=== PATIENT | male | born 1960 | race Caucasian/White ===

== ENCOUNTER → 2016-03-02 | Outpatient (CLI) | payer MEDICARE, OTHER ==
[~2016-03-02] MED LIST: ASPI1TAB PO; ATOR1TAB18 PO; COUM2TAB10 PO; ELIQ5TAB PO; GABA-283 PO; GLYB5TA PO; INSUDET SC; ISOS30TA4 PO; LASI40TA PO; LISI-538 PO; METF1000 PO; METF500T4 PO; METO5TAB2 PO; NITR4TASL SL; ONGL1TAB9 PO
--- NOTE | 2016-03-02 15:50 | REP ---
RENAL ULTRASOUND: Real-time sonographic evaluation of the kidneys performed and demonstrates both kidneys to be mildly prominent in size, right kidney measuring 13.8 x 5.5 x 5.9 cm and left kidney 14.3 x 5.6 x 6.5 cm. There is no hydronephrosis bilaterally. No renal mass or nephrolithiasis is seen. Urinary bladder is not distended and not evaluated. IMPRESSION: Mildly prominent size of the kidneys, but otherwise negative renal ultrasound. Signed by Edgar Yanes MD 03/03/2016 05:06 P
== END ==
LOC: M RAD 07:47
PROVIDERS: ATTEND Family Medicine
DX: E11.21 Type 2 diabetes mellitus with diabetic nephropathy (principal)

== ENCOUNTER → 2016-03-29 | Outpatient (CLI) | payer MEDICARE, OTHER ==
[~2016-03-29] MED LIST changes: +BREO1INH INH; +FURO1TAB15 PO; +GLIP5TAB8 PO; +INSULANT SC; +OXYC-517 PO; +PROA1AER INH; +SPIR25TA2 PO; +VITA100037 PO
== END ==
LOC: M CARPUL 08:28
PROVIDERS: ATTEND Family Medicine
DX: J44.1 Chronic obstructive pulmonary disease with (acute) exacerbation (principal)

== ENCOUNTER → 2016-03-31 | Outpatient (CLI) | payer OTHER, MEDICARE ==
[~2016-03-31] VITALS: Ht 175.3 cm; Wt 104.3 kg
[~2016-03-31] MED LIST changes: +LIDOCAINE 2% INJ 100 MG/5 ML SDV (FOR ANES.) As Ordered ONE; +NS 1,000 ML IV SCH; +PROPOFOL 200 MG/20 ML VIAL As Ordered ONE; +fentaNYL 100 MCG/2 ML INJECTION (J3010) As Ordered ONE
--- NOTE | 2016-03-31 07:51 | ROOR ---
Patient Name: Gonzalez Soliz Procedure Date: 03/31/2016 7:32 AM Date of : 1960 Age: 55 Room: [facility] Gender: Male Note Status: Finalized Procedure: Upper GI endoscopy + biopsies Indications: Heartburn, Exclusion of Vyas's esophagus Providers: Moe Starr MD Referring MD: Ansley SANDHU MD Requesting Provider: Medicines: Monitored Anesthesia Care Complications: No immediate complications. Procedure: Pre-Anesthesia Assessment: - The heart rate, respiratory rate, oxygen saturations, blood pressure, adequacy of pulmonary ventilation, and response to care were monitored throughout the procedure. The Endoscope was introduced through the mouth, and advanced to the second part of duodenum. The upper GI endoscopy was accomplished without difficulty. The patient tolerated the procedure well. Findings: The Z-line was irregular and was found 35 cm from the incisors. Multiple biopsies were obtained with cold forceps for evaluation to rule out Vyas's Esophagus randomly at the gastroesophageal junction. A medium-sized hiatal hernia was present. No other significant abnormalities were identified in a careful examination of the stomach. Localized mild inflammation characterized by congestion (edema) and erosions was found in the first portion of the duodenum. The exam was otherwise without abnormality. Impression: - Z-line irregular, 35 cm from the incisors. - Medium-sized hiatal hernia. - Chronic duodenitis. - The examination was otherwise normal. - Multiple biopsies were obtained at the gastroesophageal junction. - The examination was otherwise normal. Recommendation: - Patient has a contact number available for emergencies. The signs and symptoms of potential delayed complications were discussed with the patient. Return to normal activities tomorrow. Written discharge instructions were provided to the patient. - High fiber diet. - Discharge patient to home. - Continue present medications. - Await pathology results. - Telephone GI clinic for pathology results in 1 week. - Return to referring physician. - The findings and recommendations were discussed with the patient's family. Moe Starr MD Moe Starr MD 03/31/2016 7:51:01 AM This report has been signed electronically. Number of Addenda: 0 Note Initiated On: 03/31/2016 7:32 AM Estimated Blood Loss: Estimated blood loss: none.
--- NOTE | 2016-03-31 08:03 | ROOR ---
Patient Name: Gonzalez Soliz Procedure Date: 03/31/2016 7:33 AM Date of : 1960 Age: 55 Room: [facility] Gender: Male Note Status: Finalized Procedure: Colonoscopy to Cecum Indications: Screening for colorectal malignant neoplasm Providers: Moe Starr MD Referring MD: Ansley SANDHU MD Requesting Provider: Medicines: Monitored Anesthesia Care Complications: No immediate complications. Procedure: Pre-Anesthesia Assessment: - The heart rate, respiratory rate, oxygen saturations, blood pressure, adequacy of pulmonary ventilation, and response to care were monitored throughout the procedure. The Colonoscope was introduced through the anus and advanced to the cecum, identified by appendiceal orifice and ileocecal valve. The colonoscopy was performed without difficulty. The patient tolerated the procedure well. The quality of the bowel preparation was excellent. Findings: The perianal and digital rectal examinations were normal. Non-bleeding internal hemorrhoids were found during retroflexion. The hemorrhoids were small and Grade I (internal hemorrhoids that do not prolapse). No other significant abnormalities were identified in a careful examination of the remainder of the colon. The exam was otherwise without abnormality on direct and retroflexion views. Impression: - Non-bleeding internal hemorrhoids. - The examination was otherwise normal on direct and retroflexion views. - No specimens collected. - The exam was otherwise normal to the cecum. Recommendation: - Patient has a contact number available for emergencies. The signs and symptoms of potential delayed complications were discussed with the patient. Return to normal activities tomorrow. Written discharge instructions were provided to the patient. - High fiber diet. - Discharge patient to home. - Continue present medications. - Repeat colonoscopy in 10 years for screening purposes. - Return to referring physician. - The findings and recommendations were discussed with the patient's family. Moe Starr MD Moe Starr MD 03/31/2016 8:03:00 AM This report has been signed electronically. Number of Addenda: 0 Note Initiated On: 03/31/2016 7:33 AM Estimated Blood Loss: Estimated blood loss: none.
[2016-03-31 08:25] VITALS: BP 139/77
== END ==
LOC: M OPP 06:32
PROVIDERS: ATTEND Internal Medicine Gastroenterology
DX: Z12.11 Encounter for screening for malignant neoplasm of colon (principal); K64.0 First degree hemorrhoids; R12 Heartburn; K22.8 Other specified diseases of esophagus; K44.9 Diaphragmatic hernia without obstruction or gangrene; K29.80 Duodenitis without bleeding; I25.10 Atherosclerotic heart disease of native coronary artery without angina pectoris; I48.91 Unspecified atrial fibrillation; Z95.1 Presence of aortocoronary bypass graft; Z95.0 Presence of cardiac pacemaker; R19.4 Change in bowel habit; E78.00 Pure hypercholesterolemia, unspecified; E11.9 Type 2 diabetes mellitus without complications; Z87.891 Personal history of nicotine dependence
CPT/HCPCS: 43239; 88305; 99156; 99157; G0121; J3010

== ENCOUNTER → 2016-04-09 | Outpatient (REF) | payer MEDICARE ==
[~2016-04-09] MED LIST changes: -LIDOCAINE 2% INJ 100 MG/5 ML SDV (FOR ANES.) As Ordered ONE; -NS 1,000 ML IV SCH; -PROPOFOL 200 MG/20 ML VIAL As Ordered ONE; -fentaNYL 100 MCG/2 ML INJECTION (J3010) As Ordered ONE
[2016-04-09 16:33] LABS: INR 1.24
[2016-04-09 16:50] LABS: ALBUMIN 3.1 GM/DL (3.2-5.2); ALBUMIN/GLOBULIN RATIO 0.82 (1.00-1.93); BILIRUBIN,TOTAL 0.8 MG/DL (0.2-1.0); CREATININE FOR GFR 1.51 MG/DL (0.70-1.30); GLOMERULAR FILTRATION RATE 51.3 (>56); TOTAL PROTEIN 6.9 GM/DL (6.4-8.2)
== END ==
LOC: M SFHCLERA 12:09
PROVIDERS: ATTEND Family Medicine
DX: E11.21 Type 2 diabetes mellitus with diabetic nephropathy (principal)
CPT/HCPCS: 80053; 85610; 85730; G0463

== ENCOUNTER 2016-07-06 14:56 | Emergency (ER) | payer OTHER, MEDICARE ==
[~2016-07-06] VITALS: Ht 175.3 cm; Wt 108.9 kg
[2016-07-06 14:56] VITALS: BP 157/87
== END 2016-07-06 16:01 | disposition home or self-care (01) ==
LOC: M ED 15:56
DX: H53.8 Other visual disturbances (principal); I25.2 Old myocardial infarction; I11.0 Hypertensive heart disease with heart failure; I50.9 Heart failure, unspecified; E78.00 Pure hypercholesterolemia, unspecified; M54.9 Dorsalgia, unspecified; F41.9 Anxiety disorder, unspecified; Z87.891 Personal history of nicotine dependence; Z88.8 Allergy status to other drugs, medicaments and biological substances; Z79.899 Other long term (current) drug therapy; Z79.01 Long term (current) use of anticoagulants; Z79.891 Long term (current) use of opiate analgesic; Z79.51 Long term (current) use of inhaled steroids; Z79.4 Long term (current) use of insulin; Z95.5 Presence of coronary angioplasty implant and graft; Z95.1 Presence of aortocoronary bypass graft; Z86.73 Personal history of transient ischemic attack (TIA), and cerebral infarction without residual deficits

== ENCOUNTER 2016-09-28 14:20 | Emergency (ER) | payer MEDICARE, OTHER ==
[~2016-09-28] VITALS: Ht 175.3 cm; Wt 111.8 kg
[~2016-09-28 14:20] MED LIST changes: -ATOR1TAB18 PO; +ATOR80TA59 PO; -COUM2TAB10 PO; +COUM2TAB22 PO; -FURO1TAB15 PO; +FURO80TA2 PO; -METF1000 PO; +METF10004 PO; -PROA1AER INH; +PROAAER10 INH; -VITA100037 PO; +VITA100067 PO
[2016-09-28] MEDS ORDERED: INSULANT SC ×2 (14:37)
[2016-09-28] MEDS ORDERED: NS 1,000 ML IV SCH (14:46)
[2016-09-28] MEDS: NITROGLYCERIN 0.4 MG SUBL TABLET SL PRN ×2 (15:03→15:08)
[2016-09-28 15:08] VITALS: BP 115/60
[2016-09-28 15:23] LABS: INR 1.22
[2016-09-28 15:29] LABS: BASO % 0.4 % (0.0-1.0); EOS # 0.2 K/mm3 (0.0-0.50); EOS % 2.1 % (0.0-3.0); LARGE UNSTAINED CELL # 0.1 K/mm3 (0.0-0.4); LARGE UNSTAINED CELL % 0.9 % (0.0-4.0); LYMPH # 1.7 K/mm3 (1.5-4.5); LYMPH % 16.6 % (24.0-44.0); MEAN CORPUSCULAR HGB CONC 32.6 g/dl (32.0-36.5); MEAN CORPUSCULAR VOLUME 85.9 fl (80.0-96.0); MONO # 0.5 K/mm3 (0.0-0.8); MONO % 4.8 % (0.0-5.0); NEUTROPHILS # 7.2 K/mm3 (1.8-7.7); NEUTROPHILS % 75.1 % (36.0-66.0); PLATELET COUNT, AUTOMATED 173 k/mm3 (150-450); RED CELL DISTRIBUTION WIDTH 14.8 % (11.5-14.5); WHITE BLOOD COUNT 9.5 K/mm3 (4.0-10.0)
[2016-09-28] MEDS ORDERED: ACETAMINOPHEN 325 MG TAB PO ONE (15:30)
[2016-09-28 15:40] LABS: ALBUMIN 3.2 GM/DL (3.2-5.2); ALBUMIN/GLOBULIN RATIO 0.7 (1.00-1.93); BILIRUBIN,DIRECT 0.2 MG/DL (0.0-0.2); BILIRUBIN,TOTAL 0.8 MG/DL (0.2-1.0); CALCIUM LEVEL 8.9 MG/DL (8.5-10.1); CREATININE FOR GFR 1.85 MG/DL (0.70-1.30); GLOMERULAR FILTRATION RATE 40.6 (>56); TOTAL PROTEIN 7.8 GM/DL (6.4-8.2)
[2016-09-28 15:48] LABS: POTASSIUM SERUM 5.5 MEQ/L (3.5-5.1)
[2016-09-28] MEDS ORDERED: HEPARIN DRIP 25,000 UNITS in APPROPRIATE DILUENT 1 EA IV SCH (16:22)
--- NOTE | 2016-09-28 16:25 | REP ---
Chest one-view HISTORY: Chest pain Comparison 01/31/2016 The lungs are clear. The cardiac silhouette is enlarged. The pulmonary vasculature is normal in appearance. Impression: Cardiomegaly. Signed by Dave Shabazz MD 09/28/2016 04:16 P
[2016-09-28] MEDS ORDERED: HEPARIN SOD (PORCINE) 5000 UNITS/ML VIAL IV ONE ×2 (16:30)
[2016-09-28] MEDS ORDERED: CLOPIDOGREL 300 MG TAB (PLAVIX) PO ONE (16:30)
[2016-09-28 18:45] VITALS: BP 150/60
--- NOTE | 2016-09-29 13:59 | ECGEPIP ---
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
== END 2016-09-28 19:15 | disposition short-term general hospital (02) ==
LOC: M ED 14:20
DX: I21.4 Non-ST elevation (NSTEMI) myocardial infarction (principal); I20.0 Unstable angina; K85.90 Acute pancreatitis without necrosis or infection, unspecified; R06.02 Shortness of breath; E11.9 Type 2 diabetes mellitus without complications; I51.9 Heart disease, unspecified; Z86.73 Personal history of transient ischemic attack (TIA), and cerebral infarction without residual deficits; G89.29 Other chronic pain; Z95.5 Presence of coronary angioplasty implant and graft; Z95.1 Presence of aortocoronary bypass graft; Z87.891 Personal history of nicotine dependence; Z88.8 Allergy status to other drugs, medicaments and biological substances; Z79.899 Other long term (current) drug therapy; Z79.01 Long term (current) use of anticoagulants; Z79.891 Long term (current) use of opiate analgesic; Z79.4 Long term (current) use of insulin

== ENCOUNTER 2016-11-12 16:36 | Inpatient (IN) | payer MEDICARE ==
[~2016-11-12] VITALS: Ht 175.3 cm; Wt 107.3 kg
[2016-11-12] MEDS ORDERED: CLOP75TA2 PO (16:48)
--- NOTE | 2016-11-12 18:16 | REP ---
Clinical: Shortness of breath. Technique: PA and lateral. Comparison: 09/28/2016. Findings: Cardiomegaly remains stable. Increased bilateral lung markings and findings to suggest cephalization are most compatible with pulmonary vascular congestion and interstitial edema. Lateral view suggest small pleural effusion. Differential diagnosis would include bronchitis. No focal consolidation. No pneumothorax. Skeletal structures intact. Impression: Findings suggest pulmonary vascular congestion/interstitial edema versus bronchitis. Signed by Leobardo Cochran MD 11/12/2016 06:07 P
--- NOTE | 2016-11-12 18:16 | REP ---
Clinical: Pain and swelling . Technique: Yanes scale and color Doppler evaluation using linear high frequency transducer. Findings: Ultrasound examination of the right and left lower extremity deep venous structures from the common femoral vein to the popliteal vein demonstrates normal compressibility flow and wave patterns in response to respiration and augmentation. There is no evidence for deep venous thrombosis. Impression: No evidence for deep venous thrombosis bilaterally . Signed by Leobardo Cochran MD 11/12/2016 06:08 P
[2016-11-12 18:39] LABS: BASO % 0.2 % (0.0-1.0); EOS # 0.1 K/mm3 (0.0-0.50); EOS % 1.7 % (0.0-3.0); LARGE UNSTAINED CELL # 0.1 K/mm3 (0.0-0.4); LARGE UNSTAINED CELL % 1.4 % (0.0-4.0); LYMPH # 1.4 K/mm3 (1.5-4.5); LYMPH % 22.6 % (24.0-44.0); MEAN CORPUSCULAR HGB CONC 32.9 g/dl (32.0-36.5); MEAN CORPUSCULAR VOLUME 88.3 fl (80.0-96.0); MONO # 0.4 K/mm3 (0.0-0.8); MONO % 6.7 % (0.0-5.0); NEUTROPHILS # 4.2 K/mm3 (1.8-7.7); NEUTROPHILS % 67.4 % (36.0-66.0); PLATELET COUNT, AUTOMATED 217 k/mm3 (150-450); WHITE BLOOD COUNT 6.3 K/mm3 (4.0-10.0)
[2016-11-12] MEDS ORDERED: GABA800T PO (18:39)
[2016-11-12] MEDS ORDERED: ACET50TAOT PO (18:39)
[2016-11-12] MEDS ORDERED: METO5TAB2 PO (18:39)
[2016-11-12] MEDS ORDERED: ASPI1TAB PO (18:39)
[2016-11-12 18:46] LABS: INR 1.31
[2016-11-12 19:00] LABS: ALBUMIN 2.9 GM/DL (3.2-5.2); ALBUMIN/GLOBULIN RATIO 0.71 (1.00-1.93); BILIRUBIN,DIRECT 0.2 MG/DL (0.0-0.2); BILIRUBIN,TOTAL 0.9 MG/DL (0.2-1.0); CALCIUM LEVEL 8.6 MG/DL (8.5-10.1); CREATININE FOR GFR 1.59 MG/DL (0.70-1.30); FREE T4 1.29 NG/DL (0.76-1.46); GLOMERULAR FILTRATION RATE 48.4 (>56); POTASSIUM SERUM 3.8 MEQ/L (3.5-5.1)
[2016-11-12] MEDS ORDERED: FUROSEMIDE 40 MG/4 ML VIAL (J1940) IV ONE (20:00)
[2016-11-12] MEDS ORDERED: ACETAMINOPHEN TAB 650MG DOSE (2X325MG) PO PRN (20:45)
[2016-11-12] MEDS ORDERED: GLUCOSE 4 GM CHEW TABLET PO PRN (20:45)
[2016-11-12] MEDS ORDERED: DEXTROSE 50% 50 ML SYRINGE IV PRN (20:45)
[2016-11-12] MEDS ORDERED: GLUCAGON FOR INJ 1 MG VIAL (J1610) SC PRN (20:45)
[2016-11-12] MEDS: LEVEMIR (INSULIN DETEMIR) 1 UNITS/0.01ML SC SCH (21:00)
[2016-11-12] MEDS: HumaLOG INSULIN (NovoLOG) PER UNIT SC SCH (21:00)
--- NOTE | 2016-11-12 21:25 | HPE ---
DATE OF ADMISSION: 11/12/2016 PRIMARY CARE PROVIDER: [facility]. HISTORY OF PRESENT ILLNESS: This patient is a 55-year-old male with past medical history significant for multiple heart attacks, multiple strokes, congestive heart failure (CHF), diabetes, sick sinus syndrome with a pacemaker, who presented to [facility] on 11/12/2016 for increased shortness of breath. The patient stated that he has gained more than 9 pounds in the last few days. Also noted to have increased shortness of breath with dry cough. He cannot lie flat during sleep. Also noted to have significant lower extremity swelling. Denied any associated symptoms. The patient stated that he has been following fluid restriction and he has been compliant with Lasix 80 mg daily; however, the Lasix used to work for him before but he has noticed that he does not urinate as much as he used to with the same dose of Lasix. ALLERGIES: No known drug allergies. PAST MEDICAL HISTORY: 1. Strokes times two in October 2014 and December 2014. The patient had left sided weakness as a residual. 2. Myocardial infarction times four, status post coronary artery bypass graft (CABG) and stent placement. 3. Diabetes. 4. Sick sinus syndrome, status post pacemaker. PAST SURGICAL HISTORY: 1. Quadruple bypass in 2001. 2. Cardiac stent placement in September 2016. SOCIAL HISTORY: The patient used to smoke one pack daily for 20 years, quit 9 years ago. No alcohol use. No recreational drug use. HOME MEDICATIONS: - Tylenol 1000 mg by mouth as needed for pain - Lasix 80 mg by mouth daily - glipizide 2.5 mg by mouth twice a day - Lantus 36 units subcutaneously twice a day - Reglan 5 mg by mouth daily - nitroglycerine 0.4 mg sublingually as needed for chest pain - Eliquis 5 mg by mouth twice a day - aspirin 81 mg by mouth daily - atorvastatin 80 mg by mouth at night - Plavix 75 mg by mouth daily - gabapentin 800 mg by mouth three times a day - isosorbide mononitrate 30 mg by mouth daily - vitamin D 1000 units by mouth daily REVIEW OF SYSTEMS: GENERAL: No fever. No chills. The patient complains of a 9 pound weight gain in the last 2 days. HEENT: No vision change. No auditory changes. CARDIOVASCULAR: No chest pain. No palpitations. The patient does have significant heart history, including myocardial infarction times four, status post quadruple bypass and stent placement. The patient has sick sinus syndrome and is status post pacemaker. The patient also has a history of congestive heart failure (CHF). RESPIRATORY: Complains about increased shortness of breath with a dry cough in the last 2 days. GASTROINTESTINAL: No nausea. No vomiting. No abdominal pain. MUSCULOSKELETAL: Noticed increased swelling of bilateral lower extremities. NEUROLOGIC: The patient has a history of stroke times two, resulted in left sided numbness. OBJECTIVE: VITAL SIGNS: Temperature is 97.5, pulse is 60, respiration rate is 18, blood pressure is 166/92, pulse oximetry is 100% in room air. GENERAL: No sign of acute distress. Morbidly obese. Alert and oriented times three. HEENT: Normocephalic, atraumatic. Extraocular motors are grossly intact. Positive jugular venous distention (JVD). CARDIOVASCULAR: Positive S1, S2. Regular. Pacer on the monitor. RESPIRATORY: Fine crackles bilaterally but no wheezes. ABDOMEN: Distended. Soft, nontender. Bowel sounds present. EXTREMITIES: 3+ pitting edema bilaterally. Multiple small lesions from frequent falls, mainly on the anterior lower extremities. ASSESSMENT AND PLAN: 1. Congestive heart failure (CHF) exacerbation. The patient will be admitted to the progressive care unit (PCU) on inpatient status. Echocardiogram was performed in 2015 that showed preserved global resting systolic function. We will start the patient on Lasix diuresis with holding parameters. The patient is taking Lasix orally; however, the patient stated that the effectiveness of the 80 mg Lasix has not been as great as before. The patient may need adjusting the diuretic regimen during this hospitalization. The patient will be on fluid restriction. We will monitor input, output and daily weights. 2. Myocardial infarction times four. Status post quadruple coronary bypass in 2001 and cardiac stent placement in September 2016. The patient is on aspirin, statin, isosorbide mononitrate. 3. Stroke times two in October 2014 and December 2014 with left sided numbness as a residual. On aspirin and Plavix and Eliquis. 4. Sick sinus syndrome, status post pacer. 5. Diabetes. On Levemir sliding scale. Consistent carbohydrate diet. 6. Deep vein thrombosis (DVT) prophylaxis. On Eliquis.
[2016-11-12] MEDS: APIXABAN 5 MG TAB (ELIQUIS) PO SCH (21:31)
[2016-11-12] MEDS: ATORVASTATIN 20 MG TAB PO SCH (21:32)
[2016-11-12 22:03] VITALS: BP 120/75
[2016-11-12] MEDS: GABAPENTIN 400 MG CAP PO SCH (22:17)
[2016-11-13] VITALS (8 sets, daily range): BP systolic 106–159; BP diastolic 56–85
[2016-11-13] MEDS: FUROSEMIDE 100 MG/10 ML VIAL (J1940) IV SCH ×4 (00:15→17:50)
[2016-11-13 07:25] LABS: MEAN CORPUSCULAR HEMOGLOBIN 27.8 pg (27.0-33.0); MEAN CORPUSCULAR HGB CONC 31.4 g/dl (32.0-36.5); MEAN CORPUSCULAR VOLUME 88.5 fl (80.0-96.0); RED CELL DISTRIBUTION WIDTH 16.1 % (11.5-14.5); WHITE BLOOD COUNT 8.2 K/mm3 (4.0-10.0)
[2016-11-13 07:50] LABS: CALCIUM LEVEL 8.7 MG/DL (8.5-10.1); CREATININE FOR GFR 1.63 MG/DL (0.70-1.30); MAGNESIUM LEVEL 2.1 MG/DL (1.8-2.4); POTASSIUM SERUM 4.2 MEQ/L (3.5-5.1)
[2016-11-13] MEDS: LEVEMIR (INSULIN DETEMIR) 1 UNITS/0.01ML SC SCH ×2 (09:25→20:20)
[2016-11-13] MEDS: HumaLOG INSULIN (NovoLOG) PER UNIT SC SCH ×4 (09:25→20:21)
[2016-11-13] MEDS: VITAMIN D 1,000 INTERNATIONAL UNITS TABLET PO SCH (09:26)
[2016-11-13] MEDS: GABAPENTIN 400 MG CAP PO SCH ×3 (09:26→20:21)
[2016-11-13] MEDS: ASPIRIN 81 MG ENTERIC TAB PO SCH (09:26)
[2016-11-13] MEDS: APIXABAN 5 MG TAB (ELIQUIS) PO SCH ×2 (09:26→20:21)
[2016-11-13] MEDS: CLOPIDOGREL 75 MG TAB PO SCH (09:27)
[2016-11-13] MEDS: ISOSORBIDE MON. (IMDUR) 30 MG XR TAB PO SCH (09:28)
--- NOTE | 2016-11-13 11:23 | IPNPDOC ---
Subjective Date Seen The patient was seen on 11/13/16. Subjective Chief Complaint/HPI The patient is a 55-year-old male admitted with a reason for visit of Chf Exacerbation. Examined at beside. States he feels better from admission, not feeling as short of breath, and is able to finally lay flat. States he is urinating more since admission, and LE swelling is about the same for now. No acute complaints. Constitutional: Denies: Chills, Fever ENT: Denies: Dysphagia Pulmonary: Reports: Dyspnea (much improvement), Denies: Cough Cardiovascular: Reports: Orthopnea (resolving), Paroxysmal Noc. Dyspnea ( improving), Edema (improving), Denies: Chest Pain, Lt Headedness Gastrointestinal: Denies: Nausea, Vomiting, Abdominal Pain Objective Physical Examination General Exam: Positive: Alert, Cooperative, No Acute Distress Eye Exam: Positive: EOMI Neck Exam: Positive: Supple, Negative: JVD (difficult to assess due to body habitus) Chest Exam: Positive: Normal air movement, Rales (b/l lower bases) Heart Exam: Positive: Rate Normal, Regular Rhythm, Normal S1, Normal S2 Abdomen Exam: Positive: Normal bowel sounds, Soft, Negative: Tenderness Extremity Exam: Positive: Edema (2+ b/l LE), Negative: Cyanosis, Tenderness Neuro Exam: Positive: Normal Speech, Negative: Sensation Intact (loss of sensation on left side of body 2/2 previous strokes) Psych Exam: Positive: Mental status NL, Mood NL, Oriented x 3 Assessment /Plan Assessment CHF exacerbation -pt feeling better since admission after diuresing -Continue Lasix IV 80mg q6h, with holding parameters (SBP< 110, HR<60). Possibly switch his home Lasix (PO 80mg) to Torsemide as pt stated he felt it was ineffective -continue fluid restriction. Monitor I/O's, daily weights -PENDING: echo. Previous echo in 2016 showed preserved systolic function Hx of MIs x4 -s/p CABG in 2001, stent in 10/14. -ASA, Imdur, Atorvastatin Hx Stroke x2 -ASA, Plavix, Eliquis Hx of Sick Sinus Syndrome -pacemaker present Diabetes, uncontrolled -pt non-compliant with Insulin at home. A1C at 7.4 -ISS, consistent carb diet -Gabapentin DVT prophylaxis: Eliquis Plan/VTE VTE Prophylaxis Ordered?: Yes VS, I&O, 24H, Fishbone Vital Signs/I&O Vital Signs Date Time Temp Pulse Resp B/P (MAP) Pulse Ox O2 Delivery O2 Flow Rate FiO2 11/13/16 04:15 97.3 60 20 149/79 (102) 97 Room Air 11/12/16 18:34 96 I&O- Last 24 Hours up to 6 AM 11/13/16 05:59 Intake Total 190 ml Output Total 1900 ml Balance -1710 ml Laboratory Data 24H LABS Laboratory Tests 2 11/12/16 18:28: White Blood Count 6.3, Red Blood Count 3.78L, Hemoglobin 11.0L, Hematocrit 33.3L , Mean Corpuscular Volume 88.3, Mean Corpuscular Hemoglobin 29.0, Mean Corpuscular Hemoglobin Concent 32.9, Red Cell Distribution Width 16.0H, Platelet Count 217, Neutrophils (%) (Auto) 67.4H, Lymphocytes (%) (Auto) 22.6L, Monocytes (%) (Auto) 6.7H, Eosinophils (%) (Auto) 1.7, Basophils (%) (Auto) 0.2 , Neutrophils # (Auto) 4.2, Lymphocytes # (Auto) 1.4L, Monocytes # (Auto) 0.4, Eosinophils # (Auto) 0.1, Basophils # (Auto) 0.0, Large Unclassified Cells % 1.4 , Large Unclassified Cells # 0.1, Prothrombin Time 16.6H, Prothromb Time International Ratio 1.31, Activated Partial Thromboplast Time 35.1, Anion Gap 8 , Glomerular Filtration Rate 48.4L, Calcium Level 8.6, Aspartate Amino Transf ( AST/SGOT) 22, Alanine Aminotransferase (ALT/SGPT) 23, Alkaline Phosphatase 182H , Total Bilirubin 0.9, Direct Bilirubin 0.2, Total Creatine Kinase 320H, Creatine Kinase MB 4.9H, Creatine Kinase MB Relative Index 1.53, Troponin I 0.05 , B-Type Natriuretic Peptide 852H, Total Protein 7.0, Albumin 2.9L, Albumin/ Globulin Ratio 0.71L, Thyroid Stimulating Hormone (TSH) 1.140, Free Thyroxine 1.29 11/12/16 21:15: Bedside Glucose (Misc Panel) 77 11/13/16 07:03: Anion Gap 7L, Glomerular Filtration Rate 47.0L, Calcium Level 8.7, Thyroid Stimulating Hormone (TSH) 0.940, Estimated Mean Plasma Glucose 166H, Hemoglobin A1c 7.4H, Magnesium Level 2.1, Triglycerides Level 73, LDL Cholesterol 38.4, Total Cholesterol 88, Non-HDL Cholesterol (LDL + VLDL) 53, Total HDL Cholesterol 35L, Cholesterol/HDL Ratio 2.514 CBC/BMP Laboratory Tests 11/12/16 18:28 Red Blood Count 3.78 L, Mean Corpuscular Volume 88.3, Mean Corpuscular Hemoglobin 29.0, Mean Corpuscular Hemoglobin Concent 32.9, Red Cell Distribution Width 16.0 H, Neutrophils (%) (Auto) 67.4 H, Lymphocytes (%) (Auto ) 22.6 L, Monocytes (%) (Auto) 6.7 H, Eosinophils (%) (Auto) 1.7, Basophils (%) (Auto) 0.2, Neutrophils # (Auto) 4.2, Lymphocytes # (Auto) 1.4 L, Monocytes # ( Auto) 0.4, Eosinophils # (Auto) 0.1, Basophils # (Auto) 0.0 11/13/16 07:03 Red Blood Count 3.99 L, Mean Corpuscular Volume 88.5, Mean Corpuscular Hemoglobin 27.8, Mean Corpuscular Hemoglobin Concent 31.4 L, Red Cell Distribution Width 16.1 H GME ATTESTATION GME ATTESTATION My preceptor for this patient encounter was physically present in the building during the encounter and was fully available. As needed, all aspects of the patient interview, examination, medical decision making process, and medical care plan development were reviewed and approved by the preceptor. Preceptor is aware and concurs with the plan as stated in the body of this note and will attest to such by his/her cosignature. ATTENDING NOTE I, Jeremi Donnelly, have both independently examined this patient as well as reviewed the documentation. I have discussed in detail with the resident the findings and plan of treatment as documented in the residents documentation. I will continue to follow the patient and offer further guidance to the patients care as necessary during this hospital stay. MATTY MALDONADO DO Nov 13, 2016 09:09 JEREMI DONNELLY MD Dec 07, 2016 12:02
--- NOTE | 2016-11-13 12:55 | ECHO ---
DATE: 11/13/2016 INDICATION: Congestive heart failure. Study was performed in emergency department. Patient measures 175 cm and weighs 113 kg. DIMENSIONS: IVS 1.1 LV 5.6 LVPW 1.0 LA 5.3 Aorta 3.3 FINDINGS: The study is of rather difficult technical quality corresponding to patient's body habitus. Patient is in atrial fibrillation with intermittent ventricular pacing. Rate is controlled. FINDINGS: Left ventricle is in upper limits of normal size. There appears to be a septal wall motion abnormality principally localized to distal septum and apex. I suspect that least partly related due to underlying right ventricular pacing, but it appears that there is wall motion abnormality more significant than just to be explained by pacing itself. Overall, left ventricular systolic function though is preserved, I estimate left ventricular ejection fraction (LVEF) around 50-55% . Right ventricle appears mildly dilated but normally contractile. Both atria are enlarged. Left atrium volume index is 32 ml per meter square which would correspond to mild left atrial enlargement. Aortic valve is sclerotic but has preserved mobility. Mitral valve exhibits mild degenerative abnormalities, but mobility of leaflets is preserved. Tricuspid and pulmonic valves appear normal. No pericardial effusion is noted. Inferior vena cava is markedly dilated but has full collapse with respiration indicative of likely mildly elevated central venous pressure. Aortic root is normal. Aortic arch and abdominal aorta were not well seen. There is a pacemaker artifact apparently in right-sided heart chambers. Doppler interrogation reveals no significant aortic stenosis or insufficiency. There is mild mitral insufficiency and mild or possibly mild to moderate tricuspid insufficiency. Calculated pulmonary artery pressure is at least in high 50s or low 60s which would correspond to moderately severe pulmonary hypertension. Evaluation of diastolic function is inconclusive due to underlying atrial fibrillation, but tissue Doppler velocities of mitral annulus are very low (E prime septal 5.0, A prime lateral 4.5 cm/s). This reflects likely advanced diastolic dysfunction. CONCLUSIONS: 1. Study is of fair technical quality. 2. Left ventricle is on upper limits of normal size. There is overall preserved left ventricular (LV) systolic function, but there is septal and apical wall motion abnormality that appears more severe than just to be explained by right ventricular pacing. 3. Likely advanced diastolic dysfunction. 4. Mild mitral and probably mild to moderate tricuspid insufficiency. 5. Elevated central venous pressure. 6. At least moderately severe pulmonary hypertension. 7. Biatrial enlargement. COMMENT: Subacute bacterial endocarditis (SBE) prophylaxis is not recommended. The study is suggestive of both ischemic heart disease as well as pulmonary hypertension. MTDD
--- NOTE | 2016-11-13 17:24 | ECGEPIP ---
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
[2016-11-13] MEDS ORDERED: SLF 3 ML SYR IV PRN (20:00)
[2016-11-13] MEDS: SLF 3 ML SYR IV SCH (20:21)
[2016-11-13] MEDS: ATORVASTATIN 20 MG TAB PO SCH (20:21)
[2016-11-14] MEDS: FUROSEMIDE 100 MG/10 ML VIAL (J1940) IV SCH ×4 (00:46→17:33)
[2016-11-14 03:50] VITALS: BP 123/67
[2016-11-14] MEDS: SLF 3 ML SYR IV SCH ×3 (05:36→21:09)
[2016-11-14 06:17] LABS: MEAN CORPUSCULAR HEMOGLOBIN 28.4 pg (27.0-33.0); MEAN CORPUSCULAR HGB CONC 32.7 g/dl (32.0-36.5); RED CELL DISTRIBUTION WIDTH 15.8 % (11.5-14.5); WHITE BLOOD COUNT 6.7 K/mm3 (4.0-10.0)
[2016-11-14 06:22] LABS: CALCIUM LEVEL 8.8 MG/DL (8.5-10.1); CREATININE FOR GFR 1.53 MG/DL (0.70-1.30); GLOMERULAR FILTRATION RATE 50.6 (>56)
[2016-11-14 07:59] VITALS: BP 125/74
[2016-11-14] MEDS: GABAPENTIN 400 MG CAP PO SCH ×3 (08:52→20:25)
[2016-11-14] MEDS: ISOSORBIDE MON. (IMDUR) 30 MG XR TAB PO SCH (08:53)
[2016-11-14] MEDS: CLOPIDOGREL 75 MG TAB PO SCH (08:53)
[2016-11-14] MEDS: ASPIRIN 81 MG ENTERIC TAB PO SCH (08:53)
[2016-11-14] MEDS: VITAMIN D 1,000 INTERNATIONAL UNITS TABLET PO SCH (08:54)
[2016-11-14] MEDS: LEVEMIR (INSULIN DETEMIR) 1 UNITS/0.01ML SC SCH ×2 (08:54→20:42)
[2016-11-14] MEDS: APIXABAN 5 MG TAB (ELIQUIS) PO SCH ×2 (08:54→20:25)
[2016-11-14] MEDS: HumaLOG INSULIN (NovoLOG) PER UNIT SC SCH ×4 (08:55→20:42)
[2016-11-14 11:41] VITALS: BP 116/57
--- NOTE | 2016-11-14 12:10 | IPNPDOC ---
Text Note Date of Service The patient was seen on 11/14/16. NOTE Subjective: Patient is a 55 year old male with a PMHx of CVA (10/2014, 12/2014, L sided weakness), Diastolic CHF, [place] s/p CABG and stent (09/2016), HTN, DLP, IDDM2 , SSS s/p PM, Peripheral neuropathy and Vitamin D deficiency who presented to the ER with complaints of SOB, LE edema and weight gain of 9 lbs over the last few days. He notes that he is compliant with his medications, but still hasn't urinated as much as he used to. He did note a recent history of worsening renal function after his cardiac cath last month. Patient was admitted to PCU for CHF exacerbation. Patient was seen and examined at the bedside. Currently he notes that he has improvement in his breathing, no cough, LE edema has improved. Objective: Vitals (See below) General: Lying in bed, no acute distress, comfortable, AAOx3 HEENT: NC, AT CVS: RRR, +S1S2 Lungs: Fair air entry b/l, + crackles at b/l lung dillon Abdomen: Soft, ND, NT Extremities: 1+ pitting edema bilaterally, - Calf tenderness Assessment and plan: Dyspnea - likely 2/2 decompensated diastolic CHF - possibly 2/2 ineffective lasix dose given recent change in renal function - Presented with SOB, cough and LE edema - Physical shows improvement in his LE edema - BNP elevated at 852 - CXR 11/12: Pulmonary vascular congestion / interstitial edema / bronchitis - ECHO 11/13: Preserved EF, Advanced DD, Septal and Apical wall motion abnormalities - c/w strict ins/outs, daily weights, head of bed elevation - Negative fluid balance of 4000 cc currently - will c/w net negative protocol with Lasix 80 IV q6h CAD s/p CABG and Recent Stent placement - No chest pain currently - EKG reveals paced rhythm - Troponin x1 not elevated - Will request records from [facility] to determine where patient received stent - c/w ASA, Plavix, Atorvastatin, Isosorbide Mononitrate, Elevated Cr on CKD3 - possibly cardiorenal, possibly medication induced (Lasix) - Baseline Cr of 1.3-1.5 - Remains stable from admission at 1.59 - Will continue to follow Cr Hypernatremia - possibly 2/2 lasix - will continue to monitor Normocytic anemia - Hg baseline of 12-13 - Currently lower at 11 - will continue to monitor CVA (10/2014, 12/2014) - c/w ASA, Plavix and Atorvastatin SSS s/p PM IDDM2 - c/w ISS and Levemir Vitamin D deficiency - c/w Supplementation DVT prophylaxis - on full anticoagulation with Eliquis VS,Fishbone, I+O VS, Fishbone, I+O Laboratory Tests 11/14/16 05:33 Red Blood Count 3.80 L, Mean Corpuscular Volume 87.0, Mean Corpuscular Hemoglobin 28.4, Mean Corpuscular Hemoglobin Concent 32.7, Red Cell Distribution Width 15.8 H, Calcium Level 8.8 Vital Signs Date Time Temp Pulse Resp B/P (MAP) Pulse Ox O2 Delivery O2 Flow Rate FiO2 11/14/16 11:41 97.2 59 18 116/57 (76) 93 Room Air 11/12/16 18:34 96 I&O- Last 24 Hours up to 6 AM 11/14/16 06:00 Intake Total 1240 ml Output Total 2920 ml Balance -1680 ml JESUS DONNELLY MD Nov 14, 2016 12:10
[2016-11-14 15:57] VITALS: BP 128/67
[2016-11-14 19:59] VITALS: BP 143/69
[2016-11-14] MEDS: ATORVASTATIN 20 MG TAB PO SCH (20:25)
[2016-11-15] VITALS (8 sets, daily range): BP systolic 117–156; BP diastolic 70–86
[2016-11-15] MEDS: FUROSEMIDE 100 MG/10 ML VIAL (J1940) IV SCH ×3 (00:57→17:18)
[2016-11-15 05:22] LABS: MEAN CORPUSCULAR HEMOGLOBIN 27.7 pg (27.0-33.0); MEAN CORPUSCULAR HGB CONC 31.5 g/dl (32.0-36.5); RED CELL DISTRIBUTION WIDTH 15.8 % (11.5-14.5); WHITE BLOOD COUNT 7.5 K/mm3 (4.0-10.0)
[2016-11-15 05:43] LABS: CALCIUM LEVEL 9.3 MG/DL (8.5-10.1); CREATININE FOR GFR 1.66 MG/DL (0.70-1.30); MAGNESIUM LEVEL 2.1 MG/DL (1.8-2.4); POTASSIUM SERUM 3.5 MEQ/L (3.5-5.1)
[2016-11-15] MEDS: SLF 3 ML SYR IV SCH ×3 (06:06→20:06)
[2016-11-15] MEDS: LEVEMIR (INSULIN DETEMIR) 1 UNITS/0.01ML SC SCH ×2 (08:52→20:06)
[2016-11-15] MEDS: ISOSORBIDE MON. (IMDUR) 30 MG XR TAB PO SCH (08:53)
[2016-11-15] MEDS: ASPIRIN 81 MG ENTERIC TAB PO SCH (08:53)
[2016-11-15] MEDS: HumaLOG INSULIN (NovoLOG) PER UNIT SC SCH ×4 (08:53→20:06)
[2016-11-15] MEDS: VITAMIN D 1,000 INTERNATIONAL UNITS TABLET PO SCH (08:53)
[2016-11-15] MEDS: CLOPIDOGREL 75 MG TAB PO SCH (08:53)
[2016-11-15] MEDS: APIXABAN 5 MG TAB (ELIQUIS) PO SCH ×2 (08:53→20:05)
[2016-11-15] MEDS: GABAPENTIN 400 MG CAP PO SCH ×3 (09:36→20:05)
--- NOTE | 2016-11-15 11:40 | IPNPDOC ---
Text Note Date of Service The patient was seen on 11/15/16. NOTE Subjective: Patient is a 55 year old male with a PMHx of CVA (10/2014, 12/2014, L sided weakness), Diastolic CHF, [place] s/p CABG and stent (09/2016), HTN, DLP, IDDM2 , SSS s/p PM, Peripheral neuropathy and Vitamin D deficiency who presented to the ER with complaints of SOB, LE edema and weight gain of 9 lbs over the last few days. He notes that he is compliant with his medications, but still hasn't urinated as much as he used to. He did note a recent history of worsening renal function after his cardiac cath last month. Patient was admitted to PCU for CHF exacerbation. Patient was seen and examined at the bedside. He notes that his breathing is continues to do well, no cough, chest pain or palpitations. He notes that is LE edema has improved significantly. I asked him about his recent cardiac catheterization and which artery was stented, he was unsure. Noted that his girlfriend has his wallet with the card indicating what was done. Objective: Vitals (See below) General: Lying in bed, no acute distress, comfortable, AAOx3 HEENT: NC, AT CVS: RRR, +S1S2 Lungs: Fair air entry b/l, no appreciable crackles at b/l lung dillon Abdomen: Soft, ND, NT Extremities: 1+ pitting edema bilaterally, - Calf tenderness Assessment and plan: Dyspnea - likely 2/2 decompensated diastolic CHF - possibly 2/2 ineffective lasix dose given recent change in renal function - Presented with SOB, cough and LE edema - Physical shows resolution of lung crackles and significant improvement in his LE edema - BNP elevated at 852 on admission - CXR 11/12: Pulmonary vascular congestion / interstitial edema / bronchitis - ECHO 11/13: Preserved EF, Advanced DD, Septal and Apical wall motion abnormalities - c/w strict ins/outs, daily weights, head of bed elevation - Negative fluid balance of 4500 cc currently - Will reduce lasix to 80 IV q12h CAD s/p CABG and Recent Stent placement - No chest pain currently - EKG reveals paced rhythm - Troponin x1 not elevated - ECHO 11/13: Indicated Septal and Apical wall motion abnormalities - Awaiting records from [facility] to determine where patient received stent - c/w ASA, Plavix, Atorvastatin, Isosorbide Mononitrate, Elevated Cr on CKD3 - possibly medication induced (Lasix) - Baseline Cr of 1.3-1.5 - Recent history of acute renal failure last month (09/2016) that was contrast induced from cardiac catheterization - Mildly elevated Cr, currently at 1.66 - Will reduce dose of Lasix to 80 q12H s/p Hypernatremia Normocytic anemia - Hg baseline of 12-13 - Currently lower at 11 - Remains stable - will continue to monitor CVA (10/2014, 12/2014) - c/w ASA, Plavix and Atorvastatin SSS s/p PM IDDM2 - c/w ISS and Levemir Vitamin D deficiency - c/w Supplementation DVT prophylaxis - on full anticoagulation with Eliquis VS,Fishbone, I+O VS, Fishbone, I+O Laboratory Tests 11/15/16 04:56 Red Blood Count 4.07 L, Mean Corpuscular Volume 88.0, Mean Corpuscular Hemoglobin 27.7, Mean Corpuscular Hemoglobin Concent 31.5 L, Red Cell Distribution Width 15.8 H, Calcium Level 9.3 Vital Signs Date Time Temp Pulse Resp B/P (MAP) Pulse Ox O2 Delivery O2 Flow Rate FiO2 11/15/16 08:53 131/70 11/15/16 08:00 98.1 60 18 96 Room Air 11/12/16 18:34 96 I&O- Last 24 Hours up to 6 AM 11/15/16 06:00 Intake Total 1520 ml Output Total 2550 ml Balance -1030 ml JESUS DONNELLY MD Nov 15, 2016 11:40
[2016-11-15] MEDS: DOCUSATE SODIUM 100 MG CAP PO SCH (20:05)
[2016-11-15] MEDS: ATORVASTATIN 20 MG TAB PO SCH (20:05)
[2016-11-15] MEDS: SENNA 8.6 MG TAB (SENOKOT) PO SCH (20:06)
[2016-11-16 04:00] VITALS: BP 128/71
[2016-11-16 05:34] LABS: MEAN CORPUSCULAR HEMOGLOBIN 28.9 pg (27.0-33.0); MEAN CORPUSCULAR HGB CONC 33.1 g/dl (32.0-36.5); MEAN CORPUSCULAR VOLUME 87.2 fl (80.0-96.0); RED CELL DISTRIBUTION WIDTH 15.5 % (11.5-14.5); WHITE BLOOD COUNT 8.2 K/mm3 (4.0-10.0)
[2016-11-16] MEDS: SLF 3 ML SYR IV SCH (05:36)
[2016-11-16] MEDS: FUROSEMIDE 100 MG/10 ML VIAL (J1940) IV SCH (05:36)
[2016-11-16 05:47] LABS: CALCIUM LEVEL 9.4 MG/DL (8.5-10.1); CREATININE FOR GFR 1.61 MG/DL (0.70-1.30); GLOMERULAR FILTRATION RATE 47.7 (>56); MAGNESIUM LEVEL 2.2 MG/DL (1.8-2.4); POTASSIUM SERUM 4.1 MEQ/L (3.5-5.1)
[2016-11-16 08:00] VITALS: BP 146/68
[2016-11-16] MEDS: SENNA 8.6 MG TAB (SENOKOT) PO SCH (08:24)
[2016-11-16] MEDS: HumaLOG INSULIN (NovoLOG) PER UNIT SC SCH (08:24)
[2016-11-16] MEDS: DOCUSATE SODIUM 100 MG CAP PO SCH (08:24)
[2016-11-16] MEDS: APIXABAN 5 MG TAB (ELIQUIS) PO SCH (08:24)
[2016-11-16] MEDS: ASPIRIN 81 MG ENTERIC TAB PO SCH (08:24)
[2016-11-16 08:25] VITALS: BP 146/68
[2016-11-16] MEDS: ISOSORBIDE MON. (IMDUR) 30 MG XR TAB PO SCH (08:25)
[2016-11-16] MEDS: VITAMIN D 1,000 INTERNATIONAL UNITS TABLET PO SCH (08:25)
[2016-11-16] MEDS: CLOPIDOGREL 75 MG TAB PO SCH (08:25)
[2016-11-16] MEDS: GABAPENTIN 400 MG CAP PO SCH (08:25)
[2016-11-16] MEDS: LEVEMIR (INSULIN DETEMIR) 1 UNITS/0.01ML SC SCH (08:26)
[2016-11-16] MEDS ORDERED: LASI40TA PO (10:23)
[2016-11-16 12:00] VITALS: BP 121/65
--- NOTE | 2016-11-16 17:07 | DS.PDOC ---
Discharge Summary General Date of Admission Nov 12, 2016 at 20:37 Date of Discharge 11/16/16 Attending Physician: MANPREET GALICIA MD Discharge Summary PROCEDURES PERFORMED DURING STAY: None. ADMITTING/DISCHARGE DIAGNOSES: 1. Acute decompensated diastolic heart failure 2. History of CAD status post CABG and PCI 3. KAROLINA on CKD 4. Normocytic anemia 5. History of CVA 2 6. SSS status post PPM 7. Insulin-dependent diabetes mellitus 8. History of vitamin D deficiency 9. Hypernatremia, resolved COMPLICATIONS/CHIEF COMPLAINT: Shortness of breath HISTORY OF PRESENT ILLNESS/HOSPITAL COURSE: This is a 55-year-old male with past medical history of CAD status post CABG and PCI, CVA 2, diastolic heart failure who presents complaining of shortness of breath, orthopnea, and increased lower extremity edema. Patient states his swelling has been progressively getting worse since his recent admission last month at [facility]. The patient presents with acute decompensated diastolic heart failure and has been aggressively diuresed, and has tolerated diuresis very well. The patient's currently is able to lay flat in bed. He denies any dyspnea. His lower extremity edema is much improved. Patient will be discharged today as he is hemodynamically stable and his heart failure is compensated at this point. He states he has not changed his diet, and has not had increase in fluid and sodium intake. His Lasix will be increased to 60 mg twice a day, with a BMP prescription to be completed on with results to be sent to his primary care physician. Patient will also need to follow-up with his sr vice president in 1 week. Fluid restriction 800 mL per day. DISCHARGE MEDICATIONS: Please see below. ALLERGIES: Please see below. PHYSICAL EXAMINATION ON DISCHARGE: Vitals: (see below) General: No acute distress, laying comfortably in bed. HEENT: Moist mucous membranes. Neck: No JVD or lymphadenopathy Cardiac: RRR, No murmurs Pulm: Clear to auscultation b/l. No wheezing, rhonchi Abd: NT/ND + BS Ext: Trace edema bilateral lower extremities. No cyanosis. Distal pulses intact. Edema or cyanosi LABORATORY DATA: Please see below. IMAGING: PROGNOSIS: Fair ACTIVITY: As tolerated. DIET: Low-sodium diet, 1800 mL fluid retraction DISCHARGE PLAN/DISPOSITION: Discharged home DISCHARGE INSTRUCTIONS: Follow-up with PCP and cardiology in 1 week. DISCHARGE CONDITION: Stable. TIME SPENT ON DISCHARGE: Greater than 30 minutes. Vital Signs/I&Os Vital Signs Date Time Temp Pulse Resp B/P (MAP) Pulse Ox O2 Delivery O2 Flow Rate FiO2 11/16/16 12:00 98.0 61 18 121/65 (83) 93 Room Air 11/12/16 18:34 96 I&O- Last 24 Hours up to 6 AM 11/16/16 06:00 Intake Total 2040 ml Output Total 2625 ml Balance -585 ml Laboratory Data Labs 24H Laboratory Tests 2 11/15/16 20:03: Bedside Glucose (Misc Panel) 199H 11/16/16 05:14: Anion Gap 6L, Glomerular Filtration Rate 47.7L, Blood Urea Nitrogen 31H, Creatinine 1.61H, Sodium Level 144, Potassium Level 4.1, Chloride Level 104, Carbon Dioxide Level 34H, Calcium Level 9.4, Magnesium Level 2.2 CBC/BMP Laboratory Tests 11/16/16 05:14 Red Blood Count 4.22 L, Mean Corpuscular Volume 87.2, Mean Corpuscular Hemoglobin 28.9, Mean Corpuscular Hemoglobin Concent 33.1, Red Cell Distribution Width 15.5 H, Calcium Level 9.4 FSBS Laboratory Tests Test 11/15/16 20:03 Range/Units Bedside Glucose (Misc Panel) 199 70-105 MG/DL Discharge Medications Scheduled Apixaban Base (Eliquis) 5 Mg Tab, 5 MG PO BID, (Reported) Aspirin (Aspirin 81) 81 Mg Tab, 81 MG PO DAILY, (Reported) Atorvastatin Calcium (Atorvastatin Calcium) 80 Mg Tab, 80 MG PO QHS, (Reported) Clopidogrel Bisulfate (Clopidogrel) 75 Mg Tab, 1 TAB PO DAILY, (Reported) Furosemide (Lasix) 40 Mg Tab, 60 MG PO BID Gabapentin (Gabapentin) 800 Mg Tab, 800 MG PO TID, (Reported) Glipizide (Glipizide) 5 Mg Tab, 2.5 MG PO BID, (Reported) Insulin Glargine (Lantus) 1 Units/0.01 Ml Susp, 36 UNITS SC BID, (Reported) Isosorbide Mononitrate (Isosorbide Mononitrate ER) 30 Mg Tab, 30 MG PO DAILY, ( Reported) Metoclopramide HCl (Metoclopramide HCl) 5 Mg Tab, 5 MG PO BID, (Reported) Vitamin D (Vitamin D) 1,000 Unit Cap, 1,000 UNIT PO DAILY, (Reported) Scheduled PRN Nitroglycerin (Nitrostat) 0.4 Mg Subl, 0.4 MG SL PRN PRN for CHEST PAIN, ( Reported) for chest pain every 5 minutes as needed x3 doses, then notify prescriber Allergies Coded Allergies: Metformin (Unverified Allergy, Intermediate, diarrhea, 03/22/16) MANPREET GALICIA MD Nov 16, 2016 17:07
== END 2016-11-16 13:03 | disposition home health service (06) | DRG 291 ==
LOC: M ED 16:36 → M ED INP 20:37 → M PCU 11-13 18:17
PROVIDERS: ADMIT Internal Medicine; ATTEND Internal Medicine
DX: I13.0 Hypertensive heart and chronic kidney disease with heart failure and stage 1 through stage 4 chronic kidney disease, or unspecified chronic kidney disease (principal); I50.33 Acute on chronic diastolic (congestive) heart failure; I69.354 Hemiplegia and hemiparesis following cerebral infarction affecting left non-dominant side; E87.0 Hyperosmolality and hypernatremia; E66.01 Morbid (severe) obesity due to excess calories; I25.2 Old myocardial infarction; E11.65 Type 2 diabetes mellitus with hyperglycemia; E11.42 Type 2 diabetes mellitus with diabetic polyneuropathy; E55.9 Vitamin D deficiency, unspecified; N18.9 Chronic kidney disease, unspecified; Z87.891 Personal history of nicotine dependence; Z95.5 Presence of coronary angioplasty implant and graft; Z79.01 Long term (current) use of anticoagulants; Z79.82 Long term (current) use of aspirin; Z79.02 Long term (current) use of antithrombotics/antiplatelets; Z95.0 Presence of cardiac pacemaker; Z79.899 Other long term (current) drug therapy; Z91.14 Patient's other noncompliance with medication regimen; Z79.4 Long term (current) use of insulin

== ENCOUNTER 2016-11-22 18:53 | Emergency (ER) | payer MEDICARE ==
[~2016-11-22] VITALS: Ht 175.3 cm; Wt 110.9 kg
[~2016-11-22 18:53] MED LIST changes: +ACET50TAOT PO; +CLOP75TA2 PO; +GABA800T PO
[2016-11-22 21:25] LABS: BASO % 0.5 % (0.0-1.0); EOS # 0.2 10^3/uL (0.0-0.50); EOS % 2.3 % (0.0-3.0); IMMATURE GRANULOCYTE % 0.3 % (0-0); LYMPH # 1.9 10^3/uL (1.5-4.5); MEAN CORPUSCULAR HEMOGLOBIN 28.1 pg (27.0-33.0); MEAN CORPUSCULAR HGB CONC 31.9 g/dl (32.0-36.5); MEAN CORPUSCULAR VOLUME 87.9 fl (80.0-96.0); MONO # 0.8 10^3/uL (0.0-0.8); MONO % 9.5 % (0.0-5.0); NEUTROPHILS # 5.7 10^3/uL (1.8-7.7); NEUTROPHILS % 65.4 % (36.0-66.0); PLATELET COUNT, AUTOMATED 190 10^3/uL (150-450); RED CELL DISTRIBUTION WIDTH 15.4 % (11.5-14.5); WHITE BLOOD COUNT 8.8 10^3/uL (4.0-10.0)
[2016-11-22 23:12] LABS: CALCIUM LEVEL 8.3 MG/DL (8.5-10.1); CREATININE FOR GFR 1.6 MG/DL (0.70-1.30); POTASSIUM SERUM 3.7 MEQ/L (3.5-5.1)
[2016-11-23] MEDS ORDERED: FUROSEMIDE 100 MG/10 ML VIAL (J1940) IV ONE (00:15)
[2016-11-23] MEDS ORDERED: GABA800T PO (00:41)
[2016-11-23] MEDS ORDERED: INSULADS INJ (00:41)
[2016-11-23] MEDS ORDERED: PLAV1TAB2 PO (00:41)
[2016-11-23] MEDS ORDERED: ALBU17IN INH (00:41)
[2016-11-23] MEDS ORDERED: FURO40TA2 PO (00:41)
[2016-11-23] MEDS ORDERED: ASPI81TAEC PO (00:41)
[2016-11-23] MEDS ORDERED: GLIP5TAB8 PO (00:41)
[2016-11-23] MEDS ORDERED: metOLazone 5 MG TAB PO ONE (02:15)
[2016-11-23] MEDS ORDERED: METO5TA PO (02:29)
[2016-11-23] MEDS ORDERED: LASI80TA PO (02:29)
[2016-11-23 03:15] VITALS: BP 132/65
--- NOTE | 2016-11-23 08:12 | ECGEPIP ---
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
--- NOTE | 2016-11-23 09:23 | REP ---
TWO VIEW CHEST: Two views of the chest are performed and compared to multiple prior exams, most recent of which is 11/12/2016. There is again cardiomegaly with pulmonary venous hypertension. Mild chronic interstitial prominence is also stable. No new infiltrates are seen. Mediastinal silhouette is unchanged. There are multiple sternal wires and mediastinal clips present. There is a left dual lead pacemaker. There are mild degenerative changes of the spine. IMPRESSION: Stable cardiomegaly, pulmonary venous hypertension and mildly increased interstitial markings with no new infiltrates. Signed by Edgar Yanes MD 11/23/2016 05:20 P
== END 2016-11-23 03:37 | disposition home or self-care (01) ==
LOC: M ED 18:53
DX: I50.9 Heart failure, unspecified (principal); Z79.899 Other long term (current) drug therapy; Z79.82 Long term (current) use of aspirin; Z79.4 Long term (current) use of insulin; Z88.8 Allergy status to other drugs, medicaments and biological substances; Z87.891 Personal history of nicotine dependence
CPT/HCPCS: 71020; 80048; 82550; 82553; 83880; 84484; 85025; 93005; 93041; 94760; 96374; 99285; J1940

== ENCOUNTER 2017-01-28 13:59 | Emergency (ER) | payer OTHER, MEDICARE ==
[~2017-01-28] VITALS: Ht 175.3 cm; Wt 105.0 kg
[~2017-01-28 13:59] MED LIST changes: +ALBU17IN INH; +ASPI81TAEC PO; +FURO40TA2 PO; +INSULADS INJ; +LASI80TA PO; +METO5TA PO; +PLAV1TAB2 PO
[2017-01-28 15:43] LABS: MEAN CORPUSCULAR HEMOGLOBIN 26.8 pg (27.0-33.0); MEAN CORPUSCULAR HGB CONC 31.4 g/dl (32.0-36.5); MEAN CORPUSCULAR VOLUME 85.4 fl (80.0-96.0); PLATELET COUNT, AUTOMATED 228 10^3/uL (150-450); RED CELL DISTRIBUTION WIDTH 15.9 % (11.5-14.5); WHITE BLOOD COUNT 7.7 10^3/uL (4.0-10.0)
[2017-01-28 16:18] LABS: ALBUMIN 3.2 GM/DL (3.2-5.2); ALBUMIN/GLOBULIN RATIO 0.82 (1.00-1.93); ALKALINE PHOSPHATASE 206 U/L (45-117); ALT/SGPT 15 U/L (12-78); ANION GAP 8 MEQ/L (8-16); AST/SGOT 15 U/L (7-37); BILIRUBIN,DIRECT 0.2 MG/DL (0.0-0.2); BILIRUBIN,TOTAL 0.8 MG/DL (0.2-1.0); BLOOD UREA NITROGEN 26 MG/DL (7-18); CALCIUM LEVEL 8.8 MG/DL (8.5-10.1); CARBON DIOXIDE LEVEL 28 MEQ/L (21-32); CHLORIDE LEVEL 106 MEQ/L (98-107); CREATININE FOR GFR 1.55 MG/DL (0.70-1.30); GLOMERULAR FILTRATION RATE 49.6 (>56); GLUCOSE, FASTING 106 MG/DL (70-105); POTASSIUM SERUM 4.4 MEQ/L (3.5-5.1); SODIUM LEVEL 142 MEQ/L (136-145); TOTAL PROTEIN 7.1 GM/DL (6.4-8.2)
[2017-01-28 16:36] LABS: METHADONE URINE NEGATIVE (NEGATIVE)
[2017-01-28] MEDS ORDERED: LEVEMIR (INSULIN DETEMIR) 1 UNITS/0.01ML SC ONE (18:45)
[2017-01-28] MEDS ORDERED: ATORVASTATIN 20 MG TAB PO ONE (18:45)
[2017-01-28] MEDS ORDERED: GABAPENTIN 400 MG CAP PO ONE (18:45)
[2017-01-28] MEDS ORDERED: APIXABAN 5 MG TAB (ELIQUIS) PO ONE (18:45)
[2017-01-28] MEDS ORDERED: FURO80TA2 PO (21:56)
[2017-01-29 06:58] VITALS: BP 109/62
--- NOTE | 2017-01-29 10:50 | ECGEPIP ---
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
== END 2017-01-29 07:00 | disposition short-term general hospital (02) ==
LOC: M ED 13:59
DX: R45.851 Suicidal ideations (principal); I25.10 Atherosclerotic heart disease of native coronary artery without angina pectoris; I50.9 Heart failure, unspecified; E11.9 Type 2 diabetes mellitus without complications; I13.0 Hypertensive heart and chronic kidney disease with heart failure and stage 1 through stage 4 chronic kidney disease, or unspecified chronic kidney disease; E78.70 Disorder of bile acid and cholesterol metabolism, unspecified; N18.9 Chronic kidney disease, unspecified; I69.398 Other sequelae of cerebral infarction; Z79.4 Long term (current) use of insulin; Z79.01 Long term (current) use of anticoagulants; Z79.899 Other long term (current) drug therapy; Z79.82 Long term (current) use of aspirin; Z88.8 Allergy status to other drugs, medicaments and biological substances; I25.2 Old myocardial infarction; Z95.5 Presence of coronary angioplasty implant and graft; Z98.890 Other specified postprocedural states; Z87.891 Personal history of nicotine dependence
CPT/HCPCS: 36415; 80048; 80076; 80307; 84443; 85027; 93005; 99285; G0480

== ENCOUNTER 2017-04-07 12:50 | Emergency (ER) | payer OTHER, MEDICARE ==
[2017-04-07 14:20] LABS: BASO % 0.2 % (0.0-1.0); EOS # 0.1 10^3/uL (0.0-0.50); EOS % 2.8 % (0.0-3.0); HEMOGLOBIN 11.6 g/dl (14.0-18.0); IMMATURE GRANULOCYTE % 0.2 % (0-3.0); LYMPH % 22.2 % (24.0-44.0); MEAN CORPUSCULAR HEMOGLOBIN 25.8 pg (27.0-33.0); MEAN CORPUSCULAR HGB CONC 31.4 g/dl (32.0-36.5); MEAN CORPUSCULAR VOLUME 82.4 fl (80.0-96.0); MONO # 0.4 10^3/uL (0.0-0.8); MONO % 8.7 % (0.0-5.0); NEUTROPHILS # 2.9 10^3/uL (1.8-7.7); NEUTROPHILS % 65.9 % (36.0-66.0); PLATELET COUNT, AUTOMATED 186 10^3/uL (150-450); RED BLOOD COUNT 4.49 10^6/uL (4.30-6.10); WHITE BLOOD COUNT 4.4 10^3/uL (4.0-10.0)
[2017-04-07 14:35] LABS: INR 1.55
[2017-04-07 14:36] LABS: PARTIAL THROMBOPLASTIN TIME 41.3 SECONDS (26.8-37.9)
[2017-04-07 14:45] LABS: NT-PRO BNP 10733 PG/ML (<125)
[2017-04-07 14:46] LABS: ALBUMIN 2.9 GM/DL (3.2-5.2); ALBUMIN/GLOBULIN RATIO 0.64 (1.00-1.93); ALKALINE PHOSPHATASE 312 U/L (45-117); ALT/SGPT 18 U/L (12-78); ANION GAP 7 MEQ/L (8-16); AST/SGOT 31 U/L (7-37); BILIRUBIN,DIRECT 0.4 MG/DL (0.0-0.2); BLOOD UREA NITROGEN 34 MG/DL (7-18); CALCIUM LEVEL 8.6 MG/DL (8.5-10.1); CARBON DIOXIDE LEVEL 29 MEQ/L (21-32); CHLORIDE LEVEL 104 MEQ/L (98-107); CPK CREATINE PHOSPHOKINASE 148 U/L (39-308); CREATININE FOR GFR 1.56 MG/DL (0.70-1.30); GLOMERULAR FILTRATION RATE 49.3 (>56); GLUCOSE, FASTING 101 MG/DL (70-100); LIPASE 196 U/L (73-393); POTASSIUM SERUM 4.3 MEQ/L (3.5-5.1); SODIUM LEVEL 140 MEQ/L (136-145); TOTAL PROTEIN 7.4 GM/DL (6.4-8.2); TROPONIN I 0.03 NG/ML (< 0.10)
[2017-04-07 14:47] LABS: CK-MB VALUE MASS 5.3 NG/ML (0.0-3.6); MB/CK RELATIVE INDEX 3.58 (< OR =4)
== END 2017-04-07 17:21 | disposition home or self-care (01) ==
LOC: M ED 12:50
DX: R14.0 Abdominal distension (gaseous) (principal); I50.9 Heart failure, unspecified; I48.91 Unspecified atrial fibrillation; N18.3 Chronic kidney disease, stage 3 (moderate); E11.9 Type 2 diabetes mellitus without complications; Z79.01 Long term (current) use of anticoagulants; Z79.4 Long term (current) use of insulin; Z79.899 Other long term (current) drug therapy; Z88.8 Allergy status to other drugs, medicaments and biological substances; Z87.19 Personal history of other diseases of the digestive system; Z95.0 Presence of cardiac pacemaker; Z95.5 Presence of coronary angioplasty implant and graft; Z87.891 Personal history of nicotine dependence; Z86.73 Personal history of transient ischemic attack (TIA), and cerebral infarction without residual deficits
CPT/HCPCS: 71045

== ENCOUNTER 2017-06-25 13:25 | Inpatient (IN) | payer OTHER, MEDICARE ==
[2017-06-25 14:14] LABS: BASO % 0.5 % (0.0-1.0); EOS # 0.2 10^3/uL (0.0-0.50); EOS % 2.4 % (0.0-3.0); HEMATOCRIT 41.2 % (42.0-52.0); HEMOGLOBIN 12.8 g/dl (13.5-17.5); IMMATURE GRANULOCYTE % 0.3 % (0-3.0); LYMPH # 1.5 10^3/uL (1.5-4.5); MEAN CORPUSCULAR HEMOGLOBIN 24.8 pg (27.0-33.0); MEAN CORPUSCULAR HGB CONC 31.1 g/dl (32.0-36.5); MEAN CORPUSCULAR VOLUME 79.8 fl (80.0-96.0); MONO # 0.6 10^3/uL (0.0-0.8); MONO % 7.6 % (0.0-5.0); NEUTROPHILS # 5.2 10^3/uL (1.8-7.7); NEUTROPHILS % 69.2 % (36.0-66.0); PLATELET COUNT, AUTOMATED 207 10^3/uL (150-450); RED BLOOD COUNT 5.16 10^6/uL (4.30-6.10); RED CELL DISTRIBUTION WIDTH 19.6 % (11.5-14.5); WHITE BLOOD COUNT 7.5 10^3/uL (4.0-10.0)
[2017-06-25] MEDS: FUROSEMIDE 40 MG/4 ML VIAL (J1940) IV (14:16)
[2017-06-25 14:39] LABS: ANION GAP 7 MEQ/L (8-16); BLOOD UREA NITROGEN 32 MG/DL (7-18); CALCIUM LEVEL 8.2 MG/DL (8.5-10.1); CARBON DIOXIDE LEVEL 28 MEQ/L (21-32); CHLORIDE LEVEL 106 MEQ/L (98-107); CK-MB VALUE MASS 5.5 NG/ML (<3.6); CPK CREATINE PHOSPHOKINASE 142 U/L (39-308); CREATININE FOR GFR 1.33 MG/DL (0.70-1.30); GLOMERULAR FILTRATION RATE 59.2 (>56); GLUCOSE, FASTING 164 MG/DL (70-100); MB/CK RELATIVE INDEX 3.87 (< OR =4); NT-PRO BNP 8226 PG/ML (<125); POTASSIUM SERUM 4.2 MEQ/L (3.5-5.1); SODIUM LEVEL 141 MEQ/L (136-145); TROPONIN I 0.03 NG/ML (< 0.10)
[2017-06-25] MEDS ORDERED: DEXTROSE 50% 50 ML SYRINGE IV (17:45)
[2017-06-25] MEDS ORDERED: DOCUSATE SODIUM 100 MG CAP PO (17:45)
[2017-06-25] MEDS ORDERED: GLUCAGON FOR INJ 1 MG VIAL (J1610) SC (17:45)
[2017-06-25] MEDS ORDERED: ALBUTEROL SULFATE 2.5 MG/0.5 ML INH NEB SOLN INH (17:45)
[2017-06-25] MEDS ORDERED: GLUCOSE 4 GM CHEW TABLET PO (17:45)
[2017-06-25] MEDS ORDERED: ONDANSETRON 4MG/2ML VIAL (J2405) IV (17:45)
[2017-06-25] MEDS: FUROSEMIDE injection 250 MG in D5W 225 ML IV (18:38)
[2017-06-25 18:55] LABS: FREE THYROXINE INDEX 4.4 % (1.4-3.8); T UPTAKE 37 % (33-40); THYROID STIMULATING HORMONE 0.281 uIU/ML (0.358-3.740)
[2017-06-25 20:37] LABS: CK-MB VALUE MASS 5.2 NG/ML (<3.6); CPK CREATINE PHOSPHOKINASE 119 U/L (39-308); MB/CK RELATIVE INDEX 4.36 (< OR =4); TROPONIN I 0.03 NG/ML (< 0.10)
[2017-06-25] MEDS: HumaLOG INSULIN (NovoLOG) PER UNIT SC (21:00)
[2017-06-25] MEDS: ATORVASTATIN 20 MG TAB PO (21:32)
[2017-06-25] MEDS: GABAPENTIN 400 MG CAP PO (21:32)
[2017-06-25] MEDS: METOCLOPRAMIDE 5 MG TAB PO (21:32)
[2017-06-25] MEDS: SENOKOT S TAB PO (21:32)
[2017-06-25] MEDS: APIXABAN 5 MG TAB (ELIQUIS) PO (21:32)
[2017-06-25] MEDS: LEVEMIR (INSULIN DETEMIR) 1 UNITS/0.01ML SC (21:33)
[2017-06-25] MEDS: CARVedilol 6.25 MG TAB PO (21:34)
[2017-06-26 02:14] LABS: CPK CREATINE PHOSPHOKINASE 97 U/L (39-308); TROPONIN I 0.03 NG/ML (< 0.10)
[2017-06-26 02:15] LABS: CK-MB VALUE MASS 4.3 NG/ML (<3.6); MB/CK RELATIVE INDEX 4.43 (< OR =4)
[2017-06-26 05:12] LABS: HEMATOCRIT 38.1 % (42.0-52.0); HEMOGLOBIN 12.2 g/dl (13.5-17.5); MEAN CORPUSCULAR HEMOGLOBIN 25.2 pg (27.0-33.0); MEAN CORPUSCULAR VOLUME 78.7 fl (80.0-96.0); PLATELET COUNT, AUTOMATED 209 10^3/uL (150-450); RED BLOOD COUNT 4.84 10^6/uL (4.30-6.10); RED CELL DISTRIBUTION WIDTH 19.4 % (11.5-14.5); WHITE BLOOD COUNT 6.9 10^3/uL (4.0-10.0)
[2017-06-26 05:30] LABS: ANION GAP 6 MEQ/L (8-16); BLOOD UREA NITROGEN 30 MG/DL (7-18); CALCIUM LEVEL 8.4 MG/DL (8.5-10.1); CARBON DIOXIDE LEVEL 29 MEQ/L (21-32); CHLORIDE LEVEL 107 MEQ/L (98-107); GLOMERULAR FILTRATION RATE > 60.0 (>56); GLUCOSE, FASTING 105 MG/DL (70-100); POTASSIUM SERUM 3.7 MEQ/L (3.5-5.1); SODIUM LEVEL 142 MEQ/L (136-145)
[2017-06-26] MEDS: HumaLOG INSULIN (NovoLOG) PER UNIT SC ×4 (08:27→20:10)
[2017-06-26] MEDS: CYANOCOBALAMIN 500 MCG TAB PO (09:20)
[2017-06-26] MEDS: CLOPIDOGREL 75 MG TAB PO (09:20)
[2017-06-26] MEDS: VITAMIN D 1,000 INTERNATIONAL UNITS TABLET PO (09:21)
[2017-06-26] MEDS: GABAPENTIN 400 MG CAP PO ×2 (09:21→20:59)
[2017-06-26] MEDS: DULoxetine 30 MG CAP (CYMBALTA) PO (09:21)
[2017-06-26] MEDS: SENOKOT S TAB PO ×3 (09:22→20:10)
[2017-06-26] MEDS: ISOSORBIDE MON. (IMDUR) 30 MG XR TAB PO (09:23)
[2017-06-26] MEDS: APIXABAN 5 MG TAB (ELIQUIS) PO ×2 (09:23→20:59)
[2017-06-26] MEDS: CARVedilol 6.25 MG TAB PO ×2 (09:23→20:59)
[2017-06-26 11:41] LABS: BEDSIDE GLUCOSE 134 MG/DL (70-105)
[2017-06-26] MEDS: METOCLOPRAMIDE 5 MG TAB PO ×2 (11:49→20:59)
[2017-06-26] MEDS ORDERED: FUROSEMIDE injection 250 MG in D5W 225 ML IV (14:11)
[2017-06-26 17:22] LABS: BEDSIDE GLUCOSE 153 MG/DL (70-105)
[2017-06-26 17:34] LABS: BEDSIDE GLUCOSE 194 MG/DL (70-105)
[2017-06-26] MEDS: FUROSEMIDE injection 250 MG in D5W 225 ML IV (18:00)
[2017-06-26 20:07] LABS: BEDSIDE GLUCOSE 183 MG/DL (70-105)
[2017-06-26] MEDS: LEVEMIR (INSULIN DETEMIR) 1 UNITS/0.01ML SC (20:58)
[2017-06-26] MEDS: ATORVASTATIN 20 MG TAB PO (20:59)
[2017-06-27 05:49] LABS: HEMATOCRIT 39.6 % (42.0-52.0); HEMOGLOBIN 12.8 g/dl (13.5-17.5); MEAN CORPUSCULAR HEMOGLOBIN 25.2 pg (27.0-33.0); MEAN CORPUSCULAR HGB CONC 32.3 g/dl (32.0-36.5); MEAN CORPUSCULAR VOLUME 78.1 fl (80.0-96.0); PLATELET COUNT, AUTOMATED 192 10^3/uL (150-450); RED BLOOD COUNT 5.07 10^6/uL (4.30-6.10); RED CELL DISTRIBUTION WIDTH 19.1 % (11.5-14.5); WHITE BLOOD COUNT 7.1 10^3/uL (4.0-10.0)
[2017-06-27 06:17] LABS: ANION GAP 9 MEQ/L (8-16); BLOOD UREA NITROGEN 31 MG/DL (7-18); CALCIUM LEVEL 8.6 MG/DL (8.5-10.1); CARBON DIOXIDE LEVEL 29 MEQ/L (21-32); CHLORIDE LEVEL 104 MEQ/L (98-107); GLOMERULAR FILTRATION RATE 55.8 (>56); GLUCOSE, FASTING 88 MG/DL (70-100); POTASSIUM SERUM 3.4 MEQ/L (3.5-5.1); SODIUM LEVEL 142 MEQ/L (136-145)
[2017-06-27] MEDS: HumaLOG INSULIN (NovoLOG) PER UNIT SC (07:30)
[2017-06-27] MEDS: METOCLOPRAMIDE 5 MG TAB PO (09:00)
[2017-06-27] MEDS: SENOKOT S TAB PO (09:03)
[2017-06-27] MEDS: VITAMIN D 1,000 INTERNATIONAL UNITS TABLET PO (09:03)
[2017-06-27] MEDS: CYANOCOBALAMIN 500 MCG TAB PO (09:03)
[2017-06-27] MEDS: GABAPENTIN 400 MG CAP PO (09:03)
[2017-06-27] MEDS: DULoxetine 30 MG CAP (CYMBALTA) PO (09:03)
[2017-06-27] MEDS: CLOPIDOGREL 75 MG TAB PO (09:04)
[2017-06-27] MEDS: POTASSIUM CHLORIDE 10 MEQ SR TABLET PO (09:04)
[2017-06-27] MEDS: ISOSORBIDE MON. (IMDUR) 30 MG XR TAB PO (09:04)
[2017-06-27] MEDS: APIXABAN 5 MG TAB (ELIQUIS) PO (09:04)
[2017-06-27] MEDS: CARVedilol 6.25 MG TAB PO (09:05)
== END 2017-06-27 10:27 | disposition home or self-care (01) | DRG 292 ==
LOC: M ED 13:25 → M ED INP 17:36 → M PCU 20:03
DX: I50.23 Acute on chronic systolic (congestive) heart failure (principal); I69.354 Hemiplegia and hemiparesis following cerebral infarction affecting left non-dominant side; I25.10 Atherosclerotic heart disease of native coronary artery without angina pectoris; E11.9 Type 2 diabetes mellitus without complications; I49.5 Sick sinus syndrome; Z95.0 Presence of cardiac pacemaker; Z88.8 Allergy status to other drugs, medicaments and biological substances; Z87.891 Personal history of nicotine dependence; I25.2 Old myocardial infarction; Z95.1 Presence of aortocoronary bypass graft; Z79.01 Long term (current) use of anticoagulants; Z79.02 Long term (current) use of antithrombotics/antiplatelets; Z79.4 Long term (current) use of insulin; Z79.899 Other long term (current) drug therapy

== ENCOUNTER 2017-08-14 16:50 | Emergency (ER) | payer MEDICARE, OTHER ==
[2017-08-14 17:51] LABS: BASO % 0.4 % (0.0-1.0); EOS # 0.1 10^3/uL (0.0-0.50); EOS % 1.9 % (0.0-3.0); HEMATOCRIT 37.2 % (42.0-52.0); HEMOGLOBIN 11.8 g/dl (13.5-17.5); IMMATURE GRANULOCYTE % 0.1 % (0-3.0); LYMPH # 1.3 10^3/uL (1.5-4.5); LYMPH % 18.6 % (24.0-44.0); MEAN CORPUSCULAR HEMOGLOBIN 25.3 pg (27.0-33.0); MEAN CORPUSCULAR HGB CONC 31.7 g/dl (32.0-36.5); MEAN CORPUSCULAR VOLUME 79.7 fl (80.0-96.0); MONO # 0.6 10^3/uL (0.0-0.8); MONO % 8.6 % (0.0-5.0); NEUTROPHILS # 5.1 10^3/uL (1.8-7.7); NEUTROPHILS % 70.4 % (36.0-66.0); PLATELET COUNT, AUTOMATED 192 10^3/uL (150-450); RED BLOOD COUNT 4.67 10^6/uL (4.30-6.10); RED CELL DISTRIBUTION WIDTH 19.4 % (11.5-14.5); WHITE BLOOD COUNT 7.2 10^3/uL (4.0-10.0)
[2017-08-14 18:02] LABS: INR 1.69; PROTHROMBIN TIME 20.4 SECONDS (12.4-14.5)
[2017-08-14 18:03] LABS: PARTIAL THROMBOPLASTIN TIME 40.5 SECONDS (26.8-37.9)
[2017-08-14 18:34] LABS: ALBUMIN 2.9 GM/DL (3.2-5.2); ALT/SGPT 18 U/L (12-78); ANION GAP 10 MEQ/L (8-16); BLOOD UREA NITROGEN 51 MG/DL (7-18); CALCIUM LEVEL 8.6 MG/DL (8.5-10.1); CARBON DIOXIDE LEVEL 28 MEQ/L (21-32); CHLORIDE LEVEL 101 MEQ/L (98-107); GLUCOSE, FASTING 223 MG/DL (70-100); LIPASE 146 U/L (73-393); POTASSIUM SERUM 3.7 MEQ/L (3.5-5.1); SODIUM LEVEL 139 MEQ/L (136-145); TROPONIN I 0.06 NG/ML (< 0.10)
[2017-08-14 18:39] LABS: ALBUMIN/GLOBULIN RATIO 0.69 (1.00-1.93); ALKALINE PHOSPHATASE 473 U/L (45-117); AST/SGOT 19 U/L (7-37); BILIRUBIN,DIRECT 0.9 MG/DL (0.0-0.2); BILIRUBIN,TOTAL 1.6 MG/DL (0.2-1.0); C REACTIVE PROTEIN QUANTITATIV 2.86 MG/DL (0.00-0.30); CK-MB VALUE MASS 2.9 NG/ML (<3.6); CPK CREATINE PHOSPHOKINASE 135 U/L (39-308); CREATININE FOR GFR 1.92 MG/DL (0.70-1.30); FREE T4 1.68 NG/DL (0.76-1.46); GLOMERULAR FILTRATION RATE 38.8 (>56); MB/CK RELATIVE INDEX 2.14 (< OR =4); NT-PRO BNP 7839 PG/ML (<125); THYROID STIMULATING HORMONE 0.098 uIU/ML (0.358-3.740); TOTAL PROTEIN 7.1 GM/DL (6.4-8.2)
[2017-08-14] MEDS: NITROGLYCERIN 0.4 MG SUBL TABLET SL (18:48)
[2017-08-14 20:38] LABS: CPK CREATINE PHOSPHOKINASE 129 U/L (39-308); TROPONIN I 0.06 NG/ML (< 0.10)
[2017-08-14 20:39] LABS: CK-MB VALUE MASS 2.7 NG/ML (<3.6); MB/CK RELATIVE INDEX 2.09 (< OR =4)
== END 2017-08-14 21:10 | disposition home or self-care (01) ==
LOC: M ED 16:50
DX: I25.118 Atherosclerotic heart disease of native coronary artery with other forms of angina pectoris (principal); I50.9 Heart failure, unspecified; I49.5 Sick sinus syndrome; N18.9 Chronic kidney disease, unspecified; Z86.73 Personal history of transient ischemic attack (TIA), and cerebral infarction without residual deficits; Z95.5 Presence of coronary angioplasty implant and graft; Z87.891 Personal history of nicotine dependence; Z79.899 Other long term (current) drug therapy; Z79.82 Long term (current) use of aspirin; Z79.01 Long term (current) use of anticoagulants; Z79.4 Long term (current) use of insulin; Z88.8 Allergy status to other drugs, medicaments and biological substances
CPT/HCPCS: 71045

== ENCOUNTER 2018-01-25 12:06 | Emergency (ER) | payer OTHER, MEDICARE ==
[2018-01-25 12:27] LABS: BEDSIDE GLUCOSE 462 MG/DL (70-105)
[2018-01-25 12:58] LABS: VENOUS BASE EXCESS 0.5 (-2.0-2.0); VENOUS HCO3 27.4 MEQ/L (23.0-27.0); VENOUS O2 SATURATION 69.8 % (60.0-80.0); VENOUS PARTIAL PRESSURE CO2 53.4 mmHg (38.0-50.0); VENOUS PH 7.328 UNITS (7.330-7.430); VENOUS STANDARD HCO3 24.2 MEQ/L
[2018-01-25 13:42] LABS: ANION GAP 10 MEQ/L (8-16); BLOOD UREA NITROGEN 37 MG/DL (7-18); CARBON DIOXIDE LEVEL 28 MEQ/L (21-32); CHLORIDE LEVEL 96 MEQ/L (98-107); GLOMERULAR FILTRATION RATE 41.6 (>56); GLUCOSE, FASTING 449 MG/DL (70-100); POTASSIUM SERUM 4.4 MEQ/L (3.5-5.1); SODIUM LEVEL 134 MEQ/L (136-145)
[2018-01-25] MEDS: NS 1,000 ML IV (13:45)
[2018-01-25] MEDS: HumuLIN R (REGULAR) INSULIN (NovoLIN R) **100U/ML** PER UNIT IV (13:45)
[2018-01-25 14:04] LABS: ESTIMATED AVERAGE GLUCOSE 237 MG/DL (60-110); HEMOGLOBIN A1c 9.9 %
[2018-01-25 14:58] LABS: BEDSIDE GLUCOSE 249 MG/DL (70-105)
== END 2018-01-25 15:19 | disposition home or self-care (01) ==
LOC: M ED 12:06
DX: E11.65 Type 2 diabetes mellitus with hyperglycemia (principal); J44.9 Chronic obstructive pulmonary disease, unspecified; K21.9 Gastro-esophageal reflux disease without esophagitis; N28.9 Disorder of kidney and ureter, unspecified; M54.9 Dorsalgia, unspecified; Z98.84 Bariatric surgery status; Z95.0 Presence of cardiac pacemaker; Z87.891 Personal history of nicotine dependence; Z95.1 Presence of aortocoronary bypass graft; Z88.8 Allergy status to other drugs, medicaments and biological substances; Z79.899 Other long term (current) drug therapy; Z79.4 Long term (current) use of insulin; Z79.01 Long term (current) use of anticoagulants
CPT/HCPCS: 82803

== ENCOUNTER 2018-02-01 17:42 | Emergency (ER) | payer OTHER, MEDICARE ==
[2018-02-01 18:53] LABS: HEMATOCRIT 37.4 % (42.0-52.0); HEMOGLOBIN 12.4 g/dl (13.5-17.5); MEAN CORPUSCULAR HEMOGLOBIN 28.5 pg (27.0-33.0); MEAN CORPUSCULAR HGB CONC 33.2 g/dl (32.0-36.5); PLATELET COUNT, AUTOMATED 169 10^3/uL (150-450); RED BLOOD COUNT 4.35 10^6/uL (4.30-6.10); RED CELL DISTRIBUTION WIDTH 14.7 % (11.5-14.5); WHITE BLOOD COUNT 8.1 10^3/uL (4.0-10.0)
[2018-02-01 19:16] LABS: AMPHETAMINES LEVEL URINE NEGATIVE (NEGATIVE); BARBITURATES URINE NEGATIVE (NEGATIVE); BENZODIAZEPINES URINE NEGATIVE (NEGATIVE); CANNABINOIDS URINE NEGATIVE (NEGATIVE); COCAINE METABOLITE URINE NEGATIVE (NEGATIVE); METHADONE URINE NEGATIVE (NEGATIVE); OPIATES URINE NEGATIVE (NEGATIVE); PHENCYCLIDINE URINE NEGATIVE (NEGATIVE)
[2018-02-01 19:24] LABS: ALBUMIN 3.1 GM/DL (3.2-5.2); ALBUMIN/GLOBULIN RATIO 0.79 (1.00-1.93); ALKALINE PHOSPHATASE 294 U/L (45-117); ALT/SGPT 18 U/L (12-78); ANION GAP 9 MEQ/L (8-16); AST/SGOT 17 U/L (7-37); BILIRUBIN,DIRECT 0.3 MG/DL (0.0-0.2); BILIRUBIN,TOTAL 0.9 MG/DL (0.2-1.0); BLOOD UREA NITROGEN 47 MG/DL (7-18); CALCIUM LEVEL 8.6 MG/DL (8.5-10.1); CARBON DIOXIDE LEVEL 27 MEQ/L (21-32); CHLORIDE LEVEL 101 MEQ/L (98-107); CREATININE FOR GFR 2.11 MG/DL (0.70-1.30); ETHYL ALCOHOL (ETHANOL) < 0.003 % (0.000-0.010); GLOMERULAR FILTRATION RATE 34.6 (>56); GLUCOSE, FASTING 415 MG/DL (70-100); POTASSIUM SERUM 4.5 MEQ/L (3.5-5.1); SALICYLATE LEVEL < 1.7 MG/DL (5.0-30.0); SODIUM LEVEL 137 MEQ/L (136-145); THYROID STIMULATING HORMONE 0.892 uIU/ML (0.358-3.740)
[2018-02-01 19:27] LABS: ACETAMINOPHEN LEVEL < 2.0 UG/ML (10.0-30.0)
[2018-02-01] MEDS: MORPHINE 4 MG/ML 1ML VIAL/SYRINGE (J2270) IV (19:52)
[2018-02-01] MEDS: NS 500 ML IV (20:04)
[2018-02-01] MEDS: HumuLIN R (REGULAR) INSULIN (NovoLIN R) **100U/ML** PER UNIT IV (20:04)
[2018-02-01 20:32] LABS: BEDSIDE GLUCOSE 339 MG/DL (70-105)
[2018-02-01] MEDS: BUPIVACAINE HCL 0.5% 30 ML VIAL SC (21:50)
== END 2018-02-01 22:01 | disposition home or self-care (01) ==
LOC: M ED 17:42
DX: M25.512 Pain in left shoulder (principal); G89.29 Other chronic pain; E11.65 Type 2 diabetes mellitus with hyperglycemia; M19.012 Primary osteoarthritis, left shoulder; I25.10 Atherosclerotic heart disease of native coronary artery without angina pectoris; I49.5 Sick sinus syndrome; Z95.0 Presence of cardiac pacemaker; N28.9 Disorder of kidney and ureter, unspecified; Z86.73 Personal history of transient ischemic attack (TIA), and cerebral infarction without residual deficits; Z95.5 Presence of coronary angioplasty implant and graft; Z95.1 Presence of aortocoronary bypass graft; Z87.891 Personal history of nicotine dependence; Z88.8 Allergy status to other drugs, medicaments and biological substances; Z79.899 Other long term (current) drug therapy; Z79.01 Long term (current) use of anticoagulants; Z79.4 Long term (current) use of insulin
CPT/HCPCS: J2270

== ENCOUNTER 2018-10-05 11:40 | Emergency (ER) | payer MEDICARE, OTHER ==
[~2018-10-05] VITALS: Ht 175.3 cm; Wt 94.5 kg
[~2018-10-05 11:40] MED LIST changes: +ACET500T15 PO; -ACET50TAOT PO; +ALB2.5NEB INH; -ASPI1TAB PO; +ASPI81TA26 PO; +CARV3.12 PO; +CARV6.25 PO; +COLA100C5 PO; +DICL1GEL3 TOP; +DULO1CAP6 PO; -GABA-283 PO; +GABA-845 PO; -GABA800T PO; +GABA800T4 PO; +GLYB-147 PO; -GLYB5TA PO; +ISOS60TA2 PO; +K-TA10TA2 PO; -LASI40TA PO; +LASI40TA9 PO; -LASI80TA PO; +LASI80TA3 PO; +LIDO5DIS41 TOP; +SPIR-10 PO; -SPIR25TA2 PO; +TORS20TA2 PO; +VITA100018 PO; +VITA50005 PO
[2018-10-05 12:22] LABS: BASO % 0.4 % (0.0-1.0); EOS # 0.2 10^3/uL (0.0-0.50); HEMATOCRIT 43.6 % (42.0-52.0); HEMOGLOBIN 13.7 g/dl (13.5-17.5); LYMPH # 0.9 10^3/uL (1.5-4.5); LYMPH % 12.3 % (24.0-44.0); MEAN CORPUSCULAR HEMOGLOBIN 28.5 pg (27.0-33.0); MEAN CORPUSCULAR HGB CONC 31.4 g/dl (32.0-36.5); MEAN CORPUSCULAR VOLUME 90.6 fl (80.0-96.0); MONO # 0.4 10^3/uL (0.0-0.8); MONO % 5.8 % (0.0-5.0); NEUTROPHILS # 5.8 10^3/uL (1.8-7.7); NEUTROPHILS % 78.1 % (36.0-66.0); PLATELET COUNT, AUTOMATED 218 10^3/uL (150-450); RED BLOOD COUNT 4.81 10^6/uL (4.30-6.10); WHITE BLOOD COUNT 7.4 10^3/uL (4.0-10.0)
[2018-10-05] MEDS ORDERED: IPRATROPIUM 0.5MG/ALBUTEROL 2.5MG INH SOL UD 3ML (DUONEB)(J7620) NEB ONE (12:45)
[2018-10-05 12:54] LABS: CALCIUM LEVEL 8.7 MG/DL (8.5-10.1); CREATININE FOR GFR 1.89 MG/DL (0.70-1.30); GLOMERULAR FILTRATION RATE 39.3 (>56); MB/CK RELATIVE INDEX 4.27 (< OR =4); POTASSIUM SERUM 4.4 MEQ/L (3.5-5.1); TROPONIN I 0.03 NG/ML (< 0.10)
[2018-10-05] MEDS ORDERED: TORS20TA2 PO (14:10)
--- NOTE | 2018-10-05 14:11 | REP ---
REASON FOR EXAM: Dyspnea. COMPARISON: Multiple, the latest 08/14/2017, also portable. The technique utilized in obtaining the radiograph has magnified the cardiac silhouette and accentuated the interstitial markings. There is global cardiomegaly accentuated by technique status quo. Note is again made of previous median sternotomy. There is a dual-chamber bipolar pacemaker device in place. It has been revised since the last exam. The leads appear appropriate and contiguous. The lung dillon appear stable. There is no evidence of a patchy parenchymal opacity or pleural effusion. The right CP angle was not included on this single portable exam. IMPRESSION: 1. Global cardiomegaly. 2. Other findings as described above. 3. Unable to assess the right CP angle due to technique as described above. Electronically Signed by aDvid Posey DO 10/05/2018 05:00 P
[2018-10-05] MEDS ORDERED: FUROSEMIDE 40 MG/4 ML VIAL (J1940) IV ONE (14:15)
[2018-10-05 14:20] VITALS: BP 127/69
--- NOTE | 2018-10-07 07:42 | ECGEPIP ---
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
== END 2018-10-05 14:25 | disposition home or self-care (01) ==
LOC: M ED 11:40
DX: I50.9 Heart failure, unspecified (principal); I11.0 Hypertensive heart disease with heart failure; J98.4 Other disorders of lung; E11.9 Type 2 diabetes mellitus without complications; Z95.5 Presence of coronary angioplasty implant and graft; Z95.0 Presence of cardiac pacemaker; Z95.1 Presence of aortocoronary bypass graft; Z87.891 Personal history of nicotine dependence; Z88.8 Allergy status to other drugs, medicaments and biological substances; Z79.899 Other long term (current) drug therapy; Z79.01 Long term (current) use of anticoagulants; Z79.4 Long term (current) use of insulin
CPT/HCPCS: 71045; 80048; 82550; 82553; 83880; 84484; 85025; 87040; 93005; 93041; 94640; 94760; 96374; 99285; J1940

== ENCOUNTER 2018-12-06 18:17 | Inpatient (IN) | payer OTHER, MEDICARE ==
[~2018-12-06] VITALS: Ht 177.8 cm; Wt 94.5 kg
[~2018-12-06 18:17] MED LIST changes: -INSULADS INJ; +INSULADS SC; +METF-791 PO; -METF500T4 PO
[2018-12-06] MEDS ORDERED: BUME2TAB3 PO (18:35)
[2018-12-06 18:59] LABS: BASO % 0.4 % (0.0-1.0); EOS # 0.2 10^3/uL (0.0-0.5); HEMATOCRIT 44.2 % (42.0-52.0); HEMOGLOBIN 13.9 g/dl (13.5-17.5); LYMPH % 12.8 % (24.0-44.0); MEAN CORPUSCULAR HEMOGLOBIN 27.6 pg (27.0-33.0); MEAN CORPUSCULAR HGB CONC 31.4 g/dl (32.0-36.5); MEAN CORPUSCULAR VOLUME 87.9 fl (80.0-96.0); MONO # 0.6 10^3/uL (0.0-0.8); MONO % 7.2 % (0.0-5.0); NEUTROPHILS # 5.9 10^3/uL (1.5-8.5); NEUTROPHILS % 76.3 % (36.0-66.0); PLATELET COUNT, AUTOMATED 197 10^3/uL (150-450); RED BLOOD COUNT 5.03 10^6/uL (4.30-6.10); WHITE BLOOD COUNT 7.7 10^3/uL (4.0-10.0)
--- NOTE | 2018-12-06 19:19 | REP ---
CHEST, PORTABLE: AP portable view of the chest is performed. COMPARISON: 10/05/2018 as well as other prior exams. There is cardiomegaly. There is chronic vascular congestion again noted. New infiltrate is seen in the right base with a small right pleural effusion. There are multiple sternal wires. Left pacemaker is again noted. Mediastinal silhouette is unchanged. IMPRESSION: Cardiomegaly and chronic vascular congestion again noted. New right base infiltrate and small right effusion. Electronically Signed by Edgar Yanes MD 12/08/2018 09:08 A
[2018-12-06 19:30] LABS: CALCIUM LEVEL 8.1 MG/DL (8.5-10.1); CK-MB VALUE MASS 5.6 NG/ML (<3.6); CREATININE FOR GFR 1.94 MG/DL (0.70-1.30); GLOMERULAR FILTRATION RATE 38.2 (>56); MB/CK RELATIVE INDEX 3.78 (< OR =4); POTASSIUM SERUM 4.2 MEQ/L (3.5-5.1); TROPONIN I 0.13 NG/ML (< 0.10)
[2018-12-06] MEDS ORDERED: FUROSEMIDE 100 MG/10 ML VIAL (J1940) IV ONE (19:45)
[2018-12-06 19:53] LABS: INR 1.68; PROTHROMBIN TIME 19.6 SECONDS (11.8-14.0)
[2018-12-06 20:58] LABS: CK-MB VALUE MASS 4.8 NG/ML (<3.6); MB/CK RELATIVE INDEX 4.03 (< OR =4); TROPONIN I 0.14 NG/ML (< 0.10)
[2018-12-06] MEDS: HumaLOG INSULIN (NovoLOG) PER UNIT SC SCH (21:00)
[2018-12-06] MEDS: DOCUSATE SODIUM 100 MG CAP PO SCH (21:00)
[2018-12-06] MEDS ORDERED: glipiZIDE (GLUCOTROL) 5 MG TAB PO SCH (21:00)
[2018-12-06] MEDS ORDERED: TRAM50TA2 PO (22:04)
[2018-12-06] MEDS ORDERED: ASPI81TA85 PO (22:04)
[2018-12-06] MEDS ORDERED: GLIP5TAB8 PO (22:04)
[2018-12-06] MEDS ORDERED: LORA0.5T11 PO (22:04)
[2018-12-06] MEDS ORDERED: POTA10LI10 PO (22:04)
[2018-12-06] MEDS ORDERED: VENTAER INH (22:04)
[2018-12-06] MEDS ORDERED: VITA50005 PO (22:04)
[2018-12-06] MEDS ORDERED: MAALOX 30 ML SUSP *UDC PO PRN (22:30)
[2018-12-06] MEDS ORDERED: ACETAMINOPHEN TAB 650MG DOSE (2X325MG) PO PRN (22:30)
[2018-12-06] MEDS ORDERED: LORazepam 0.5 MG TAB PO PRN (22:30)
[2018-12-06] MEDS ORDERED: NITROGLYCERIN 0.4 MG SUBL TABLET SL PRN (22:30)
[2018-12-06] MEDS ORDERED: HEPARIN SOD (PORCINE) 5000 UNITS/ML VIAL SC SCH (22:30)
[2018-12-06] MEDS ORDERED: MOM 30ML SUSPENSION UDC PO PRN (22:30)
--- NOTE | 2018-12-06 22:32 | HPEPDOC ---
General Date of Admission Dec 06, 2018 at 22:19 Date of Service: Dec 06, 2018 Primary Care Physician: A Chief Complaint The patient is a 57-year-old male admitted with a reason for visit of Chf, Ckd, Overdose. Source: Patient Exam Limitations: No limitations Timing/Duration: Unsure Severity: Mild Associated Symptoms: Shortness of breath (palpitations), Other History of Present Illness This is 57 years old white male with past medical history of coronary artery di sease with multiple myocardial infarction, had cardiac stents placed in at [facility] CABG, congestive heart failure, diabetes mellitus, insulin-dependent diabetes mellitus. 6 sinus with pacemaker has been complaining of worsening lower extremity edema and weight gain. He was started on increasing his increased dose of diuretics, but without any success and he decided come to ER for IV diuresed since. Patient also complains of shortness of breath, palpitations since last few days, but he denies chest pain, nausea, vomiting, dizziness Home Medications Scheduled Apixaban (Eliquis) 5 Mg Tab, 5 MG PO BID, (Reported) Aspirin (Aspir 81) 81 Mg Tablet.dr, 81 MG PO DAILY, (Reported) Atorvastatin Calcium (Atorvastatin Calcium) 80 Mg Tab, 80 MG PO QHS, (Reported) Bumetanide (Bumetanide) 2 Mg Tablet, 2 MG PO BID, (Reported) Carvedilol (Carvedilol) 6.25 Mg Tab, 3.125 MG PO BID, (Reported) Duloxetine Hcl (Duloxetine HCl) 60 Mg Cap, 60 MG PO DAILY, (Reported) Ergocalciferol (Vitamin D2) (Vitamin D2) 50,000 Unit Capsule, 50,000 UNIT PO 1XWK, (Reported) TUESDAY Gabapentin (Gabapentin) 400 Mg Cap, 800 MG PO BID, (Reported) Glipizide (Glipizide) 5 Mg Tablet, 5 MG PO BID, (Reported) Insulin Glargine (Lantus) 100 Unit/Ml Inj, 14 UNIT SC DAILY, (Reported) Potassium Chloride (Potassium Chloride) 40 Meq/15 Ml Liquid, 15 ML PO DAILY, (Reported) Scheduled PRN Albuterol Sulfate (Ventolin Hfa) 18 Gm Hfa.aer.ad, 2 PUFF INH Q4H PRN for wheezing, (Reported) Diclofenac Sodium (Diclofenac Sodium) 1 % Gel, 2 GRAMS TOP QID PRN for PAIN, (Reported) APPLY TO SHOULDERS Lorazepam (Lorazepam) 0.5 Mg Tablet, 0.5 MG PO BID PRN for ANXIETY/AGITATION, (Reported) Nitroglycerin (Nitrostat) 0.4 Mg Subl, 0.4 MG SL NITRO PRN for CHEST PAIN, (Reported) Tramadol HCl (Tramadol HCl) 50 Mg Tablet, 50 MG PO BID PRN for PAIN, (Reported) Allergies Coded Allergies: metformin (Verified Allergy, Intermediate, diarrhea, 10/05/18) fenofibrate (Verified Allergy, Unknown, 10/05/18) gemfibrozil (Verified Allergy, Unknown, 10/05/18) Past Medical History Medical History CVA in 2014, coronary artery disease with CA. 4 times with CABG in the past in 1999. His stents placed in 2 years ago to [facility]. Diabetes mellitus type 2. Sick sinus syndrome with pacemaker, history of congestive heart failure Surgical History CABG in 2001 and stent in 2016 Social History * Smoker: former Smoker Alcohol: Denies Drugs: denies A-FIB/CHADSVASC A-FIB History Current/History of A-Fib/PAF?: No Current PO Anticoag Therapy: Yes Review of Systems Constitutional: Denies: Chills, Fever, Malaise, Night Sweats, Weakness, Fatigue, Weight Loss, Lethargy, Other Eyes: Denies: Pain, Vision change, Conjunctivae inflammation, Eyelid inflammation, Redness, Other ENT: Denies: Head Aches, Ear Pain, Dysphagia, Sinus Congestion, Post Nasal Drip, Sore Throat, Epistaxis, Other Symptoms Skin: Denies: Rash, Lesions, Jaundice, Bruising, Itching, Dry, Breakdown, Nail Changes, Other Pulmonary: Reports: Dyspnea Cardiovascular: Reports: Palpitations Gastrointestinal: Denies: Nausea, Vomiting, Abdominal Pain, Diarrhea, Constipation, Melena, Hematochezia, Other Symptoms Genitourinary: Denies: Dysuria, Frequency, Incontinence, Hematuria, Retention, Other Symptoms Hematologic: Denies: Bruising, Bleeding Excessively, Petecchia, Purpura, Enlarged Lymph Nodes, Other Hematologic Endocrine: Denies: Polydipsia, Polyphagia, Polyuria, Heat Intolerance, Cold Intolerance, Other Endocrine Sx Musculoskeletal: Denies: Neck Pain, Back Pain, Shoulder Pain, Arm Pain, Hand Pain, Leg Pain, Foot Pain, Joint Pain, Muscle Pain, Spasms, Other Symptoms Neurological: Denies: Weakness, Numbness, Incoordination, Change in speech, Confusion, Seizures, Other Symptoms Physical Examination General Exam: Positive: Alert, Cooperative Eye Exam: Positive: PERRLA, Conjunctiva & lids normal ENT Exam: Positive: Atraumatic, Mucous membr. moist/pink Neck Exam: Positive: Supple, JVD Chest Exam: Positive: Rales Heart Exam: Positive: Rate Normal, Normal S1 Abdomen Exam: Positive: Normal bowel sounds, Soft, Tenderness Extremity Exam: Positive: Swelling Skin Exam: Positive: Nl turgor and temperature Neuro Exam: Positive: Strength at 5/5 X4 ext, Sensation Intact Psych Exam: Positive: Mental status NL, Mood NL Vital Signs Vital Signs Date Time Temp Pulse Resp B/P (MAP) Pulse Ox O2 Delivery O2 Flow Rate FiO2 12/06/18 20:45 60 125/67 (86) 97 Room Air 12/06/18 20:30 17 12/06/18 18:18 97.3 Laboratory Data Labs 24H Laboratory Tests 2 12/06/18 18:38: Immature Granulocyte % (Auto) 0.3, White Blood Count 7.7, Red Blood Count 5.03, Hemoglobin 13.9, Hematocrit 44.2, Mean Corpuscular Volume 87.9, Mean Corpuscular Hemoglobin 27.6, Mean Corpuscular Hemoglobin Concent 31.4L, Red Cell Distribution Width 17.6H, Platelet Count 197, Neutrophils (%) (Auto) 76.3H, Lymphocytes (%) (Auto) 12.8L, Monocytes (%) (Auto) 7.2H, Eosinophils (%) (Auto) 3.0, Basophils (%) (Auto) 0.4, Neutrophils # (Auto) 5.9, Lymphocytes # (Auto) 1.0L, Monocytes # (Auto) 0.6, Eosinophils # (Auto) 0.2, Basophils # (Auto) 0.0, Nucleated Red Blood Cells % (auto) 0.0, Anion Gap 8, Glomerular Filtration Rate 38.2L, Blood Urea Nitrogen 40H, Creatinine 1.94H, Sodium Level 139, Potassium Level 4.2, Chloride Level 102, Carbon Dioxide Level 29, Calcium Level 8.1L, Total Creatine Kinase 148, Creatine Kinase MB 5.6H, Creatine Kinase MB Relative Index 3.78, Troponin I 0.13H, JT-Spl-G-Type Natriuretic Peptide 9114H 12/06/18 19:27: Prothrombin Time 19.6H, Prothromb Time International Ratio 1.68 12/06/18 20:22: Total Creatine Kinase 119, Creatine Kinase MB 4.8H, Creatine Kinase MB Relative Index 4.03H, Troponin I 0.14H CBC/BMP Laboratory Tests 12/06/18 18:38 Red Blood Count 5.03, Mean Corpuscular Volume 87.9, Mean Corpuscular Hemoglobin 27.6, Mean Corpuscular Hemoglobin Concent 31.4 L, Red Cell Distribution Width 17.6 H, Neutrophils (%) (Auto) 76.3 H, Lymphocytes (%) (Auto) 12.8 L, Monocytes (%) (Auto) 7.2 H, Eosinophils (%) (Auto) 3.0, Basophils (%) (Auto) 0.4, Neutrophils # (Auto) 5.9, Lymphocytes # (Auto) 1.0 L, Monocytes # (Auto) 0.6, Eosinophils # (Auto) 0.2, Basophils # (Auto) 0.0, Calcium Level 8.1 L, Total Creatine Kinase 148 Microbiology Microbiology 12/06/18 Blood Culture, Received Pending Problems (1) CHF exacerbation Status: Acute Problem Text: 57 years old white male with past medical history of CAD status post CA, CABG, CHF stents, diabetes mellitus, sick sinus syndrome with pacemaker and defibrillator presented with chief complaint increased swelling of bilateral lower extremity. Dyspnea and increasing weight, not improvement with increased dose of by mouth diuretics by his PCP. 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 DVT prophylaxis, patienton apaxiban Activity as tolerated 2 g sodium (2) CKD (chronic kidney disease), stage III Status: Acute Problem Text: History of C KD stage III Monitor BUN/creatinine with IV diuresis Continue home meds (3) Diabetes Status: Chronic Problem Text: Fingerstick blood sugar every before meals and at bedtime Continue long-acting insulin such as Levemir Will hold by mouth oral glycemic agents in the meantime, while he is inpatient Hemoglobin A1c ordered (4) Elevated troponin Status: Acute Problem Text: Most likely secondary to demand ischemia/type II, myocardial infarction Treat hypertension and congestive heart failure Follow repeat troponins in a.m. Plan / VTE VTE Prophylaxis Ordered?: Yes BRISA HESTER MD Dec 06, 2018 22:32
[2018-12-06] MEDS ORDERED: DEXTROSE 50% 50 ML SYRINGE IV PRN (22:45)
[2018-12-06] MEDS ORDERED: GLUCOSE 4 GM CHEW TABLET PO PRN (22:45)
[2018-12-06] MEDS ORDERED: GLUCAGON FOR INJ 1 MG VIAL (J1610) SC PRN (22:45)
[2018-12-06] MEDS: GABAPENTIN 400 MG CAP PO SCH (23:07)
[2018-12-06] MEDS: ATORVASTATIN 20 MG TAB PO SCH (23:07)
[2018-12-06] MEDS: APIXABAN 5 MG TAB (ELIQUIS) PO SCH (23:07)
[2018-12-06] MEDS: CARVedilol 3.125 MG TAB PO SCH (23:08)
[2018-12-07] VITALS (7 sets, daily range): BP systolic 98–129; BP diastolic 55–81
[2018-12-07 05:29] LABS: HEMATOCRIT 37.9 % (42.0-52.0); MEAN CORPUSCULAR HEMOGLOBIN 27.3 pg (27.0-33.0); MEAN CORPUSCULAR HGB CONC 31.7 g/dl (32.0-36.5); MEAN CORPUSCULAR VOLUME 86.1 fl (80.0-96.0); PLATELET COUNT, AUTOMATED 157 10^3/uL (150-450); WHITE BLOOD COUNT 5.4 10^3/uL (4.0-10.0)
[2018-12-07 05:44] LABS: HEMOGLOBIN A1c 7.3 %
[2018-12-07 05:53] LABS: ALBUMIN 2.3 GM/DL (3.2-5.2); BILIRUBIN,TOTAL 0.9 MG/DL (0.2-1.0); CALCIUM LEVEL 7.9 MG/DL (8.5-10.1); CREATININE FOR GFR 1.81 MG/DL (0.70-1.30); GLOMERULAR FILTRATION RATE 41.3 (>56); POTASSIUM SERUM 3.7 MEQ/L (3.5-5.1); TOTAL PROTEIN 6.8 GM/DL (6.4-8.2)
[2018-12-07 05:56] LABS: TROPONIN I 0.11 NG/ML (< 0.10)
[2018-12-07] MEDS: HumaLOG INSULIN (NovoLOG) PER UNIT SC SCH ×4 (07:30→21:00)
[2018-12-07] MEDS ORDERED: FLUBLOK(EGG FREE)(QUAD)INFLUENZA VACC 0.5ML SYRINGE (90682)18YRS&OLDER IM ONE (09:00)
[2018-12-07] MEDS: DOCUSATE SODIUM 100 MG CAP PO SCH ×2 (09:03→21:31)
[2018-12-07] MEDS: ASPIRIN 81 MG ENTERIC TAB PO SCH (09:03)
[2018-12-07] MEDS: DULoxetine 30 MG CAP (CYMBALTA) PO SCH (09:03)
[2018-12-07] MEDS: FUROSEMIDE 40 MG/4 ML VIAL (J1940) IV SCH ×2 (09:04→16:08)
[2018-12-07] MEDS: GABAPENTIN 400 MG CAP PO SCH ×2 (09:04→21:33)
[2018-12-07] MEDS: APIXABAN 5 MG TAB (ELIQUIS) PO SCH ×2 (09:04→21:33)
[2018-12-07] MEDS: CARVedilol 3.125 MG TAB PO SCH ×2 (09:04→21:33)
[2018-12-07] MEDS: LEVEMIR (INSULIN DETEMIR) 1 UNITS/0.01ML SC SCH (09:05)
--- NOTE | 2018-12-07 10:53 | ECGEPIP ---
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
--- NOTE | 2018-12-07 17:25 | IPNPDOC ---
Text Note Date of Service The patient was seen on 12/07/18. NOTE SUBJECTIVE: Mr. Soliz has a history of chronic systolic congestive heart failure with last known ejection fraction of 35%. He also has some pulmonary hypertension. Patient was admitted with worsening lower extremity edema. He also reports weight gain of 14 pounds over the course of a week. OBJECTIVE: Please see vital signs below: Physical exam: HENT: Neck is supple with no adenopathy or thyromegaly, he has moderately poor dentition. Cardiovascular exam: Regular rate and rhythm, no appreciable murmur Respiratory: Patient has bilateral crackles to mid lung dillon, no active cough or wheezing Abdomen: The patient has moderate central obesity, otherwise soft and nontender. Extremities: Patient has at least 2+ pitting edema to his feet and legs. They are mildly tender to palpation. Neuro: Patient has no focal neuromotor or sensory deficit. Psych: Cognition, judgment and insight appear to be fairly intact for his age. Skin: Patient does not have any acute lesions but does have tattoos ASSESSMENT/PLAN: 1. Acute on chronic systolic congestive heart failure. Patient continues with his current regimen inclusive of increased diuretic and fluid restriction. He is on beta eliseo in the form of Coreg and antilipid agent in the form of Lipitor. Renal function will not allow addition of an ACEI/ARB at this time. Patient states he has an exacerbation yearly; he is ot herwise fairly well controlled. Patient already has an AICD. 2. Jit-ljyiirg-cxebxrlih diabetes mellitus Patient continues with current management regimen with sliding scale insulin available for additional control. Glycated hemoglobin is 7.3. VS,Chengbone, I+O VS, Fishbone, I+O Laboratory Tests 12/06/18 18:38 Red Blood Count 5.03, Mean Corpuscular Volume 87.9, Mean Corpuscular Hemoglobin 27.6, Mean Corpuscular Hemoglobin Concent 31.4 L, Red Cell Distribution Width 17.6 H, Neutrophils (%) (Auto) 76.3 H, Lymphocytes (%) (Auto) 12.8 L, Monocytes (%) (Auto) 7.2 H, Eosinophils (%) (Auto) 3.0, Basophils (%) (Auto) 0.4, Neutrophils # (Auto) 5.9, Lymphocytes # (Auto) 1.0 L, Monocytes # (Auto) 0.6, Eosinophils # (Auto) 0.2, Basophils # (Auto) 0.0, Calcium Level 8.1 L, Total Creatine Kinase 148 12/07/18 05:15 Red Blood Count 4.40, Mean Corpuscular Volume 86.1, Mean Corpuscular Hemoglobin 27.3, Mean Corpuscular Hemoglobin Concent 31.7 L, Red Cell Distribution Width 17.1 H, Calcium Level 7.9 L, Aspartate Amino Transf (AST/SGOT) 22, Alanine Aminotransferase (ALT/SGPT) 17, Alkaline Phosphatase 308 H, Total Bilirubin 0.9, Total Protein 6.8, Albumin 2.3 L Vital Signs Date Time Temp Pulse Resp B/P (MAP) Pulse Ox O2 Delivery O2 Flow Rate FiO2 12/07/18 15:19 97.7 64 18 106/61 (76) 98 12/06/18 23:30 Room Air I&O- Last 24 Hours up to 6 AM 12/07/18 06:00 Output Total 500 ml Balance -500 ml RAQUEL BLAS MD Dec 07, 2018 17:25
[2018-12-07] MEDS: ATORVASTATIN 20 MG TAB PO SCH (21:33)
[2018-12-08] MEDS: FUROSEMIDE 40 MG/4 ML VIAL (J1940) IV SCH ×4 (00:19→23:56)
[2018-12-08 04:00] VITALS: BP 119/76
[2018-12-08 06:10] LABS: CALCIUM LEVEL 8.2 MG/DL (8.5-10.1); CREATININE FOR GFR 1.63 MG/DL (0.70-1.30); GLOMERULAR FILTRATION RATE 46.7 (>56); TROPONIN I 0.08 NG/ML (< 0.10)
--- NOTE | 2018-12-08 06:28 | ECHO ---
DATE OF STUDY: 12/07/2018 REFERRING PHYSICIAN: Dr. Reynaga INDICATION: Congestive heart failure. HEIGHT: 178 cm. WEIGHT: 99 kg. DIMENSIONS: IVS: 0.9 LV: 5.3 LVPW: 0.8 LA: 4.7 Aorta: 3.3 IVC: 2.5 Left atrium volume index: 39 mL per meter square Mitral E wave velocity: 47 E prime septal: 4.5 E prime lateral: 4.9 FINDINGS: Study is of good technical quality. The patient is I suspect in atrial fibrillation with ventricularly paced rhythm. Left ventricle is of normal size. There is severe global hypokinesis and the apex appears virtually akinetic. I estimate overall ejection fraction (EF) around 25-30%. Right ventricle appears mildly dilated and probably at least mildly hypokinetic. There is biatrial enlargement. Aortic valve is mildly sclerotic, but has normal mobility. Mitral, tricuspid and pulmonic valves appear grossly normal. No pericardial effusion is noted. There is an echo artifact in right-sided heart chambers corresponding to either pacemaker or ICD lead. Inferior vena cava is markedly dilated and has no appreciable collapse with respiration indicative of very high central venous pressure. Aortic root is normal. Aortic arch and abdominal aorta were not seen. Doppler interrogation reveals no significant aortic valvular disease. There is mild mitral and mild tricuspid insufficiency. Calculated pulmonary artery pressure is minimum around 60 mmHg and possibly higher corresponding to moderately severe hypertension. Evaluation of diastolic function is inconclusive. There is only a single wave on mitral inflow which I believe most likely indicates underlying atrial fibrillation. CONCLUSIONS: 1. Study is of good technical quality. 2. Normal LV size with severe global hypokinesis, apical akinesis and overall EF estimated around 25-30%. 3. Advanced diastolic dysfunction. 4. Biatrial enlargement. 6. No hemodynamically significant valvular disease. 7. Very high central venous pressure and at least moderately severe pulmonary hypertension. COMMENT: Subacute bacterial endocarditis (SBE) prophylaxis is not recommended. MTDD
[2018-12-08] MEDS: HumaLOG INSULIN (NovoLOG) PER UNIT SC SCH ×4 (07:22→20:24)
[2018-12-08 07:40] VITALS: BP 123/84
[2018-12-08] MEDS: LEVEMIR (INSULIN DETEMIR) 1 UNITS/0.01ML SC SCH (07:58)
[2018-12-08] MEDS: GABAPENTIN 400 MG CAP PO SCH ×2 (07:59→20:22)
[2018-12-08] MEDS: APIXABAN 5 MG TAB (ELIQUIS) PO SCH ×2 (07:59→20:22)
[2018-12-08] MEDS: ASPIRIN 81 MG ENTERIC TAB PO SCH (07:59)
[2018-12-08] MEDS: DULoxetine 30 MG CAP (CYMBALTA) PO SCH (07:59)
[2018-12-08] MEDS: DOCUSATE SODIUM 100 MG CAP PO SCH ×2 (07:59→20:20)
[2018-12-08] MEDS: CARVedilol 3.125 MG TAB PO SCH ×2 (08:00→20:24)
[2018-12-08 11:36] VITALS: BP 131/78
[2018-12-08] MEDS: traMADol 50 MG TAB PO PRN ×2 (11:36→20:23)
[2018-12-08 16:00] VITALS: BP 137/71
--- NOTE | 2018-12-08 17:02 | IPNPDOC ---
Text Note Date of Service The patient was seen on 12/08/18. NOTE SUBJECTIVE: Mr. Soliz seems more fatigued today. He is admitted with acute on chronic systolic congestive heart failure with fluid overload. He is undergoing aggressive diuresis. OBJECTIVE: Physical exam: HENT: Neck is supple with no adenopathy or thyromegaly, he has moderately poor dentition. Cardiovascular exam: Regular rate and rhythm, no appreciable murmur Respiratory: Patient has bilateral crackles to mid lung dillon, greater on the right than on the left Abdomen: The patient has moderate central obesity, otherwise soft and nontender. Extremities: Patient has at 1-2+ pitting edema to his feet and legs. They are mildly tender to palpation. Neuro: Patient has no focal neuromotor or sensory deficit. Psych: Cognition, judgment and insight appear to be fairly intact for his age. Skin: Patient does not have any acute lesions but does have tattoos ASSESSMENT/PLAN: 1. Acute on chronic systolic congestive heart failure. Patient continues with his current regimen inclusive of increased diuretic and fluid restriction. He is on beta eliseo in the form of Coreg and antilipid agent in the form of Lipitor. Renal function will not allow addition of an ACEI/ARB at this time. Patient states he has an exacerbation yearly; he is otherwise fairly well controlled. Patient already has an AICD. Patient had repeat echocardiogram; Ejection fraction is 25-30% with diastolic dysfunction and pulmonary arterial pressure of 60 mmHg. Ejection fraction was previously 35%. 2. Oat-vcjcenb-cpnclmuha diabetes mellitus Patient continues with current management regimen with sliding scale insulin available for additional control. Glycated hemoglobin is 7.3. VS,Fishbone, I+O VS, Fishbone, I+O Laboratory Tests 12/08/18 05:22 Calcium Level 8.2 L Vital Signs Date Time Temp Pulse Resp B/P (MAP) Pulse Ox O2 Delivery O2 Flow Rate FiO2 12/08/18 12:06 18 12/08/18 11:36 97.3 64 131/78 (95) 98 12/06/18 23:30 Room Air I&O- Last 24 Hours up to 6 AM 12/08/18 06:00 Intake Total 1340 ml Output Total 1110 ml Balance 230 ml RAQUEL BLAS MD Dec 08, 2018 17:02
[2018-12-08 20:00] VITALS: BP 131/74
[2018-12-08] MEDS: ATORVASTATIN 20 MG TAB PO SCH (20:20)
[2018-12-09] VITALS: BP 117/67
[2018-12-09 04:00] VITALS: BP 124/80
[2018-12-09 07:40] VITALS: BP 140/85
[2018-12-09] MEDS: ASPIRIN 81 MG ENTERIC TAB PO SCH (08:15)
[2018-12-09] MEDS: GABAPENTIN 400 MG CAP PO SCH ×2 (08:15→20:54)
[2018-12-09] MEDS: DULoxetine 30 MG CAP (CYMBALTA) PO SCH (08:15)
[2018-12-09] MEDS: FUROSEMIDE 40 MG/4 ML VIAL (J1940) IV SCH ×2 (08:15→16:52)
[2018-12-09] MEDS: CARVedilol 3.125 MG TAB PO SCH ×2 (08:16→20:55)
[2018-12-09] MEDS: DOCUSATE SODIUM 100 MG CAP PO SCH ×2 (08:16→20:54)
[2018-12-09] MEDS: APIXABAN 5 MG TAB (ELIQUIS) PO SCH ×2 (08:16→20:54)
[2018-12-09] MEDS: HumaLOG INSULIN (NovoLOG) PER UNIT SC SCH ×4 (08:17→21:00)
[2018-12-09] MEDS: LEVEMIR (INSULIN DETEMIR) 1 UNITS/0.01ML SC SCH (08:17)
[2018-12-09] MEDS: traMADol 50 MG TAB PO PRN ×3 (08:25→20:57)
[2018-12-09 11:51] VITALS: BP 134/78
[2018-12-09 15:26] VITALS: BP 134/85
[2018-12-09] MEDS ORDERED: DICLOFENAC EPOLAMINE 1.3 % PATCH TOP ONE (16:00)
--- NOTE | 2018-12-09 17:41 | IPNPDOC ---
Text Note Date of Service The patient was seen on 12/09/18. NOTE SUBJECTIVE: The patient appears to have a bit more energy today. He is admitted with acute on chronic systolic congestive heart failure exacerbation. He is undergoing aggressive diuresis. OBJECTIVE: Please see vital signs below Physical exam: HENT: Neck is supple with no adenopathy or thyromegaly, he has moderately poor dentition. Cardiovascular exam: Regular rate and rhythm, no appreciable murmur Respiratory: Patient has reduced bilateral crackles to mid lung dillon, greater on the right than on the left Abdomen: The patient has moderate central obesity, otherwise soft and nontender, no abdominal wall anasarca Extremities: Patient has 1-2+ pitting edema to his feet and legs. They are mildly tender to palpation. Neuro: Patient has no focal neuromotor or sensory deficit. Psych: Cognition, judgment and insight appear to be fairly intact for his age. Skin: Patient does not have any acute lesions but does have tattoos ASSESSMENT/PLAN: 1. Acute on chronic systolic congestive heart failure. Patient continues with his current regimen inclusive of increased diuretic and fluid restriction. He is on beta eliseo in the form of Coreg and antilipid agent in the form of Lipitor. Renal function may allow addition of an ACEI/ARB at this time. Patient states he has an exacerbation yearly; he is otherwise fairly well controlled. Patient already has an AICD. Patient had repeat echocardiogram; Ejection fraction is 25-30% with diastolic dysfunction and pulmonary arterial pressure of 60 mmHg. Ejection fraction was previously 35%. Co uld also add nitrates as tolerated. 2. Ajg-qutmzia-oyrpdknqr diabetes mellitus Patient continues with current management regimen with sliding scale insulin available for additional control. Glycated hemoglobin is 7.3. VS,Fishbone, I+O VS, Fishbone, I+O Vital Signs Date Time Temp Pulse Resp B/P (MAP) Pulse Ox O2 Delivery O2 Flow Rate FiO2 12/09/18 15:34 18 12/09/18 15:26 97.0 60 134/85 (101) 98 12/06/18 23:30 Room Air I&O- Last 24 Hours up to 6 AM 12/09/18 06:00 Intake Total 1550 ml Output Total 1570 ml Balance -20 ml RAQUEL BLAS MD Dec 09, 2018 17:41
[2018-12-09] MEDS: LISINOPRIL *2.5 MG* TAB PO SCH (17:58)
[2018-12-09 20:00] VITALS: BP 129/76
[2018-12-09] MEDS: ATORVASTATIN 20 MG TAB PO SCH (20:54)
[2018-12-10] VITALS (8 sets, daily range): BP systolic 91–168; BP diastolic 53–87
[2018-12-10] MEDS: FUROSEMIDE 40 MG/4 ML VIAL (J1940) IV SCH ×3 (00:12→16:00)
[2018-12-10 05:56] LABS: CALCIUM LEVEL 8.4 MG/DL (8.5-10.1); CREATININE FOR GFR 1.81 MG/DL (0.70-1.30); GLOMERULAR FILTRATION RATE 41.2 (>56); POTASSIUM SERUM 4.4 MEQ/L (3.5-5.1)
[2018-12-10] MEDS: DICLOFENAC EPOLAMINE 1.3 % PATCH TOP SCH ×2 (06:45→17:19)
[2018-12-10] MEDS: HumaLOG INSULIN (NovoLOG) PER UNIT SC SCH ×4 (07:13→21:00)
[2018-12-10] MEDS: APIXABAN 5 MG TAB (ELIQUIS) PO SCH ×2 (08:15→20:53)
[2018-12-10] MEDS: DOCUSATE SODIUM 100 MG CAP PO SCH ×2 (08:15→20:47)
[2018-12-10] MEDS: DULoxetine 30 MG CAP (CYMBALTA) PO SCH (08:15)
[2018-12-10] MEDS: traMADol 50 MG TAB PO PRN ×2 (08:15→20:48)
[2018-12-10] MEDS: GABAPENTIN 400 MG CAP PO SCH ×2 (08:15→20:48)
[2018-12-10] MEDS: ASPIRIN 81 MG ENTERIC TAB PO SCH (08:15)
[2018-12-10] MEDS: LEVEMIR (INSULIN DETEMIR) 1 UNITS/0.01ML SC SCH (08:16)
[2018-12-10] MEDS: LISINOPRIL *2.5 MG* TAB PO SCH (08:16)
[2018-12-10] MEDS: CARVedilol 3.125 MG TAB PO SCH ×2 (08:16→20:52)
--- NOTE | 2018-12-10 17:07 | IPNPDOC ---
Text Note Date of Service The patient was seen on 12/10/18. NOTE SUBJECTIVE: Mr. Soliz is doing quite well. He is tolerant of activity and does not have any shortness of breath. He does not have an oxygen requirement. Patient was admitted with acute exacerbation of his chronic systolic congestive heart failure. OBJECTIVE: Please see vital signs below Physical exam: HENT: Neck is supple with no adenopathy or thyromegaly, he has moderately poor dentition. Cardiovascular exam: Regular rate and rhythm, no appreciable murmur Respiratory: Patient has rare bilateral crackles deep inspiration, otherwise good air movement with no wheezes Abdomen: The patient has moderate central obesity, otherwise soft and nontender, no abdominal wall anasarca Extremities: Patient has trace pitting edema to his feet and legs, pedal pulses are readily palpable Neuro: Patient has no focal neuromotor or sensory deficit. Psych: Cognition, judgment and insight appear to be fairly intact for his age. Skin: Patient does not have any acute lesions but does have tattoos ASSESSMENT/PLAN: 1. Acute on chronic systolic congestive heart failure. Patient continues with his current regimen inclusive of increased diuretic and fluid restriction. He is on beta eliseo in the form of Coreg and antilipid agent in the form of Lipitor. He is tolerating the addition of TED inhibitor in the form of low-dose lisinopril. Patient already has an AICD. Patient had repeat echocardiogram; Ejection fraction is 25-30% with diastolic dysfunction and pulmonary arterial pressure of 60 mmHg. Ejection fraction was previously 35%. We'll also add Imdur. Anticipate discharge to home tomorrow; transitioning patient to oral Lasix. 2. Esv-jitkwfk-ymiligfya diabetes mellitus Patient continues with current management regimen with sliding scale insulin available for additional control. Glycated hemoglobin is 7.3. VS,Fishbone, I+O VS, Fishbone, I+O Laboratory Tests 12/10/18 05:23 Calcium Level 8.4 L Vital Signs Date Time Temp Pulse Resp B/P (MAP) Pulse Ox O2 Delivery O2 Flow Rate FiO2 12/10/18 15:59 97.7 99 18 124/65 (84) 95 12/06/18 23:30 Room Air I&O- Last 24 Hours up to 6 AM 12/10/18 06:00 Intake Total 880 ml Output Total 2180 ml Balance -1300 ml RAQUEL BLAS MD Dec 10, 2018 17:07
[2018-12-10] MEDS: FUROSEMIDE 40 MG TAB PO SCH ×2 (17:50→20:47)
[2018-12-10] MEDS: ISOSORBIDE MON. (IMDUR) 30 MG XR TAB PO SCH (17:50)
[2018-12-10] MEDS: ATORVASTATIN 20 MG TAB PO SCH (20:47)
[2018-12-11 04:00] VITALS: BP 119/73
[2018-12-11 06:22] LABS: CALCIUM LEVEL 8.6 MG/DL (8.5-10.1); CREATININE FOR GFR 1.8 MG/DL (0.70-1.30); GLOMERULAR FILTRATION RATE 41.5 (>56); POTASSIUM SERUM 4.1 MEQ/L (3.5-5.1)
[2018-12-11] MEDS: DICLOFENAC EPOLAMINE 1.3 % PATCH TOP SCH (06:53)
[2018-12-11] MEDS: HumaLOG INSULIN (NovoLOG) PER UNIT SC SCH (07:28)
[2018-12-11 08:00] VITALS: BP 136/85
[2018-12-11] MEDS: APIXABAN 5 MG TAB (ELIQUIS) PO SCH (08:49)
[2018-12-11 08:50] VITALS: BP 136/85
[2018-12-11] MEDS: ISOSORBIDE MON. (IMDUR) 30 MG XR TAB PO SCH (08:50)
[2018-12-11] MEDS: FUROSEMIDE 40 MG TAB PO SCH (08:50)
[2018-12-11] MEDS: ASPIRIN 81 MG ENTERIC TAB PO SCH (08:50)
[2018-12-11] MEDS: GABAPENTIN 400 MG CAP PO SCH (08:51)
[2018-12-11] MEDS: DULoxetine 30 MG CAP (CYMBALTA) PO SCH (08:51)
[2018-12-11] MEDS: DOCUSATE SODIUM 100 MG CAP PO SCH (08:51)
[2018-12-11] MEDS: LISINOPRIL *2.5 MG* TAB PO SCH (08:51)
[2018-12-11] MEDS: LEVEMIR (INSULIN DETEMIR) 1 UNITS/0.01ML SC SCH (08:53)
[2018-12-11] MEDS: CARVedilol 3.125 MG TAB PO SCH (08:53)
[2018-12-11] MEDS ORDERED: FURO40TA2 PO (10:07)
[2018-12-11] MEDS ORDERED: ISOS30TA4 PO (10:07)
[2018-12-11] MEDS ORDERED: LISI-1046 PO (10:07)
--- NOTE | 2018-12-11 10:10 | DS.PDOC ---
Discharge Summary General Date of Admission Dec 06, 2018 at 22:19 Date of Discharge December 11, 2018 Discharge Summary PROCEDURES PERFORMED DURING STAY: [None]. ADMITTING DIAGNOSES: 1. . DISCHARGE DIAGNOSES: 1. . COMPLICATIONS/CHIEF COMPLAINT: Chf, Ckd, Overdose. HISTORY OF PRESENT ILLNESS: . HOSPITAL COURSE: . DISCHARGE MEDICATIONS: Please see below. ALLERGIES: Please see below. PHYSICAL EXAMINATION ON DISCHARGE: VITAL SIGNS: Please see below. GENERAL: HEENT: NECK: CARDIOVASCULAR EXAMINATION: RESPIRATORY EXAMINATION: ABDOMINAL EXAMINATION: EXTREMITIES: SKIN: NEUROLOGICAL EXAMINATION: PSYCHIATRIC EXAMINATION: LABORATORY DATA: Please see below. IMAGING: PROGNOSIS: ACTIVITY: [As tolerated]. DIET: DISCHARGE PLAN: DISPOSITION: . DISCHARGE INSTRUCTIONS: 1. . ITEMS TO FOLLOWUP ON ON OUTPATIENT: 1. . DISCHARGE CONDITION: [Stable]. TIME SPENT ON DISCHARGE: Greater than minutes. Vital Signs/I&Os Vital Signs Date Time Temp Pulse Resp B/P (MAP) Pulse Ox O2 Delivery O2 Flow Rate FiO2 12/11/18 08:50 136/85 12/11/18 08:00 97.5 56 18 96 12/06/18 23:30 Room Air I&O- Last 24 Hours up to 6 AM 12/11/18 06:00 Intake Total 1310 ml Output Total 1775 ml Balance -465 ml Laboratory Data Labs 24H Laboratory Tests 2 12/10/18 17:17: Bedside Glucose (Misc Panel) 87 12/11/18 05:23: Anion Gap 4L, Glomerular Filtration Rate 41.5L, Blood Urea Nitrogen 43H, Creatinine 1.80H, Sodium Level 142, Potassium Level 4.1, Chloride Level 106, Carbon Dioxide Level 32, Calcium Level 8.6 CBC/BMP Laboratory Tests 12/11/18 05:23 Calcium Level 8.6 FSBS Laboratory Tests Test 12/10/18 17:17 Range/Units Bedside Glucose (Misc Panel) 87 70-105 MG/DL Microbiology Microbiology 12/07/18 Blood Culture - Preliminary, Resulted No Growth after 72 hours. All specime... 12/06/18 Blood Culture - Preliminary, Resulted No Growth after 72 hours. All specime... Discharge Medications Scheduled Apixaban (Eliquis) 5 Mg Tab, 5 MG PO BID, (Reported) Aspirin (Aspir 81) 81 Mg Tablet.dr, 81 MG PO DAILY, (Reported) Atorvastatin Calcium (Atorvastatin Calcium) 80 Mg Tab, 80 MG PO QHS, (Reported) Bumetanide (Bumetanide) 2 Mg Tablet, 2 MG PO BID, (Reported) Carvedilol (Carvedilol) 6.25 Mg Tab, 3.125 MG PO BID, (Reported) Duloxetine Hcl (Duloxetine HCl) 60 Mg Cap, 60 MG PO DAILY, (Reported) Ergocalciferol (Vitamin D2) (Vitamin D2) 50,000 Unit Capsule, 50,000 UNIT PO 1XWK, (Reported) TUESDAY Furosemide (Furosemide) 40 Mg Tablet, 40 MG PO TID Gabapentin (Gabapentin) 400 Mg Cap, 800 MG PO BID, (Reported) Glipizide (Glipizide) 5 Mg Tablet, 5 MG PO BID, (Reported) Insulin Glargine (Lantus) 100 Unit/Ml Inj, 14 UNIT SC DAILY, (Reported) Isosorbide Mononitrate (Isosorbide Mononitrate ER) 30 Mg Tab.er.24h, 30 MG PO DAILY Lisinopril (Lisinopril) 2.5 Mg Tablet, 2.5 MG PO DAILY Potassium Chloride (Potassium Chloride) 40 Meq/15 Ml Liquid, 15 ML PO DAILY, (Reported) Scheduled PRN Albuterol Sulfate (Ventolin Hfa) 18 Gm Hfa.aer.ad, 2 PUFF INH Q4H PRN for wheezing, (Reported) Diclofenac Sodium (Diclofenac Sodium) 1 % Gel, 2 GRAMS TOP QID PRN for PAIN, (Reported) APPLY TO SHOULDERS Lorazepam (Lorazepam) 0.5 Mg Tablet, 0.5 MG PO BID PRN for ANXIETY/AGITATION, (Reported) Nitroglycerin (Nitrostat) 0.4 Mg Subl, 0.4 MG SL NITRO PRN for CHEST PAIN, (Reported) Tramadol HCl (Tramadol HCl) 50 Mg Tablet, 50 MG PO BID PRN for PAIN, (Reported) Allergies Coded Allergies: metformin (Verified Allergy, Intermediate, diarrhea, 10/05/18) fenofibrate (Verified Allergy, Unknown, 10/05/18) gemfibrozil (Verified Allergy, Unknown, 10/05/18) RAQUEL BLAS MD Dec 11, 2018 10:10
--- NOTE | 2018-12-20 23:21 | DS.PDOC ---
Discharge Summary General Date of Admission Dec 06, 2018 at 22:19 Date of Discharge December 12, 2018 Discharge Summary PROCEDURES PERFORMED DURING STAY: [Echocardiogram]. ADMITTING DIAGNOSES: 1. [Acute systolic and diastolic CHF]. DISCHARGE DIAGNOSES: 1. [Chronic systolic and diastolic CHF, pulmonary hypertension, CAD, NIDDM, dyslipidemia, hx of sick sinus syndrome with pacemaker placement]. COMPLICATIONS/CHIEF COMPLAINT: Chf, Ckd, Overdose. HISTORY OF PRESENT ILLNESS/HOSPITAL COURSE: [58 year old male with known CAD with stent placement developed shortness of breath and lower extremity edema. He did not improve with increasing his diuretic. He was admitted for management of acute CHF. Patient was placed on IV Lasix. Echocardiogram showed ejection fraction of 25 - 30% and pulmonary hypertension with diastolic dysfunction. Patient improved and he was transitioned back to his oral medication regimen which includes ACEI, beta eliseo and diuretic.]. DISCHARGE MEDICATIONS: Please see below. ALLERGIES: Please see below. PHYSICAL EXAMINATION ON DISCHARGE: HENT: Neck is supple with no adenopathy or thyromegaly, he has moderately poor dentition. Cardiovascular exam: Regular rate and rhythm, no appreciable murmur Respiratory: Patient has rare bilateral crackles deep inspiration, otherwise good air movement with no wheezes Abdomen: The patient has moderate central obesity, otherwise soft and nontender, no abdominal wall anasarca Extremities: Patient has trace pitting edema to his feet and legs, pedal pulses are readily palpable Neuro: Patient has no focal neuromotor or sensory deficit. Psych: Cognition, judgment and insight appear to be fairly intact for his age. Skin: Patient does not have any acute lesions but does have tattoos LABORATORY DATA: Please see below. IMAGING: PROGNOSIS: ACTIVITY: [As tolerated]. DIET: [Consistent carbohydrate] DISCHARGE PLAN: [Patient was stable for discharge to home with referral for home health services. 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 DISCHARGE INSTRUCTIONS: 1. . ITEMS TO FOLLOWUP ON ON OUTPATIENT: 1. . DISCHARGE CONDITION: [Stable]. TIME SPENT ON DISCHARGE: Greater than [40] minutes. Discharge Medications Scheduled Apixaban (Eliquis) 5 Mg Tab, 5 MG PO BID, (Reported) Aspirin (Aspir 81) 81 Mg Tablet.dr, 81 MG PO DAILY, (Reported) Atorvastatin Calcium (Atorvastatin Calcium) 80 Mg Tab, 80 MG PO QHS, (Reported) Bumetanide (Bumetanide) 2 Mg Tablet, 2 MG PO BID, (Reported) Carvedilol (Carvedilol) 6.25 Mg Tab, 3.125 MG PO BID, (Reported) Duloxetine Hcl (Duloxetine HCl) 60 Mg Cap, 60 MG PO DAILY, (Reported) Ergocalciferol (Vitamin D2) (Vitamin D2) 50,000 Unit Capsule, 50,000 UNIT PO 1XWK, (Reported) TUESDAY Furosemide (Furosemide) 40 Mg Tablet, 40 MG PO TID Gabapentin (Gabapentin) 400 Mg Cap, 800 MG PO BID, (Reported) Glipizide (Glipizide) 5 Mg Tablet, 5 MG PO BID, (Reported) Insulin Glargine (Lantus) 100 Unit/Ml Inj, 14 UNIT SC DAILY, (Reported) Isosorbide Mononitrate (Isosorbide Mononitrate ER) 30 Mg Tab.er.24h, 30 MG PO DAILY Lisinopril (Lisinopril) 2.5 Mg Tablet, 2.5 MG PO DAILY Potassium Chloride (Potassium Chloride) 40 Meq/15 Ml Liquid, 15 ML PO DAILY, (Reported) Scheduled PRN Albuterol Sulfate (Ventolin Hfa) 18 Gm Hfa.aer.ad, 2 PUFF INH Q4H PRN for wheezing, (Reported) Diclofenac Sodium (Diclofenac Sodium) 1 % Gel, 2 GRAMS TOP QID PRN for PAIN, (Reported) APPLY TO SHOULDERS Lorazepam (Lorazepam) 0.5 Mg Tablet, 0.5 MG PO BID PRN for ANXIETY/AGITATION, (Reported) Nitroglycerin (Nitrostat) 0.4 Mg Subl, 0.4 MG SL NITRO PRN for CHEST PAIN, (Reported) Tramadol HCl (Tramadol HCl) 50 Mg Tablet, 50 MG PO BID PRN for PAIN, (Reported) Allergies Coded Allergies: metformin (Verified Allergy, Intermediate, diarrhea, 10/05/18) fenofibrate (Verified Allergy, Unknown, 10/05/18) gemfibrozil (Verified Allergy, Unknown, 10/05/18) RAQUEL BLAS MD Dec 20, 2018 23:21
== END 2018-12-11 11:44 | disposition home or self-care (01) | DRG 291 ==
LOC: M ED 18:17 → M ED INP 22:19 → M PCU 23:45
PROVIDERS: ADMIT Internal Medicine; ATTEND Internal Medicine
DX: I13.0 Hypertensive heart and chronic kidney disease with heart failure and stage 1 through stage 4 chronic kidney disease, or unspecified chronic kidney disease (principal); I50.43 Acute on chronic combined systolic (congestive) and diastolic (congestive) heart failure; N18.3 Chronic kidney disease, stage 3 (moderate); E11.65 Type 2 diabetes mellitus with hyperglycemia; I27.20 Pulmonary hypertension, unspecified; I25.10 Atherosclerotic heart disease of native coronary artery without angina pectoris; R79.89 Other specified abnormal findings of blood chemistry; Z86.79 Personal history of other diseases of the circulatory system; Z79.4 Long term (current) use of insulin; Z95.0 Presence of cardiac pacemaker; Z79.82 Long term (current) use of aspirin; Z79.899 Other long term (current) drug therapy; Z88.8 Allergy status to other drugs, medicaments and biological substances; E11.22 Type 2 diabetes mellitus with diabetic chronic kidney disease; Z95.5 Presence of coronary angioplasty implant and graft; Z79.01 Long term (current) use of anticoagulants; I25.2 Old myocardial infarction; Z87.891 Personal history of nicotine dependence; Z86.69 Personal history of other diseases of the nervous system and sense organs; E78.5 Hyperlipidemia, unspecified

== ENCOUNTER 2019-02-05 08:00 | Emergency (ER) | payer OTHER, MEDICARE ==
[~2019-02-05] VITALS: Ht 175.3 cm; Wt 81.8 kg
[~2019-02-05 08:00] MED LIST changes: +ASPI81TA85 PO; +BUME2TAB3 PO; +LISI-1046 PO; +LORA0.5T11 PO; +POTA10LI10 PO; +TRAM50TA2 PO; +VENTAER INH
[2019-02-05] MEDS ORDERED: CEFU1TAB22 PO (08:26)
[2019-02-05] MEDS ORDERED: ADACEL/BOOSTRIX VACCINE (DIPHTH/PERTUSS/ACELL/TETANUS)0.5ML SYR (90715) IM ONE (08:45)
--- NOTE | 2019-02-05 09:05 | REP ---
CT brain: 02/05/2019. Indication: Head trauma. Comparison: 09/29/2015. Technique: Unenhanced axial CT images of the brain were obtained from skull base to vertex. Findings: There is no acute intracranial hemorrhage, acute cortical infarction, mass effect, hydrocephalus or acute calvarial fracture. Diffuse volume loss is present. Intracranial atherosclerotic disease is noted. Impression: No acute intracranial process. Electronically Signed by Lopez Mcgee DO 02/05/2019 08:57 A
--- NOTE | 2019-02-05 09:14 | REP ---
CT cervical spine: 02/05/2019. Indication: Cervical spine trauma. Comparison: 01/15/2015. Technique: Unenhanced axial CT images of the cervical spine were obtained with coronal and sagittal reconstructions provided. Findings: There is no acute fracture, subluxation or dislocation. Vertebral body alignment is anatomic. There is no evidence of hemorrhage or additional acute post traumatic sequelae within the spinal canal. Bilateral carotid atherosclerotic disease is present. Impression: No acute osseous injury of the cervical spine. Electronically Signed by Lopez Mcgee DO 02/05/2019 09:06 A
[2019-02-05] MEDS ORDERED: LIDOCAINE W/EPINEPHRINE 1% 20ML VIAL SC ONE (10:00)
[2019-02-05 11:30] VITALS: BP 123/76
== END 2019-02-05 11:36 | disposition home or self-care (01) ==
LOC: M ED 08:00
DX: S09.90XA Unspecified injury of head, initial encounter (principal); S01.311A Laceration without foreign body of right ear, initial encounter; W08.XXXA Fall from other furniture, initial encounter; Y92.098 Other place in other non-institutional residence as the place of occurrence of the external cause; I11.0 Hypertensive heart disease with heart failure; I50.9 Heart failure, unspecified; I48.91 Unspecified atrial fibrillation; I25.2 Old myocardial infarction; E11.9 Type 2 diabetes mellitus without complications; Z95.5 Presence of coronary angioplasty implant and graft; Z95.1 Presence of aortocoronary bypass graft; Z95.0 Presence of cardiac pacemaker; Z88.8 Allergy status to other drugs, medicaments and biological substances; Z79.899 Other long term (current) drug therapy; Z79.01 Long term (current) use of anticoagulants; Z79.2 Long term (current) use of antibiotics; Z23 Encounter for immunization

== ENCOUNTER 2019-02-12 11:04 | Emergency (ER) | payer OTHER, MEDICARE ==
[~2019-02-12] VITALS: Ht 175.3 cm; Wt 80.9 kg
[2019-02-12 11:04] VITALS: BP 128/82
[~2019-02-12 11:04] MED LIST changes: +CEFU1TAB22 PO
== END 2019-02-12 12:08 | disposition home or self-care (01) ==
LOC: M ED 11:04
DX: Z48.02 Encounter for removal of sutures (principal)

== ENCOUNTER → 2019-03-01 | Outpatient (CLI) | payer MEDICARE ==
[~2019-03-01] MED LIST changes: -LORA0.5T11 PO; +LORA0.5T5 PO
--- NOTE | 2019-03-20 03:50 | ECWPNPC ---
PATIENT NAME: RY WILLIAM : 1960 GENDER: MALE VISIT DATE: 03/01/2019 DISCHARGE DATE: 03/01/19 1234 VISIT LOCKED DATE TIME: PHYSICIAN: TODD BARAJAS RESOURCE: TODD BARAJAS REASON FOR APPOINTMENT 1. MO-CHRONIC BACK PAIN HISTORY OF PRESENT ILLNESS PAIN SCREENIN-YEAR-OLD MALE REFERRED BY [facility] FOR PERSISTENT LEFT SIDED PAIN. PAIN BEGAN AFTER HIS STROKE IN 2014. WORST AREA OF PAIN IS LEFT SHOULDER. DESCRIBES PAIN IS CONTINUOUS. REPORTS NIGHTTIME AWAKENINGS DUE TO PAIN. HISTORY OF CHRONIC KIDNEY DISEASE AND TRIPLE BYPASS CARDIAC SURGERY IN 2000. HAS TRIALED ACUPUNCTURE, MASSAGE, AND INSERTING MACHINE OPERATOR WITHOUT IMPROVEMENT. HAS TRIALED MULTIPLE MEDICATIONS FOR HER CHRONIC PAIN WITHOUT IMPROVEMENT. CURRENTLY TAKING APPROXIMATELY 3000 MG OF TYLENOL DAILY FOR PAIN WITHOUT IMPROVEMENT. RATING PAIN LEVEL AN 8/10 VAS. PATIENT HAS A COMPLAINT OF ACUTE OR CHRONIC PAIN :YES FALL RISK SCREENING: SCREENING :NO FALLS REPORTED IN THE LAST YEAR CURRENT MEDICATIONS TAKING PROAIR RESPICLICK 108 (90 BASE) MCG/ACT AEROSOL POWDER BREATH ACTIVATED 1 PUFF NEEDED INHALATION EVERY 4 HRS NEEDED TAKING APIXABAN 5 MG TABLET 1 TAB ORALLY BID TAKING ACCU-CHEK ANA PLUS - STRIP DIRECTED IN VITRO BID TAKING TRAMADOL HCL 50 MG TABLET 1 TABLET NEEDED ORALLY THREE TIMES DAILY NEEDED TAKING GABAPENTIN 400 MG CAPSULE 2 CAPSULE ORALLY BID TAKING LORAZEPAM 0.5 MG TABLET 1 TABLET NEEDED ORALLY BID TAKING ACETAMINOPHEN EXTRA STRENGTH 500 MG TABLET 1 TABLET NEEDED ORALLY EVERY 6 HRS TAKING DICLOFENAC SODIUM 1 % GEL DIRECTED TRANSDERMAL TAKING DULOXETINE HCL 30 MG CAPSULE DELAYED RELEASE PARTICLES TWO CAPSULES EVERY MORNING AND ONE CAPUSULE AT SUPPER ORALLY TAKING BUMETANIDE 2 MG TABLET DIRECTED ORALLY BID TAKING CARVEDILOL 3.125 MG TABLET 1 TABLET ORALLY TWICE A DAY TAKING ERGOCALCIFEROL 04448 IU TABLET DIRECTED ORALLY WEEKLY TAKING FERROUS GLUCONATE 325 MG CAPSULE DIRECTED ORALLY DAILY TAKING ROSUVASTATIN CALCIUM 40 MG TABLET 1/2 TAB ORALLY BEFORE BEDTIME NOT-TAKING CYANOCOBALAMIN 1000 MCG TABLET 1 TABLET ORALLY ONCE A DAY NOT-TAKING DRISDOL 81766 UNIT CAPSULE 1 CAPSULE ORALLY WEEKLY NOT-TAKING BUDESONIDE-FORMOTEROL FUMARATE 80-4.5 MCG/ACT AEROSOL 2 PUFFS INHALATION ONCE A DAY NOT-TAKING METOLAZONE 2.5 MG TABLET 1 TABLET ORALLY ONCE A DAY NOT-TAKING NYSTATIN 014973 UNIT/ML SUSPENSION 4 ML MOUTH/THROAT FOUR TIMES A DAY NOT-TAKING LIPITOR 80 MG TABLET 1 TABLET ORALLY ONCE A DAY NOT-TAKING FUROSEMIDE 80 MG TABLET 1 TABLET ORALLY ONCE A DAY NOT-TAKING LANTUS SOLOSTAR 100 UNIT/ML SOLUTION 40 UNITS SUBCUTANEOUS TWICE DAILY NOT-TAKING SPIRONOLACTONE 25 MG TABLET 1/2 TABLET ORALLY DAILY NOT-TAKING POCKET SPACER - DEVICE DIRECTED _ FOUR TIMES DAILY NOT-TAKING GLIPIZIDE 5 MG TABLET 1/2 TAB BID ONCE A DAY NOT-TAKING ISOSORBIDE MONONITRATE ER 30 MG TABLET EXTENDED RELEASE 24 HOUR 1 TABLET ORALLY ONCE A DAY NOT-TAKING BREO ELLIPTA 100-25 MCG/INH AEROSOL POWDER BREATH ACTIVATED 1 PUFF INHALATION ONCE A DAY NOT-TAKING OXYCODONE HCL 5 MG TABLET 1 TABLET ORALLY EVERY 6 HRS NEEDED (MDD:2) MEDICATION LIST REVIEWED AND RECONCILED WITH THE PATIENT PAST MEDICAL HISTORY DIABETES (11/13 9.5) HYPERTENSION CAD S/P CABG CVA 2 (2014) WITH LEFT EFT-SIDED NUMBNESS. CONGESTIVE HEART FAILURE WITH VENTRICULAR PACING (EF 10/13 45% ATRIAL FIBRILLATION CHRONIC KIDNEY DISEASE 12/13 CR. 1.46 DEGENERATIVE DISC DISEASE SCIATICA ANXIETY GERD PROTEINURIA LOW BACK PAIN MAJOR DEPRESSIVE DISORDER ALLERGIES METFORMIN HCL: DIARRHEA BACLOFEN GEMFIBROZIL LISINOPRIL TRICOR SURGICAL HISTORY QUADRUPLE BYPASS 2000 PACEMAKER/DEFIBRILLATOR COLONOSCOPY 03/2016 FAMILY HISTORY FATHER: , DIAGNOSED WITH UNSPECIFIED HEART DISEASE MOTHER: , UNSPECIFIED HEART DISEASE PATERNAL GRAND FATHER: PATERNAL GRAND MOTHER: MATERNAL GRAND FATHER: MATERNAL GRAND MOTHER: 3 SISTER(S) . 1 SON(S) , 1 DAUGHTER(S) - HEALTHY. MOTHER: CADFATHER: CADSISTERS: DIABETES, HEART ISSUES. SOCIAL HISTORY GENERAL: TOBACCO USE ARE YOU A:FORMER SMOKER HOW LONG HAS IT BEEN SINCE YOU LAST SMOKED?> 10 YEARS OTHERS AT HOME: NONE. 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 DIET: LOW SODIUM. LANGUAGE GRENADIAN. DOMESTIC VIOLENCE DO YOU FEEL SAFE IN YOUR ENVIRONMENT?YES BMI CARE GOAL FOLLOW-UP ABOVE NORMAL BMI FOLLOW-UPDIETARY MANAGEMENT EDUCATION, GUIDANCE, AND COUNSELING RECREATIONAL DRUG USE DRUG USE?NO EXERCISE: NO REGULAR EXERCISE. 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 ANALYST NEEDED?NO LUNG CANCER SCREENING SMOKING STATUS:FORMER SMOKER 20PK/YEAR PAIN CLINIC PFS, CLERGY, PUBLIC HEALTH REFERRALS HAS THE PATIENT BEEN EDUCATED REGARDING HIS/HER PLAN OF CARE?YES HAS THE PATIENT BEEN EDUCATED REGARDING PAIN, THE RISK FOR PAIN, THE IMPORTANCE OF EFFECTIVE PAIN MANAGEMENT, AND THE PAIN ASSESSMENT PROCESS?YES LATEX QUESTIONNAIRE LATEX ALLERGY : HAVE YOU EVER DEVELOPED ANY TYPE OF REACTION AFTER HANDLING LATEX PRODUCTS SUCH RUBBER GLOVES, CONDOMS, DIAPHRAGMS, BALLOONS, SOCKS, OR UNDERWEAR?NO LATEX ALLERGY : HAVE YOU EVER DEVELOPED ANY TYPE OF REACTION DURING OR AFTER DENTAL APPOINTMENT, VAGINAL/RECTAL EXAMINATION, SURGICAL PROCEDURE, OR ANY OTHER EXPOSURE?NO LATEX RISK : HAVE YOU EVER HAD ANY DIFFICULTY BREATHING OR HIVES AFTER EATING OR HANDLING ANY FRUITS, OR VEGETABLES; SUCH KIWI, BANANAS, STONE FRUITS, OR CHESTNUTSNO LATEX RISK : DO YOU HAVE A PREVIOUS PERSONAL HISTORY OF MORE THAN NINE SURGERIES, SPINA BIFIDA, OR REPEATED CATHERIZATIONS? NO LATEX RISK : ARE YOU FREQUENTLY EXPOSED TO LATEX PRODUCTS IN YOUR OCCUPATION?NO DATE ASKED : 02/22/2019 CAFFEINE CAFFEINE USE?NO ADVANCE DIRECTIVE ADVANCE DIRECTIVE DISCUSSED WITH PATIENT:YES HEALTH CARE PROXY IS SON VINCENZO, WILL BRING IN NIMBER CATHOLIC NO SHINTO BELIEFS THAT WOULD IMPACT HEALTH CARE. MARITAL STATUS: SINGLE. ALCOHOL SCREENING DID YOU HAVE A DRINK CONTAINING ALCOHOL IN THE PAST YEAR?NO POINTS0 INTERPRETATIONNEGATIVE NEW PATIENT CONSULT INFORMATION REVIEWED 02/22/19 LASREVIEWED WITH PATIENT 03/01/19 1101 NLJ. HOSPITALIZATION/MAJOR DIAGNOSTIC PROCEDURE CONGESTIVE HEART FAILURE- BEEN IN TWICE STROKE- BEEN IN TWICE SURGERIES REVIEW OF SYSTEMS REVIEWED BY: PROVIDER: TODD MIXON . CONSTITUTIONAL: ANY CHANGE IN YOUR MEDICAL CONDITION? NO . CHILLS NO . FEVER NO . INFECTION: DO YOU HAVE NEW INFECTIONS? NO . DO YOU HAVE HISTORY OF MRSA? NO . MUSCULOSKELETAL: ANY NEW PATTERNS OF PAIN OR NUMBNESS? YES- PAIN AND NUMBNESSNIN LOWER BACK AND DOWN LEFT SIDE, STATES THAT HE HAS HAD THE PAIN SINCE 2 STROKES IN 2015 . SYTEMIC LUPUS NO . GASTROENTEROLOGY: ANY NEW CHANGE IN BOWEL CONTROL? NO . BARRETTS ESOPHAGUS NO . CIRRHOSIS NO . HEPATITIS NO . LIVER FAILURE NO . ACID REFLUX NO . UNEXPLAINED WEIGHT LOSS NO . GENITOURINARY: ANY NEW CHANGE IN BLADDER CONTROL? NO . IS THERE A CHANCE YOU COULD BE ? NO . HEMATOLOGY/LYMPH: DO YOU TAKE ANY BLOOD THINNERS? (FOR EXAMPLE- COUMADIN, PLAVIX, AGGRENOX, PLATEL, PRADAXA, OR XARELTO) YES- APIXABAN 5 MG . WHEN WAS YOUR LAST DOSE? DATE:03/01/19 TIME: AM . LOW PLATELET COUNT NO . SICKLE CELL DISEASE NO . VON WILLIEBRANDS NO . FACTOR V LEIDEN NO . THALLASEMIA NO . ANEMIA YES- TAKES FERROUS GLUCONATE . EASY BRUISING NO . NEUROLOGY: HAVE YOU FALLEN IN THE PAST 12 MONTHS? YES-FELL 2 WEEKS AGO WHILE GETTING DRESSED AND CUT RIGHT EAR AND HAD 5 STITCHES . ANY NEW EXTREMITY NUMBNESS OR WEAKNESS? YES- NOT NEW TO PATIENT, BUT HE HAS LEFT SIDED NUMBNESS AND WEAKNESS . HEAD INJURY NO . DEMENTIA NO . CEREBRAL PALSY NO . MULTIPLE SCLEROSIS NO . DIZZINESS NO . HEADACHE NO . STROKES YES- 2014 1ST STOKE CAUSED RIGHT SIDED BRAIN DAMAGE AND SHORT TERM MEMORY LOSS AND LEFT SIDED WEAKNESS, STATES HIS COMPREHENSION IS ALSO OFF SINCE STROKE . VERTIGO NO . CARDIOLOGY: DO YOU HAVE A PACEMAKER OR DEFIBRILLATOR? YES- PACER WITH DEFRIBRILLATOR . ANGINA NO . HEART ATTACK YES-2000 QUADRUPILE BYPASS 2000 ALSO HAS 3CARDIAC STENTS . HEART SURGERY BYPASS GRAFTS, STENTS PLACED . CONGESTIVE HEART FAILURE/FLUID OVERLOAD YES- IN THE PAST . CHEST PAIN NO . HIGH BLOOD PRESSURE NO . IRREGULAR HEART BEAT NO . RESPIRATORY: HAVE YOU BEEN SICK IN THE PAST WEEK? YES- STATES HE HAS HAD A COUGH . FEVER NO . FLU LIKE SYMPTOMS? NO . CPAP NO . BYPAP NO . ASTHMA NO . EMPHYSEMA NO . CHRONIC LUNG DISEASES YES- HISTORY OF COPD . SHORTNESS OF BREATH ON EXERTION YES- . COUGH NO . SNORING NO . INTEGUMENTARY: DO YOU HAVE ANY RASHES OR OPEN SORES? NO . ALLERGIC/IMMUNO: ARE YOU ALLERGIC TO IV DYE? NO . ANY NEW ALLERGIES? NO . PSYCHIATRIC: DO YOU HAVE THOUGHTS OF HURTING YOURSELF OR SOMEONE ELSE? NO . ARE YOU ABUSED, NEGLECTED, OR IN AN UNSAFE ENVIRONMENT? NO . ENDOCRINOLOGY: ARE YOU DIABETIC? YES- NO MEDICATIONS CURRENTLY, CONTROLLED BY DIET . THYROID DISORDER NO . OTHER: DO YOU NEED ANY PRESCRIPTIONS? YES . IF YES, PLEASE LIST: ____ . ANY NEW PROBLEMS WITH YOUR MEDICATIONS? NO . WHEN DID YOU LAST EAT? ____ . WHEN DID YOU LAST DRINK? ____ . WHAT DID YOU LAST DRINK? ____ . NAME OF PERSON DRIVING YOU HOME? ____ . DO YOU HAVE ANY OTHER QUESTIONS OR CONCERNS YES- STATES HE WOULD JUST LIKE SOME PAIN CONTROL TO HELP WITH QUALITY OF LIFE . VITAL SIGNS WT 196.6 LBS, HT 70 IN, BMI 28.21 INDEX, BP 110/67 MM HG, HR 87 /MIN, RR 18 /MIN, TEMP 96.1 F, OXYGEN SAT % 98%, SAFE IN ENV? (Y/N) YES, NA INITIALS AW 1100, REVIEWED BY: JEZ. EXAMINATION GENERAL EXAMINATION: GENERAL AWAKE,ALERT ,PLEAASANT . PSYCH AFFECT NORMAL . NECK: TRACHEA MIDLINE. NO CERVICAL OR SUPRACLAVICULAR LYMPHADENOPATHY NOTED. LUNGS: LUNG VIVAS ARE CLEAR TO AUSCULTATION BILATERALLY. GOOD MOVEMENT OF AIR . HEART: S1, S2 IN A REGULAR RATE AND RHYTHM. NO SIGNIFICANT MURMURS, RUBS OR GALLOPS NOTED . ABDOMEN: SOFT/NONTENDER. MUSCULOSKELETAL: MUSCLE STRENGTH TESTING: WEAKNESS NOTED OVER LEFT ARM./LOWER EXTREMITIES 5/5. FOR BILAT. SIJ PALPATION: NEGATIVE FOR PAIN OVER L/S SPINE. NEGATIVE FOR PAIN OVER L/S PARASPINALS. , TRIGGER POINTS:. CERVICAL NEGATIVE FOR PAIN WITH PALPATION OF CERVICAL SPINE. NEGATIVE FOR PAIN WITH PALPATION OF CERVICAL PARASPINALS. NEGATIVE FOR PAIN WITH PALPATION OF TRAPEZIUS BILAT. SKIN: NO RASH OR SKIN LESIONS. NEUROLOGIC EXAM: CN'S NORMAL TESTED , DTRS 1-2+ IN ALL 4 EXTREMITIES. DIAGNOSTIC TESTS REVIEWED. CT OF THE CERVICAL SPINE 10/13/2018RELATIVELY MILD DEGENERATIVE DISC DISEASE WITHOUT SPINAL STENOSIS.. ASSESSMENTS NEUROPATHY - G62.9 (PRIMARY) CENTRAL PAIN SYNDROME - G89.0 TREATMENT NEUROPATHY START OXYCODONE HCL TABLET, 5 MG, 1 TABLET NEEDED, ORALLY, EVERY 6 HRS PRN MDD4, 30 DAYS, 75, REFILLS 0 NOTES: [facility] NARCOTIC AGREEMENT WAS REVIEWED AND SIGNED TODAY BY THE PATIENT. SEE ATTACHED DOCUMENT FOR FULL DETAILS; SPECIFIC ISSUES WERE REVIEWED: 1) KEEP PAIN MEDS IN THEIR ORIGINAL BOTTLES AND ANY WEEKLY PLANNERS ARE TO BE BROUGHT TO THE PAIN CENTER AT EVERY VISIT. 2) THE PATIENT IS NOT TO INCREASE DOSING OR TIMING OF THEIR PAIN MEDICATION WITHOUT SPECIFIC DIRECTION OF THEIR PAIN CENTERPROVIDER (NOT ER OR OTHER PROVIDERS). 3) ALL PAIN MEDS ARE TO BE KEPT SECURED, IN A LOCKED BOX. 4) NO PAIN MEDS ARE TO BE SHARED WITH ANY OTHER PERSON FOR ANY REASON. 5) NO PAIN MEDS MAY BE TAKEN FROM ANY FRIENDS OR RELATIVES FOR ANY REASON 6) NO MEDS OR SUBSTANCES WHICH ARE NOT LEGAL ARE TO BE USED- NO MARIJUANA, NO COCAINE, AMPHETAMINES, HEROIN, OR OTHERS ARE EVER TO BE USED. 7)URINE TESTING IS DONE TO ACCOUNT FOR MEDS AND SUBSTANCES BEING TAKEN AND WILL BE DONE RANDOMLY., RISKS OF NARCOTIC/OPIOD MEDICATIONS INCLUDES BUT IS NOT LIMITED TO RISK OF DEPENDANCE/DEVELOPMENT OF ADDICTION, MOOD DISTURBANCE AND DEPRESSION, OSTEOPOROSIS, HORMONAL AND LABIDAL CHANGES, RESPIRATORY DEPRESSION AND . PATIENT IS ADVISED NOT TO DRIVE OR DRINK ALCOHOL WHILE ON THESE MEDICATIONS, ISTOP REGISTRY REVIEWED AND DEMONSTRATES COMPLLIANCE. OTHERS NOTES: OXYCODONE MATERIAL WAS PRINTED. PROCEDURE CODES FA211 ESTABILISHED [facility]IENT [facility] CHARGE DISPOSITION & COMMUNICATION FOLLOW UP 6 WEEKS (REASON: MED MGMNT) ELECTRONICALLY SIGNED BY ORAL BLAIR ON 03/19/2019 AT 09:04 AM EST DISCLAIMER : THIS IS A VISIT SUMMARY EXTRACTED FROM THE [employer] CHART. IT IS NOT A COPY OF THE The [employer] PROGRESS NOTE. KEIRA
== END ==
LOC: M PAIN 11:00
PROVIDERS: ATTEND Nurse Practitioner Family
DX: G62.9 Polyneuropathy, unspecified (principal); G89.0 Central pain syndrome

== ENCOUNTER → 2019-04-12 | Outpatient (CLI) | payer OTHER ==
--- NOTE | 2019-05-01 06:57 | ECWPNPC ---
PATIENT NAME: RY WILLIAM : 1960 GENDER: MALE VISIT DATE: 04/12/2019 DISCHARGE DATE: 04/12/19 1133 VISIT LOCKED DATE TIME: PHYSICIAN: TODD BARAJAS RESOURCE: TODD BARAJAS REASON FOR APPOINTMENT 1. VA- LEFT SIDE/MED MGMNT HISTORY OF PRESENT ILLNESS HISTORY OF PRESENT ILLNESS: HERE FOR FOLLOW-UP AFTER INITIAL EVALUATION OF CHRONIC LEFT-SIDED BODY PAIN, STATUS POST STROKE IN 2014. HE WAS STARTED ON OXYCODONE 5 MG WITH INSTRUCTIONS TO TAKE ONE TABLET NEEDED FOR SEVERE PAIN EPISODES #75 TABLETS FOR 30 DAY SUPPLY. STATES HE IS DOING BETTER WITH ABILITY TO TOLERATE ACTIVITIES WITH BETTER PAIN CONTROL WITH USE OF OXYCODONE SPARINGLY FOR SEVERE PAIN EPISODES. CONTINUES ON TRAMADOL 50 MG MORNING AND NIGHT. PAIN THE PATIENT DESCRIBES THE PAIN... FALL RISK SCREENING: SCREENING :NO FALLS REPORTED IN THE LAST YEAR COPD [facility]: RATING PAIN LEVEL A 6/10. CURRENT MEDICATIONS TAKING PROAIR RESPICLICK 108 (90 BASE) MCG/ACT AEROSOL POWDER BREATH ACTIVATED 1 PUFF NEEDED INHALATION EVERY 4 HRS NEEDED TAKING APIXABAN 5 MG TABLET 1 TAB ORALLY BID TAKING ACCU-CHEK ANA PLUS - STRIP DIRECTED IN VITRO BID TAKING TRAMADOL HCL 50 MG TABLET 1 TABLET NEEDED ORALLY THREE TIMES DAILY NEEDED TAKING GABAPENTIN 400 MG CAPSULE 2 CAPSULE ORALLY BID TAKING LORAZEPAM 0.5 MG TABLET 1 TABLET NEEDED ORALLY BID TAKING ACETAMINOPHEN EXTRA STRENGTH 500 MG TABLET 1 TABLET NEEDED ORALLY EVERY 6 HRS TAKING DICLOFENAC SODIUM 1 % GEL DIRECTED TRANSDERMAL TAKING DULOXETINE HCL 30 MG CAPSULE DELAYED RELEASE PARTICLES TWO CAPSULES EVERY MORNING AND ONE CAPUSULE AT SUPPER ORALLY TAKING BUMETANIDE 2 MG TABLET DIRECTED ORALLY BID TAKING CARVEDILOL 3.125 MG TABLET 1 TABLET ORALLY TWICE A DAY TAKING ERGOCALCIFEROL 30891 IU TABLET DIRECTED ORALLY WEEKLY TAKING FERROUS GLUCONATE 325 MG CAPSULE DIRECTED ORALLY DAILY TAKING ROSUVASTATIN CALCIUM 40 MG TABLET 1/2 TAB ORALLY BEFORE BEDTIME TAKING OXYCODONE HCL 5 MG TABLET 1 TABLET NEEDED ORALLY EVERY 6 HRS PRN MDD4 NOT-TAKING CYANOCOBALAMIN 1000 MCG TABLET 1 TABLET ORALLY ONCE A DAY NOT-TAKING DRISDOL 58887 UNIT CAPSULE 1 CAPSULE ORALLY WEEKLY NOT-TAKING BUDESONIDE-FORMOTEROL FUMARATE 80-4.5 MCG/ACT AEROSOL 2 PUFFS INHALATION ONCE A DAY NOT-TAKING METOLAZONE 2.5 MG TABLET 1 TABLET ORALLY ONCE A DAY NOT-TAKING NYSTATIN 646844 UNIT/ML SUSPENSION 4 ML MOUTH/THROAT FOUR TIMES A DAY NOT-TAKING LIPITOR 80 MG TABLET 1 TABLET ORALLY ONCE A DAY NOT-TAKING FUROSEMIDE 80 MG TABLET 1 TABLET ORALLY ONCE A DAY NOT-TAKING LANTUS SOLOSTAR 100 UNIT/ML SOLUTION 40 UNITS SUBCUTANEOUS TWICE DAILY NOT-TAKING SPIRONOLACTONE 25 MG TABLET 1/2 TABLET ORALLY DAILY NOT-TAKING POCKET SPACER - DEVICE DIRECTED _ FOUR TIMES DAILY NOT-TAKING GLIPIZIDE 5 MG TABLET 1/2 TAB BID ONCE A DAY NOT-TAKING ISOSORBIDE MONONITRATE ER 30 MG TABLET EXTENDED RELEASE 24 HOUR 1 TABLET ORALLY ONCE A DAY NOT-TAKING BREO ELLIPTA 100-25 MCG/INH AEROSOL POWDER BREATH ACTIVATED 1 PUFF INHALATION ONCE A DAY NOT-TAKING OXYCODONE HCL 5 MG TABLET 1 TABLET ORALLY EVERY 6 HRS NEEDED (MDD:2) MEDICATION LIST REVIEWED AND RECONCILED WITH THE PATIENT PAST MEDICAL HISTORY DIABETES (11/13 9.5) HYPERTENSION CAD S/P CABG CVA 2 (2014) WITH LEFT EFT-SIDED NUMBNESS. CONGESTIVE HEART FAILURE WITH VENTRICULAR PACING (EF 10/13 45% ATRIAL FIBRILLATION CHRONIC KIDNEY DISEASE 12/13 CR. 1.46 DEGENERATIVE DISC DISEASE SCIATICA ANXIETY GERD PROTEINURIA LOW BACK PAIN MAJOR DEPRESSIVE DISORDER ALLERGIES METFORMIN HCL: DIARRHEA BACLOFEN GEMFIBROZIL LISINOPRIL TRICOR SURGICAL HISTORY QUADRUPLE BYPASS 2000 PACEMAKER/DEFIBRILLATOR COLONOSCOPY 03/2016 FAMILY HISTORY FATHER: , DIAGNOSED WITH UNSPECIFIED HEART DISEASE MOTHER: , UNSPECIFIED HEART DISEASE PATERNAL GRAND FATHER: PATERNAL GRAND MOTHER: MATERNAL GRAND FATHER: MATERNAL GRAND MOTHER: 3 SISTER(S) . 1 SON(S) , 1 DAUGHTER(S) - HEALTHY. MOTHER: CADFATHER: CADSISTERS: DIABETES, HEART ISSUES. SOCIAL HISTORY GENERAL: TOBACCO USE ARE YOU A:FORMER SMOKER CHEWS TOBACCO CURRENTLY HOW LONG HAS IT BEEN SINCE YOU LAST SMOKED?> 10 YEARS OTHERS AT HOME: NONE. 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 DIET: LOW SODIUM. LANGUAGE SAMMARINESE. DOMESTIC VIOLENCE DO YOU FEEL SAFE IN YOUR ENVIRONMENT?YES BMI CARE GOAL FOLLOW-UP ABOVE NORMAL BMI FOLLOW-UPDIETARY MANAGEMENT EDUCATION, GUIDANCE, AND COUNSELING RECREATIONAL DRUG USE DRUG USE?NO EXERCISE: NO REGULAR EXERCISE. LEARNING BARRIERS / SPECIAL NEEDS CHANGE FROM LAST VISIT?NO BARRIERS TO LEARNING?NO HEARING IMPAIRED?NO VISION IMPAIRED?YES WEARS GLASSES COGNITIVELY IMPAIRED?NO READINESS TO LEARN?YES LEARNING PREFERENCES?YES :DEMONSTRATION/VERBAL INSTRUCTION PATIENT REPORTS HE HAS TROUBLE WITH READING COMPREHENSION AND WOULD PREFER THAT INFORMATION BE REVIEWED ORALLY WITH HIM LEARNING CAPABILITIES PRESENT?YES EMOTIONAL BARRIERS?NO SPECIAL DEVICES?NO REGISTERED DIETICIAN NEEDED?NO LUNG CANCER SCREENING SMOKING STATUS:FORMER SMOKER 20PK/YEAR PAIN CLINIC PFS, CLERGY, PUBLIC HEALTH REFERRALS HAS THE PATIENT BEEN EDUCATED REGARDING HIS/HER PLAN OF CARE?YES HAS THE PATIENT BEEN EDUCATED REGARDING PAIN, THE RISK FOR PAIN, THE IMPORTANCE OF EFFECTIVE PAIN MANAGEMENT, AND THE PAIN ASSESSMENT PROCESS?YES LATEX QUESTIONNAIRE LATEX ALLERGY : HAVE YOU EVER DEVELOPED ANY TYPE OF REACTION AFTER HANDLING LATEX PRODUCTS SUCH RUBBER GLOVES, CONDOMS, DIAPHRAGMS, BALLOONS, SOCKS, OR UNDERWEAR?NO LATEX ALLERGY : HAVE YOU EVER DEVELOPED ANY TYPE OF REACTION DURING OR AFTER DENTAL APPOINTMENT, VAGINAL/RECTAL EXAMINATION, SURGICAL PROCEDURE, OR ANY OTHER EXPOSURE?NO LATEX RISK : HAVE YOU EVER HAD ANY DIFFICULTY BREATHING OR HIVES AFTER EATING OR HANDLING ANY FRUITS, OR VEGETABLES; SUCH KIWI, BANANAS, STONE FRUITS, OR CHESTNUTSNO LATEX RISK : DO YOU HAVE A PREVIOUS PERSONAL HISTORY OF MORE THAN NINE SURGERIES, SPINA BIFIDA, OR REPEATED CATHERIZATIONS? NO LATEX RISK : ARE YOU FREQUENTLY EXPOSED TO LATEX PRODUCTS IN YOUR OCCUPATION?NO DATE ASKED : 02/22/2019 CAFFEINE CAFFEINE USE?NO ADVANCE DIRECTIVE ADVANCE DIRECTIVE DISCUSSED WITH PATIENT:YES HEALTH CARE PROXY IS [facility]A LO[facility], WILL BRING IN NIMBER CATHOLIC NO CHRISTIAN BELIEFS THAT WOULD IMPACT HEALTH CARE. MARITAL STATUS: SINGLE. ALCOHOL SCREENING DID YOU HAVE A DRINK CONTAINING ALCOHOL IN THE PAST YEAR?NO POINTS0 INTERPRETATIONNEGATIVE NEW PATIENT CONSULT INFORMATION REVIEWED 02/22/19 LASREVIEWED WITH PATIENT 03/01/19 1101 NLJREVIEWED WITH PATIENT 04/12/2019 1101 JS. HOSPITALIZATION/MAJOR DIAGNOSTIC PROCEDURE CONGESTIVE HEART FAILURE- BEEN IN TWICE STROKE- BEEN IN TWICE SURGERIES REVIEW OF SYSTEMS REVIEWED BY: PROVIDER: TODD MIXON . CONSTITUTIONAL: ANY CHANGE IN YOUR MEDICAL CONDITION? NO . CHILLS NO . FEVER NO . INFECTION: DO YOU HAVE NEW INFECTIONS? NO . DO YOU HAVE HISTORY OF MRSA? NO . MUSCULOSKELETAL: ANY NEW PATTERNS OF PAIN OR NUMBNESS? YES, STATES PAIN HAS DECREASED SOME SINCE STARTING OXYCODONE . GASTROENTEROLOGY: ANY NEW CHANGE IN BOWEL CONTROL? NO - MARKED INCORRECTLY ON SHEET . GENITOURINARY: ANY NEW CHANGE IN BLADDER CONTROL? NO - MARKED INCORRECTLY ON SHEET . IS THERE A CHANCE YOU COULD BE ? NO . HEMATOLOGY/LYMPH: DO YOU TAKE ANY BLOOD THINNERS? (FOR EXAMPLE- COUMADIN, PLAVIX, AGGRENOX, PLATEL, PRADAXA, OR XARELTO) YES, ELIQUIS . WHEN WAS YOUR LAST DOSE? DATE: 04/12/2019TIME: 0800 . NEUROLOGY: HAVE YOU FALLEN IN THE PAST 12 MONTHS? YES, STATES FALL FROM HIS LEGS GIVING OUT ON HIM AND NOT HAVING HIS CANE. STATES NO INJURIES, NO ED VISIT . ANY NEW EXTREMITY NUMBNESS OR WEAKNESS? NO . CARDIOLOGY: DO YOU HAVE A PACEMAKER OR DEFIBRILLATOR? YES, PACER/DEFIBRILLATOR . RESPIRATORY: HAVE YOU BEEN SICK IN THE PAST WEEK? NO . FEVER NO . FLU LIKE SYMPTOMS? NO . COUGH YES, PRODUCTIVE - WENT TO DOCTOR'S OFFICE YESTERDAY, THINK IT MAY JUST BE FROM ALLERGIES . INTEGUMENTARY: DO YOU HAVE ANY RASHES OR OPEN SORES? NO . ALLERGIC/IMMUNO: ARE YOU ALLERGIC TO IV DYE? NO . ANY NEW ALLERGIES? NO . PSYCHIATRIC: DO YOU HAVE THOUGHTS OF HURTING YOURSELF OR SOMEONE ELSE? NO . ARE YOU ABUSED, NEGLECTED, OR IN AN UNSAFE ENVIRONMENT? NO . ENDOCRINOLOGY: ARE YOU DIABETIC? YES . OTHER: DO YOU NEED ANY PRESCRIPTIONS? YES . IF YES, PLEASE LIST: ____OXYCODONE . ANY NEW PROBLEMS WITH YOUR MEDICATIONS? NO - MARKED INCORRECTLY ON SHEET . WHEN DID YOU LAST EAT? ____ . WHEN DID YOU LAST DRINK? ____ . WHAT DID YOU LAST DRINK? ____ . NAME OF PERSON DRIVING YOU HOME? ____ . DO YOU HAVE ANY OTHER QUESTIONS OR CONCERNS NO . VITAL SIGNS WT 190.2 LBS, HT 70 IN, BMI 27.29 INDEX, BP 95/54 MM HG, HR 85 /MIN, RR 18 /MIN, TEMP 96.0 F, OXYGEN SAT % 100%, SAFE IN ENV? (Y/N) YES, NA INITIALS AW 1055, REVIEWED BY: JS. EXAMINATION GENERAL EXAMINATION: GENERALAWAKE,ALERT ,PLEASANT . PSYCHAFFECT NORMAL . LUNGS:LUNG VIVAS ARE CLEAR TO AUSCULTATION BILATERALLY. GOOD MOVEMENT OF AIR . HEART:S1, S2 IN A REGULAR RATE AND RHYTHM. NO SIGNIFICANT MURMURS, RUBS OR GALLOPS NOTED . ASSESSMENTS NEUROPATHY - G62.9 (PRIMARY) TREATMENT NEUROPATHY CONTINUE OXYCODONE HCL TABLET, 5 MG, 1 TABLET NEEDED, ORALLY, EVERY 6 HRS PRN MDD4 NOTES: ISTOP REGISTRY REVIEWED AND DEMONSTRATES COMPLLIANCE. BRINGS IN MEDICATIONS WHICH IS APPROPRIATE FOR WHAT WAS DISPENSED. URINE TOX NEXT VISIT, RISKS OF NARCOTIC/OPIOD MEDICATIONS INCLUDES BUT IS NOT LIMITED TO RISK OF DEPENDANCE/DEVELOPMENT OF ADDICTION, MOOD DISTURBANCE AND DEPRESSION, OSTEOPOROSIS, HORMONAL AND LABIDAL CHANGES, RESPIRATORY DEPRESSION AND . PATIENT IS ADVISED NOT TO DRIVE OR DRINK ALCOHOL WHILE ON THESE MEDICATIONS. PROCEDURE CODES FA211 ESTABILISHED PATIENT [facility] CHARGE DISPOSITION & COMMUNICATION FOLLOW UP 2 MONTHS (REASON: MED MGMNT) ELECTRONICALLY SIGNED BY ORAL BLAIR ON 04/30/2019 AT 03:35 PM EST DISCLAIMER : THIS IS A VISIT SUMMARY EXTRACTED FROM THE [employer] CHART. IT IS NOT A COPY OF THE [employer] PROGRESS NOTE. KEIRA
== END ==
LOC: M PAIN 10:30
PROVIDERS: ATTEND Nurse Practitioner Family
DX: G62.9 Polyneuropathy, unspecified (principal)

== ENCOUNTER 2019-05-28 13:20 | Inpatient (IN) | payer OTHER ==
[~2019-05-28] VITALS: Ht 175.3 cm; Wt 79.0 kg
[2019-05-28] MEDS ORDERED: methylPREDNISolone INJ 125 MG/2 ML VIAL (J2930) IV ONE (13:45)
[2019-05-28] MEDS: ALBUTEROL 90 MCG/ACT 8GM HFA INHALER INH SCH ×3 (13:45→15:03)
[2019-05-28] MEDS ORDERED: OXYC-517 PO (14:13)
[2019-05-28 14:20] LABS: BASO % 0.3 % (0.0-1.0); EOS # 0.2 10^3/uL (0.0-0.5); EOS % 3.5 % (0.0-3.0); HEMATOCRIT 34.7 % (42.0-52.0); HEMOGLOBIN 10.7 g/dl (13.5-17.5); LYMPH # 0.9 10^3/uL (1.5-5.0); LYMPH % 13.2 % (24.0-44.0); MEAN CORPUSCULAR HEMOGLOBIN 27.3 pg (27.0-33.0); MEAN CORPUSCULAR HGB CONC 30.8 g/dl (32.0-36.5); MEAN CORPUSCULAR VOLUME 88.5 fl (80.0-96.0); MONO # 0.5 10^3/uL (0.0-0.8); MONO % 7.4 % (0.0-5.0); NEUTROPHILS # 5.2 10^3/uL (1.5-8.5); NEUTROPHILS % 75.5 % (36.0-66.0); PLATELET COUNT, AUTOMATED 198 10^3/uL (150-450); RED BLOOD COUNT 3.92 10^6/uL (4.30-6.10); WHITE BLOOD COUNT 6.9 10^3/uL (4.0-10.0)
[2019-05-28 14:31] LABS: INR 1.86; PROTHROMBIN TIME 21.2 SECONDS (11.8-14.0)
[2019-05-28 14:32] LABS: PARTIAL THROMBOPLASTIN TIME 43.4 SECONDS (25.0-38.4)
[2019-05-28 14:55] LABS: ALBUMIN 2.4 GM/DL (3.2-5.2); BILIRUBIN,DIRECT 0.6 MG/DL (0.0-0.2); BILIRUBIN,TOTAL 0.8 MG/DL (0.2-1.0); CK-MB VALUE MASS 3.6 NG/ML (<3.6); MB/CK RELATIVE INDEX 5.9 (< OR =4); THYROID STIMULATING HORMONE 3.34 uIU/ML (0.358-3.740); THYROXINE (T4) 10.8 UG/DL (4.5-12.0); TOTAL PROTEIN 7.8 GM/DL (6.4-8.2); TROPONIN I 0.04 NG/ML (< 0.10)
--- NOTE | 2019-05-28 15:24 | REP ---
PORTABLE CHEST X-RAY: SINGLE VIEW. HISTORY: Dyspnea and cough. COMPARISON CHEST X-RAY: December 06, 2018. FINDINGS: Monitoring electrodes are seen. A multi lead pacemaker is seen in the right heart via the left side. Heart is enlarged. There is plate-like atelectasis in the right base. The pleural angles are sharp. Pulmonary vasculature is somewhat cephalized. No infiltrate is seen. There is no evidence of pleural effusion or pulmonary edema. IMPRESSION: Cardiomegaly with multi lead pacemaker. Linear plate-like atelectasis right base. Pulmonary vascular cephalization. Electronically Signed by William Gallardo MD 05/28/2019 05:00 P
[2019-05-28] MEDS ORDERED: FUROSEMIDE 100 MG/10 ML VIAL (J1940) IV ONE (15:30)
[2019-05-28] MEDS ORDERED: ROXI1TAB2 PO (15:47)
[2019-05-28] MEDS ORDERED: VITA50005 PO (15:47)
[2019-05-28] MEDS ORDERED: LISI-1046 PO (15:47)
[2019-05-28] MEDS ORDERED: POLYOPD OU (15:48)
[2019-05-28] MEDS ORDERED: GLUCAGON FOR INJ 1 MG VIAL (J1610) SC PRN (16:15)
[2019-05-28] MEDS ORDERED: ACETAMINOPHEN TAB 650MG DOSE (2X325MG) PO PRN (16:15)
[2019-05-28] MEDS ORDERED: GLUCOSE 4 GM CHEW TABLET PO PRN (16:15)
[2019-05-28] MEDS ORDERED: DEXTROSE 50% 50 ML SYRINGE IV PRN (16:15)
[2019-05-28] MEDS ORDERED: ALBUTEROL 90 MCG/ACT 8GM HFA INHALER INH PRN (16:45)
--- NOTE | 2019-05-28 16:45 | ECGEPIP ---
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
--- NOTE | 2019-05-28 16:51 | REP ---
CT chest without contrast: History: Shortness of breath. Increasing abdominal girth. Dyspnea. Comparison CT study is from April 02, 2012. CT findings: Preliminary digital riding teacher radiograph demonstrates a multi lead pacemaker. Cardiac enlargement is observed. There are scattered mediastinal lymph nodes. No definite adenopathy. There is a small right pleural effusion and upper abdominal ascites is visible. No left effusion is seen. No pericardial effusion is noted. There is discoid atelectasis in the right middle lobe and minimal linear fibrosis is seen in the left lower lobe. No definite infiltrate. Impression: No focal infiltrate. Cardiomegaly with small right pleural effusion. Pacemaker. Plate-like atelectasis right middle lobe. Electronically Signed by William Gallardo MD 05/28/2019 05:00 P
--- NOTE | 2019-05-28 16:51 | HPEPDOC ---
General Date of Admission May 28, 2019 at 16:07 Date of Service: May 28, 2019 Chief Complaint The patient is a 58-year-old male who presented to the ER with complaints of abdominal distention for 2 weeks with progressive shortness of breath over the last 3-4 days. History of Present Illness Patient is a 58-year-old male with a PMHx CVA (2014), CAD s/p CABG (1999) and Stent (Hx of SC, most recent stent ~ 5 years ago), Chronic Systolic CHF (EF: 25-30%), s/p AICD, SSS s/p PM, A. fib (on Eliquis), DM2 (diet controlled), CKD3, DLP, Neuropathy, Depression, Vitamin D deficiency, COPD, who presented to the hospital with complaints of worsening abdominal distention for the last 2 weeks. Patient reports that over the course of 2 weeks. His abdomen is getting larger and more distended. He notes that the last 3 days hes been having worsening shortness of breath with difficulty on deep inspiration. He denies any palpitations but does report a productive cough with clear to brown sputum. Patient reports bilateral chest pain reported as a 6/10, sharp in intensity, aggravated with movement and alleviated by rest. Patient denies any nausea, vomiting, constipation, diarrhea or any fevers or chills. Patient does report burning with urination. Reports his appetite is normal, but has noted a 10 pound weight gain over the last 3 weeks. Home Medications Scheduled Apixaban (Eliquis) 5 Mg Tab, 5 MG PO BID, (Reported) Atorvastatin Calcium (Atorvastatin Calcium) 80 Mg Tab, 80 MG PO QHS, (Reported) Bumetanide (Bumetanide) 2 Mg Tablet, 2 MG PO BID, (Reported) Carvedilol (Carvedilol) 6.25 Mg Tab, 3.125 MG PO BID, (Reported) Duloxetine Hcl (Duloxetine HCl) 60 Mg Cap, 60 MG PO DAILY, (Reported) Ergocalciferol (Vitamin D2) (Vitamin D2) 50,000 Units Cap, 50,000 UNITS PO 1XWK, (Reported) Gabapentin (Gabapentin) 400 Mg Cap, 800 MG PO BID, (Reported) Oxycodone HCl (Roxicodone) 5 Mg Tablet, 2.5 MG PO DAILY, (Reported) AROUND LUNCH TIME Scheduled PRN Albuterol Sulfate (Ventolin Hfa) 18 Gm Hfa.aer.ad, 2 PUFF INH Q4H PRN for wheezing, (Reported) Diclofenac Sodium (Diclofenac Sodium) 1 % Gel, 2 GRAMS TOP QID PRN for PAIN, (Reported) APPLY TO SHOULDERS Nitroglycerin (Nitrostat) 0.4 Mg Subl, 0.4 MG SL NITRO PRN for CHEST PAIN, (Reported) Oxycodone HCl (Oxycodone HCl) 5 Mg Tablet, 5 MG PO BID PRN for PAIN, (Reported) Polyvinyl Alcohol (Artificial Tears) 15 Ml Drops, 1 DROP OU QID PRN for DRY EYES, (Reported) Tramadol HCl (Tramadol HCl) 50 Mg Tablet, 50 MG PO BID PRN for PAIN, (Reported) Allergies Coded Allergies: fenofibrate (Verified Allergy, Unknown, 02/05/19) gemfibrozil (Verified Allergy, Unknown, 02/05/19) baclofen (Verified Adverse Reaction, Severe, blacks out, 02/05/19) metformin (Verified Adverse Reaction, Intermediate, diarrhea, 02/05/19) Past Medical History Medical History CVA (2014), CAD s/p CABG (1999) and Stent (Hx of SC, most recent stent ~ 5 years ago), Chronic Systolic CHF (EF: 25-30%), s/p AICD, SSS s/p PM, A. fib (on Eliquis), DM2 (diet controlled), CKD3, DLP, Neuropathy, Depression, Vitamin D deficiency, COPD Surgical History CABG (1999) Stent (201&) R wrist fracture s/p ORIF L tib / fib fracture s/o ORIF Family History - Mother with history of lung cancer Social History - Patient reports that he quit smoking 11 years ago but was a smoker of 20 years at 1 PPD; patient quit drinking alcohol greater than 20 years ago; patient does attest to using drugs, ost recent of which was marijuana, but in the past used cocaine and acid - Denies recent travel or sick contacts Review of Systems Other systems 10 point review of systems complete, all negative otherwise stated in HPI Vital Signs - Vitals: BP 115/69, HR 78, RR 18, Sat 97%RA, Temp 97%RA - General: Lying in bed, No acute distress, Speaking in full sentences, AAOx3 - HEENT: NC, AT, PERRLA, EOMI - CVS: +S1S2 - Lungs: Fair air entry bilaterally, No appreciable wheezing / rhonchi, mild crackles at bases noted - Abdomen: Tense, non-tender, distended, tympanic - Extremities: 2+ pitting edema bilaterally, No calf tenderness - Neuro: No focal motor or sensory deficit - Skin: No visible rashes Laboratory Data Labs 24H Laboratory Tests 2 05/28/19 14:00: Immature Granulocyte % (Auto) 0.1, Neutrophils (%) (Auto) 75.5H, Lymphocytes (%) (Auto) 13.2L, Monocytes (%) (Auto) 7.4H, Eosinophils (%) (Auto) 3.5H, Basophils (%) (Auto) 0.3, Neutrophils # (Auto) 5.2, Lymphocytes # (Auto) 0.9L, Monocytes # (Auto) 0.5, Eosinophils # (Auto) 0.2, Basophils # (Auto) 0.0, Nucleated Red Blood Cells % (auto) 0.0, Total Bilirubin 0.8, Direct Bilirubin 0.6H, Aspartate Amino Transf (AST/SGOT) 16, Alanine Aminotransferase (ALT/SGPT) 10L, Alkaline Phosphatase 254H, Lactate Dehydrogenase 173, Total Creatine Kinase 61, Creatine Kinase MB 3.6, Creatine Kinase MB Relative Index 5.90H, Troponin I 0.04, RZ-Hju-V-Type Natriuretic Peptide 18513D, Total Protein 7.8, Albumin 2.4L, Albumin/Globulin Ratio 0.44L, Lipase 174, Thyroid Stimulating Hormone (TSH) 3.340, Thyroxine (T4) 10.8 05/28/19 14:01: Prothrombin Time 21.2H, Prothromb Time International Ratio 1.86, Activated Partial Thromboplast Time 43.4H 05/28/19 14:10: POC Glucose (Misc Panel) 149H, POC Sodium (Misc Panel) 139, POC Potassium (Misc Panel) 3.4L, POC Chloride (Misc Panel) 94L, POC Total CO2 (Misc Panel) 32.0H, POC Blood Urea Nitrogen (Misc Panel 64H, POC Ionized Calcium (Misc Panel) 4.5, POC Creatinine (Misc Panel) 2.1H, POC Hematocrit (Misc Panel) 34.0L 05/28/19 14:17: POC Lactate (Misc Panel) 2.04*H CBC/BMP Laboratory Tests 05/28/19 14:00 Microbiology Microbiology 05/28/19 Blood Culture, Received Pending 05/28/19 Coronavirus COVID-19 PCR (PROSPER), Received Pending 05/28/19 Respiratory Panel (PCR) - Final, Complete 05/28/19 Blood Culture, Received Pending Plan / VTE VTE Prophylaxis Ordered?: Yes Plan Plan Abdominal distention - likely 2/2 ascites - possibly 2/2 decompensated acute on chronic CHF, possibly 2/2 cirrhosis - Presented to the hospital with worsening abdominal distention associated with lower extremity swelling and shortness of breath - Physical with evidence of fluid overload - Significantly elevated BNP - Blood cultures pending - CXR 05/27: Cardiomegaly with multi lead pacemaker. Linear plate-like atelectasis right base. Pulmonary vascular cephalization. - CT Chest 05/27: No focal infiltrate. Cardiomegaly with small right pleural effusion. Pacemaker. Plate-like atelectasis right middle lobe. - CT abdomen / pelvis 05/27: Moderate to large amount of diffuse ascites. Small right pleural effusion. A micronodular liver contour question cirrhosis. Mild splenomegaly. - Strict ins/outs, Daily weights / Fluid restriction 1500 cc - Will check US abdomen / Doppler studies - Will send for likely paracentesis (will hold Eliquis) and send fluid for analysis - Will start diuretics with Furosemide / Spironolactone COVID testing - It appears to be unlikely that this is a COVID infection - Patient has not experienced fevers, nor are there any documented fevers - However a respiratory panel was taken and negative - Imaging negative for findings consistent with COVID infection - Current COVID testing performed in the ER is pending - Will continue with precautions as per hospital policy until results arrive CVA (2014) - c/w Atorvastatin CAD s/p CABG (1999) / Stent (Hx of SC, most recent stent ~ 5 years ago) - Patient currently described atypical chest pain - likely 2/2 fluid overload / distention, unlikely cardiac etiology - EKG reviewed - Troponin first set negative; will trend - c/w Atorvastatin, Carvedilol - Eliquis on hold (re: possible paracentesis) Acute on Chronic Decompensated Systolic CHF (EF: 25-30%) - s/p AICD - See above SSS - s/p PM A. fib - c/w rate control with carvedilol - Patient has been on Eliquis as an outpatient; will hold at this time (re: possible paracentesis) - Discussed risks / benefits; patient has verbalized understanding DM2 - Patient reports this is diet controlled - Has been on long acting insulin in the past - Will c/w ISS while inpatient CKD3 - Cr baseline of 1.8 - Currently Cr at 2.1 - Will check UA / US abdomen / urine electrolytes - Will c/w diuresis (re: possible cardiorenal / hepatorenal syndrome) DLP - c/w Atorvastatin Neuropathy - c/w Gabapentin Depression - c/w Duloxetine Vitamin D deficiency - Will resume supplementation as an outpatient COPD - No evidence of exacerbation at this time - c/w inhaled therapy as ordered Gastrointestinal prophylaxis - Will start [] DVT prophylaxis - Will start Heparin - Eliquis on Hold (re: possible paracentesis) JESUS DONNELLY MD May 28, 2019 16:51
--- NOTE | 2019-05-28 16:59 | REP ---
CT abdomen and pelvis without IV or oral contrast: History: Increasing abdominal girth. Comparison CT study is from April 07, 2017. CT findings: Preliminary digital chicken fancier radiograph shows a hazy ground-glass opacity throughout the abdomen consistent with ascites. Bowel gas pattern is otherwise unremarkable. Axial CT images confirm the presence of a moderate to large amount of diffuse abdominal ascites. There is a micronodular contour pattern in the liver suggesting the possibility of cirrhosis. No focal liver mass lesion is observed. Mild splenomegaly is observed with the spleen measuring 15.9 cm in greatest diameter. No focal splenic lesion is seen. There are some small collateral vessels visible in the upper abdomen. The portal vein does not appear dilated. No pancreatic abnormality is seen. No definite abnormality is noted in the gallbladder. A normal appendix is seen in the right lower quadrant. Extensive vascular calcification is observed. There is no evidence of hydronephrosis or intrarenal calculus on either side. Urinary bladder is unremarkable. There are dystrophic calcifications in the prostate. No abdominal wall defect is seen. Impression: Moderate to large amount of diffuse ascites. Small right pleural effusion. Micronodular liver contour, question cirrhosis. Mild splenomegaly. Electronically Signed by William Gallardo MD 05/28/2019 05:54 P
[2019-05-28] MEDS ORDERED: NITROGLYCERIN 0.4 MG SUBL TABLET SL PRN (17:00)
[2019-05-28] MEDS: SPIRONOLACTONE 25 MG TAB PO SCH (17:00)
[2019-05-28] MEDS ORDERED: POLYVINYL ALCOHOL OPHTH SOLN 15 ML(LIQUITEARS) OU PRN (17:00)
[2019-05-28 18:00] VITALS: BP 108/66
--- NOTE | 2019-05-28 18:03 | REPVR ---
PROCEDURE INFORMATION: Exam: US Abdomen Complete Exam date and time: 05/28/2019 5:48 PM Age: 58 years old Clinical indication: Abnormal findings; Abnormal radiologic finding of the abdomen; Radiologic exam and body structure: CT abd pelvis; Additional info: Ascites TECHNIQUE: Imaging protocol: Real-time ultrasound of the abdomen with image documentation. COMPARISON: LIVER US 04/07/2017 3:[address] ABD PELVIS W/O CONTRAST 05/28/2019 2:32:10 PM FINDINGS: Liver: Cirrhotic. Gallbladder: No gallstones. No gallbladder wall thickening or pericholecystic fluid. Negative sonographic Peña's sign, as per the yard labor supervisor. Common bile duct: No stones. No ductal dilatation. Pancreas: Unremarkable as visualized. Right kidney: No mass. No definite stones. No hydronephrosis. Left kidney: No mass. No definite stones. No hydronephrosis. Spleen: Mildly enlarged. Aorta: Unremarkable as visualized. No aneurysm. Inferior vena cava: Unremarkable as visualized. Intraperitoneal space: Large ascites. IMPRESSION: Cirrhosis, splenomegaly and large ascites. Electronically signed by: Solo Nettles On 05/28/2019 18:02:49 PM
[2019-05-28] MEDS: HEPARIN SOD (PORCINE) 5000 UNITS/ML VIAL (J1644 PER 1000UNITS) SC SCH (18:11)
[2019-05-28] MEDS: HumaLOG INSULIN (NovoLOG) PER UNIT SC SCH ×2 (18:12→21:00)
[2019-05-28 20:45] LABS: CK-MB VALUE MASS 2.9 NG/ML (<3.6); CPK CREATINE PHOSPHOKINASE 51 U/L (39-308); MB/CK RELATIVE INDEX 5.69 (< OR =4); OSMOLALITY SERUM 314 MOSM/KG (275-295); TROPONIN I 0.03 NG/ML (< 0.10)
[2019-05-28] MEDS: CARVedilol 6.25 MG TAB PO SCH (21:00)
[2019-05-28 21:19] VITALS: BP 102/70
[2019-05-28] MEDS: GABAPENTIN 400 MG CAP PO SCH (21:25)
[2019-05-28] MEDS: ATORVASTATIN 20 MG TAB PO SCH (21:25)
[2019-05-28] MEDS: traMADol 50 MG TAB PO PRN (21:27)
[2019-05-28 22:39] LABS: CREATININE,RANDOM URINE 38.1 MG/DL
[2019-05-29] VITALS: BP 106/68
[2019-05-29] MEDS: HEPARIN SOD (PORCINE) 5000 UNITS/ML VIAL (J1644 PER 1000UNITS) SC SCH ×2 (00:25→08:21)
[2019-05-29 04:00] VITALS: BP 112/70
[2019-05-29 04:14] LABS: CK-MB VALUE MASS 2.1 NG/ML (<3.6); MB/CK RELATIVE INDEX 5.25 (< OR =4); TROPONIN I 0.02 NG/ML (< 0.10)
[2019-05-29 05:18] LABS: HEMOGLOBIN 9.8 g/dl (13.5-17.5); LYMPH # 0.6 10^3/uL (1.5-5.0); LYMPH % 13.7 % (24.0-44.0); MEAN CORPUSCULAR HEMOGLOBIN 27.5 pg (27.0-33.0); MEAN CORPUSCULAR HGB CONC 31.6 g/dl (32.0-36.5); MEAN CORPUSCULAR VOLUME 86.8 fl (80.0-96.0); NEUTROPHILS # 3.5 10^3/uL (1.5-8.5); NEUTROPHILS % 84.6 % (36.0-66.0); PLATELET COUNT, AUTOMATED 174 10^3/uL (150-450); RED BLOOD COUNT 3.57 10^6/uL (4.30-6.10); WHITE BLOOD COUNT 4.2 10^3/uL (4.0-10.0)
[2019-05-29 05:48] LABS: CALCIUM LEVEL 8.7 MG/DL (8.5-10.1); CREATININE FOR GFR 2.22 MG/DL (0.70-1.30); GLOMERULAR FILTRATION RATE 32.5 (>56); MAGNESIUM LEVEL 2.2 MG/DL (1.8-2.4); POTASSIUM SERUM 3.7 MEQ/L (3.5-5.1)
[2019-05-29] MEDS: FUROSEMIDE 100 MG/10 ML VIAL (J1940) IV SCH ×2 (08:00)
[2019-05-29 08:03] VITALS: BP 104/64
[2019-05-29] MEDS: SPIRONOLACTONE 25 MG TAB PO SCH ×3 (08:21→17:23)
[2019-05-29] MEDS: CARVedilol 6.25 MG TAB PO SCH ×2 (08:21→19:52)
[2019-05-29] MEDS: HumaLOG INSULIN (NovoLOG) PER UNIT SC SCH ×4 (08:21→19:53)
[2019-05-29] MEDS: GABAPENTIN 400 MG CAP PO SCH ×2 (08:21→20:00)
[2019-05-29] MEDS: DULoxetine 30 MG CAP (CYMBALTA) PO SCH (08:22)
[2019-05-29] MEDS: oxyCODONE 5MG TAB PO PRN ×2 (08:24→20:01)
[2019-05-29] MEDS ORDERED: BUMETANIDE 1 MG/4 ML INJ (S0171) IV SCH ×2 (10:00→12:00)
[2019-05-29 11:54] LABS: APPEARANCE, BODY FLUID CLEAR (CLEAR); ASCITES FL COLOR YELLOW (COLORLESS); SOURCE, BODY FLUID ASCITES; SPEC. GRAVITY BODY FLUIDS 1.028 (NOT ESTABLISHED)
[2019-05-29] MEDS ORDERED: BUMETANIDE 1 MG TAB PO SCH (12:00)
[2019-05-29 12:06] LABS: SOURCE, BODY FLUID ALBUMIN ASCITES; SOURCE, BODY FLUID GLUCOSE ASCITES; SOURCE, BODY FLUID TOT PROTEIN ASCITES; TOTAL PROTEIN, BODY FLUID 4.5 G/DL (NOT ESTABLISHED)
[2019-05-29 12:15] VITALS: BP 118/68
[2019-05-29] MEDS: BUMETANIDE 1 MG/4 ML INJ (S0171) IV SCH (12:32)
[2019-05-29] MEDS: oxyCODONE 5MG TAB PO SCH (12:33)
--- NOTE | 2019-05-29 12:45 | REP ---
Ultrasound-guided paracentesis The procedure was performed by LEONID Javed, under the direct supervision of Dr. Yanes. The risks and benefits of the procedure were explained to the patient and informed consent was obtained both verbally and written. Directly prior to the start of the procedure, a formal timeout was completed in the procedure room. Under ultrasound guidance, the largest pocket of fluid in the right flank was localized and skin was marked. The skin was then prepped and draped in a sterile fashion. 9 ml of 1% lidocaine 10 mg/ml was used as a local anesthetic. Using ultrasound guidance, an 8-Ukrainian multi side-hole catheter was inserted using trocar technique. 9,300 mL of dark yellow colored fluid was withdrawn, 200 ml were sent to the lab for further analysis, and was discarded. The patient tolerated the procedure well and there were no immediate complications. After the appropriate monitored convalescence the patient was discharged from the department. Reviewed by LEONID Guevara 05/29/2019 12:33 P Electronically Signed by Edgar Yanes MD 05/29/2019 12:37 P
--- NOTE | 2019-05-29 14:53 | IPNPDOC ---
Date Seen The patient was seen on 05/29/19. Progress Note SUBJECTIVE: Denies sob, chest pain, pressure, tightness. c/o abd fullness, abd distention, LE edema. no n/v/abd pain/fever or chills. OBJECTIVE: PHYSICAL EXAMINATION VITALS: General: AAOx3, anicteric, no jaundice. HEENT: NC, AT, no cervical LAD or thyromegaly, moist mucus membranes. PERRLA, EOMI CVS: +S1S2 RRR AICD anterior chest . Lungs: bibasilar crackles Abdomen: soft distended,(+) fluid wave. no HSM Extremities: 2+ pitting edema bilaterally LABORATORY DATA, IMAGING STUDIES, MICROBIOLOGY: PLS SEE BELOW ASSESSMENT AND PLAN: 58-year-old male with a PMHx CVA (2014), CAD s/p CABG (1999) and Stent (Hx of [place], most recent stent ~ 5 years ago), Chronic Systolic CHF (EF: 25-30%), s/p AICD, SSS s/p PM, A. fib (on Eliquis), DM2 (diet controlled), CKD3, DLP, Neuropathy, Depression, Vitamin D deficiency, COPD, liver cirrhosis admitted for decompensated liver failure with ascites requiring paracentesis. Acute decompensated cardiac cirrhosis with ascites requiring 05/29/19 paracentesis by radiology with 9,300 mL ascited fluid removed. on bumex and albumin transfusion diuresis, managed by nephrology Acute on Chronic Decompensated Systolic CHF (EF: 25-30%) s/p AICD CXR: Right pleural effusion. Pacemaker. on bumex q12hrs, fluid restriction, daily weights until pt is euvolemic. if hypotensive episodes should occur, albumin transfusion to allow for enough systolic pressure to diurese and to avoid vasopressors. SSS s/p PM A. fib carvedilol and eliquis DM2 ISS while inpatient CKD3 diuresis managed by nephrology CVA (2014) Atorvastatin Neuropathy Gabapentin CAD s/p CABG (1999) / Stent (Hx of NM, most recent stent ~ 5 years ago) Atorvastatin, Carvedilol DLP Atorvastatin Vitamin D deficiency outpatient vit D supplement COPD inhaled therapy as ordered Depression Duloxetine VS, I&O, 24H, Fishbone Vital Signs/I&O Vital Signs Date Time Temp Pulse Resp B/P (MAP) Pulse Ox O2 Delivery O2 Flow Rate FiO2 05/29/19 12:33 16 05/29/19 12:15 96.3 61 118/68 (85) 97 Room Air I&O- Last 24 Hours up to 6 AM 05/29/19 06:00 Intake Total 240 ml Output Total 625 ml Balance -385 ml Laboratory Data 24H LABS Laboratory Tests 2 05/28/19 18:05: Bedside Glucose (Misc Panel) 163H 05/28/19 19:58: Osmolality 314H, Total Creatine Kinase 51, Creatine Kinase MB 2.9, Creatine Kinase MB Relative Index 5.69H, Troponin I 0.03# 05/28/19 21:00: Urine Color YELLOW, Urine Appearance CLEAR, Urine pH 5.0, Urine Specific [place] 1.009, Urine Protein NEGATIVE, Urine Glucose (UA) NEGATIVE, Urine Ketones NEGATIVE, Urine Blood NEGATIVE, Urine Nitrite NEGATIVE, Urine Bilirubin NEGATIVE, Urine Urobilinogen 0.2, Urine Leukocyte Esterase NEGATIVE, Urine WBC (Auto) 0, Urine RBC (Auto) 4H, Urine Hyaline Casts (Auto) 5, Urine Bacteria (Auto) NEGATIVE, Urine Squamous Epithelial Cells 0, Urine Mucus (Auto) SMALL, Urine Sperm (Auto) , Urine Random Osmolality 347L, Urine Random Creatinine 38.1, Urine Random Sodium 54, Urine Random Urea Nitrogen 351 05/28/19 21:23: Bedside Glucose (Misc Panel) 245H 05/29/19 01:59: Total Creatine Kinase 40, Creatine Kinase MB 2.1, Creatine Kinase MB Relative Index 5.25H, Troponin I 0.02# 05/29/19 05:07: Immature Granulocyte % (Auto) 0.7, Neutrophils (%) (Auto) 84.6H, Lymphocytes (%) (Auto) 13.7L, Monocytes (%) (Auto) 1.0, Eosinophils (%) (Auto) 0.0, Basophils (%) (Auto) 0.0, Neutrophils # (Auto) 3.5, Lymphocytes # (Auto) 0.6L, Monocytes # (Auto) 0.0, Eosinophils # (Auto) 0.0, Basophils # (Auto) 0.0, Nucleated Red Blood Cells % (auto) 0.0, Anion Gap 7L, Glomerular Filtration Rate 32.5L, Calcium Level 8.7, Magnesium Level 2.2 05/29/19 11:15: Body Fluid Source ASCITES, Body Fluid Color YELLOW, Body Fluid Appearance CLEAR, Body Fluid Specific [place] 1.028, Body Fluid WBC (Auto) 263H, Body Fluid RBC (Auto) < 2, Body Fluid Mononuclear Cells % Auto 87.9H, Fluid Polymorphonuclear Cell % Auto 12.1H, Body Fluid Glucose Source ASCITES, Body Fluid Glucose 205, Body Fluid Protein Source ASCITES, Body Fluid Total Protein 4.5, Body Fluid Albumin Source ASCITES, Body Fluid Albumin 1.6 05/29/19 12:27: Bedside Glucose (Misc Panel) 220H CBC/BMP Laboratory Tests 05/29/19 05:07 Microbiology Microbiology 05/29/19 Acid Fast Stain, Received Pending 05/29/19 Mycobacterial Culture, Received Pending 05/29/19 Fungal Smear, Received Pending 05/29/19 Fungal Culture, Received Pending 05/29/19 Gram Stain - Final, Resulted 05/29/19 Body Fluid Culture, Resulted Pending 05/28/19 Blood Culture - Preliminary, Resulted No growth after 24 hours . All specim... 05/28/19 Coronavirus COVID-19 PCR (PROSPER), Received Pending 05/28/19 Respiratory Panel (PCR) - Final, Complete 05/28/19 Blood Culture - Preliminary, Resulted No growth after 24 hours . All specim... DANIEL SANTIAGO MD May 29, 2019 14:40
[2019-05-29] MEDS ORDERED: APIXABAN 5 MG TAB (ELIQUIS) PO ONE ×2 (15:00→23:00)
--- NOTE | 2019-05-29 17:56 | CR ---
DATE OF CONSULTATION: 05/29/2019 REQUESTING PHYSICIAN: Dr. Delmy Mcgowan CONSULTING PHYSICIAN: Dr. Navarro REASON FOR CONSULTATION: Management of volume status in this patient with chronic kidney disease, cirrhosis, and congestive heart failure. CHIEF COMPLAINT: The patient presented to the hospital yesterday for progressive shortness of breath and abdominal distension. HISTORY OF PRESENT ILLNESS: Mr. Gonzalez Soliz is a 58-year-old male with past medical history of chronic kidney disease stage III, baseline creatinine of 128, as per previous labs, history of congestive heart failure with low ejection fraction, ejection fraction (EF) of around the 25%, history of liver cirrhosis, and history of heavy alcohol drinking in the past. He presented to the hospital for progressive shortness of breath for the last to 3-4 days along with worsening abdominal distension. The patient denies any history of ascitic tap being done in the past. For congestive heart failure he takes Bumex as outpatient, but it was not helping with his symptoms. The patient was admitted under the hospitalist service with cirrhosis along with decompensated ascites and decompensated systolic congestive heart failure. He was started on intravenous (IV) diuretics. His creatinine on admission was 3.2, which is slightly worse than his baseline. Nephrology service was called for further help in the management of this patient. I saw and evaluated the patient today morning at the bedside. He reported that his shortness of breath was slightly better today as compared with yesterday after starting the diuretics. PAST MEDICAL HISTORY: 1. Chronic kidney disease, stage III. Baseline creatinine of 1.8. 2. History of coronary artery disease status post coronary artery bypass graft (CABG). 3. Chronic systolic congestive heart failure with left ventricular (LV) ejection fraction around 25-30%. 4. History of sick sinus syndrome. 5. Atrial fibrillation, anticoagulated with Eliquis. 6. Diabetes mellitus, type 2. 7. Peripheral neuropathy. 8. Depression. 9. Chronic obstructive pulmonary disease (COPD). 10. History of liver cirrhosis. PAST SURGICAL HISTORY: 1. Status post coronary artery bypass grafting in 1999. 2. Status post stenting of the coronary arteries about 5 years ago. 3. Status post automatic implantable cardioverter-defibrillator (AICD)/pacemaker. 4. History of right wrist fracture surgery. 5. Left tibia-fibula fracture surgery. ALLERGIES: The patient is allergic to BACLOFEN, FENOFIBRATE, GEMFIBROZIL, and METFORMIN. FAMILY HISTORY: No significant family history of end-stage renal disease requiring hemodialysis. SOCIAL HISTORY: The patient is an ex-smoker. He used to be a heavy alcohol drinker, but he reports he quit drinking about 20 years ago. He used to abuse cocaine in the past as well. He admits to using marijuana regularly. REVIEW OF SYSTEMS: CONSTITUTIONAL: He denies any fevers and chills. He does report weakness. EYES: She denies any blurry vision or double vision. ENT: Denies any dysphagia or odynophagia. CARDIOVASCULAR: He reports progressive shortness of breath. RESPIRATORY: He denies any cough, but he reports shortness of breath. GASTROINTESTINAL: He reports abdominal distension and history of cirrhosis. GENITOURINARY: He denies any dysuria or hematuria. MUSCULOSKELETAL: He denies any muscle aches and pains. SKIN: He denies any rashes or ulcers. PSYCHIATRIC: He denies any depression or anxiety. HEMATOLOGY/ONCOLOGY: He denies any easy bleeding or bruising. CENTRAL NERVOUS SYSTEM: He denies any strokes or seizure. All other review of systems is negative. PHYSICAL EXAMINATION GENERAL: The patient is awake, alert, oriented times three, lying in bed in mild respiratory distress. VITAL SIGNS: Temperature 96.3 degrees Fahrenheit, blood pressure 118/68, pulse is 60, respiratory rate of 70, saturating 97% on room air. Intake and output: Urine output recorded is 300 mL yesterday. HEAD AND NECK: Extraocular muscles intact. Pupils equally round and reactive to light. Mucous membranes are moist. Neck is supple. There is mildly elevated jugular venous distention (JVD). CARDIOVASCULAR: S1, S2, regular rate. Edema 2+ of the bilateral lower extremities. RESPIRATORY: Decreased breath sounds at the bases with mild inspiratory crackles bilaterally at the bases. ABDOMEN: Distended, otherwise is nontender. I could not appreciate any organomegaly because of tense ascites. GENITOURINARY: Bladder is not palpable. MUSCULOSKELETAL: No clubbing or cyanosis. Edema 2+ of the bilateral lower extremities. PSYCHIATRIC: Normal mood and affect. CENTRAL NERVOUS SYSTEM: The patient does have a mild asterixis; otherwise power is 5/5 in all extremities. LABORATORY REVIEW: CBC showed WBC of 4.2, hemoglobin is 9.8, platelets 174. INR is 1.86. Urinalysis showed no proteinuria or hematuria. Urine random osmolality is 347. Random sodium is 54, and BUN is 351. I see that his peritoneal fluid cell count is back. WBC is 263. Polymorphonuclears are only 12%. BMP today morning showed sodium 138, potassium 3.7, chloride 98, bicarbonate 33, BUN 75, creatinine 2.2, glucose 231. Hepatitis serology is pending. Microbiology: COVID-19 PCR is pending. Respiratory viral panel is negative. IMAGING: An abdominal ultrasound was done today, which showed cirrhosis, splenomegaly, and tense ascites. CT chest was done, which showed no focal infiltrate. Cardiomegaly with small right pleural effusion. Plate-like atelectasis in the right middle lobe. HOME MEDICATIONS. The patient's home medications include: - albuterol as needed - Eliquis 5 mg by mouth twice a day - Lipitor 80 mg at bedtime - Bumex 2 mg by mouth twice a day - Coreg 3.125 mg by mouth twice a day - duloxetine 60 mg at bedtime - vitamin D 50,000 units once a week - gabapentin 800 mg by mouth twice a day - nitroglycerin sublingual - oxycodone 5 mg by mouth twice a day as needed for pain - tramadol 50 mg by mouth twice a day as needed for pain ASSESSMENT: A 58-year-old male with history of systolic congestive heart failure, chronic kidney disease, stage III, cirrhosis, admitted at this time with tense ascites and worsening shortness of breath. PLAN: 1. Acute kidney injury superimposed on chronic kidney disease, stage III. The patient's creatinine is slightly higher than the baseline; however, he is volume overloaded, and he has tense ascites. He does need the ascitic tap to be done. He is being given Bumex at this time. Since he is going to have the tap done, I am going to decrease the Bumex dose to 2 mg intravenous (IV) every 12 hours. Further adjustment of the diuretic will be done tomorrow. Electrolytes are within the acceptable range. 2. Anemia and chronic kidney disease. Hemoglobin level is 9.8. I am going to check the iron levels. No need of Aranesp administration at this time. 3. Cirrhosis with tense ascites. The patient is going to have the ascitic tap done today. I have ordered albumin 25 grams IV to be given with the paracentesis. Okay to continue the Bumex at this time and continue the spironolactone 25 mg by mouth twice a day, which was started today morning. 4. Acute decompensated systolic congestive heart failure. Patient is already being diuresed with IV Bumex and has been started on oral spironolactone. He will get ascitic tap done today, which would also help improve his respiratory status. Further adjustment of diuretic will be done tomorrow. Continue current dose of Coreg 3.125 mg by mouth twice a day. He is not a candidate for use of angiotensin-converting enzyme (TED) or angiotensin receptor eliseo (ARB) at this time. 5. Peripheral neuropathy. The patient has asterixis on physical exam, and he has cirrhosis. He is on high-dose opioids and gabapentin. I have decreased the gabapentin dose to 400 mg by mouth twice a day. 6. Atrial fibrillation. Heart rate is controlled. Continue Coreg. Eliquis is on hold for the procedure. It can be restarted tomorrow morning. Thank you for involving me in the care of this patient. I shall be happy to follow the patient along with you tomorrow morning.
[2019-05-29 19:44] VITALS: BP 102/60
[2019-05-29] MEDS: ATORVASTATIN 20 MG TAB PO SCH (20:00)
--- NOTE | 2019-05-29 22:25 | ECHO ---
DATE OF PROCEDURE: 05/29/2019 REFERRING PHYSICIAN: Dr. Jeremi Saba INDICATION: Localized edema. HEIGHT: 175 cm WEIGHT: 92 kg 2D MEASUREMENTS: Left atrium: 4.3 cm Aortic root: 3.4 cm Ventricular septum: 1.12 cm Posterior wall: 1.15 cm Left ventricle diastole: 5.4 cm Aortic annulus: 2.2 cm Inferior vena cava: 2.8 cm DOPPLER MEASUREMENTS: Trace aortic regurgitation. No aortic stenosis. Aortic valve velocity: 96.1 cm/s LVOT velocity: 63.9 cm/s LVOT VTI: 13.3 cm Mild mitral regurgitation. Mitral E velocity: 94.3 cm/s Mild tricuspid regurgitation. Estimated right ventricle systolic pressure: 56 mmHg assuming a pressure of 10 mmHg. Mild pulmonic regurgitation. MITRAL ANNULAR TISSUE DOPPLER: E prime septal: 3.6 cm/s E prime lateral: 5.1 cm/s DESCRIPTION: Rhythm appeared to be sinus. Infrequent premature ventricular contractions (PVCs). Image quality was fair. No pericardial effusion. CONCLUSIONS: 1. Normal left ventricle size at end-diastole and normal left ventricular (LV) wall thickness. Extensive and multiple regional wall motion abnormalities with severe reduction in overall LV systolic function. Left ventricular ejection fraction (LVEF) 20% by visual estimate. The apical segments appeared akinetic. Superimposed paradoxical septal motion involving the distal portion of the left ventricle. Akinesis of the basal and mid anteroseptal segments. Akinesis of the basal anterior segment and normal kinesis of mid anterior segment. Hypokinesis of the basal and mid anterolateral segments. Akinesis of the basal and mid inferolateral segments. Akinesis of the basal inferior segment and severe hypokinesis of the mid inferior segment. Severe hypokinesis of the basal and mid inferoseptal segments. No LV apical thrombus. Restrictive LV diastolic filling pattern. 2. Mild left atrial dilatation. 3. Normal right ventricle size and systolic function. 4. Suggestive of moderate elevation of estimated right ventricle systolic pressure (56 mmHg). Mild tricuspid regurgitation. 5. Mild aortic valve sclerosis of a 3-cusp aortic valve. Trace aortic regurgitation. Broken lacunae (Lambl's excrescence). Trace aortic regurgitation. Differential diagnosis would include vegetations on the aortic valve, but I think this is much less likely (clinical correlation advised). No aortic stenosis. 6. Mild mitral annular calcification. Mild mitral regurgitation. 7. Cardiac rhythm records management manager consistent with an implantable cardioverter defibrillator (ICD) lead seen in the right ventricle coursing towards the right ventricle apex.
[2019-05-30] VITALS: BP 106/70
[2019-05-30] MEDS: BUMETANIDE 1 MG/4 ML INJ (S0171) IV SCH ×2 (00:02→12:19)
[2019-05-30 04:00] VITALS: BP 102/64
[2019-05-30 06:16] LABS: BASO % 0.1 % (0.0-1.0); EOS % 0.2 % (0.0-3.0); HEMATOCRIT 33.5 % (42.0-52.0); HEMOGLOBIN 10.6 g/dl (13.5-17.5); LYMPH % 9.8 % (24.0-44.0); MEAN CORPUSCULAR HEMOGLOBIN 27.5 pg (27.0-33.0); MEAN CORPUSCULAR HGB CONC 31.6 g/dl (32.0-36.5); MONO # 0.6 10^3/uL (0.0-0.8); MONO % 5.8 % (0.0-5.0); NEUTROPHILS # 8.8 10^3/uL (1.5-8.5); NEUTROPHILS % 83.6 % (36.0-66.0); PLATELET COUNT, AUTOMATED 168 10^3/uL (150-450); RED BLOOD COUNT 3.85 10^6/uL (4.30-6.10); WHITE BLOOD COUNT 10.5 10^3/uL (4.0-10.0)
[2019-05-30 06:35] LABS: CALCIUM LEVEL 8.9 MG/DL (8.5-10.1); CREATININE FOR GFR 1.97 MG/DL (0.70-1.30); GLOMERULAR FILTRATION RATE 37.4 (>56); MAGNESIUM LEVEL 2.2 MG/DL (1.8-2.4); POTASSIUM SERUM 3.4 MEQ/L (3.5-5.1)
[2019-05-30] MEDS ORDERED: POTASSIUM CHLORIDE 10 MEQ SR TABLET PO ONE (08:00)
[2019-05-30 08:16] VITALS: BP 112/80
[2019-05-30] MEDS: DULoxetine 30 MG CAP (CYMBALTA) PO SCH (08:20)
[2019-05-30] MEDS: SPIRONOLACTONE 25 MG TAB PO SCH (08:20)
[2019-05-30] MEDS: GABAPENTIN 400 MG CAP PO SCH (08:20)
[2019-05-30] MEDS: HumaLOG INSULIN (NovoLOG) PER UNIT SC SCH ×2 (08:21→12:21)
[2019-05-30 09:00] VITALS: BP 104/60
[2019-05-30] MEDS ORDERED: FERROUS GLUCONATE 324 MG TAB PO SCH (09:00)
[2019-05-30] MEDS ORDERED: APIXABAN 5 MG TAB (ELIQUIS) PO SCH (09:00)
[2019-05-30] MEDS: CARVedilol 6.25 MG TAB PO SCH (09:00)
[2019-05-30] MEDS ORDERED: ALDA25TA2 PO (09:14)
[2019-05-30] MEDS: traMADol 50 MG TAB PO PRN (09:26)
[2019-05-30 09:34] VITALS: BP 104/60
[2019-05-30] MEDS ORDERED: XIFA200T2 PO (09:34)
--- NOTE | 2019-05-30 09:37 | REP ---
Portable chest x-ray: Single view. History: Shortness of breath. Check resolution of right-sided effusion. Comparison radiographs are from May 28, 2019. Comparison chest CT study May 28, 2019. Findings: There is mild plate-like atelectasis in the right base again noted. The pleural angles remain sharp on sitting portable chest x-ray. The right pleural effusion was only visible on chest CT. There is no evidence to suggest increased effusion. Cardiomegaly with pacemaker and prior sternotomy wires are again seen. Pulmonary vasculature is cephalized as before. No new infiltrate is seen. No definite pulmonary edema. Impression: Plate-like atelectasis right base. No pleural effusion visible on portable chest x-ray. Electronically Signed by William Gallardo MD 05/30/2019 09:28 A
--- NOTE | 2019-05-30 09:56 | DSES ---
DATE OF ADMISSION: 05/28/2019 DATE OF DISCHARGE: PRIMARY DISCHARGE DIAGNOSES: 1. Acute on chronic systolic and diastolic congestive heart failure exacerbation, ejection fraction of 20-25%, with automatic implantable cardioverter defibrillator (AICD). 2. Cardiac cirrhosis with acute decompensated liver cirrhosis with ascites status post paracentesis with 9.3 liters removed. 3. Acute on chronic kidney disease Stage 3. 4. Anemia of chronic disease. 5. Peripheral neuropathy. 6. Chronic atrial fibrillation on eliquis. DISCHARGE MEDICATIONS: - Bumex 2 mg twice a day - Spironolactone 25 mg twice a day - albuterol 2 puffs every 4 hours as needed - Eliquis 5 twice a day - atorvastatin 80 at bedtime - Coreg 3.125 twice a day - Diclofenac 2 grams topically four times a day as needed - duloxetine 60 daily - vitamin D 50,000 units weekly - gabapentin 800 twice a day - nitroglycerin as needed - oxycodone 5 twice a day, - artificial drops one drop both eyes four times a day - tramadol 50 mg twice a day as needed for pain DISCHARGE INSTRUCTIONS: One and a half liter of fluid restriction. Renal diet, 2 gram sodium. Call professor of forest planning or manometer technician if more than 2 pound weight gain. Health department to call the patient regarding COVID-19 testing. PROCEDURES DURING THIS ADMISSION: Paracentesis 05/29/2019, 9.3 liters removed. CONSULTANTS: Dr. Navarro. HOSPITAL COURSE: This is a 58-year-old male admitted due to worsening abdominal distention and shortness of breath over the past four days and found to have severe ascites on ultrasound. He complained also of bilateral chest pain aggravated with movement and better with rest. He has had no fever or chills. COVID-19 was checked, results of which is pending. The patient's blood cultures were no growth. Respiratory panel was negative. Ascitic fluid was pending. The patient was afebrile with no white count and was treated with Bumex every 12 hours with output of 9 liters after paracentesis of 9.3 liters out. The patient had symptomatic improvement with decrease in weight from 89.5 kg to discharge weight of [address] Navarro, the patient may be discharged home with Bumex home dose and Spironolactone. PHYSICAL EXAMINATION ON DISCHARGE: Temperature 96.2, pulse 62, respiratory rate 16, blood pressure 112/80, 96% on room air Generally, no jugular venous distention (JVD) or thyromegaly. Lungs are clear to auscultation. No wheezing or rales. Heart: S1, S2. Sinus rhythm. AICD anterior chest. Abdomen: Soft. Nontender. Nondistended. Positive bowel sounds times four quadrants. Extremities: Trace pitting edema. Bilateral tattoos noted on the skin upper and lower extremities. LABORATORY DATA: White count 10.5, hemoglobin 10.6, hematocrit 33.5, platelet count 168. Sodium 137, potassium 3.4, chloride 99, bicarbonate 33, BUN 74, creatinine 1.97, glucose 127. Troponin 0.02. Microbiology: Ascitic fluid pending. Body fluid gram stain no cells, no organisms seen. Blood culture no growth after 24 hours. COVID-19 is pending. Respiratory panel is negative. IMAGING STUDIES: CT of abdomen and pelvis with moderate to large amount diffuse ascites, small right pleural effusion, nodule of liver, question cirrhosis, mild splenomegaly. Ultrasound of liver with cirrhotic liver, splenomegaly and large ascites. CT of chest with no focal infiltrate, cardiomegaly, with small right pleural effusion, pacer, and plate-like atelectasis in the right middle lobe. TIME SPENT ON DISCHARGE: 30 minutes. MTDD
[2019-05-30 12:14] LABS: HEPATITIS B SURFACE ANTIGEN NEGATIVE (NEGATIVE)
--- NOTE | 2019-05-30 12:15 | IPN ---
DATE OF SERVICE: 05/30/2019 SUBJECTIVE: The patient was seen and examined at the bedside today morning. He was sitting up in the bed. He feels much better today. His shortness of breath is getting better. He got the ascites tap done yesterday and 9.3 liters of fluid was removed. He continues to be on intravenous (IV) diuretics. He is otherwise afebrile, hemodynamically stable. OBJECTIVE: VITAL SIGNS: Temperature is 96.2 degrees Fahrenheit, blood pressure 104/60, pulse is 63, respiratory rate of 16, saturating 96% on room air. INTAKE AND OUTPUT: Urine output recorded is 700 mL since overnight. Ascitic tap was 9300 mL. Weight in the bed scale is 79 kg, which is 10 kg below his admission weight. PHYSICAL EXAMINATION: GENERAL: The patient is awake, alert, oriented times three, sitting up in the bed, in no apparent distress. HEAD AND NECK EXAM: Extraocular muscles intact. Pupils equally round and reactive to light. Mucous membranes are moist. Neck is supple. CARDIOVASCULAR: S1, 2 regular rate. 2+ edema of the bilateral lower extremities. RESPIRATORY: Chest is clear to auscultation bilaterally. Mild crepitations on the right base on deep inspiration. ABDOMEN: Soft. Still has moderate amount of ascites. No significant tenderness. No organomegaly was noted. MUSCULOSKELETAL: No clubbing or cyanosis. Pulses are 2+. CENTRAL NERVOUS SYSTEM (PEDIATRIC NEPHROLOGIST): No focal deficit. Asterixis is slightly better today as compared with yesterday. LAB REVIEW: Complete blood count (CBC) showed WBC 10.5, hemoglobin 10.6, and platelets of 168. Basic metabolic panel (BMP) showed sodium 137, potassium 3.4, chloride 99, bicarbonate 33, BUN 74, creatinine is 1.9, calcium 8.9, magnesium is 2.2, iron level is 44, TIBC 315, transferrin saturation is 14, ferritin is 391. IMAGING: Chest x-ray was done, which showed platelike atelectasis in the right base. No pleural effusion was visible. CURRENT INPATIENT MEDICATIONS: The patient's medications were all reviewed by myself. He continues to be on Bumex 2 mg IV every 12 hours. I gave him a dose of potassium chloride 40 mEq times one dose. I have also started him on ferrous gluconate. ASSESSMENT AND PLAN: 1. Acute kidney injury superimposed on chronic kidney disease, stage III. Patient's renal function is improving. Creatinine today is 1.9, which is close to his baseline. Okay to continue the diuretics at this time. 2. Hypokalemia. Patient is already on spironolactone 25 mg by mouth twice a day. I have given him a dose of potassium chloride 40 mEq by mouth times one dose. 3. Iron-deficiency anemia. I have started the patient on ferrous gluconate 1 tablet by mouth daily. 4. Acute decompensated systolic congestive heart failure. The patient is currently on IV Bumex. Continue the Bumex until he gets discharged. When he is discharged he can be switched back to Bumex 2 mg by mouth twice a day with spironolactone per primary 25 mg by mouth twice a day. Continue Coreg 3.125 mg by mouth twice a day. 5. Cirrhosis with ascites. Patient is status post ascitic tap, 9.3 liters of fluid was removed. Diuretic regimen is the same as mentioned above. 6. Atrial fibrillation. Heart rate is controlled with Coreg. Okay to continue Eliquis. DISPOSITION: The patient is optimized from nephrology standpoint to be discharged on oral diuretics. He needs to followup with nephrology service within 2 weeks after discharge from the hospital. KEIRA
[2019-05-30] MEDS: oxyCODONE 5MG TAB PO SCH (12:20)
[2019-05-30 12:43] VITALS: BP 106/68
[2019-05-30 13:40] LABS: HEPATITIS A ANTIBODY IGM NEGATIVE (NEGATIVE); HEPATITIS B CORE ANTIBODY IGM NEGATIVE (NEGATIVE)
== END 2019-05-30 14:50 | disposition home or self-care (01) | DRG 432 ==
LOC: M ED 13:20 → M ED INP 16:07 → ENRESERVTM 16:37 → ENRESERVDT 16:37 → M PCU 17:51
PROVIDERS: ADMIT Internal Medicine; ATTEND General Practice
PROC: 0W9G3ZX Drainage of Peritoneal Cavity, Percutaneous Approach, Diagnostic (ICD-10-PCS; principal; 2019-05-29 11:00)
DX: K74.60 Unspecified cirrhosis of liver (principal); I50.23 Acute on chronic systolic (congestive) heart failure; R18.8 Other ascites; I48.20 Chronic atrial fibrillation, unspecified; N17.9 Acute kidney failure, unspecified; I25.10 Atherosclerotic heart disease of native coronary artery without angina pectoris; I25.2 Old myocardial infarction; I49.5 Sick sinus syndrome; E11.22 Type 2 diabetes mellitus with diabetic chronic kidney disease; N18.3 Chronic kidney disease, stage 3 (moderate); E78.5 Hyperlipidemia, unspecified; E11.42 Type 2 diabetes mellitus with diabetic polyneuropathy; D50.9 Iron deficiency anemia, unspecified; F32.9 Major depressive disorder, single episode, unspecified; E55.9 Vitamin D deficiency, unspecified; J44.9 Chronic obstructive pulmonary disease, unspecified; Z86.73 Personal history of transient ischemic attack (TIA), and cerebral infarction without residual deficits; Z95.5 Presence of coronary angioplasty implant and graft; Z95.0 Presence of cardiac pacemaker; Z79.01 Long term (current) use of anticoagulants; Z79.891 Long term (current) use of opiate analgesic; Z79.899 Other long term (current) drug therapy; Z88.8 Allergy status to other drugs, medicaments and biological substances; Z87.81 Personal history of (healed) traumatic fracture; Z87.891 Personal history of nicotine dependence

== ENCOUNTER → 2019-06-11 | Outpatient (CLI) | payer OTHER ==
[~2019-06-11] MED LIST changes: +ALDA25TA2 PO; +POLYOPD OU; +ROXI1TAB2 PO; +XIFA200T2 PO
--- NOTE | 2019-06-12 04:03 | ECWPNPC ---
PATIENT NAME: RY WILLIAM : 1960 GENDER: MALE VISIT DATE: 06/11/2019 DISCHARGE DATE: 06/11/19 1604 VISIT LOCKED DATE TIME: PHYSICIAN: TODD BARAJAS RESOURCE: TODD BARAJAS REASON FOR APPOINTMENT 1. 2 MONTH FOLLOW UP HISTORY OF PRESENT ILLNESS HISTORY OF PRESENT ILLNESS: HERE FOR FOLLOW-UP OF CHRONIC LEFT-SIDED BODY PAIN, STATUS POST STROKE IN 2014.CURRENTLY TAKING OXYCODONE 5 MG WITH INSTRUCTIONS TO TAKE ONE TABLET NEEDED FOR SEVERE PAIN EPISODES #75 TABLETS FOR 30 DAY SUPPLY. PAIN MEDICATION DOES NOT SEEM TO BE EFFECTIVE AND HE WAS WONDERING ABOUT LONG-ACTING MEDICATION. RECENT HOSPITALIZATION FOR CONGESTIVE HEART FAILURE. I DID INFORM HIM TODAY THAT NARCOTIC PAIN MEDICATION CAN INTERFERE WITH HIS BREATHING IMPLEMENT INCREASE RISK FOR RESPIRATORY SUPPRESSION. DISCUSSED MEDICATION OPTIONS. CONTINUES ON TRAMADOL 50 MG MORNING AND NIGHT. PAIN THE PATIENT DESCRIBES THE PAIN... FALL RISK SCREENING: SCREENING :NO FALLS REPORTED IN THE LAST YEAR CURRENT MEDICATIONS TAKING PROAIR RESPICLICK 108 (90 BASE) MCG/ACT AEROSOL POWDER BREATH ACTIVATED 1 PUFF NEEDED INHALATION EVERY 4 HRS NEEDED TAKING APIXABAN 5 MG TABLET 1 TAB ORALLY BID TAKING ACCU-CHEK ANA PLUS - STRIP DIRECTED IN VITRO BID TAKING TRAMADOL HCL 50 MG TABLET 1 TABLET NEEDED ORALLY THREE TIMES DAILY NEEDED TAKING GABAPENTIN 400 MG CAPSULE 2 CAPSULE ORALLY BID TAKING LORAZEPAM 0.5 MG TABLET 1 TABLET NEEDED ORALLY BID TAKING ACETAMINOPHEN EXTRA STRENGTH 500 MG TABLET 1 TABLET NEEDED ORALLY EVERY 6 HRS TAKING DICLOFENAC SODIUM 1 % GEL DIRECTED TRANSDERMAL TAKING DULOXETINE HCL 30 MG CAPSULE DELAYED RELEASE PARTICLES TWO CAPSULES EVERY MORNING AND ONE CAPUSULE AT SUPPER ORALLY TAKING BUMETANIDE 2 MG TABLET DIRECTED ORALLY BID TAKING CARVEDILOL 3.125 MG TABLET 1 TABLET ORALLY TWICE A DAY TAKING ERGOCALCIFEROL 49014 IU TABLET DIRECTED ORALLY WEEKLY TAKING FERROUS GLUCONATE 325 MG CAPSULE DIRECTED ORALLY DAILY TAKING ROSUVASTATIN CALCIUM 40 MG TABLET 1/2 TAB ORALLY BEFORE BEDTIME TAKING OXYCODONE HCL 5 MG TABLET 1 TABLET NEEDED ORALLY EVERY 6 HRS PRN MDD4 NOT-TAKING CYANOCOBALAMIN 1000 MCG TABLET 1 TABLET ORALLY ONCE A DAY NOT-TAKING DRISDOL 42525 UNIT CAPSULE 1 CAPSULE ORALLY WEEKLY NOT-TAKING BUDESONIDE-FORMOTEROL FUMARATE 80-4.5 MCG/ACT AEROSOL 2 PUFFS INHALATION ONCE A DAY NOT-TAKING METOLAZONE 2.5 MG TABLET 1 TABLET ORALLY ONCE A DAY NOT-TAKING NYSTATIN 158728 UNIT/ML SUSPENSION 4 ML MOUTH/THROAT FOUR TIMES A DAY NOT-TAKING LIPITOR 80 MG TABLET 1 TABLET ORALLY ONCE A DAY NOT-TAKING FUROSEMIDE 80 MG TABLET 1 TABLET ORALLY ONCE A DAY NOT-TAKING LANTUS SOLOSTAR 100 UNIT/ML SOLUTION 40 UNITS SUBCUTANEOUS TWICE DAILY NOT-TAKING SPIRONOLACTONE 25 MG TABLET 1/2 TABLET ORALLY DAILY NOT-TAKING POCKET SPACER - DEVICE DIRECTED _ FOUR TIMES DAILY NOT-TAKING GLIPIZIDE 5 MG TABLET 1/2 TAB BID ONCE A DAY NOT-TAKING ISOSORBIDE MONONITRATE ER 30 MG TABLET EXTENDED RELEASE 24 HOUR 1 TABLET ORALLY ONCE A DAY NOT-TAKING BREO ELLIPTA 100-25 MCG/INH AEROSOL POWDER BREATH ACTIVATED 1 PUFF INHALATION ONCE A DAY NOT-TAKING OXYCODONE HCL 5 MG TABLET 1 TABLET ORALLY EVERY 6 HRS NEEDED (MDD:2) MEDICATION LIST REVIEWED AND RECONCILED WITH THE PATIENT PAST MEDICAL HISTORY DIABETES (11/13 9.5) HYPERTENSION CAD S/P CABG CVA 2 (2014) WITH LEFT EFT-SIDED NUMBNESS. CONGESTIVE HEART FAILURE WITH VENTRICULAR PACING (EF 10/13 45% ATRIAL FIBRILLATION CHRONIC KIDNEY DISEASE 12/13 CR. 1.46 DEGENERATIVE DISC DISEASE SCIATICA ANXIETY GERD PROTEINURIA LOW BACK PAIN MAJOR DEPRESSIVE DISORDER ALLERGIES METFORMIN HCL: DIARRHEA BACLOFEN GEMFIBROZIL LISINOPRIL TRICOR SURGICAL HISTORY QUADRUPLE BYPASS 2000 PACEMAKER/DEFIBRILLATOR COLONOSCOPY 03/2016 FAMILY HISTORY FATHER: , DIAGNOSED WITH UNSPECIFIED HEART DISEASE MOTHER: , UNSPECIFIED HEART DISEASE PATERNAL GRAND FATHER: PATERNAL GRAND MOTHER: MATERNAL GRAND FATHER: MATERNAL GRAND MOTHER: 3 SISTER(S) . 1 SON(S) , 1 DAUGHTER(S) - HEALTHY. MOTHER: CADFATHER: CADSISTERS: DIABETES, HEART ISSUES. SOCIAL HISTORY GENERAL: TOBACCO USE ARE YOU A:FORMER SMOKER CHEWS TOBACCO CURRENTLY HOW LONG HAS IT BEEN SINCE YOU LAST SMOKED?> 10 YEARS OTHERS AT HOME: NONE. 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 DIET: LOW SODIUM. LANGUAGE MALAWIAN. DOMESTIC VIOLENCE DO YOU FEEL SAFE IN YOUR ENVIRONMENT?YES BMI CARE GOAL FOLLOW-UP ABOVE NORMAL BMI FOLLOW-UPDIETARY MANAGEMENT EDUCATION, GUIDANCE, AND COUNSELING RECREATIONAL DRUG USE DRUG USE?NO EXERCISE: NO REGULAR EXERCISE. LEARNING BARRIERS / SPECIAL NEEDS CHANGE FROM LAST VISIT?NO BARRIERS TO LEARNING?NO HEARING IMPAIRED?NO VISION IMPAIRED?YES WEARS GLASSES COGNITIVELY IMPAIRED?NO READINESS TO LEARN?YES LEARNING PREFERENCES?YES :DEMONSTRATION/VERBAL INSTRUCTION PATIENT REPORTS HE HAS TROUBLE WITH READING COMPREHENSION AND WOULD PREFER THAT INFORMATION BE REVIEWED ORALLY WITH HIM LEARNING CAPABILITIES PRESENT?YES EMOTIONAL BARRIERS?NO SPECIAL DEVICES?NO KAI WHAKARURUHAU NEEDED?NO LUNG CANCER SCREENING SMOKING STATUS:FORMER SMOKER 20PK/YEAR PAIN CLINIC PFS, CLERGY, PUBLIC HEALTH REFERRALS HAS THE PATIENT BEEN EDUCATED REGARDING HIS/HER PLAN OF CARE?YES HAS THE PATIENT BEEN EDUCATED REGARDING PAIN, THE RISK FOR PAIN, THE IMPORTANCE OF EFFECTIVE PAIN MANAGEMENT, AND THE PAIN ASSESSMENT PROCESS?YES LATEX QUESTIONNAIRE LATEX ALLERGY : HAVE YOU EVER DEVELOPED ANY TYPE OF REACTION AFTER HANDLING LATEX PRODUCTS SUCH RUBBER GLOVES, CONDOMS, DIAPHRAGMS, BALLOONS, SOCKS, OR UNDERWEAR?NO LATEX ALLERGY : HAVE YOU EVER DEVELOPED ANY TYPE OF REACTION DURING OR AFTER DENTAL APPOINTMENT, VAGINAL/RECTAL EXAMINATION, SURGICAL PROCEDURE, OR ANY OTHER EXPOSURE?NO DATE ASKED : 02/22/2019 LATEX RISK : HAVE YOU EVER HAD ANY DIFFICULTY BREATHING OR HIVES AFTER EATING OR HANDLING ANY FRUITS, OR VEGETABLES; SUCH KIWI, BANANAS, STONE FRUITS, OR CHESTNUTSNO LATEX RISK : DO YOU HAVE A PREVIOUS PERSONAL HISTORY OF MORE THAN NINE SURGERIES, SPINA BIFIDA, OR REPEATED CATHERIZATIONS? NO LATEX RISK : ARE YOU FREQUENTLY EXPOSED TO LATEX PRODUCTS IN YOUR OCCUPATION?NO CAFFEINE CAFFEINE USE?NO ADVANCE DIRECTIVE ADVANCE DIRECTIVE DISCUSSED WITH PATIENT:YES HEALTH CARE PROXY IS IZABELLA LOYA, WILL BRING IN NIMBER ORTHODOX NO SIKHISM BELIEFS THAT WOULD IMPACT HEALTH CARE. MARITAL STATUS: SINGLE. ALCOHOL SCREENING DID YOU HAVE A DRINK CONTAINING ALCOHOL IN THE PAST YEAR?NO POINTS0 INTERPRETATIONNEGATIVE NEW PATIENT CONSULT INFORMATION REVIEWED 02/22/19 LASREVIEWED WITH PATIENT 03/01/19 1101 NLJREVIEWED WITH PATIENT 04/12/2019 1101 JS. HOSPITALIZATION/MAJOR DIAGNOSTIC PROCEDURE CONGESTIVE HEART FAILURE- BEEN IN TWICE STROKE- BEEN IN TWICE SURGERIES CONGESTIVE HEART FAILURE 04/2019 CONGESTIVE HEART FAILURE 04/2019 REVIEW OF SYSTEMS REVIEWED BY: PROVIDER: TODD MIXON . CONSTITUTIONAL: ANY CHANGE IN YOUR MEDICAL CONDITION? NO . CHILLS NO . FEVER NO . INFECTION: DO YOU HAVE NEW INFECTIONS? NO . DO YOU HAVE HISTORY OF MRSA? NO . MUSCULOSKELETAL: ANY NEW PATTERNS OF PAIN OR NUMBNESS? NO . GASTROENTEROLOGY: ANY NEW CHANGE IN BOWEL CONTROL? NO . GENITOURINARY: ANY NEW CHANGE IN BLADDER CONTROL? NO . IS THERE A CHANCE YOU COULD BE ? NO . HEMATOLOGY/LYMPH: DO YOU TAKE ANY BLOOD THINNERS? (FOR EXAMPLE- COUMADIN, PLAVIX, AGGRENOX, PLATEL, PRADAXA, OR XARELTO) YES . WHEN WAS YOUR LAST DOSE? DATE: TIME: . NEUROLOGY: HAVE YOU FALLEN IN THE PAST 12 MONTHS? YES . ANY NEW EXTREMITY NUMBNESS OR WEAKNESS? NO . CARDIOLOGY: DO YOU HAVE A PACEMAKER OR DEFIBRILLATOR? YES . RESPIRATORY: HAVE YOU BEEN SICK IN THE PAST WEEK? NO . FEVER NO . FLU LIKE SYMPTOMS? NO . COUGH NO . INTEGUMENTARY: DO YOU HAVE ANY RASHES OR OPEN SORES? NO . ALLERGIC/IMMUNO: ARE YOU ALLERGIC TO IV DYE? NO . ANY NEW ALLERGIES? NO . PSYCHIATRIC: DO YOU HAVE THOUGHTS OF HURTING YOURSELF OR SOMEONE ELSE? NO . ARE YOU ABUSED, NEGLECTED, OR IN AN UNSAFE ENVIRONMENT? NO . ENDOCRINOLOGY: ARE YOU DIABETIC? NO . OTHER: DO YOU NEED ANY PRESCRIPTIONS? NO . IF YES, PLEASE LIST: ____ . ANY NEW PROBLEMS WITH YOUR MEDICATIONS? YES - NOT STRONG ENOUGH . WHEN DID YOU LAST EAT? ____ . WHEN DID YOU LAST DRINK? ____ . WHAT DID YOU LAST DRINK? ____ . NAME OF PERSON DRIVING YOU HOME? ____ . DO YOU HAVE ANY OTHER QUESTIONS OR CONCERNS YES - WANTS TO KNOW IF COULD HAVE TIME-RELEASE MEDICATION . VITAL SIGNS WT 177.2 LBS, HT 70 IN, BMI 25.42 INDEX, BP 101/61 MM HG, HR 86 /MIN, RR 18 /MIN, TEMP 96.5 F, OXYGEN SAT % 93%, NA INITIALS AW 0926, REVIEWED BY: LS06/11/19 1020 PULSE OX RECHECK 98%. Sean FUNK RN. EXAMINATION GENERAL EXAMINATION: GENERALAWAKE,ALERT ,PLEASANT . PSYCHAFFECT NORMAL . LUNGS:LUNG VIVAS ARE CLEAR TO AUSCULTATION BILATERALLY. GOOD MOVEMENT OF AIR . HEART:S1, S2 IN A REGULAR RATE AND RHYTHM. NO SIGNIFICANT MURMURS, RUBS OR GALLOPS NOTED . ASSESSMENTS NEUROPATHY - G62.9 (PRIMARY) TREATMENT NEUROPATHY CONTINUE OXYCODONE HCL TABLET, 5 MG, 1 TABLET NEEDED, ORALLY, EVERY 6 HRS PRN MDD4 START BUTRANS PATCH WEEKLY, 10 MCG/HR, 1 PATCH TO SKIN, TRANSDERMAL, [id number], 30 DAYS, 4, REFILLS 2 NOTES: ISTOP REGISTRY REVIEWED AND DEMONSTRATES COMPLLIANCE. BRINGS IN MEDICATIONS WHICH IS APPROPRIATE FOR WHAT WAS DISPENSED. URINE TOX TODAY, RISKS OF NARCOTIC/OPIOD MEDICATIONS INCLUDES BUT IS NOT LIMITED TO RISK OF DEPENDANCE/DEVELOPMENT OF ADDICTION, MOOD DISTURBANCE AND DEPRESSION, OSTEOPOROSIS, HORMONAL AND LABIDAL CHANGES, RESPIRATORY DEPRESSION AND . PATIENT IS ADVISED NOT TO DRIVE OR DRINK ALCOHOL WHILE ON THESE MEDICATIONS. PREVENTIVE MEDICINE PAIN CLINIC TEACHING: MEDICATIONS PRINTED AND REVIEWED INFORMATION ON NEW MEDICATION, BUTRANS PATCH, WITH PATIENT. PATIENT VERBALIZED AN UNDERSTANDING. KARTHIK CALHOUN 06/11/2019 11:04:07 AM > . PROCEDURE CODES FA211 ESTABILISHED PATIENT [facility] CHARGE DISPOSITION & COMMUNICATION FOLLOW UP 6 WEEKS (REASON: MED MGMNT) ELECTRONICALLY SIGNED BY ORAL BLAIR ON 06/11/2019 AT 02:05 PM EDT DISCLAIMER : THIS IS A VISIT SUMMARY EXTRACTED FROM THE [employer]CLINICAL[employer] CHART. IT IS NOT A COPY OF THE ECLINICAL[employer]KS PROGRESS NOTE. MTDD
== END ==
LOC: M PAIN 10:45
PROVIDERS: ATTEND Nurse Practitioner Family
DX: G62.9 Polyneuropathy, unspecified (principal)

== ENCOUNTER 2019-07-19 18:12 | Emergency (ER) | payer OTHER, MEDICARE ==
[~2019-07-19] VITALS: Ht 175.3 cm; Wt 74.2 kg
[~2019-07-19 18:12] MED LIST changes: -LISI-1046 PO; +LISI2.5T2 PO; -METF-791 PO; +METF-838 PO
[2019-07-19] MEDS ORDERED: XIFA200T2 (18:19)
[2019-07-19] MEDS ORDERED: BUSP10TA (18:19)
[2019-07-19] MEDS ORDERED: OXYC10TA3 PO (19:23)
[2019-07-19 19:30] VITALS: BP 104/59
--- NOTE | 2019-07-19 23:04 | REP ---
Four views were obtained. A sunrise view could not be obtained as per note placed in the [employer] Jacket by the technologist who performed the exam. The patient's garment is lifted above the knee joint. This can simulate an effusion if tight. Four limited views show suprapatellar swelling, likely accentuated by aforementioned technique. A suprapatellar effusion cannot be ruled out and should be correlated clinically and, if necessary, obtain an ultrasound. There is no acute fracture. IMPRESSION: Findings and technical limitations as described above. Electronically Signed by David oPsey DO 07/20/2019 08:27 A
== END 2019-07-19 19:34 | disposition home or self-care (01) ==
LOC: M ED 18:12
DX: M25.462 Effusion, left knee (principal); I25.10 Atherosclerotic heart disease of native coronary artery without angina pectoris; J44.9 Chronic obstructive pulmonary disease, unspecified; N18.3 Chronic kidney disease, stage 3 (moderate); I25.2 Old myocardial infarction; K21.9 Gastro-esophageal reflux disease without esophagitis; E11.9 Type 2 diabetes mellitus without complications; F41.9 Anxiety disorder, unspecified; F32.9 Major depressive disorder, single episode, unspecified; Z79.01 Long term (current) use of anticoagulants; Z88.8 Allergy status to other drugs, medicaments and biological substances; Z87.891 Personal history of nicotine dependence; Z95.0 Presence of cardiac pacemaker

== ENCOUNTER → 2019-07-20 | Outpatient (REF) | payer OTHER, MEDICARE ==
[~2019-07-20] MED LIST changes: +BUSP10TA; +OXYC10TA3 PO; +XIFA200T2
[2019-07-20 14:56] LABS: SOURCE, BODY FLUID RT KNEE
[2019-07-20 14:58] LABS: CRYSTALS, BODY FLUID URIC ACID (NONE SEEN); SOURCE, BODY FLUID CRYSTALS RT KNEE
[2019-07-20 15:27] LABS: SOURCE, BODY FLUID GLUCOSE RT KNEE; SOURCE, BODY FLUID URIC ACID RT KNEE; URIC ACID, BODY FLUID 15.4 MG/DL (NOT ESTABLISHED)
[2019-07-20 15:28] LABS: SYNOVIAL FLUID COLOR YELLOW (YELLOW)
[2019-07-21 08:32] LABS: BODY FLUID RHEUMATOID SCREEN NEGATIVE (NEGATIVE); MUCIN CLOT TEST 4+ (4+)
== END ==
LOC: M LAB REF 14:28
PROVIDERS: ATTEND Orthopaedic Surgery
DX: M25.461 Effusion, right knee (principal)

== ENCOUNTER → 2019-07-30 | Outpatient (CLI) | payer OTHER ==
--- NOTE | 2019-08-01 02:59 | ECWPNPC ---
PATIENT NAME: RY WILLIAM : 1960 GENDER: MALE VISIT DATE: 07/30/2019 DISCHARGE DATE: 07/30/19 1134 VISIT LOCKED DATE TIME: PHYSICIAN: TODD BARAJAS RESOURCE: TODD BARAJAS REASON FOR APPOINTMENT 1. MED MGMNT HISTORY OF PRESENT ILLNESS GENERAL: HERE FOR FOLLOW-UP AND MEDICINE MANAGEMENT OF CHRONIC LEFT-SIDED PAIN. WAS HOSPITALIZED FOR A WEEK OVER THE PAST MONTH AND HAD FLUID DRAINED FROM HIS STOMACH. ALSO IS HAVING SEVERE LEFT KNEE PAIN AND FLUID WAS ASPIRATED FROM HIS LEFT KNEE. WILL BE FOLLOWING WITH NEW PRIMARY CARE IN THE NEXT FEW DAYS. HAS NOT BEEN ABLE TO START BUTRANS PATCH-DUE TO COST. HE IS ACCOMPANIED IN EXAM ROOM WITH HIS [id number], WHO WOULD LIKE TO SEE IF SHE CAN HELP HIM GET THAT MEDICATION THROUGH A PRESCRIPTION CARD THAT SHE JUST OBTAINED. STATING PAIN IS OUT OF CONTROL. RATING PAIN LEVEL AN 8/10 VAS. DISCUSSED MEDICATION PLAN. DISCUSSED POTENTIAL RISKS ASSOCIATED WITH INCREASING OPIOID DOSAGE. THEY ARE AWARE THAT THE LEFT KNEE WOULD HAVE TO BE LOOKED AT FOR STRUCTURAL PROBLEMS AND REFERRALS BASED ON THAT PER PRIMARY CARE. -. FALL RISK SCREENING: SCREENING :ONE FALL WITHOUT INJURY IN THE PAST YEAR PAIN SCREENING: PATIENT HAS A COMPLAINT OF ACUTE OR CHRONIC PAIN :YES 07/27/19 INTENSITY OF PAIN (SCALE OF 1 TO 10):8 WHAT DOES YOUR PAIN FEEL LIKE:SHARP, THROBBING PAIN IS INCREASED BY: ACTIVITY PAIN IS DECREASED BY: REST NURSING NOTE: -. PAIN CENTER INTAKE QUESTIONS: DO YOU HAVE A HISTORY OF MRSA? :NO DO YOU TAKE A BLOOD THINNERS? :YES ELIQUIS DO YOU HAVE ANY BLEEDING DISORDERS? :NO ANY NEW NUMBNESS OR WEAKNESS IN YOUR LEGS OR ARMS? :NO ANY PACEMAKER,DEFIBRILLATOR, OR DORSAL COLUMN STIMULATOR? :YES PACEMAKER/DEFIB DO YOU HAVE ANY RASHES OR OPEN SORES? :NO ARE YOU ALLERGIC TO IV DYE? :NO ARE YOU DIABETIC? :YES ANY NEW PROBLEMS WITH YOUR MEDICATIONS? :NO HAVE YOU RECEIVED A VACCINE IN THE PAST 30 DAYS? :NO DO YOU PLAN TO RECEIVE A VACCINE IN THE NEXT 21 DAYS? :NO DO YOU NEED ANY PRESCRIPTION? :YES OXYCODNE, [id number] WOULD LIKE TO DISCUSS A PATCH DO YOU TAKE ANY IMMUNOSUPPRESSIVE MEDICATIONS? :NO CURRENT MEDICATIONS TAKING PROAIR RESPICLICK 108 (90 BASE) MCG/ACT AEROSOL POWDER BREATH ACTIVATED 1 PUFF NEEDED INHALATION EVERY 4 HRS NEEDED TAKING APIXABAN 5 MG TABLET 1 TAB ORALLY BID TAKING ACCU-CHEK ANA PLUS - STRIP DIRECTED IN VITRO BID TAKING GABAPENTIN 400 MG CAPSULE 2 CAPSULE ORALLY BID TAKING ACETAMINOPHEN EXTRA STRENGTH 500 MG TABLET 1 TABLET NEEDED ORALLY EVERY 6 HRS TAKING DICLOFENAC SODIUM 1 % GEL DIRECTED TRANSDERMAL TAKING DULOXETINE HCL 30 MG CAPSULE DELAYED RELEASE PARTICLES TWO CAPSULES EVERY MORNING AND ONE CAPUSULE AT SUPPER ORALLY TAKING BUMETANIDE 2 MG TABLET DIRECTED ORALLY BID TAKING CARVEDILOL 3.125 MG TABLET 1 TABLET ORALLY TWICE A DAY TAKING ERGOCALCIFEROL 19607 IU TABLET DIRECTED ORALLY WEEKLY TAKING FERROUS GLUCONATE 325 MG CAPSULE DIRECTED ORALLY DAILY TAKING ROSUVASTATIN CALCIUM 40 MG TABLET 1/2 TAB ORALLY BEFORE BEDTIME TAKING OXYCODONE HCL 5 MG TABLET 1 TABLET NEEDED ORALLY Q6H PRN MDD4 #75 TAB SHOULD LAST 30 DAYS NOT-TAKING TRAMADOL HCL 50 MG TABLET 1 TABLET NEEDED ORALLY THREE TIMES DAILY NEEDED NOT-TAKING LORAZEPAM 0.5 MG TABLET 1 TABLET NEEDED ORALLY BID NOT-TAKING BUTRANS 10 MCG/HR PATCH WEEKLY 1 PATCH TO SKIN TRANSDERMAL [id number] NOT-TAKING CYANOCOBALAMIN 1000 MCG TABLET 1 TABLET ORALLY ONCE A DAY NOT-TAKING DRISDOL 07135 UNIT CAPSULE 1 CAPSULE ORALLY WEEKLY NOT-TAKING BUDESONIDE-FORMOTEROL FUMARATE 80-4.5 MCG/ACT AEROSOL 2 PUFFS INHALATION ONCE A DAY NOT-TAKING METOLAZONE 2.5 MG TABLET 1 TABLET ORALLY ONCE A DAY NOT-TAKING NYSTATIN 012264 UNIT/ML SUSPENSION 4 ML MOUTH/THROAT FOUR TIMES A DAY NOT-TAKING LIPITOR 80 MG TABLET 1 TABLET ORALLY ONCE A DAY NOT-TAKING FUROSEMIDE 80 MG TABLET 1 TABLET ORALLY ONCE A DAY NOT-TAKING LANTUS SOLOSTAR 100 UNIT/ML SOLUTION 40 UNITS SUBCUTANEOUS TWICE DAILY NOT-TAKING SPIRONOLACTONE 25 MG TABLET 1/2 TABLET ORALLY DAILY NOT-TAKING POCKET SPACER - DEVICE DIRECTED _ FOUR TIMES DAILY NOT-TAKING GLIPIZIDE 5 MG TABLET 1/2 TAB BID ONCE A DAY NOT-TAKING ISOSORBIDE MONONITRATE ER 30 MG TABLET EXTENDED RELEASE 24 HOUR 1 TABLET ORALLY ONCE A DAY NOT-TAKING BREO ELLIPTA 100-25 MCG/INH AEROSOL POWDER BREATH ACTIVATED 1 PUFF INHALATION ONCE A DAY NOT-TAKING OXYCODONE HCL 5 MG TABLET 1 TABLET ORALLY EVERY 6 HRS NEEDED (MDD:2) MEDICATION LIST REVIEWED AND RECONCILED WITH THE PATIENT PAST MEDICAL HISTORY DIABETES (11/13 9.5) HYPERTENSION CAD S/P CABG CVA 2 (2014) WITH LEFT EFT-SIDED NUMBNESS. CONGESTIVE HEART FAILURE WITH VENTRICULAR PACING (EF 10/13 45% ATRIAL FIBRILLATION CHRONIC KIDNEY DISEASE 12/13 CR. 1.46 DEGENERATIVE DISC DISEASE SCIATICA ANXIETY GERD PROTEINURIA LOW BACK PAIN MAJOR DEPRESSIVE DISORDER ALLERGIES METFORMIN HCL: DIARRHEA BACLOFEN GEMFIBROZIL LISINOPRIL TRICOR SURGICAL HISTORY QUADRUPLE BYPASS 2000 PACEMAKER/DEFIBRILLATOR COLONOSCOPY 03/2016 FAMILY HISTORY FATHER: , DIAGNOSED WITH UNSPECIFIED HEART DISEASE MOTHER: , UNSPECIFIED HEART DISEASE PATERNAL GRAND FATHER: PATERNAL GRAND MOTHER: MATERNAL GRAND FATHER: MATERNAL GRAND MOTHER: 3 SISTER(S) . 1 SON(S) , 1 DAUGHTER(S) - HEALTHY. MOTHER: CADFATHER: CADSISTERS: DIABETES, HEART ISSUES. SOCIAL HISTORY GENERAL: TOBACCO USE ARE YOU A:FORMER SMOKER CHEWS TOBACCO CURRENTLY HOW LONG HAS IT BEEN SINCE YOU LAST SMOKED?> 10 YEARS LATEX QUESTIONNAIRE LATEX ALLERGY : HAVE YOU EVER DEVELOPED ANY TYPE OF REACTION AFTER HANDLING LATEX PRODUCTS SUCH RUBBER GLOVES, CONDOMS, DIAPHRAGMS, BALLOONS, SOCKS, OR UNDERWEAR?NO LATEX ALLERGY : HAVE YOU EVER DEVELOPED ANY TYPE OF REACTION DURING OR AFTER DENTAL APPOINTMENT, VAGINAL/RECTAL EXAMINATION, SURGICAL PROCEDURE, OR ANY OTHER EXPOSURE?NO DATE ASKED : 02/22/2019 LATEX RISK : HAVE YOU EVER HAD ANY DIFFICULTY BREATHING OR HIVES AFTER EATING OR HANDLING ANY FRUITS, OR VEGETABLES; SUCH KIWI, BANANAS, STONE FRUITS, OR CHESTNUTSNO LATEX RISK : DO YOU HAVE A PREVIOUS PERSONAL HISTORY OF MORE THAN NINE SURGERIES, SPINA BIFIDA, OR REPEATED CATHERIZATIONS? NO LATEX RISK : ARE YOU FREQUENTLY EXPOSED TO LATEX PRODUCTS IN YOUR OCCUPATION?NO LUNG CANCER SCREENING SMOKING STATUS:FORMER SMOKER 20PK/YEAR BMI CARE GOAL FOLLOW-UP ABOVE NORMAL BMI FOLLOW-UPDIETARY MANAGEMENT EDUCATION, GUIDANCE, AND COUNSELING ALCOHOL SCREENING DID YOU HAVE A DRINK CONTAINING ALCOHOL IN THE PAST YEAR?NO POINTS0 INTERPRETATIONNEGATIVE RECREATIONAL DRUG USE DRUG USE?NO CAFFEINE CAFFEINE USE?NO MANDAEN NO HINDU BELIEFS THAT WOULD IMPACT HEALTH CARE. LANGUAGE DIVEHI. 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 LEARNING BARRIERS / SPECIAL NEEDS CHANGE FROM LAST VISIT?NO BARRIERS TO LEARNING?NO HEARING IMPAIRED?NO VISION IMPAIRED?YES WEARS GLASSES COGNITIVELY IMPAIRED?NO READINESS TO LEARN?YES LEARNING PREFERENCES?YES :DEMONSTRATION/VERBAL INSTRUCTION PATIENT REPORTS HE HAS TROUBLE WITH READING COMPREHENSION AND WOULD PREFER THAT INFORMATION BE REVIEWED ORALLY WITH HIM LEARNING CAPABILITIES PRESENT?YES EMOTIONAL BARRIERS?NO SPECIAL DEVICES?NO MILITARY PROFESSIONAL NEEDED?NO DOMESTIC VIOLENCE DO YOU FEEL SAFE IN YOUR ENVIRONMENT?YES DIET: LOW SODIUM. EXERCISE: NO REGULAR EXERCISE. MARITAL STATUS: SINGLE. OTHERS AT HOME: NONE. PAIN CLINIC PFS, CLERGY, PUBLIC HEALTH REFERRALS HAS THE PATIENT BEEN EDUCATED REGARDING HIS/HER PLAN OF CARE?YES HAS THE PATIENT BEEN EDUCATED REGARDING PAIN, THE RISK FOR PAIN, THE IMPORTANCE OF EFFECTIVE PAIN MANAGEMENT, AND THE PAIN ASSESSMENT PROCESS?YES ADVANCE DIRECTIVE ADVANCE DIRECTIVE DISCUSSED WITH PATIENT:YES HEALTH CARE PROXY IS IZABELLA LOYA, WILL BRING IN [facility] NEW PATIENT CONSULT INFORMATION REVIEWED 02/22/19 LASREVIEWED WITH PATIENT 03/01/19 1101 NLJREVIEWED WITH PATIENT 04/12/2019 1101 JS. HOSPITALIZATION/MAJOR DIAGNOSTIC PROCEDURE CONGESTIVE HEART FAILURE- BEEN IN TWICE STROKE- BEEN IN TWICE SURGERIES CONGESTIVE HEART FAILURE 04/2019 CONGESTIVE HEART FAILURE 04/2019 REVIEW OF SYSTEMS CONSTITUTIONAL: ANY RECENT FEVER OR ILLNESS NO . CHILLS NO . GASTROENTEROLOGY: BOWEL INCONTINENCE NO . ANY NEW CHANGE IN BOWEL CONTROL? NO . ABDOMINAL PAIN NO . CONSTIPATION NO . GENITOURINARY: ANY NEW CHANGE IN BLADDER CONTROL? NO . IS THERE A CHANCE YOU COULD BE ? NO . URINARY INCONTINENCE NO . CARDIOLOGY: CHEST PRESSURE NO . CHEST PAIN NO . RESPIRATORY: COUGH NO . SHORTNESS OF BREATH NO . VITAL SIGNS WT 154 LBS, HT 70 IN, BMI 22.09 INDEX, BP 119/64 MM HG, HR 60 /MIN, RR 16 /MIN, TEMP 96.8 F, OXYGEN SAT % 98, SAFE IN ENV? (Y/N) Y, REVIEWED BY: [id number]. EXAMINATION GENERAL EXAMINATION: GENERALAWAKE,ALERT ,PLEASANT . PSYCHAFFECT NORMAL . LUNGS:LUNG VIVAS ARE CLEAR TO AUSCULTATION BILATERALLY. GOOD MOVEMENT OF AIR . HEART:S1, S2 IN A REGULAR RATE AND RHYTHM. NO SIGNIFICANT MURMURS, RUBS OR GALLOPS NOTED . ASSESSMENTS NEUROPATHY - G62.9 (PRIMARY) CHRONIC PRESCRIPTION OPIATE USE - Z79.891 TREATMENT NEUROPATHY REFILL OXYCODONE HCL TABLET, 5 MG, 1 TABLET NEEDED, ORALLY, Q6H PRN MDD4, 30 DAYS, 120, REFILLS 0 REFILL BUTRANS PATCH WEEKLY, 10 MCG/HR, 1 PATCH TO SKIN, TRANSDERMAL, [id number], 30 DAYS, 4, REFILLS 2 NOTES: TODAY WE WILL INCREASE DOSE OF OXYCODONE 5/325-TO EVERY 6 HOURS WITH MAXIMUM DAILY DOSE OF 4 DISPENSED 120. THEY WILL TRY TO GET BUTRANS PATCH. FOLLOW UP IN 2 MONTHS TO DISCUSS MEDICATIONS. ENCOURAGED TO CALL IF THEY HAVE ANY TROUBLE WITH MEDICATION PLAN. , ISTOP REGISTRY REVIEWED AND DEMONSTRATES COMPLLIANCE. (REF # ) BRINGS IN MEDICATIONS WHICH IS APPROPRIATE FOR WHAT WAS DISPENSED. RECENT URINE TOXICOLOGY REVIEWED. NO UNAUTHORIZED MEDICATIONS. NO ILLICIT SUBSTANCES AND PRESCRIBED MEDICATIONS WERE PRESENT. PROCEDURE CODES FA211 ESTABILISHED PATIENT [facility] CHARGE DISPOSITION & COMMUNICATION FOLLOW UP 2 MONTHS (REASON: MED MGMNT) ELECTRONICALLY SIGNED BY ORAL BLAIR ON 07/31/2019 AT 03:31 PM EDT DISCLAIMER : THIS IS A VISIT SUMMARY [facility]ED FROM [facility]. IT IS NOT A COPY OF THE ECLINICALWORKS PROGRESS NOTE. DEVANGD
== END ==
LOC: M PAIN 10:45
PROVIDERS: ATTEND Nurse Practitioner Family
DX: G62.9 Polyneuropathy, unspecified (principal); G89.29 Other chronic pain; E11.9 Type 2 diabetes mellitus without complications; I10 Essential (primary) hypertension; Z86.59 Personal history of other mental and behavioral disorders; Z95.0 Presence of cardiac pacemaker; F17.220 Nicotine dependence, chewing tobacco, uncomplicated; Z88.8 Allergy status to other drugs, medicaments and biological substances; Z79.899 Other long term (current) drug therapy

== ENCOUNTER → 2019-08-08 | Outpatient (REF) | payer OTHER ==
[~2019-08-08] MED LIST changes: +ACET-683 PO; -BUSP10TA; +BUSP10TA PO; +BUTR10DI TOP; +CETI10CH PO; +CRES20TA2 PO; +FEBU40TA4 PO; +FERR32TA PO; +MIRA3350 PO; +PRED20TA PO; +SYMB80INH INH; -XIFA200T2
[2019-08-08 15:16] LABS: CRYSTALS, BODY FLUID NONE SEEN (NONE SEEN); SOURCE, BODY FLUID LFT KNEE; SOURCE, BODY FLUID CRYSTALS LFT KNEE; SYNOVIAL FLUID COLOR YELLOW (YELLOW)
[2019-08-08 15:37] LABS: SOURCE, BODY FLUID GLUCOSE LFT KNEE; SOURCE, BODY FLUID URIC ACID LFT KNEE; URIC ACID, BODY FLUID 9.3 MG/DL (NOT ESTABLISHED)
[2019-08-09 09:19] LABS: BODY FLUID RHEUMATOID SCREEN NEGATIVE (NEGATIVE)
[2019-08-09 09:21] LABS: MUCIN CLOT TEST 4+ (4+)
== END ==
LOC: M LAB REF 14:37
PROVIDERS: ATTEND Physical Medicine & Rehabilitation
DX: M25.569 Pain in unspecified knee (principal)

== ENCOUNTER 2019-08-12 15:11 | Inpatient (IN) | payer MEDICARE, OTHER ==
[~2019-08-12] VITALS: Ht 177.8 cm; Wt 78.0 kg
[~2019-08-12 15:11] MED LIST changes: -ACET-683 PO; -BUTR10DI TOP; -CETI10CH PO; -CRES20TA2 PO; -FEBU40TA4 PO; -FERR32TA PO; -MIRA3350 PO; -PRED20TA PO; -SYMB80INH INH
[2019-08-12 16:40] LABS: BASO % 0.2 % (0.0-1.0); EOS # 0.2 10^3/uL (0.0-0.5); EOS % 1.7 % (0.0-3.0); HEMATOCRIT 30.2 % (42.0-52.0); HEMOGLOBIN 9.9 g/dl (13.5-17.5); LYMPH % 11.3 % (24.0-44.0); MEAN CORPUSCULAR HEMOGLOBIN 27.3 pg (27.0-33.0); MEAN CORPUSCULAR HGB CONC 32.8 g/dl (32.0-36.5); MEAN CORPUSCULAR VOLUME 83.4 fl (80.0-96.0); MONO % 10.8 % (0.0-5.0); NEUTROPHILS % 75.6 % (36.0-66.0); PLATELET COUNT, AUTOMATED 230 10^3/uL (150-450); RED BLOOD COUNT 3.62 10^6/uL (4.30-6.10); WHITE BLOOD COUNT 9.2 10^3/uL (4.0-10.0)
--- NOTE | 2019-08-12 17:07 | REP ---
Four views left knee: 08/12/2019. Indication: Left knee pain. Comparison: None. Findings: There is no acute fracture, subluxation or dislocation. Suprapatellar effusion is noted which appears proteinaceous. No lytic or blastic lesions are present. Multiple surgical clips are present. Impression: No acute fracture. Suprapatellar effusion. Electronically Signed by Lopez Mcgee DO 08/12/2019 04:59 P
[2019-08-12 17:18] LABS: ALBUMIN 2.1 GM/DL (3.2-5.2); BILIRUBIN,TOTAL 0.7 MG/DL (0.2-1.0); CALCIUM LEVEL 8.4 MG/DL (8.5-10.1); CREATININE FOR GFR 3.09 MG/DL (0.70-1.30); GLOMERULAR FILTRATION RATE 22.2 (>56); POTASSIUM SERUM 5.4 MEQ/L (3.5-5.1); TOTAL PROTEIN 8.2 GM/DL (6.4-8.2); URIC ACID 8.5 MG/DL (3.5-7.2)
[2019-08-12] MEDS ORDERED: oxyCODONE 5MG TAB PO ONE (17:30)
[2019-08-12] MEDS ORDERED: NS 500 ML IV ONE (17:30)
[2019-08-12] MEDS: NS 1,000 ML IV SCH ×2 (17:49→23:50)
[2019-08-12 18:02] LABS: C REACTIVE PROTEIN QUANTITATIV 10.2 MG/DL (0.00-0.30)
[2019-08-12 18:07] LABS: ERYTHROCYTE SEDIMENTATION RATE 120 mm/hr (0-20)
[2019-08-12 19:02] LABS: CRYSTALS, BODY FLUID NONE SEEN (NONE SEEN); SOURCE, BODY FLUID CRYSTALS LFT KNEE
[2019-08-12 19:19] LABS: SOURCE, BODY FLUID LFT KNEE; SYNOVIAL FLUID COLOR ORANGE (YELLOW)
[2019-08-12] MEDS ORDERED: MORPHINE 4 MG/ML 1ML VIAL/SYRINGE (J2270) IV ONE (19:30)
[2019-08-12 19:39] LABS: SOURCE, BODY FLUID URIC ACID LFT KNEE; URIC ACID, BODY FLUID 8.7 MG/DL (NOT ESTABLISHED)
[2019-08-12 19:52] LABS: SOURCE, BODY FLUID GLUCOSE LFT KNEE
[2019-08-12] MEDS ORDERED: ACET-683 PO (22:03)
[2019-08-12] MEDS ORDERED: BUTR10DI TOP (22:03)
[2019-08-12] MEDS ORDERED: SYMB80INH INH (22:04)
[2019-08-12] MEDS ORDERED: CRES20TA2 PO (22:06)
[2019-08-12] MEDS ORDERED: FERR32TA PO (22:06)
[2019-08-12] MEDS ORDERED: MIRA3350 PO (22:06)
[2019-08-12] MEDS ORDERED: TRAM50TA2 PO (22:06)
[2019-08-12] MEDS ORDERED: SPIR-10 PO (22:06)
[2019-08-12 22:48] LABS: CALCIUM LEVEL 8.5 MG/DL (8.5-10.1); CREATININE FOR GFR 3.06 MG/DL (0.70-1.30); GLOMERULAR FILTRATION RATE 22.5 (>56); POTASSIUM SERUM 5.5 MEQ/L (3.5-5.1)
[2019-08-12] MEDS ORDERED: CETI10CH PO (22:52)
[2019-08-12 23:00] VITALS: BP 102/69
[2019-08-12] MEDS ORDERED: VANCOMYCIN HCL 1,000 MG, VIAL MATE ADAPTER 1 EACH in D5W 250 ML IV ONE (23:00)
[2019-08-12] MEDS ORDERED: ACETAMINOPHEN 500 MG TAB PO PRN (23:00)
[2019-08-12] MEDS ORDERED: ALBUTEROL 90 MCG/ACT 8GM HFA INHALER INH PRN (23:00)
--- NOTE | 2019-08-12 23:06 | HPEPDOC ---
[facility] Medical History & Physical Date of Admission Aug 12, 2019 Date of Service: Aug 12, 2019 Attending Physician: JACQUES TELLEZ MD History and Physical CHIEF COMPLAINT: Left knee pain and swelling HISTORY OF PRESENT ILLNESS: 58-year-old male with past medical history of coronary artery disease status post CABG, congestive heart failure, atrial fibrillation on Eliquis, COPD and possible cirrhosis presents with left knee pain and swelling. Patient has been having pain and swelling in his knee for about a month, following with orthopedic surgery, has had the knee drained twice in the outpatient setting. Patient has had the knee drained for the third time in the ER today, no other complaints. He denies any fever, nausea, vomiting, chest pain, diarrhea or constipation. Orthopedic surgery was consulted by [facility] and patient is scheduled for a washout tomorrow morning. He does have an extensive medical history which makes him a moderate/high risk for any procedure. Patient understands the risks and benefits of the procedure and he is willing to undergo the procedure. 10 point review of system is negative except for above PAST MEDICAL HISTORY: 1. Coronary artery disease. 2. Congestive heart failure. 3. Atrial fibrillation. 4. COPD 5. Chronic kidney disease. 6. Undiagnosed liver cirrhosis PAST SURGICAL HISTORY: 1. CABG. SOCIAL HISTORY: Previous smoker. Previous alcoholic. Denies drug use FAMILY HISTORY: Positive for heart disease ALLERGIES: Please see below. HOME MEDICATIONS: Please see below. PHYSICAL EXAMINATION: VITAL SIGNS: Please see below. GENERAL: No distress HEENT: Normocephalic, atraumatic, moist mucous membranes NECK: Supple CARDIOVASCULAR EXAMINATION: S1, S2, irregular RESPIRATORY EXAMINATION: Diminished, poor air movement, no wheezing ABDOMINAL EXAMINATION: Soft, nontender, nondistended, positive bowel sounds EXTREMITIES: Left knee with effusion, warm to touch with tenderness to palpation SKIN: No rash NEUROLOGICAL EXAMINATION: Alert and oriented 3, no focal deficits PSYCHIATRIC EXAMINATION: Calm and cooperative LABORATORY DATA: See below. IMAGING: Chest x-ray without acute pathology MICROBIOLOGY: Please see below. ASSESSMENT: 58-year-old male with past medical history of coronary artery disease, congestive heart failure, atrial fibrillation, COPD and undiagnosed liver cirrhosis is being admitted for possible septic arthritis. PLAN: 1. Left knee pain/swelling. Status post arthrocentesis in the ER, possible septic arthritis, empiric antibiotics, orthopedic surgery consulted, plan for surgery in the morning. Patient is moderate/high risk for this procedure, risks and benefits explained to the patient, patient understands the risks and is willing to undergo the procedure. Nothing by mouth, gentle IV hydration. 2 . Acute on chronic kidney disease. Hold diuretics, gentle IV hydration, less likely cardiorenal at this time, hyperkalemic, ordered Patiromer. 3. Coronary artery disease/congestive heart failure. EF of 20%, status post CABG, continue optimal medical management with aspirin, statin, beta eliseo. We'll hold diuretics for now. 4. Atrial fibrillation. Hold Eliquis procedure, continue Cardura for rate control. 5. History of alcohol abuse Reports that he was told he has cirrhosis one week ago, liver biopsy scheduled in the near future. 6. COPD Stable, continue home regimen. DVT prophylaxis: SCDs GI prophylaxis: Not needed Vital Signs Vital Signs Date Time Temp Pulse Resp B/P (MAP) Pulse Ox O2 Delivery O2 Flow Rate FiO2 08/12/19 21:36 106/64 (78) 08/12/19 21:11 119 16 88 08/12/19 17:50 Room Air 08/12/19 15:24 97.3 Laboratory Data Labs 24H Laboratory Tests 2 08/12/19 16:29: Immature Granulocyte % (Auto) 0.4, Neutrophils (%) (Auto) 75.6H, Lymphocytes (%) (Auto) 11.3L, Monocytes (%) (Auto) 10.8H, Eosinophils (%) (Auto) 1.7, Basophils (%) (Auto) 0.2, Neutrophils # (Auto) 7.0, Lymphocytes # (Auto) 1.0L, Monocytes # (Auto) 1.0H, Eosinophils # (Auto) 0.2, Basophils # (Auto) 0.0, Nucleated Red Blood Cells % (auto) 0.0, Erythrocyte Sedimentation Rate 120H, Anion Gap 7L, Glomerular Filtration Rate 22.2L, Uric Acid 8.5H, Calcium Level 8.4L, Total Bilirubin 0.7, Aspartate Amino Transf (AST/SGOT) 18, Alanine Aminotransferase (ALT/SGPT) 13, Alkaline Phosphatase 472H, C-Reactive Protein, Quantitative 10.20H, Total Protein 8.2, Albumin 2.1L, Albumin/Globulin Ratio 0.3 08/12/19 18:48: Body Fluid WBC (Auto) 98077R, Body Fluid RBC (Auto) 50, Body Fluid Mononuclear Cells % Auto 5.5H, Fluid Polymorphonuclear Cell % Auto 94.5H, Body Fluid Crystals NONE SEEN, Body Fluid Crystal Source LFT KNEE, Body Fluid Glucose Source LFT KNEE, Body Fluid Glucose 94, Body Fluid Uric Acid 8.7, Body Fluid Uric Acid Source LFT KNEE, Synovial Fluid Source LFT KNEE, Synovial Fluid Color ORANGE, Synovial Fluid Appearance TURBID CBC/BMP Laboratory Tests 08/12/19 16:29 Microbiology Microbiology 08/12/19 Gram Stain - Preliminary, Resulted 08/12/19 Body Fluid Culture, Resulted Pending Home Medications Scheduled Apixaban (Eliquis) 5 Mg Tab, 2.5 MG PO BID Budesonide/Formoterol (Symbicort 80-4.5 Mcg Inhaler) 6.9 Gm Hfa.aer.ad, 2 PUFF INH BID Bumetanide (Bumetanide) 2 Mg Tablet, 2 MG PO BID Buprenorphine (Butrans) 10 Mcg/Hr Patch.tdwk, 10 MCG TOP Q7D Buspirone HCl (Buspirone HCl) 10 Mg Tablet, 10 MG PO BID Duloxetine Hcl (Duloxetine HCl) 60 Mg Cap, 60 MG PO DAILY Ergocalciferol (Vitamin D2) (Vitamin D2) 50,000 Units Cap, 50,000 UNITS PO 1XWK Ferrous Gluconate (Ferrous Gluconate) 324 Mg Tablet, 324 MG PO DAILY Gabapentin (Gabapentin) 400 Mg Cap, 400 MG PO QID Oxycodone HCl (Roxicodone) 5 Mg Tablet, 2.5 MG PO DAILY AROUND LUNCH TIME Polyvinyl Alcohol (Artificial Tears) 15 Ml Drops, 1 DROP OU QID Rifaximin (Xifaxan) 200 Mg Tablet, 400 MG PO TID Rosuvastatin Calcium (Crestor) 20 Mg Tablet, 20 MG PO QHS Spironolactone (Spironolactone) 25 Mg Tablet, 25 MG PO BID Scheduled PRN Acetaminophen (Acetaminophen) 500 Mg Tablet, 500 MG PO Q4HP PRN for PAIN Albuterol Sulfate (Ventolin Hfa) 18 Gm Hfa.aer.ad, 1 PUFF INH PRN PRN for wheezing Diclofenac Sodium (Diclofenac Sodium) 1 % Gel, 2 GRAMS TOP QID PRN for PAIN APPLY TO SHOULDERS Nitroglycerin (Nitrostat) 0.4 Mg Subl, 0.4 MG SL NITRO PRN for CHEST PAIN Oxycodone HCl (Oxycodone HCl) 5 Mg Tablet, 5 MG PO BID PRN for PAIN Polyethylene Glycol 3350 (Miralax) 119 Gm Powder, 17 GM PO BID PRN for CONSTIPATION dilute in 8 ounces of water or juice Tramadol HCl (Tramadol HCl) 50 Mg Tablet, 50 MG PO Q4HP PRN for PAIN Allergies Coded Allergies: fenofibrate (Verified Allergy, Unknown, 02/05/19) gemfibrozil (Verified Allergy, Unknown, 02/05/19) baclofen (Verified Adverse Reaction, Severe, blacks out, 02/05/19) metformin (Verified Adverse Reaction, Intermediate, diarrhea, 02/05/19) A-FIB/CHADSVASC A-FIB History Current/History of A-Fib/PAF?: Yes Current PO Anticoag Therapy: Yes JACQUES TELLEZ MD Aug 12, 2019 21:55
[2019-08-12] MEDS: PATIROMER SORBITEX CALCIUM 8.4 GM POWDER PACKET (VELTASSA) PO ONE ×2 (23:50→23:52)
[2019-08-13] VITALS (8 sets, daily range): BP systolic 99–124; BP diastolic 60–74
--- NOTE | 2019-08-13 00:31 | PHACANCOPD ---
PHARMACY VANCOMYCIN DOSING Pt Demographics Demographics Patient Age:58 , Weight:78.000 , Gender: male Adjusted Body Weight Events Past 24 Hours Events Past 24 Hours: NO: Dialysis, Diuretic Therapy, Change in CrCl, Fever, Elevation in WBC, Pending Diagnostics, Pending Procedures, Other Vancomycin Vancomycin indication: septic arthritis Vancomycin Target Ranges: 15-20 mcg/ml Vancomycin Load Y/N: Yes Load Dose Date Time Vancomycin Load Dose: 1500mg Date: 08/12/19 Time: 2328 Vancomycin Dose Date: 08/13/19. Current Vancomycin Dose: 1g q24h Intermittent Dosing?: No Labs Labs Laboratory Tests 08/12/19 16:29 08/12/19 22:13 Micro Microbiology 08/12/19 Respiratory Virus Panel (PCR) (PROSPER) - Final, Complete 08/12/19 Gram Stain - Preliminary, Resulted 08/12/19 Body Fluid Culture, Resulted Pending Creatinine Clearance Date:08/13/19. Creatinine Clearance: calculated to be 26 Assessment and Plan Maintaining Current Dose?: Yes Reason for dose change: No Dose Change Pharmacist Note Pharmacist Note Date: 08/13/19. Pharmacist note: Vancomycin consult placed for patient that presented to ED with left knee pain and swelling. Status post arthrocentesis in the ER, possible septic arthritis, orthopedic surgery consulted, plan for surgery in the morning. No history of vancomycin usage here at [facility]. CrCl calculated to be 26 with a SCr of 3.09. I scheduled a vancomycin loading dose of 1500mg which was started at 2328 to be followed by a maintenance dose of 1G q24h starting at 1200. Trough scheduled before the third dose due to poor renal function. I will continue to follow this patient and adjust dose as needed. YOSELIN HENAO [facility]ARM[facility] Aug 13, 2019 00:31
[2019-08-13] MEDS ORDERED: VANCOMYCIN HCL 500 MG in D5W MINI-BAG PLUS 100 ML IV ONE (01:00)
[2019-08-13] MEDS: CEFEPIME HCL 1 GM in D5W MINI-BAG PLUS 50 ML IV SCH (02:06)
[2019-08-13] MEDS ORDERED: MIDAZOLAM INJ 2MG/2ML VIAL (J2250 PER 1MG) As Ordered ONE (05:31)
[2019-08-13] MEDS ORDERED: propofoL 200 MG/20 ML VIAL As Ordered ONE (05:31)
[2019-08-13] MEDS ORDERED: fentaNYL 100 MCG/2 ML INJECTION (J3010) As Ordered ONE (05:31)
[2019-08-13] MEDS ORDERED: ceFAZolin 2 GM/D5W 50 ML IV BAG (J0690 PER 500MG) As Ordered ONE (05:59)
[2019-08-13] MEDS ORDERED: BUPIVACAINE HCL 0.5% 30 ML VIAL As Ordered ONE (06:20)
[2019-08-13] MEDS ORDERED: NS 1,000 ML IV SCH (07:30)
[2019-08-13] MEDS ORDERED: oxyCODONE 5MG TAB PO PRN (07:30)
[2019-08-13] MEDS ORDERED: fentaNYL 100 MCG/2 ML INJECTION (J3010) IV PRN (07:30)
[2019-08-13 07:51] LABS: HEMATOCRIT 29.6 % (42.0-52.0); HEMOGLOBIN 9.4 g/dl (13.5-17.5); MEAN CORPUSCULAR HEMOGLOBIN 27.1 pg (27.0-33.0); MEAN CORPUSCULAR HGB CONC 31.8 g/dl (32.0-36.5); MEAN CORPUSCULAR VOLUME 85.3 fl (80.0-96.0); PLATELET COUNT, AUTOMATED 237 10^3/uL (150-450); RED BLOOD COUNT 3.47 10^6/uL (4.30-6.10); WHITE BLOOD COUNT 9.3 10^3/uL (4.0-10.0)
[2019-08-13] MEDS: SYMBICORT 80/4.5MCG INHALER 6GM INH SCH ×2 (07:58→20:04)
[2019-08-13 08:17] LABS: ALBUMIN 1.9 GM/DL (3.2-5.2); BILIRUBIN,TOTAL 0.7 MG/DL (0.2-1.0); CALCIUM LEVEL 8.1 MG/DL (8.5-10.1); CREATININE FOR GFR 3.07 MG/DL (0.70-1.30); GLOMERULAR FILTRATION RATE 22.4 (>56); MAGNESIUM LEVEL 2.3 MG/DL (1.8-2.4); POTASSIUM SERUM 5.5 MEQ/L (3.5-5.1); TOTAL PROTEIN 7.5 GM/DL (6.4-8.2)
[2019-08-13 08:47] LABS: BODY FLUID RHEUMATOID SCREEN NEGATIVE (NEGATIVE)
[2019-08-13 08:50] LABS: MUCIN CLOT TEST 4+ (4+)
[2019-08-13] MEDS ORDERED: BUMETANIDE 1 MG TAB PO SCH (09:00)
[2019-08-13] MEDS ORDERED: MIRALAX *UNIT DOSE* 17GM PACKET PO PRN (09:00)
[2019-08-13] MEDS ORDERED: NITROGLYCERIN 0.4 MG SUBL TABLET SL PRN (09:00)
[2019-08-13] MEDS ORDERED: SPIRONOLACTONE 25 MG TAB PO SCH (09:00)
[2019-08-13] MEDS: POLYVINYL ALCOHOL OPHTH SOLN 15 ML(LIQUITEARS) OU SCH ×2 (09:00→13:00)
--- NOTE | 2019-08-13 09:01 | CR ---
DATE OF CONSULTATION: 08/13/2019 INDICATION: Left knee infection. HISTORY OF PRESENT ILLNESS: Gonzalez Soliz is a 58-year-old gentleman with multiple medical problems who has been having about a month of left knee pain. He came into the office and saw one of the other providers this past Tuesday. A left knee aspiration was performed and it had a cell count of 38,000. He had recurrence of the effusion and worsening pain so he came into the emergency room (ER) late afternoon on 08/12/2019. He had worsening pain and recurrence of effusion. He had elevated inflammatory markers. The physician operator/assistant foreman aspirated the knee and this revealed a cell count of over 60,000 with greater than 94% neutrophils. On speaking to the patient this morning, he is having severe pain in the left knee with any range of motion. He has moderate pain at rest. The pain is 8/10 on the pain scale and described as sharp and throbbing. It is improved with rest, worse with movement. For the patient's full past medical history, past surgical history, medications, allergies, social history and review of systems, please see the admitting history and physical, which I reviewed. Highlights include congestive heart failure with ejection fraction of 20%, acute on chronic renal failure not on dialysis, coronary artery disease status post coronary artery bypass graft (CABG) and he is on Eliquis. PHYSICAL EXAMINATION: Reveals a gentleman alert and his stated age. He is alert and oriented x3. He answers questions appropriately. Cardiovascular: 1+ posterior tibial (PT) pulse: Pulmonary: Nonlabored breathing. Abdomen is nondistended. Musculoskeletal: Left knee has a moderate effusion. Any flexion greater than 60 degrees causes severe pain. X-rays of the left knee from the ER were available for my review and they show a large joint effusion with mild arthritic changes. Cell count as above. ASSESSMENT AND PLAN: Gonzalez has left knee septic arthritis. I explained him most likely what happened is when he was aspirated earlier this last week he must of been in the early stages of developing an infection and that to have a cell count of 38,000 is not indicated for surgery, even in someone that is young and healthy. Certainly, he has advanced medical problems, so we are only recommending surgery because his current aspiration is highly concerning for infection. The risks and benefits of a left knee arthroscopic irrigation and debridement were discussed and written informed consent was obtained. Due to his multiple medical problems, we are going to try and do this with sedation and nerve block. Please see separate note for operative report.
--- NOTE | 2019-08-13 09:22 | REP ---
PORTABLE CHEST X-RAY: Single view. HISTORY: Acute renal insufficiency. COMPARISON STUDY: May 30, 2019. FINDINGS: There is a coarse pattern of linear plate-like atelectasis with air bronchograms in the right base. This is more pronounced than on the May 30, 2019 study radiographically. The pleural angles are sharp. No new pulmonary parenchymal opacity is seen. The heart is enlarged with multi-lead pacemaker again noted in place. Prior median sternotomy. Heart size is unchanged. Pulmonary vasculature is not increased. IMPRESSION: Coarse area of plate-like atelectasis with air bronchograms in the right base, more prominent than on the prior study. Prior sternotomy with pacemaker. Cardiomegaly. Electronically Signed by William Gallardo MD 08/13/2019 02:51 P
[2019-08-13] MEDS: CETIRIZINE (ZyrTEC) 5 MG/5 ML UDC DYE FREE PO SCH (09:50)
[2019-08-13] MEDS: GABAPENTIN 400 MG CAP PO SCH ×2 (09:50→20:42)
[2019-08-13] MEDS: oxyCODONE 5MG TAB PO PRN (09:51)
[2019-08-13] MEDS: busPIRone 10 MG TAB PO SCH ×2 (09:51→20:42)
[2019-08-13] MEDS ORDERED: dexameTHASONE 10MG/1ML VIAL PRES.FREE (J1100 PER 1MG) ONE ×2 (10:28→15:25)
[2019-08-13] MEDS ORDERED: ROPIvacaine 0.5% 30ML INJECTION (J2795 PER 1MG) ONE ×2 (10:28→15:25)
[2019-08-13] MEDS ORDERED: EPINEPHrine INJ 1 MG/ML 1ML AMP ONE ×2 (10:28→15:25)
[2019-08-13] MEDS ORDERED: VANCOMYCIN HCL 1,000 MG, VIAL MATE ADAPTER 1 EACH in D5W 250 ML IV SCH (12:00)
--- NOTE | 2019-08-13 14:04 | IPNPDOC ---
Subjective Date Seen The patient was seen on 08/13/19. Subjective Chief Complaint/HPI Patient complaining of some pain at the surgical site, otherwise no other complaints General: Denies: ROS Unobtainable, Chills, Night Sweats, Fatigue, Malaise, Normal Appetite, Other Symptoms Constitutional: Denies: Chills, Fever, Malaise, Night Sweats, Weakness, Fatigue, Weight Loss, Lethargy, Other Eyes: Denies: Pain, Vision change, Conjunctivae inflammation, Eyelid inflamma tion, Redness, Other ENT: Denies: Head Aches, Ear Pain, Dysphagia, Sinus Congestion, Post Nasal Drip, Sore Throat, Epistaxis, Other Symptoms Skin: Denies: Rash, Lesions, Jaundice, Bruising, Itching, Dry, Breakdown, Nail Changes, Other Pulmonary: Denies: Dyspnea, Cough, Pleuritic Chest Pain, Other Symptoms Cardiovascular: Denies: Chest Pain, Palpitations, Orthopnea, Paroxysmal Noc. Dyspnea, Edema, Lt Headedness, Other Symptoms Gastrointestinal: Denies: Nausea, Vomiting, Abdominal Pain, Diarrhea, Constipation, Melena, Hematochezia, Other Symptoms Genitourinary: Denies: Dysuria, Frequency, Incontinence, Hematuria, Retention, Other Symptoms Hematologic: Denies: Bruising, Bleeding Excessively, Petecchia, Purpura, Enlarged Lymph Nodes, Other Hematologic Endocrine: Denies: Polydipsia, Polyphagia, Polyuria, Heat Intolerance, Cold Intolerance, Other Endocrine Sx Musculoskeletal: Reports: Other Symptoms Neurological: Denies: Weakness, Numbness, Incoordination, Change in speech, Confusion, Seizures, Other Symptoms Psych: Denies: Mood Normal, Anxiety, Depression, Memory Issues, Thoughts of Self Harm, Anger, Thoughts of Harming Other, Other Psych Objective Physical Examination General Exam: Positive: Alert, Cooperative Eye Exam: Positive: PERRLA, Conjunctiva & lids normal ENT Exam: Positive: Atraumatic Neck Exam: Positive: Supple Chest Exam: Positive: Clear to auscultation, Normal air movement Heart Exam: Positive: Rate Normal, Normal S1, Normal S2 Abdomen Exam: Positive: Normal bowel sounds, Soft Extremity Exam: Positive: Normal pulses Skin Exam: Positive: Nl turgor and temperature Neuro Exam: Positive: Strength at 5/5 X4 ext, Sensation Intact, Cranial Nerves 3-12 NL Psych Exam: Positive: Mood NL, Oriented x 3 Assessment /Plan Problems (1) Septic arthritis of knee, left Status: Acute Problem Text: Patient was admitted with the left knee septic arthritis He had a surgical intervention by orthopedics with the left knee arthroscopic irrigation and debridement was done And the drain is also in place at the surgical site Continue cefepime and vancomycin Wound culture is pending Pain management as per orders Further, as per orthopedics recommendations (2) COPD (chronic obstructive pulmonary disease) Status: Chronic Problem Text: Under well control. Continue home meds (3) Afib Status: Chronic Problem Text: Eliquis has been restarted after surgery Continue Cardura for rate control (4) CKD (chronic kidney disease) Status: Chronic Problem Text: Stable continue home meds (5) CAD (coronary artery disease) Status: Chronic Problem Text: Stable continue home meds Plan/VTE VTE Prophylaxis Ordered?: Yes VS, I&O, 24H, Fishbone Vital Signs/I&O Vital Signs Date Time Temp Pulse Resp B/P (MAP) Pulse Ox O2 Delivery O2 Flow Rate FiO2 08/13/19 12:00 97.1 60 16 114/67 (83) 100 Room Air 08/13/19 08:00 2.0 I&O- Last 24 Hours up to 6 AM 08/13/19 06:00 Intake Total 2055 ml Output Total 950 ml Balance 1105 ml Laboratory Data 24H LABS Laboratory Tests 2 08/12/19 16:29: Immature Granulocyte % (Auto) 0.4, Neutrophils (%) (Auto) 75.6H, Lymphocytes (%) (Auto) 11.3L, Monocytes (%) (Auto) 10.8H, Eosinophils (%) (Auto) 1.7, Basophils (%) (Auto) 0.2, Neutrophils # (Auto) 7.0, Lymphocytes # (Auto) 1.0L, Monocytes # (Auto) 1.0H, Eosinophils # (Auto) 0.2, Basophils # (Auto) 0.0, Nucleated Red Blood Cells % (auto) 0.0, Erythrocyte Sedimentation Rate 120H, Anion Gap 7L, Glomerular Filtration Rate 22.2L, Uric Acid 8.5H, Calcium Level 8.4L, Total Bilirubin 0.7, Aspartate Amino Transf (AST/SGOT) 18, Alanine Aminotransferase (ALT/SGPT) 13, Alkaline Phosphatase 472H, C-Reactive Protein, Quantitative 10.20H, Total Protein 8.2, Albumin 2.1L, Albumin/Globulin Ratio 0.3 08/12/19 18:48: Body Fluid Source LFT KNEE, Body Fluid WBC (Auto) 83842B, Body Fluid RBC (Auto) 50, Body Fluid Mononuclear Cells % Auto 5.5H, Fluid Polymorphonuclear Cell % Auto 94.5H, Body Fluid Crystals NONE SEEN, Body Fluid Crystal Source LFT KNEE, Body Fluid Glucose Source LFT KNEE, Body Fluid Glucose 94, Body Fluid Uric Acid 8.7, Body Fluid Uric Acid Source LFT KNEE, Body Fluid Rheumatoid Factor Screen NEGATIVE, Body Fluid Rheumatoid Factor Source LFT KNEE, Synovial Fluid Source LFT KNEE, Synovial Fluid Color ORANGE, Synovial Fluid Appearance TURBID, Synovial Fluid Mucin Clot 4+ 08/12/19 22:13: Anion Gap 7L, Glomerular Filtration Rate 22.5L, Calcium Level 8.5 08/13/19 07:32: Nucleated Red Blood Cells % (auto) 0.0, Anion Gap 8, Glomerular Filtration Rate 22.4L, Calcium Level 8.1L, Total Bilirubin 0.7, Aspartate Amino Transf (AST/SGOT) 13, Alanine Aminotransferase (ALT/SGPT) 12, Alkaline Phosphatase 403H, Total Protein 7.5, Albumin 1.9L, Albumin/Globulin Ratio 0.3, Magnesium Level 2.3 08/13/19 12:01: Random Vancomycin Level 16.7 CBC/BMP Laboratory Tests 08/12/19 16:29 08/12/19 22:13 08/13/19 07:32 Microbiology Microbiology 08/12/19 Respiratory Virus Panel (PCR) (PROSPER) - Final, Complete 08/12/19 Gram Stain - Final, Resulted 08/12/19 Body Fluid Culture, Resulted Pending BRISA HESTER MD Aug 13, 2019 14:04
[2019-08-13] MEDS ORDERED: POLYVINYL ALCOHOL OPHTH SOLN 15 ML(LIQUITEARS) OU PRN (15:30)
[2019-08-13] MEDS: VANCOMYCIN HCL 750 MG, VIAL MATE ADAPTER 1 EACH in D5W 250 ML IV SCH (16:08)
[2019-08-13] MEDS: SPIRONOLACTONE 25 MG TAB PO SCH (16:09)
[2019-08-13] MEDS: BUMETANIDE 1 MG TAB PO SCH (16:10)
--- NOTE | 2019-08-13 19:05 | REP ---
Left knee series: Two views. History: Injury in a fall. Findings: Portable cross-table lateral views of the left knee are compared with the study from August 12, 2019. There is a suprapatellar surgical drain noted in place. The large left joint effusion is resolved radiographically. There are clips in the distal thigh and proximal calf. There is no evidence of fracture or subluxation. Electronically Signed by William Gallardo MD 08/13/2019 06:56 P
[2019-08-13] MEDS: APIXABAN 2.5 MG TAB (ELIQUIS) PO SCH (20:42)
[2019-08-13] MEDS: ROSUVASTATIN 10 MG TAB (CRESTOR) PO SCH (20:42)
[2019-08-14] MEDS ORDERED: ONDANSETRON 4MG/2ML VIAL IV PRN (00:15)
[2019-08-14] MEDS: CEFEPIME HCL 1 GM in D5W MINI-BAG PLUS 50 ML IV SCH (01:08)
[2019-08-14 02:00] VITALS: BP 121/74
[2019-08-14 06:00] VITALS: BP 121/73
[2019-08-14 06:29] LABS: HEMATOCRIT 30.6 % (42.0-52.0); HEMOGLOBIN 9.7 g/dl (13.5-17.5); MEAN CORPUSCULAR HGB CONC 31.7 g/dl (32.0-36.5); MEAN CORPUSCULAR VOLUME 85.2 fl (80.0-96.0); PLATELET COUNT, AUTOMATED 259 10^3/uL (150-450); RED BLOOD COUNT 3.59 10^6/uL (4.30-6.10); WHITE BLOOD COUNT 12.3 10^3/uL (4.0-10.0)
[2019-08-14 06:55] LABS: CALCIUM LEVEL 9.4 MG/DL (8.5-10.1); CREATININE FOR GFR 2.93 MG/DL (0.70-1.30); GLOMERULAR FILTRATION RATE 23.6 (>56); POTASSIUM SERUM 5.4 MEQ/L (3.5-5.1)
[2019-08-14] MEDS: SYMBICORT 80/4.5MCG INHALER 6GM INH SCH ×3 (07:19→20:00)
[2019-08-14] MEDS: GABAPENTIN 400 MG CAP PO SCH ×2 (09:41→20:52)
[2019-08-14] MEDS: CETIRIZINE (ZyrTEC) 5 MG/5 ML UDC DYE FREE PO SCH (09:41)
[2019-08-14] MEDS: busPIRone 10 MG TAB PO SCH ×2 (09:41→20:52)
[2019-08-14] MEDS: APIXABAN 2.5 MG TAB (ELIQUIS) PO SCH ×2 (09:41→20:52)
[2019-08-14] MEDS: BUMETANIDE 1 MG TAB PO SCH (09:41)
[2019-08-14] MEDS: SPIRONOLACTONE 25 MG TAB PO SCH (09:41)
[2019-08-14] MEDS: oxyCODONE 5MG TAB PO PRN (11:26)
[2019-08-14 14:00] VITALS: BP 137/77
[2019-08-14] MEDS: VANCOMYCIN HCL 750 MG, VIAL MATE ADAPTER 1 EACH in D5W 250 ML IV SCH (15:10)
--- NOTE | 2019-08-14 17:06 | IPNPDOC ---
Text Note Date of Service The patient was seen on 08/14/19. NOTE Subjective: Continues to have pain in the left knee joint with wrath . Had drain removed this am. No fever or chills. This am lost his balance while walking back from bathroom as his left knee gave out and was lowed to the ground by staff assisting him with ambulation. No injury sustained. Physical Exam: Vitals: As below General Exam: Positive: Alert, Cooperative Eye Exam: Positive: PERRLA, Conjunctiva & lids normal ENT Exam: Positive: Atraumatic Neck Exam: Positive: Supple, No JVD. Chest Exam: Positive: Clear to auscultation, Normal air movement Heart Exam: Positive: Rate Normal, Normal S1, Normal S2, Irregular, no rub murmur or gallop Abdomen Exam: Positive: Normal bowel sounds, Soft, nontender Extremity Exam: Positive: Normal pulses, No edema. Left knee in surgical dressing. Skin Exam: Positive: Nl turgor and temperature Neuro Exam: Positive: Strength at 5/5 X4 ext, Sensation Intact, Cranial Nerves 3-12 NL Psych Exam: Positive: Mood NL, Oriented x 3 Labs and Radiology: reviewed. Assessment and Plan: 58-year-old male with past medical history of coronary artery disease status post CABG, Systolic congestive heart failure, atrial fibrillation on Eliquis, COPD, cirrhosis, H/o CVA with left sided numbness and pain, anxiety, diabetes, hypertension, hyperlipidemia presented with left knee pain and swelling. Patient has been having pain and swelling in his knee for about a month, following with orthopedic surgery, has had the knee drained twice in the outpatient setting. Patient has had the knee drained for the third time in the ER on admission. Orthopedic surgery was consulted and he went for a knee irrigation and washout on 08/13/19. He was admitted for Septic arthritis. Septic Arthritis of Left Knee and Gouty arthritis. ongoing issue since 07/19 being followed by Ortho as outpatient then admitted for joint washout. s/p multiple taps and most recently had irrigation and washout in OR on 08/13/19 All cultures are negative. Uric acid Crystals seen in fluid on 07/20/19 No blood cultures were sent. will consult ID. Antibiotics as per ID. will start on prednisone Gout in left knee also uric acid crystals were positive on 07/19 in the joint fluid. will start on prednisone. KAROLINA on CKD Baseline creatinine around 1.8 to 2.0 now creatinine at 3.0 clinically appears dry to euvolemic will hold bumetanide and spironolactone for 2 days. Coronary artery disease/CABG/ hyperlipidemia statin, eliquis. Chronic Systolic and diastolic Congestive heart failure/ AICD in place with moderate pulmonary hypertension EF of 20% to 25%. no signs of fluid overload at present may be a little dry. will hold diuretics for 2 days due to KAROLINA. Cirrhosis of Liver S/P large volume paracentesis in april 2019 Cardiac cirrhosis Vs alcoholic cirrhosis. Has past h/o alcohol abuse. will hold diuretics Atrial fibrillation. rate controlled. on eliquis. COPD/ Moderate pulmonary hypertension symbicort Chronic Pain from CVA in 2014 with residual Chronic Left sided pain / paraesthesia and numbness. and DDD and sciatica follows with pain management on narcotics as outpatient. tylenol, oxycodone, gabapentin. On Buprenorphine patch as outpatient. DIABETES / peripheral neuropathy lispro AC and HS. gabapentin HYPERTENSION Bp well controlled only on diuretics. ANXIETY buspar Anemia of chronic disease stable. VS,Fishbone, I+O VS, Fishbone, I+O Laboratory Tests 08/14/19 06:06 Vital Signs Date Time Temp Pulse Resp B/P (MAP) Pulse Ox O2 Delivery O2 Flow Rate FiO2 08/14/19 11:56 18 08/14/19 06:00 97.5 61 121/73 (89) 98 Room Air 08/13/19 08:00 2.0 I&O- Last 24 Hours up to 6 AM 08/14/19 06:00 Intake Total 1140 ml Output Total 2305 ml Balance -1165 ml JAUN NATHAN MD Aug 14, 2019 17:06
[2019-08-14] MEDS: cefTRIAXone SOD 2 GM in D5W MINI-BAG PLUS 50 ML IV SCH (17:12)
[2019-08-14] MEDS ORDERED: predniSONE 20 MG TAB PO ONE (17:30)
--- NOTE | 2019-08-14 19:02 | CR ---
DATE OF CONSULTATION: 08/14/2019 Asked to consult by Dr. Kemp for evaluation of left knee septic arthritis. HISTORY OF PRESENT ILLNESS: Mr. Soliz is a 58-year-old gentleman with significant past medical history, including coronary artery disease and congestive heart failure, chronic obstructive pulmonary disease (COPD), and liver cirrhosis. He noticed that he had left knee swelling for about a month prior to admission. He denied having any trauma. He had been followed up by orthopedic surgery and had an aspiration done on 07/20/2019, and it had 49,840 white cells, 94% polymorphonuclear leukocytes (PMN) with a uric acid crystals. Repeat aspiration was done on August 07. The white count increased to 38,390, again with predominant neutrophils, and intraoperatively yesterday he had 65,510 cells. Cultures on July 19 were no growth and on August 07, but they were not sent for anaerobes or fungal, and August 11 just aerobic cultures were sent. The patient denies having any fever or chills. No nausea, vomiting, or diarrhea. No abdominal pain. He has chronic shortness of breath because of COPD and congestive heart failure. He only complained of pain and swelling of the knee. The patient denies any tick bites. No bull's eye. No rash. He has not been outdoor gardening and has not been in any thorns or bushes. No trauma to the knee. PAST MEDICAL HISTORY: significant for: 1. Coronary artery disease with echo done on 05/29/2019 showing an ejection fraction of 20% with apical inferior and anteroseptal akinesis. He has a defibrillator. 2. Liver cirrhosis, probably from alcohol abuse. 3. Splenomegaly with a ascites, status post aspiration in April 2019. 4. Paracentesis. 5. History of hiatus hernia and duodenitis, diagnosed by endoscopy done by Dr. Starr in 2017. Colonoscopy was benign. 6. Atrial fibrillation. 7. COPD. 8. Chronic kidney disease with increased creatinine. PAST SURGICAL HISTORY: 1. Coronary artery bypass graft (CABG) and defibrillator placement. 2. Colonoscopy and endoscopy in 2017. 3. Vascular reconstruction of the left leg. 4. Some bypass procedure. SOCIAL HISTORY: He quit smoking about 11 years ago when his daughter told him he could not see the grandchild. History of alcoholism. Denies drug use. He lives with his son and [id number]. FAMILY HISTORY: Positive for coronary artery disease. ALLERGIES: BACLOFEN FENOFIBRATE, GEMFIBROZIL, and METFORMIN. MEDICATIONS: - vancomycin 750 mg intravenous (IV) every 24 hours - cefepime 1 gram IV every 24 hours - Zofran 4 mg IV every 8 as needed - Crestor 20 mg by mouth at bedtime - Eliquis 2.5 mg by mouth twice a day - artificial tears as needed - BuSpar 10 mg by mouth twice a day - cetirizine 10 mg by mouth daily - gabapentin 800 mg by mouth twice a day - Nitrostat as needed for chest pain - oxycodone 5 mg by mouth four times a day as needed - MiraLax as needed for constipation LABORATORY DATA: White count was 9.2 on admission, today was 12.3, hemoglobin 9.7, hematocrit 30.6, platelets 259. ESR 120. Sodium 131, potassium 5.5, chloride 100, bicarbonate 21, BUN 90, creatinine 2.93, glucose 399, calcium 9.4. Creatinine has increased from 1.97 in May. Vancomycin trough is 16.7, random level. Hepatitis A, B, and C in April was negative. Blood cultures were not obtained this admission. They were done on May 27, and they were negative. Joint fluid was done on July 19, August 07, and August 11. All cultures have been negative. Many white cells were seen. No fungal or acid-fast bacillus (AFB) were sent. PHYSICAL EXAMINATION: He is a sick-looking gentleman in no acute distress. Looks older than stated age. HEART: Normal S1, S2, distant. No murmurs. Left upper chest automatic implantable cardioverter-defibrillator (AICD). LUNGS: Diffuse expiratory wheezes bilaterally with crackles at the bases. ABDOMEN: Soft, nontender. No hepatosplenomegaly. EXTREMITIES: Diminished pulses bilaterally. Left leg with incision from bypass surgery. Left knee status post incision and drainage (I and D). The patient has an Kwadwo wrap on it and a bulky dressing that was not examined. Right knee: Normal range of motion. No swelling. SKIN: No rashes, but the patient is covered with tattoos from arms and legs bilaterally. BACK: No costovertebral angle (CVA) or lumbosacral tenderness. IMPRESSION: This is a 58-year-old gentleman who is admitted with a presumptive left knee septic arthritis with worsening white cell count from 49,000 to 65,000 in the past 3 weeks. The initial cultures have been all negative, but no anaerobic or fungal cultures were sent. The first aspiration had uric acid crystals. I am not sure if that was treated. Uric acid level on August 11 is 8.5. PLAN: Continue with IV vancomycin at current dose of 750 mg every 24 hours. Discontinue IV cefepime. There is no need for pseudomonas coverage. Switch to Rocephin 2 grams IV every 24 hours. Lyme serology was added to Lyme arthritis. Patient with hyperuricemia and may need to also treat his elevated uric acid to decrease the risk of gouty exacerbation. I am not fully convinced that this is a septic joint. It could have been also gouty arthritis without elevated white count. No fungal, AFB, or anaerobic cultures were sent either to rule out other possible infectious etiologies. Will discuss the case with Dr. Johnson, who had done the procedure on August 12.
[2019-08-14] MEDS: ROSUVASTATIN 10 MG TAB (CRESTOR) PO SCH (20:52)
[2019-08-14 22:00] VITALS: BP 128/78
--- NOTE | 2019-08-15 05:30 | RO ---
DATE OF PROCEDURE: 08/13/2019 PREOPERATIVE DIAGNOSIS: Left septic knee arthritis. POSTOPERATIVE DIAGNOSIS: Left septic knee arthritis. PROCEDURE: Left knee arthroscopic irrigation and debridement. SURGEON: Dr. Krishna Johnson DIALS SUPERVISOR: ANESTHESIA: Local monitored anesthesia care (MAC) with preoperative nerve block. INTRAVENOUS (IV) FLUIDS: Lactated Ringer's. ESTIMATED BLOOD LOSS: 25 mL. IMPLANTS: None. DRAIN: Christiano-Gay (MOIZ) times one. SPECIMEN: None. DESCRIPTION OF PROCEDURE: Patient was identified in the preoperative holding area, and the left leg was marked. He was deemed medically optimized by the hospitalist, although the patient did refuse medication to help lower his potassium. He was very high risk for surgery. Patient understood the importance of moving forward with surgery for this septic knee, that it is not elective surgery. He was brought to the operating room, placed supine on a well-padded operating room (OR) table. A femoral nerve block was then performed by anesthesia. A well-padded tourniquet applied the left thigh. Sedation was initiated. The left leg was prepped and draped in normal sterile fashion with Chloraprep. Prior to incision, time-out was performed per hospital protocol. He received 2 grams IV cefazolin for antibiotic prophylaxis. He already had an aspiration of the knee prior to antibiotic therapy initiation. The left leg was exsanguinated via gravity and then the tourniquet inflated to 250 mmHg. Anterolateral portal made with #11 blade. 30-degree arthroscope introduced into the joint. Diagnostic arthroscopy was carried out, revealing a large cloudy effusion. Extensive degenerative changes and crystal deposits either from prior cortisone shots were possible gout versus pseudogout. There was extensive synovitis. Minimal joint debris. An anteromedial portal was created under direct visualization, and then the shaver was introduced through the medial portal and then I proceeded to perform a thorough irrigation. Any joint debris or loose synovium that did not appear vascular was debrided with the shaver. Due to the patient be on Eliquis I did not perform an aggressive synovectomy. There were various strands of mucinous tissue, and those were debrided with the shaver. I ran a total of 9 liters through the joint, including the suprapatellar pouch, medial and lateral gutters, medial and lateral joint space, posterior to the cruciate ligaments, and then shaver was introduced down towards the popliteal hiatus. The lidar technician gently flexed and extended the knee and applied repeat palpation to the popliteal fossa to decompress any fluid in case there was a Nation cyst. Once a total of 9 liters were run through the joint, I then placed a drain via the medial portal, exiting superolateral. Drain was attached to bulb suction. Portals were closed with nylon suture. I then injected a total of 30 mL of 0.5% Marcaine without epinephrine, 10 at each portal and 10 into the joint. Drapes were taken down. All counts correct times two. Complications none. He was transferred to the postanesthesia care unit (PACU) in stable condition. Plan is to keep the MOIZ for 24 hours due to him being on Eliquis. He already has extensive clots in the drain. The bulb has already been switched out. Unfortunately, this will probably clot off but the nurses can strip the drain every 2 hours as needed. He will be on antibiotics per the hospitalist.
[2019-08-15 06:00] VITALS: BP 124/76
[2019-08-15 06:30] LABS: HEMATOCRIT 30.9 % (42.0-52.0); HEMOGLOBIN 9.9 g/dl (13.5-17.5); MEAN CORPUSCULAR HEMOGLOBIN 27.3 pg (27.0-33.0); MEAN CORPUSCULAR VOLUME 85.1 fl (80.0-96.0); PLATELET COUNT, AUTOMATED 263 10^3/uL (150-450); RED BLOOD COUNT 3.63 10^6/uL (4.30-6.10)
[2019-08-15 06:54] LABS: CALCIUM LEVEL 8.8 MG/DL (8.5-10.1); CREATININE FOR GFR 2.82 MG/DL (0.70-1.30); GLOMERULAR FILTRATION RATE 24.7 (>56); POTASSIUM SERUM 6.1 MEQ/L (3.5-5.1)
[2019-08-15] MEDS: PATIROMER SORBITEX CALCIUM 8.4 GM POWDER PACKET (VELTASSA) PO ONE ×2 (07:00→08:27)
[2019-08-15] MEDS ORDERED: HumuLIN R (REGULAR) INSULIN (NovoLIN R) **100U/ML** PER UNIT IV STA ×2 (07:21→12:08)
[2019-08-15] MEDS: HumaLOG INSULIN (NovoLOG) PER UNIT SC SCH ×4 (07:30→21:06)
[2019-08-15] MEDS ORDERED: SODIUM CHLORIDE 0.9% 500 ML IV ONE (07:30)
[2019-08-15] MEDS ORDERED: CALCIUM GLUCONATE 1,000 MG in D5W MINI-BAG PLUS 100 ML IV ONE (07:30)
[2019-08-15] MEDS ORDERED: GLUCOSE 4GM CHEW TABLET PO PRN (07:30)
[2019-08-15] MEDS ORDERED: GLUCAGON INJ 1MG VIAL SC PRN (07:30)
[2019-08-15] MEDS ORDERED: DEXTROSE 50% 50 ML SYRINGE IV PRN (07:30)
[2019-08-15] MEDS: SYMBICORT 80/4.5MCG INHALER 6GM INH SCH ×2 (08:08→20:00)
[2019-08-15] MEDS: predniSONE 20 MG TAB PO SCH (08:29)
[2019-08-15] MEDS: busPIRone 10 MG TAB PO SCH ×2 (08:29→21:06)
[2019-08-15] MEDS: APIXABAN 2.5 MG TAB (ELIQUIS) PO SCH ×2 (08:29→21:06)
[2019-08-15] MEDS: CETIRIZINE (ZyrTEC) 5 MG/5 ML UDC DYE FREE PO SCH (08:30)
[2019-08-15] MEDS: GABAPENTIN 400 MG CAP PO SCH ×2 (08:30→21:05)
--- NOTE | 2019-08-15 12:04 | IPNPDOC ---
Text Note Date of Service The patient was seen on 08/15/19. NOTE Subjective: Continues to have pain in the left knee joint. No fever or chills. His sugars have been uncontrolled, His K was high this am. Physical Exam: Vitals: As below General Exam: Positive: Alert, Cooperative Eye Exam: Positive: PERRLA, Conjunctiva & lids normal ENT Exam: Positive: Atraumatic Neck Exam: Positive: Supple, No JVD. Chest Exam: Positive: Clear to auscultation, Normal air movement Heart Exam: Positive: Rate Normal, Normal S1, Normal S2, Irregular, no rub murmur or gallop Abdomen Exam: Positive: Normal bowel sounds, Soft, nontender Extremity Exam: Positive: Normal pulses, No edema. Left knee in surgical dressing. Skin Exam: Positive: Nl turgor and temperature Neuro Exam: Positive: Strength at 5/5 X4 ext, Sensation Intact, Cranial Nerves 3-12 NL Psych Exam: Positive: Mood NL, Oriented x 3 Labs and Radiology: reviewed. Assessment and Plan: 58-year-old male with past medical history of coronary artery disease status post CABG, Systolic congestive heart failure, atrial fibrillation on Eliquis, COPD, cirrhosis, H/o CVA with left sided numbness and pain, anxiety, diabetes, hypertension, hyperlipidemia presented with left knee pain and swelling. Patient has been having pain and swelling in his knee for about a month, following with orthopedic surgery, has had the knee drained twice in the outpatient setting. Patient has had the knee drained for the third time in the ER on admission. Orthopedic surgery was consulted and he went for a knee irrigation and washout on 08/13/19. He was admitted for Septic arthritis. Septic Arthritis of Left Knee and Gouty arthritis. ongoing issue since 07/19 being followed by Ortho as outpatient then admitted for joint washout. s/p multiple taps and most recently had irrigation and washout in OR on 08/13/19 All cultures are negative. Uric acid Crystals seen in fluid on 07/20/19 No blood cultures were sent. will consult ID. Antibiotics as per ID. will start on prednisone Gout in left knee also uric acid crystals were positive on 07/19 in the joint fluid. will start on prednisone. RUPESH on CKD Baseline creatinine around 1.8 to 2.0 now creatinine at 3.0 clinically appears dry to euvolemic will hold bumetanide and spironolactone for 2 days. will give NS bolus. Hyperkalemia K 6.1 due to Rupesh on CKD, spironolactone and high sugars. given Regular Insulin 5 units IV calcium gluconate, NS bolus 500 cc patorimir will recheck in pm telemetry no changes. Coronary artery disease/CABG/ hyperlipidemia statin, eliquis. Chronic Systolic and diastolic Congestive heart failure/ AICD in place with moderate pulmonary hypertension EF of 20% to 25%. no signs of fluid overload at present may be a little dry. will hold diuretics for 2 days due to RUPESH. Cirrhosis of Liver S/P large volume paracentesis in april 2019 Cardiac cirrhosis Vs alcoholic cirrhosis. Has past h/o alcohol abuse. will hold diuretics Atrial fibrillation. rate controlled. on eliquis. COPD/ Moderate pulmonary hypertension symbicort Chronic Pain from CVA in 2014 with residual Chronic Left sided pain / paraesthesia and numbness. and DDD and sciatica follows with pain management on narcotics as outpatient. tylenol, oxycodone, gabapentin. On Buprenorphine patch as outpatient. DIABETES / peripheral neuropathy sugars uncontrolled. Now worse probably due to being on steroids. lispro AC and HS. gabapentin HYPERTENSION Bp well controlled only on diuretics. ANXIETY buspar Anemia of chronic disease stable. VS,Fishbone, I+O VS, Fishbone, I+O Laboratory Tests 08/15/19 06:10 Vital Signs Date Time Temp Pulse Resp B/P (MAP) Pulse Ox O2 Delivery O2 Flow Rate FiO2 08/15/19 06:00 97.9 61 16 124/76 (92) 96 Room Air 08/13/19 08:00 2.0 I&O- Last 24 Hours up to 6 AM 08/15/19 06:00 Intake Total 865 ml Output Total 2565 ml Balance -1700 ml JAUN NATHAN MD Aug 15, 2019 12:04
[2019-08-15 12:06] LABS: CALCIUM LEVEL 8.5 MG/DL (8.5-10.1); CREATININE FOR GFR 2.75 MG/DL (0.70-1.30); GLOMERULAR FILTRATION RATE 25.4 (>56); POTASSIUM SERUM 5.6 MEQ/L (3.5-5.1)
[2019-08-15] MEDS: NS 1,000 ML IV SCH (12:30)
[2019-08-15 14:00] VITALS: BP 124/60
[2019-08-15 14:24] LABS: HEMOGLOBIN A1c 9.2 %
[2019-08-15] MEDS: VANCOMYCIN HCL 750 MG, VIAL MATE ADAPTER 1 EACH in D5W 250 ML IV SCH (15:26)
[2019-08-15] MEDS: cefTRIAXone SOD 2 GM in D5W MINI-BAG PLUS 50 ML IV SCH (17:27)
[2019-08-15] MEDS: oxyCODONE 5MG TAB PO PRN ×2 (17:29→21:05)
[2019-08-15] MEDS: ROSUVASTATIN 10 MG TAB (CRESTOR) PO SCH (21:06)
[2019-08-15] MEDS: LEVEMIR (INSULIN DETEMIR) 1 UNITS/0.01ML SC SCH (21:07)
[2019-08-15 22:00] VITALS: BP 124/74
[2019-08-16] MEDS: NS 1,000 ML IV SCH (01:49)
[2019-08-16 06:00] VITALS: BP 123/74
[2019-08-16 06:30] LABS: HEMATOCRIT 29.9 % (42.0-52.0); HEMOGLOBIN 9.6 g/dl (13.5-17.5); MEAN CORPUSCULAR HEMOGLOBIN 27.2 pg (27.0-33.0); MEAN CORPUSCULAR HGB CONC 32.1 g/dl (32.0-36.5); MEAN CORPUSCULAR VOLUME 84.7 fl (80.0-96.0); PLATELET COUNT, AUTOMATED 263 10^3/uL (150-450); RED BLOOD COUNT 3.53 10^6/uL (4.30-6.10); WHITE BLOOD COUNT 13.9 10^3/uL (4.0-10.0)
[2019-08-16 06:52] LABS: CALCIUM LEVEL 8.7 MG/DL (8.5-10.1); CREATININE FOR GFR 2.26 MG/DL (0.70-1.30); GLOMERULAR FILTRATION RATE 31.9 (>56); POTASSIUM SERUM 4.9 MEQ/L (3.5-5.1)
[2019-08-16] MEDS: SYMBICORT 80/4.5MCG INHALER 6GM INH SCH ×2 (07:46→20:00)
[2019-08-16] MEDS: glipiZIDE (GLUCOTROL) 5 MG TAB PO SCH ×2 (08:21→17:50)
[2019-08-16] MEDS: predniSONE 20 MG TAB PO SCH (08:22)
[2019-08-16] MEDS: HumaLOG INSULIN (NovoLOG) PER UNIT SC SCH ×4 (08:22→21:36)
[2019-08-16] MEDS: busPIRone 10 MG TAB PO SCH ×2 (08:22→19:46)
[2019-08-16] MEDS: APIXABAN 2.5 MG TAB (ELIQUIS) PO SCH ×2 (08:22→19:50)
[2019-08-16] MEDS: CETIRIZINE (ZyrTEC) 10 MG TAB PO SCH (08:22)
[2019-08-16] MEDS: GABAPENTIN 400 MG CAP PO SCH ×2 (08:22→19:46)
[2019-08-16] MEDS: oxyCODONE 5MG TAB PO PRN ×3 (08:26→19:47)
--- NOTE | 2019-08-16 13:20 | IPNPDOC ---
Text Note Date of Service The patient was seen on 08/16/19. NOTE Subjective: His Knee is feeling good, no pain or swelling, has been walking OK. Says wants to go home. Patient has not been on any treatment for Diabetes for months. Physical Exam: Vitals: As below General Exam: Positive: Alert, Cooperative Eye Exam: Positive: PERRLA, Conjunctiva & lids normal ENT Exam: Positive: Atraumatic Neck Exam: Positive: Supple, No JVD. Chest Exam: Positive: Clear to auscultation, Normal air movement Heart Exam: Positive: Rate Normal, Normal S1, Normal S2, Irregular, no rub murmur or gallop Abdomen Exam: Positive: Normal bowel sounds, Soft, nontender Extremity Exam: Positive: Normal pulses, No edema. Left knee in surgical dressing. Skin Exam: Positive: Nl turgor and temperature Neuro Exam: Positive: Strength at 5/5 X4 ext, Sensation Intact, Cranial Nerves 3-12 NL Psych Exam: Positive: Mood NL, Oriented x 3 Labs and Radiology: reviewed. Assessment and Plan: 58-year-old male with past medical history of coronary artery disease status post CABG, Systolic congestive heart failure, atrial fibrillation on Eliquis, COPD, cirrhosis, H/o CVA with left sided numbness and pain, anxiety, diabetes, hypertension, hyperlipidemia presented with left knee pain and swelling. Patient has been having pain and swelling in his knee for about a month, following with orthopedic surgery, has had the knee drained twice in the outpatient setting. Patient has had the knee drained for the third time in the ER on admission. Orthopedic surgery was consulted and he went for a knee irrigation and washout on 08/13/19. He was admitted for Septic arthritis. Septic Arthritis of Left Knee Vs Gouty arthritis. ongoing issue since 07/19 being followed by Ortho as outpatient then admitted for joint washout. s/p multiple taps and most recently had irrigation and washout in OR on 08/13/19 All cultures are negative. Uric acid Crystals seen in fluid on 07/20/19 done in ED. No blood cultures were sent. Antibiotics as per ID vanco and ceftriaxone Gout in left knee also uric acid crystals were positive on 07/19 in the joint fluid. on prednisone will give for 5 days. RUPESH on CKD improving Baseline creatinine around 1.8 to 2.0 now creatinine at 2.25 clinically appears dry to euvolemic will hold bumetanide and spironolactone for now. Will restart only bumetanide in 1 to 2 days lower dose. Hyperkalemia K 6.1 due to Rupesh on CKD, spironolactone and high sugars. Now resolved. Coronary artery disease/CABG/ hyperlipidemia statin, eliquis. Chronic Systolic and diastolic Congestive heart failure/ AICD in place with moderate pulmonary hypertension EF of 20% to 25%. no signs of fluid overload at present may be a little dry. will restart only Bumetanide in lower dose in 1 to 2 days. Cirrhosis of Liver S/P large volume paracentesis in april 2019 Cardiac cirrhosis Vs alcoholic cirrhosis. Has past h/o alcohol abuse. will hold diuretics Atrial fibrillation. rate controlled. on eliquis. COPD/ Moderate pulmonary hypertension symbicort Chronic Pain from CVA in 2014 with residual Chronic Left sided pain / paraesthesia and n umbness. and DDD and sciatica follows with pain management on narcotics as outpatient. tylenol, oxycodone, gabapentin. On Buprenorphine patch as outpatient. DIABETES / peripheral neuropathy sugars uncontrolled. Now worse probably due to being on steroids. lispro AC and HS. gabapentin HYPERTENSION Bp well controlled only on diuretics. ANXIETY buspar Anemia of chronic disease stable. VS,Fishbone, I+O VS, Fishbone, I+O Laboratory Tests 08/16/19 06:12 Vital Signs Date Time Temp Pulse Resp B/P (MAP) Pulse Ox O2 Delivery O2 Flow Rate FiO2 08/16/19 08:56 16 Room Air 08/16/19 08:26 97 08/16/19 06:00 97.8 62 123/74 (90) 08/13/19 08:00 2.0 I&O- Last 24 Hours up to 6 AM 08/16/19 06:00 Intake Total 4768 ml Output Total 1625 ml Balance 3143 ml JAUN NATHAN MD Aug 16, 2019 13:20
[2019-08-16 14:00] VITALS: BP 122/70
[2019-08-16] MEDS: VANCOMYCIN HCL 750 MG, VIAL MATE ADAPTER 1 EACH in D5W 250 ML IV SCH (14:47)
[2019-08-16 17:08] LABS: Lyme Disease IgG/IgM Antibodie <0.91 ISR (0.00-0.90); Lyme Disease IgM Ab Quantitati <0.80 index (0.00-0.79)
[2019-08-16] MEDS: cefTRIAXone SOD 2 GM in D5W MINI-BAG PLUS 50 ML IV SCH (17:47)
[2019-08-16 18:04] LABS: C REACTIVE PROTEIN QUANTITATIV 3.57 MG/DL (0.00-0.30); URIC ACID 7.4 MG/DL (3.5-7.2)
--- NOTE | 2019-08-16 18:19 | IPN ---
DATE: 08/12/2019 Gonzalez states he is feeling so much better. His knee has markedly improved. He has a normal range of motion of 90 degrees. His white count on admission was 9.2, but since he has been on prednisone his white count has increased to 13.9. He has had no fever or chills. No nausea, vomiting, or diarrhea. No abdominal pain. The patient states he has not drank in 35 years and does not smoke. LABORATORY DATA: White count 13.9, hemoglobin 9.6, hematocrit 29.9, platelets 263. ESR on admission was 120. Sodium 133, potassium 4.9, chloride 105, bicarbonate 21, BUN 81, creatinine 2.26, down from 3.09, calcium 8.7. Uric acid repeat is pending and CRP is pending. Cultures from joint fluid on July 19, August 07, and August 11 all were negative times three different aspirations. The first one had uric acid crystals. Lyme serology was negative. Aspiration of joint fluid initially had 49,840 white cells that increased to 65,000 white cells with 94% polymorphonuclear leukocytes (PMN). The first one had only had uric acid crystals. The patient since he has been on prednisone has markedly improved. PHYSICAL EXAMINATION: Temperature is 97.5, pulse 61, respirations 18, blood pressure 122/70, oxygen saturation 98% on room air. HEART: Normal S1, S2. No murmurs, distant. LUNGS: Clear but diminished air entry bilaterally. No wheezes or rhonchi. ABDOMEN: Soft, nontender. No hepatosplenomegaly. EXTREMITIES: No clubbing, cyanosis, or edema. No calf tenderness. Left knee incision of arthroscopic incision and drainage (I and D). Normal range of motion, 90 degrees sitting at the bedside with no discomfort. Lyme serology negative. IMPRESSION: 1. Gouty arthritis of the left knee. There is no evidence of septic arthritis. The patient would not have recovered within 48 hours from a septic joint. He has normal range of motion. Lyme serology was negative. Would discontinue IV ceftriaxone and vancomycin and continue with prednisone for 5-7 days. 2. Hyperuricemia, probably related to chronic kidney disease. Suggest if uric acid remains elevated to add allopurinol. 3. Chronic kidney disease with acute kidney injury, doing better. Creatinine today was 2.26. His baseline is around 2. PLAN: If patient continues to improve, the patient could be discharged home with oral prednisone to finish a 7-day course and probably would recommend starting allopurinol as well to decrease risk of recurrent attacks. KEIRA
[2019-08-16] MEDS: ROSUVASTATIN 10 MG TAB (CRESTOR) PO SCH (19:46)
[2019-08-16] MEDS: LEVEMIR (INSULIN DETEMIR) 1 UNITS/0.01ML SC SCH (21:36)
[2019-08-16 22:00] VITALS: BP 124/74
[2019-08-17 06:00] VITALS: BP 117/78
[2019-08-17] MEDS: HumaLOG INSULIN (NovoLOG) PER UNIT SC SCH ×2 (07:30→12:00)
[2019-08-17] MEDS: SYMBICORT 80/4.5MCG INHALER 6GM INH SCH (08:00)
[2019-08-17 08:07] LABS: BASO % 0.2 % (0.0-1.0); EOS # 0.1 10^3/uL (0.0-0.5); EOS % 1.1 % (0.0-3.0); HEMATOCRIT 32.6 % (42.0-52.0); HEMOGLOBIN 10.4 g/dl (13.5-17.5); LYMPH # 1.6 10^3/uL (1.5-5.0); LYMPH % 12.8 % (24.0-44.0); MEAN CORPUSCULAR HEMOGLOBIN 27.3 pg (27.0-33.0); MEAN CORPUSCULAR HGB CONC 31.9 g/dl (32.0-36.5); MEAN CORPUSCULAR VOLUME 85.6 fl (80.0-96.0); MONO # 0.9 10^3/uL (0.0-0.8); MONO % 7.6 % (0.0-5.0); NEUTROPHILS # 9.6 10^3/uL (1.5-8.5); NEUTROPHILS % 77.7 % (36.0-66.0); PLATELET COUNT, AUTOMATED 276 10^3/uL (150-450); RED BLOOD COUNT 3.81 10^6/uL (4.30-6.10); WHITE BLOOD COUNT 12.4 10^3/uL (4.0-10.0)
[2019-08-17] MEDS ORDERED: PRED20TA PO (08:12)
[2019-08-17] MEDS ORDERED: GLIP5TAB8 PO (08:12)
[2019-08-17] MEDS ORDERED: BUME2TAB3 PO (08:12)
[2019-08-17 08:30] LABS: C REACTIVE PROTEIN QUANTITATIV 2.07 MG/DL (0.00-0.30); CALCIUM LEVEL 8.4 MG/DL (8.5-10.1); CREATININE FOR GFR 1.78 MG/DL (0.70-1.30); POTASSIUM SERUM 4.5 MEQ/L (3.5-5.1)
[2019-08-17] MEDS: predniSONE 20 MG TAB PO SCH (08:44)
[2019-08-17] MEDS: busPIRone 10 MG TAB PO SCH (08:44)
[2019-08-17] MEDS: CETIRIZINE (ZyrTEC) 10 MG TAB PO SCH (08:44)
[2019-08-17] MEDS: APIXABAN 2.5 MG TAB (ELIQUIS) PO SCH (08:44)
[2019-08-17] MEDS: GABAPENTIN 400 MG CAP PO SCH (08:44)
[2019-08-17] MEDS: glipiZIDE (GLUCOTROL) 5 MG TAB PO SCH (08:45)
[2019-08-17] MEDS: oxyCODONE 5MG TAB PO PRN (08:47)
[2019-08-17] MEDS ORDERED: FEBU40TA4 PO (08:57)
[2019-08-17 09:36] LABS: URIC ACID 6.5 MG/DL (3.5-7.2)
--- NOTE | 2019-08-17 16:44 | DS.PDOC ---
Discharge Summary General Date of Admission Aug 12, 2019 at 21:17 Date of Discharge 08/17/19 Discharge Summary PROCEDURES PERFORMED DURING STAY: [None]. DISCHARGE DIAGNOSES: Left Knee gouty arthritis vs septic arthritis Acute gout Hyperuricemia RUPESH on CKD Uncontrolled diabetes Hyperkalemia SECONDARY DIAGNOSIS: Coronary artery disease status post CABG, Systolic and diastolic congestive heart failure s/p AICD, atrial fibrillation on Eliquis, COPD, Cirrhosis, H/o CVA with left sided numbness and pain, anxiety, diabetes, hypertension, hyperlipidemia , Diabetes with peripheral neuropathy, Chronic pain from CVA in 2014 with residual Chronic Left sided pain / paraesthesia and numbness. and DDD and sciatica, anemia of chronic disease COMPLICATIONS/CHIEF COMPLAINT: Effusion Of Left Knee. HOSPITAL COURSE: 58-year-old male with past medical history of coronary artery disease status post CABG, Systolic congestive heart failure, atrial fibrillation on Eliquis, COPD, cirrhosis, H/o CVA with left sided numbness and pain, anxiety, diabetes, hypertension, hyperlipidemia presented with left knee pain and swelling. Patient has been having pain and swelling in his knee for about a month, following with orthopedic surgery, has had the knee drained twice in the outpatient setting. Patient has had the knee drained for the third time in the ER on admission. Orthopedic surgery was consulted and he went for a knee irrigation and washout on 08/13/19. He was admitted for Septic arthritis. Septic Arthritis of Left Knee Vs Gouty arthritis. ongoing issue since 07/19 being followed by Ortho as outpatient then admitted for joint washout. s/p multiple taps and most recently had irrigation and washout in OR on 08/13/19 All cultures are negative. Uric acid Crystals seen in fluid on 07/20/19 done in ED. No blood cultures were sent. Most like gouty arthritis. Antibiotics dced Gout in left knee also uric acid crystals were positive on 07/19 in the joint fluid. on prednisone will give for 5 days. RUPESH on CKD improved Baseline creatinine around 1.8 to 2.0, Now creatinine at baseline restart bumax at lower dosage Hyperkalemia K 6.1 due to Rupesh on CKD, spironolactone and high sugars. Now resolved. Coronary artery disease/CABG/ hyperlipidemia statin, eliquis. Chronic Systolic and diastolic Congestive heart failure/ AICD in place with moderate pulmonary hypertension EF of 20% to 25%. no signs of fluid overload at present may be a little dry. will restart only Bumetanide in lower dose. Cirrhosis of Liver S/P large volume paracentesis in april 2019 Cardiac cirrhosis Vs alcoholic cirrhosis. Has past h/o alcohol abuse. will stop spironolactone, continue bumax at lower dosage Atrial fibrillation. rate controlled. on eliquis. COPD/ Moderate pulmonary hypertension symbicort Chronic Pain from CVA in 2014 with residual Chronic Left sided pain / paraesthesia and numbness. and DDD and sciatica follows with pain management on narcotics as outpatient. tylenol, oxycodone, gabapentin. On Buprenorphine patch as outpatient. DIABETES / peripheral neuropathy sugars uncontrolled. Now worse probably due to being on steroids. will start on glipizide. Has not been on meds for several months. gabapentin HYPERTENSION Bp well controlled only on diuretics. ANXIETY buspar Anemia of chronic disease stable. DISCHARGE MEDICATIONS: Please see below. ALLERGIES: Please see below. PHYSICAL EXAMINATION ON DISCHARGE: VITAL SIGNS: Please see below. General Exam: Positive: Alert, Cooperative Eye Exam: Positive: PERRLA, Conjunctiva & lids normal ENT Exam: Positive: Atraumatic Neck Exam: Positive: Supple, No JVD. Chest Exam: Positive: Clear to auscultation, Normal air movement Heart Exam: Positive: Rate Normal, Normal S1, Normal S2, Irregular, no rub murmur or gallop Abdomen Exam: Positive: Normal bowel sounds, Soft, nontender Extremity Exam: Positive: Normal pulses, No edema. Left knee in surgical dressing. Skin Exam: Positive: Nl turgor and temperature Neuro Exam: Positive: Strength at 5/5 X4 ext, Sensation Intact, Cranial Nerves 3-12 NL Psych Exam: Positive: Mood NL, Oriented x 3 LABORATORY DATA: Please see below. ACTIVITY: [As tolerated]. DIET: Consistent carb DISPOSITION: 01 Home, Self-Care. DISCHARGE INSTRUCTIONS: Follow up PMD in 1 week. DISCHARGE CONDITION: [Stable]. TIME SPENT ON DISCHARGE: 35 minutes. Vital Signs/I&Os Vital Signs Date Time Temp Pulse Resp B/P (MAP) Pulse Ox O2 Delivery O2 Flow Rate FiO2 08/17/19 09:17 18 08/17/19 06:00 97.8 64 117/78 (91) 97 Room Air 08/16/19 13:40 2.0 I&O- Last 24 Hours up to 6 AM 08/17/19 07:00 Intake Total 1975 ml Output Total 1750 ml Balance 225 ml Laboratory Data Labs 24H Laboratory Tests 2 08/16/19 16:58: Bedside Glucose (Misc Panel) 314H 08/16/19 17:53: Methicillin-Resist S.aureus DNA PCR NOT DETECTED 08/16/19 21:11: Bedside Glucose (Misc Panel) 284H 08/17/19 06:30: Bedside Glucose (Misc Panel) 106H 08/17/19 07:35: Immature Granulocyte % (Auto) 0.6, Neutrophils (%) (Auto) 77.7H, Lymphocytes (%) (Auto) 12.8L, Monocytes (%) (Auto) 7.6H, Eosinophils (%) (Auto) 1.1, Basophils (%) (Auto) 0.2, Neutrophils # (Auto) 9.6H, Lymphocytes # (Auto) 1.6, Monocytes # (Auto) 0.9H, Eosinophils # (Auto) 0.1, Basophils # (Auto) 0.0, Nucleated Red B lood Cells % (auto) 0.0, Anion Gap 6L, Glomerular Filtration Rate 42.0L, Uric Acid 6.5, Calcium Level 8.4L, C-Reactive Protein, Quantitative 2.07H CBC/BMP Laboratory Tests 08/17/19 07:35 FSBS Laboratory Tests Test 08/16/19 16:58 08/16/19 21:11 08/17/19 06:30 Range/Units Bedside Glucose (Misc Panel) 314 284 106 70-105 MG/DL Microbiology Microbiology 08/12/19 Respiratory Virus Panel (PCR) (PROSPER) - Final, Complete 08/12/19 Gram Stain - Final, Complete 08/12/19 Body Fluid Culture - Final, Complete Discharge Medications Scheduled Apixaban (Eliquis) 5 Mg Tab, 2.5 MG PO BID, (Reported) Budesonide/Formoterol (Symbicort 80-4.5 Mcg Inhaler) 6.9 Gm Hfa.aer.ad, 2 PUFF INH BID, (Reported) Bumetanide (Bumetanide) 2 Mg Tablet, 2 MG PO DAILY Buprenorphine (Butrans) 10 Mcg/Hr Patch.tdwk, 10 MCG TOP Q7D, (Reported) Buspirone HCl (Buspirone HCl) 10 Mg Tablet, 10 MG PO BID, (Reported) Cetirizine HCl (Cetirizine HCl) 10 Mg Tab.chew, 10 MG PO DAILY, (Reported) Ergocalciferol (Vitamin D2) (Vitamin D2) 50,000 Units Cap, 50,000 UNITS PO 1XWK, (Reported) Febuxostat (Uloric) 40 Mg Tablet, 1 TAB PO DAILY Gabapentin (Gabapentin) 400 Mg Cap, 800 MG PO BID, (Reported) Glipizide (Glipizide) 5 Mg Tablet, 5 MG PO BID@0730,1730 Polyvinyl Alcohol (Artificial Tears) 15 Ml Drops, 1 DROP OU QID, (Reported) Prednisone (Prednisone) 20 Mg Tablet, 20 MG PO QAM Rosuvastatin Calcium (Crestor) 20 Mg Tablet, 20 MG PO QHS, (Reported) Scheduled PRN Acetaminophen (Acetaminophen) 500 Mg Tablet, 500 MG PO Q4HP PRN for PAIN, (Reported) Albuterol Sulfate (Ventolin Hfa) 18 Gm Hfa.aer.ad, 1 PUFF INH PRN PRN for wheezing, (Reported) Nitroglycerin (Nitrostat) 0.4 Mg Subl, 0.4 MG SL NITRO PRN for CHEST PAIN, (Reported) Oxycodone HCl (Oxycodone HCl) 5 Mg Tablet, 5 MG PO QID PRN for PAIN, (Reported) Polyethylene Glycol 3350 (Miralax) 119 Gm Powder, 17 GM PO BID PRN for CONSTIPATION, (Reported) dilute in 8 ounces of water or juice Allergies Coded Allergies: fenofibrate (Verified Allergy, Unknown, 02/05/19) gemfibrozil (Verified Allergy, Unknown, 02/05/19) baclofen (Verified Adverse Reaction, Severe, blacks out, 02/05/19) metformin (Verified Adverse Reaction, Intermediate, diarrhea, 02/05/19) JAUN NATHAN MD Aug 17, 2019 16:44
[2019-08-19] MEDS ORDERED: BUPRENORPHINE 10 MCG/HR TD SCH (09:00)
== END 2019-08-17 12:22 | disposition home or self-care (01) | DRG 699 ==
LOC: M ED 15:11 → EDBD 15:11 → M ED INP 21:17 → ENRESERV 22:09 → M MSPAV 22:44
PROVIDERS: ADMIT Internal Medicine; ATTEND Internal Medicine Nephrology
PROC: 0S9D30Z Drainage of Left Knee Joint with Drainage Device, Percutaneous Approach (ICD-10-PCS; principal; 2019-08-13 06:00)
DX: M10.362 Gout due to renal impairment, left knee (principal); I48.20 Chronic atrial fibrillation, unspecified; I50.22 Chronic systolic (congestive) heart failure; I13.0 Hypertensive heart and chronic kidney disease with heart failure and stage 1 through stage 4 chronic kidney disease, or unspecified chronic kidney disease; M00.9 Pyogenic arthritis, unspecified; N17.9 Acute kidney failure, unspecified; I69.398 Other sequelae of cerebral infarction; I25.10 Atherosclerotic heart disease of native coronary artery without angina pectoris; F10.10 Alcohol abuse, uncomplicated; N18.9 Chronic kidney disease, unspecified; J44.9 Chronic obstructive pulmonary disease, unspecified; K70.31 Alcoholic cirrhosis of liver with ascites; F41.9 Anxiety disorder, unspecified; E78.5 Hyperlipidemia, unspecified; I27.20 Pulmonary hypertension, unspecified; E11.22 Type 2 diabetes mellitus with diabetic chronic kidney disease; M25.462 Effusion, left knee; G89.29 Other chronic pain; E87.5 Hyperkalemia; R20.0 Anesthesia of skin; E11.42 Type 2 diabetes mellitus with diabetic polyneuropathy; R16.1 Splenomegaly, not elsewhere classified; D63.8 Anemia in other chronic diseases classified elsewhere; Z95.1 Presence of aortocoronary bypass graft; Z79.01 Long term (current) use of anticoagulants; Z79.899 Other long term (current) drug therapy; Z79.891 Long term (current) use of opiate analgesic; Z88.8 Allergy status to other drugs, medicaments and biological substances; Z87.891 Personal history of nicotine dependence; Z11.59 Encounter for screening for other viral diseases

== ENCOUNTER → 2019-08-22 | Outpatient (REF) | payer MEDICARE, OTHER ==
[~2019-08-22] MED LIST changes: +ACET-683 PO; +ALBU83IN INH; -ASPI81TA85 PO; +ASPI81TA86 PO; +BACIOIN5 OP; +BUTR10DI TOP; +CETI-24 PO; +CETI10CH PO; +CRES20TA2 PO; +CRES5TAB PO; +ELIQ2.5T PO; +FEBU40TA4 PO; +FERR32TA PO; +LACT20EL PO; +MIRA3350 PO; +PERC5TAB12 PO; +PRED20TA PO; +PROBCAP14 PO; +ROSU40TA4 PO; +SYMB80INH INH; +TOUJ1.2I SC
[2019-08-22 15:23] LABS: CRYSTALS, BODY FLUID NONE SEEN (NONE SEEN); SOURCE, BODY FLUID CRYSTALS LFT KNEE
[2019-08-22 16:29] LABS: SOURCE, BODY FLUID LFT KNEE; SYNOVIAL FLUID COLOR YELLOW (YELLOW)
[2019-08-22 20:07] LABS: SOURCE, BODY FLUID GLUCOSE LFT KNEE
[2019-08-23 06:48] LABS: BODY FLUID RHEUMATOID SCREEN NEGATIVE (NEGATIVE)
[2019-08-23 06:49] LABS: MUCIN CLOT TEST 4+ (4+)
== END ==
LOC: M LAB REF 12:59
PROVIDERS: ATTEND Orthopaedic Surgery
DX: M17.12 Unilateral primary osteoarthritis, left knee (principal)

== ENCOUNTER 2019-08-28 12:10 | Inpatient (IN) | payer MEDICARE, OTHER ==
[~2019-08-28] VITALS: Ht 175.3 cm; Wt 70.4 kg
[~2019-08-28 12:10] MED LIST changes: -ALBU83IN INH; +ASPI81TA85 PO; -ASPI81TA86 PO; -BACIOIN5 OP; -CETI-24 PO; -CRES5TAB PO; -ELIQ2.5T PO; -LACT20EL PO; -PERC5TAB12 PO; -PROBCAP14 PO; -ROSU40TA4 PO; -TOUJ1.2I SC
[2019-08-28 12:48] LABS: BASO % 0.3 % (0.0-1.0); EOS # 0.2 10^3/uL (0.0-0.5); EOS % 1.5 % (0.0-3.0); HEMATOCRIT 28.8 % (42.0-52.0); HEMOGLOBIN 9.3 g/dl (13.5-17.5); LYMPH # 0.8 10^3/uL (1.5-5.0); LYMPH % 7.5 % (24.0-44.0); MEAN CORPUSCULAR HEMOGLOBIN 27.4 pg (27.0-33.0); MEAN CORPUSCULAR HGB CONC 32.3 g/dl (32.0-36.5); MONO # 0.6 10^3/uL (0.0-0.8); NEUTROPHILS # 8.4 10^3/uL (1.5-8.5); NEUTROPHILS % 84.2 % (36.0-66.0); PLATELET COUNT, AUTOMATED 215 10^3/uL (150-450); RED BLOOD COUNT 3.39 10^6/uL (4.30-6.10)
[2019-08-28 13:18] LABS: C REACTIVE PROTEIN QUANTITATIV 16.5 MG/DL (0.00-0.30); CALCIUM LEVEL 8.4 MG/DL (8.5-10.1); CREATININE FOR GFR 2.36 MG/DL (0.70-1.30); GLOMERULAR FILTRATION RATE 30.3 (>56); POTASSIUM SERUM 4.5 MEQ/L (3.5-5.1)
[2019-08-28] MEDS ORDERED: ELIQ2.5T PO (13:28)
[2019-08-28] MEDS ORDERED: GLIP5TAB8 PO (13:28)
[2019-08-28] MEDS ORDERED: FEBU40TA4 PO (13:28)
[2019-08-28] MEDS ORDERED: BUME2TAB3 PO (13:28)
[2019-08-28] MEDS ORDERED: ROSU40TA4 PO (13:28)
[2019-08-28] MEDS ORDERED: ALL10TAB29 PO (13:28)
--- NOTE | 2019-08-28 14:52 | CR ---
DATE OF CONSULTATION: 08/28/2019 CHIEF COMPLAINT: Left knee swelling. HISTORY OF PRESENT ILLNESS: This is a 58-year-old man who complains about repeat knee swelling. He has had multiple aspirations in the past few months of the knee as well as a formal irrigation and debridement by Dr. Johnson as recent as 08/13/2019 now 15 days ago. He also had a repeat knee aspiration 4 days ago. He has been followed by Dr. Salcido as well who recommended outpatient followup without treatment antibiotics. On 08/13/2019 Dr. Johnson performed arthroscopic irrigation and debridement of his left knee. The patient complains about a few days history of left knee swelling. No redness or increased warmth. No fevers or chills or other constitutional symptoms. Dr. Johnson thus performed apparently, a knee aspiration 4 days ago to add on for TB and fungus. According to him, who I spoke to in the operating room today, there is no growth on those either. The patient is quite vague with regards to this. Past medical history. PAST MEDICAL HISTORY: Per the discharge notes from the hospitalist as well as Dr. Salcido. Coronary artery disease post coronary artery bypass graft (CABG). Systolic and diastolic congestive heart failure (CHF) Atrial fibrillation on Eliquis Chronic obstructive pulmonary disease (COPD). Cirrhosis Cerebrovascular accident (CVA) with left-sided numbness. Anxiety Hypertension. Hyperlipidemia. Diabetes with peripheral and chronic pain. MEDICATIONS: - Eliquis - budesonide - bumetanide - buprenorphine - buspirone - cetirizine - vitamin D2 - Uloric - gabapentin - glipizide - prednisone - rosuvastatin ALLERGIES: FENOFIBRATE, GEMFIBROZIL, BACLOFEN, METFORMIN. PAST SURGICAL HISTORY: Includes irrigation debridement 07/13/2019. SOCIAL HISTORY: He has not been exposed to anyone with tuberculosis. No recent travel outside the country. PHYSICAL EXAM: VITAL SIGNS: Temperature not reported. Blood pressure 103/61. Pulse rate 64, pulse ox 97% on room air. This is a thin, unwell appearing 58-year-old man. He looks older than stated age. He has no other hot he has no other swollen or painful joints. In terms of his left lower extremity, there is moderate sized effusion. There is minimal redness at the site with minimal warmth. No redness, no drainage. Portal sites are well-healed free of complication. There are still distal Steri-Strips overlying the portal sites. His range of motion is 0 to 90 degrees. No pain with micromotion. There is pain in deep flexion beyond 90 degrees due to the effusion. Normal sensation and motor function. His foot is warm and well perfused. He is able to wiggle his toes, dorsiflex and plantarflex the foot. Laboratory examination today reveals white blood cell count 10n neutrophil percentage 84, ESR pending. CRP 16.5. ASSESSMENT/PLAN: This 58-year-old man has had now at least three aspirations of his knee as well as a recent arthroscopic irrigation and debridement 2 weeks ago. This seems to the reaccumulation of fluid in his knee, although this is the first time that I have ever seen or assessed him. I did talk to Dr. Johnson today in regards to this man's care as it seems like he is the most familiar with the case and unfortunately Dr. Salcido is away this week so I am unable to discuss the case with her as well. Per her notes it does seem like this could be a gouty exacerbation and has been attempted to be treated as such. I do not think this man would benefit from a repeat irrigation and debridement nor another knee aspiration and that it should be treated on an outpatient basis with followup with his family physician, Krystina King as well as Dr. Salcido and Dr. Johnson on an outpatient basis.
[2019-08-28 15:27] LABS: ERYTHROCYTE SEDIMENTATION RATE 126 mm/hr (0-20)
[2019-08-28] MEDS ORDERED: GLUCAGON INJ 1MG VIAL SC PRN (15:45)
[2019-08-28] MEDS ORDERED: DEXTROSE 50% 50 ML SYRINGE IV PRN (15:45)
[2019-08-28] MEDS ORDERED: MIRALAX *UNIT DOSE* 17GM PACKET PO PRN (15:45)
[2019-08-28] MEDS ORDERED: predniSONE 20 MG TAB PO ONE (15:45)
[2019-08-28] MEDS ORDERED: ACETAMINOPHEN TAB 650MG DOSE (2X325MG) PO PRN (15:45)
[2019-08-28] MEDS ORDERED: GLUCOSE 4GM CHEW TABLET PO PRN (15:45)
[2019-08-28] MEDS: NS 1,000 ML IV SCH (17:15)
--- NOTE | 2019-08-28 17:59 | HPEPDOC ---
General Date of Admission Aug 28, 2019 at 15:32 Date of Service: Aug 28, 2019 Chief Complaint The patient is a 58-year-old male admitted with a reason for visit of Effusion Of Left Knee,Hyperglycemia. History of Present Illness 58-year-old male with past medical history of recurrent left knee effusion, gouty arthritis vs septic arthritis, coronary artery disease status post CABG, Systolic congestive heart failure, atrial fibrillation on Eliquis, COPD, cirrhosis, H/o CVA with left sided numbness and pain, anxiety, diabetes, hypertension, hyperlipidemia was admitted to the hospital from 08/11 to 08/16 with left knee effusion and inflammation initially felt to be septic arthritis and treated with ceftriaxone and vanco. He had several taps as outpatient and a knee wash out on 08/13/19 during that hospitalization and all cultures were negative . First tap in june in ED showed uric acid crystals. Id was consulted and it was felt to be gouty arthritis with effusion. Antibiotics were discon tinued and patient was started on prednisone. After 2 days of prednisone patient improved dramatically so was discharged home with Uloric and course of prednisone. patient says after about 3 days from discharge the knee started swelling up again. He went for a follow up with ortho on 08/22/19 when he had another tap done. Both areobic and anareobic cultures from that is also negative. Fungal and AFB are pending. He presented to the ED today with persistent left knee pain and swelling. Pain is about 7/10 dull aching and sometimes sharp when he tries to bear weight. He has been unable to walk as he cannot bear weight on that knee. There is no raiation of the pain. He denies any fever or chills. Patient was admitted for recurrent left knee effusion and possibly gouty arthritis. Home Medications Scheduled Apixaban (Eliquis) 2.5 Mg Tablet, 2.5 MG PO BID, (Reported) Bumetanide (Bumetanide) 2 Mg Tablet, 2 MG PO DAILY, (Reported) Buprenorphine (Butrans) 10 Mcg/Hr Patch.tdwk, 10 MCG TOP Q7D, (Reported) NO PATCH CURRENTLY APPLIED Buspirone HCl (Buspirone HCl) 10 Mg Tablet, 10 MG PO BID, (Reported) Cetirizine HCl (Cetirizine HCl) 10 Mg Tablet, 10 MG PO DAILY, (Reported) Ergocalciferol (Vitamin D2) (Vitamin D2) 50,000 Units Cap, 50,000 UNITS PO QWEEK, (Reported) SUNDAYS Febuxostat (Uloric) 40 Mg Tablet, 40 MG PO DAILY, (Reported) Gabapentin (Gabapentin) 400 Mg Cap, 800 MG PO BID, (Reported) Glipizide (Glipizide) 5 Mg Tablet, 5 MG PO BID, (Reported) Oxycodone HCl (Oxycodone HCl) 5 Mg Tablet, 5 MG PO QID, (Reported) Polyvinyl Alcohol (Artificial Tears) 15 Ml Drops, 1 DROP OU BID, (Reported) Prednisone (Prednisone) 20 Mg Tablet, 20 MG PO DAILY Rosuvastatin Calcium (Rosuvastatin Calcium) 40 Mg Tablet, 20 MG PO QHS, (Reported) Scheduled PRN Acetaminophen (Acetaminophen) 500 Mg Tablet, 500 MG PO Q4H PRN for PAIN, (Reported) Albuterol Sulfate (Ventolin Hfa) 18 Gm Hfa.aer.ad, 1 PUFF INH PRN PRN for SOB/WHEEZING, (Reported) Nitroglycerin (Nitrostat) 0.4 Mg Subl, 0.4 MG SL NITRO PRN for CHEST PAIN, (Reported) Polyethylene Glycol 3350 (Miralax) 119 Gm Powder, 17 GM PO BID PRN for CONSTIPATION, (Reported) dilute in 8 ounces of water or juice Allergies Coded Allergies: fenofibrate (Verified Allergy, Unknown, UNKNOWN REACTION, 08/28/19) gemfibrozil (Verified Allergy, Unknown, UNKNOWN REACTION, 08/28/19) baclofen (Verified Adverse Reaction, Severe, blacks out, 02/05/19) metformin (Verified Adverse Reaction, Intermediate, diarrhea, 02/05/19) Past Medical History Medical History Recurrent Left knee effusion, Left Knee gouty arthritis, Hyperuricemia, CKD, Diabetes with peripheral neuropathy, Coronary artery disease status post CABG, Systolic and diastolic congestive heart failure s/p AICD, atrial fibrillation on Eliquis, COPD, Cirrhosis, H/o CVA, Chronic pain from CVA in 2014 with residual Chronic Left sided pain / paraesthesia and numbness, anxiety, hypertension, hyperlipidemia, DDD, sciatica, anemia of chronic disease Surgical History Coronary artery bypass graft (CABG) and defibrillator placement. Colonoscopy and endoscopy in 2017. Vascular reconstruction of the left leg. Some bypass procedure. LEFT Knee wash out Family History Significant Family History: Heart disease Social History * Smoker: former Smoker Alcohol: sober A-FIB/CHADSVASC A-FIB History Current/History of A-Fib/PAF?: Yes Current PO Anticoag Therapy: Yes Review of Systems Constitutional: Denies: Chills, Fever, Night Sweats Eyes: Denies: Pain, Vision change ENT: Denies: Head Aches, Ear Pain, Dysphagia Skin: Denies: Rash, Lesions, Breakdown Pulmonary: Denies: Dyspnea, Cough Cardiovascular: Denies: Chest Pain, Palpitations, Orthopnea, Paroxysmal Noc. Dyspnea, Lt Headedness Gastrointestinal: Denies: Nausea, Vomiting, Abdominal Pain, Diarrhea Genitourinary: Denies: Dysuria, Frequency, Incontinence, Retention Musculoskeletal: Reports: Back Pain, Joint Pain (left knee) Physical Examination General Exam: Positive: Alert, Cooperative, No Acute Distress Eye Exam: Positive: PERRLA, Conjunctiva & lids normal, EOMI; Negative: Sclera icteric ENT Exam: Positive: Atraumatic, Mucous membr. moist/pink, Pharynx Normal Neck Exam: Positive: Supple; Negative: JVD, thyromegaly Chest Exam: Positive: Clear to auscultation, Normal air movement Heart Exam: Positive: Rate Normal, Regular Rhythm, Normal S1, Normal S2; Negative: Murmurs, Rubs Abdomen Exam: Positive: Normal bowel sounds, Soft; Negative: Tenderness, Hepatospenomegaly Extremity Exam: Positive: Tenderness (let knee), Swelling (knee), Other (warm to touch but not erythematous); Negative: Clubbing, Cyanosis Skin Exam: Positive: Nl turgor and temperature; Negative: Breakdown, Lesion Vital Signs Vital Signs Date Time Temp Pulse Resp B/P (MAP) Pulse Ox O2 Delivery O2 Flow Rate FiO2 08/28/19 17:01 65 08/28/19 17:00 111/70 (84) 08/28/19 16:01 96 08/28/19 12:20 20 08/28/19 12:20 97.7 Laboratory Data Labs 24H Laboratory Tests 2 08/28/19 12:37: Immature Granulocyte % (Auto) 0.5, Neutrophils (%) (Auto) 84.2H, Lymphocytes (%) (Auto) 7.5L, Monocytes (%) (Auto) 6.0H, Eosinophils (%) (Auto) 1.5, Basophils (%) (Auto) 0.3, Neutrophils # (Auto) 8.4, Lymphocytes # (Auto) 0.8L, Monocytes # (Auto) 0.6, Eosinophils # (Auto) 0.2, Basophils # (Auto) 0.0, Nucleated Red Blood Cells % (auto) 0.0, Erythrocyte Sedimentation Rate 126H, Anion Gap 6L, Glomerular Filtration Rate 30.3L, Calcium Level 8.4L, C-Reactive Protein, Qu antitative 16.50H CBC/BMP Laboratory Tests 08/28/19 12:37 Assessment/Plan 58-year-old male with past medical history of recurrent left knee effusion, gouty arthritis vs septic arthritis, coronary artery disease status post CABG, Systolic congestive heart failure, atrial fibrillation on Eliquis, COPD, cirrhosis, H/o CVA with left sided numbness and pain, anxiety, diabetes, hypertension, hyperlipidemia was admitted to the hospital from 08/11 to 08/16 with left knee effusion and inflammation initially felt to be septic arthritis and treated with ceftriaxone and vanco. He had several taps as outpatient and a knee wash out on 08/13/19 during that hospitalization and all cultures were negative . First tap in june in ED showed uric acid crystals. ID was consulted and it was felt to be gouty arthritis with effusion. Antibiotics were discontinued and patient was started on prednisone. After 2 days of prednisone patient improved dramatically so was discharged home with Uloric and course of prednisone. Patient says after about 3 days from discharge the knee started swelling up again. He went for a follow up with ortho on 08/22/19 when he had another tap done. Both aerobic and anaerobic cultures from that is also negative. Fungal and AFB cultues are pending. He presented to the ED this time with persistent left knee pain and swelling. Pain is about 7/10 dull aching and sometimes sharp when he tries to bear weight. He has been unable to walk as he cannot bear weight on that knee. There is no raiation of the pain. He denies any fever or chills. Patient was admitted for recurrent left knee effusion and possibly gouty arthritis. Left Knee recurrent effusion ongoing issue since 07/19 being followed by Ortho as outpatient then admitted with joint washout on 08/13/19 s/p multiple taps and most recently outpatient tap on 08/22/19 All cultures negative till date. Fungal and AFB cultures pending from [facility] last tap. Uric acid Crystals seen in fluid on 07/20/19 done in ED. Probably gouty arthritis As all cultures from that joint has been negative. However will have to reassess for septic arthritis if does not improve with prednisone. Will hold off on antibiotics. Ortho consultation appreciated. Will recall them if knee worsens. continue Uloric. KAROLINA on CKD Baseline creatinine around 1.8 to 2.0 hold Bumax. Coronary artery disease/CABG/ hyperlipidemia statin, eliquis. Chronic Systolic and diastolic Congestive heart failure/ AICD in place with moderate pulmonary hypertension EF of 20% to 25%. no signs of fluid overload at present hold Bumax Cirrhosis of Liver S/P large volume paracentesis in april 2019 Cardiac cirrhosis Vs alcoholic cirrhosis. Has past h/o alcohol abuse. hold diuretics for now. spironolactone dced before due to hyperkalemia. Atrial fibrillation. rate controlled. on eliquis. COPD/ Moderate pulmonary hypertension symbicort Chronic Pain from CVA in 2014 with residual Chronic Left sided pain / paraesthesia and numbness. and DDD and sciatica follows with pain management on narcotics as outpatient. tylenol, oxycodone, gabapentin. On Buprenorphine patch as outpatient. DIABETES / peripheral neuropathy sugars uncontrolled. Was started on glipizide on discharge however does not seem to be working will have to start on insulin and will need to go home with insulin. gabapentin HYPERTENSION Bp well controlled Hyperlipidemia statin ANXIETY buspar Anemia of chronic disease stable. Plan / VTE VTE Prophylaxis Ordered?: Yes JAUN NATHAN MD Aug 28, 2019 17:59
[2019-08-28 18:45] VITALS: BP 104/66
[2019-08-28] MEDS: oxyCODONE 5MG TAB PO SCH ×2 (18:50→20:38)
[2019-08-28] MEDS: HumaLOG INSULIN (NovoLOG) PER UNIT SC SCH (18:57)
[2019-08-28] MEDS: SYMBICORT 80/4.5MCG INHALER 6GM INH SCH (20:00)
[2019-08-28 20:27] LABS: URIC ACID 4.4 MG/DL (3.5-7.2)
[2019-08-28] MEDS: glipiZIDE (GLUCOTROL) 5 MG TAB PO SCH (20:37)
[2019-08-28] MEDS: GABAPENTIN 400 MG CAP PO SCH (20:37)
[2019-08-28] MEDS: busPIRone 10 MG TAB PO SCH (20:37)
[2019-08-28] MEDS: DOCUSATE SODIUM 100 MG CAP PO SCH (20:38)
[2019-08-28] MEDS ORDERED: HumaLOG INSULIN (NovoLOG) PER UNIT SC SCH (21:00)
[2019-08-28] MEDS ORDERED: ROSUVASTATIN 10 MG TAB (CRESTOR) PO SCH (21:00)
[2019-08-28] MEDS ORDERED: LEVEMIR (INSULIN DETEMIR) 1 UNITS/0.01ML SC SCH (21:00)
[2019-08-28 22:00] VITALS: BP 105/66
[2019-08-29] MEDS: NS 1,000 ML IV SCH (02:01)
[2019-08-29 05:45] LABS: BASO % 0.1 % (0.0-1.0); EOS % 0.1 % (0.0-3.0); HEMATOCRIT 28.7 % (42.0-52.0); HEMOGLOBIN 9.1 g/dl (13.5-17.5); LYMPH # 0.7 10^3/uL (1.5-5.0); LYMPH % 7.9 % (24.0-44.0); MEAN CORPUSCULAR HEMOGLOBIN 26.7 pg (27.0-33.0); MEAN CORPUSCULAR HGB CONC 31.7 g/dl (32.0-36.5); MEAN CORPUSCULAR VOLUME 84.2 fl (80.0-96.0); MONO # 0.2 10^3/uL (0.0-0.8); MONO % 1.8 % (0.0-5.0); NEUTROPHILS # 8.1 10^3/uL (1.5-8.5); NEUTROPHILS % 89.8 % (36.0-66.0); PLATELET COUNT, AUTOMATED 215 10^3/uL (150-450); RED BLOOD COUNT 3.41 10^6/uL (4.30-6.10)
[2019-08-29 06:00] VITALS: BP 104/54
[2019-08-29 06:11] LABS: CALCIUM LEVEL 8.2 MG/DL (8.5-10.1); CREATININE FOR GFR 2.1 MG/DL (0.70-1.30); GLOMERULAR FILTRATION RATE 34.7 (>56); POTASSIUM SERUM 3.9 MEQ/L (3.5-5.1)
[2019-08-29] MEDS: HumaLOG INSULIN (NovoLOG) PER UNIT SC SCH ×2 (07:59→12:53)
[2019-08-29] MEDS: GABAPENTIN 400 MG CAP PO SCH (07:59)
[2019-08-29] MEDS: DOCUSATE SODIUM 100 MG CAP PO SCH (08:00)
[2019-08-29] MEDS: glipiZIDE (GLUCOTROL) 5 MG TAB PO SCH (08:00)
[2019-08-29] MEDS: busPIRone 10 MG TAB PO SCH (08:00)
[2019-08-29] MEDS: SYMBICORT 80/4.5MCG INHALER 6GM INH SCH (08:00)
[2019-08-29] MEDS: oxyCODONE 5MG TAB PO SCH ×3 (08:01→12:44)
--- NOTE | 2019-08-29 08:13 | IPN ---
DATE: 08/29/2019 Gonzalez was seen while rounding for the hospitalist. Patient doctors with Krystina King. He was admitted with recurrent effusion of the left knee. He has a history of atrial fibrillation on chronic anticoagulation from Eliquis, congestive heart failure with reduced ejection fraction, cirrhosis, diabetes under loose control. Last hemoglobin A1c over 9%. Hypertensive heart disease and hyperlipidemia. He has had several outpatient arthrocentesis performed. Has had a washout of his knee on 08/13/2019. Cultures have been negative. This was felt to be gouty in nature. He feels better today. The knee is less swollen. He says it does not hurt anywhere near as much. Feels its best than it has in several weeks. PHYSICAL EXAMINATION: Blood pressure 104/54, pulse 55, respiratory rate 18, 97% oxygen saturation. General appearance: Alert, conversant in no distress. Lungs clear. Heart regular rate and rhythm. Abdomen soft, nontender. No peripheral edema. Left knee has a small effusion. It is nontender to palpate. It is not red or warm. LABS: White count 9, hemoglobin 91, platelets 215. Sodium 138, potassium 3.9, BUN 92, creatinine 2.1, glucose 144, blood sugar initially was 402, it has been in the 200s since admission IMPRESSION: 1. Left knee effusions probably from gout: On steroid therapy for this with prednisone and uric acid reducing agent with febuxostat. Will continue the current regimen. I will defer to his primary care provider regarding the febuxostat, as there is some concern this may increase cardiac events and the patient does have a history of systolic congestive heart failure. That decision is best left to his outpatient provider. 2. Diabetes: Under loose control. Blood sugars improved in the hospital. Monitor for hypoglycemia. 3. Atrial fibrillation: Rate is controlled. Continue his Eliquis.
[2019-08-29] MEDS ORDERED: FEBUXOSTAT 40 MG TABLET (ULORIC) PO SCH (09:00)
[2019-08-29] MEDS ORDERED: CETIRIZINE (ZyrTEC) 10 MG TAB PO SCH (09:00)
[2019-08-29] MEDS ORDERED: predniSONE 20 MG TAB PO SCH (09:00)
[2019-08-29] MEDS ORDERED: PRED20TA PO (12:19)
--- NOTE | 2019-08-29 12:28 | DSES ---
DATE OF ADMISSION: 08/28/2019 DATE OF DISCHARGE: 08/29/2019 DIAGNOSIS: Gouty arthritis, left knee. HISTORY: Patient was admitted with pain in his left knee. He has had several admissions and I detailed them on today's earlier note. The treatment he has had to date with this. He was put on prednisone and had a rapid improvement in his symptoms. He insisted on discharge today. He was cleared by physical therapy so he was discharged. Otherwise, discharge summary is per my inpatient note from today.
[2019-08-29] MEDS ORDERED: LEVEMIR (INSULIN DETEMIR) 1 UNITS/0.01ML SC SCH (21:00)
== END 2019-08-29 13:00 | disposition home health service (06) | DRG 554 ==
LOC: EDBD 12:10 → M ED 12:10 → M ED INP 15:32 → M MS5PR 18:20
PROVIDERS: ADMIT Internal Medicine Nephrology; ATTEND Internal Medicine Nephrology
DX: M10.9 Gout, unspecified (principal); I50.42 Chronic combined systolic (congestive) and diastolic (congestive) heart failure; I69.354 Hemiplegia and hemiparesis following cerebral infarction affecting left non-dominant side; N17.9 Acute kidney failure, unspecified; Z79.899 Other long term (current) drug therapy; I25.10 Atherosclerotic heart disease of native coronary artery without angina pectoris; E78.5 Hyperlipidemia, unspecified; Z95.1 Presence of aortocoronary bypass graft; I48.91 Unspecified atrial fibrillation; Z86.73 Personal history of transient ischemic attack (TIA), and cerebral infarction without residual deficits; J44.9 Chronic obstructive pulmonary disease, unspecified; Z79.01 Long term (current) use of anticoagulants; K74.60 Unspecified cirrhosis of liver; F41.9 Anxiety disorder, unspecified; E11.51 Type 2 diabetes mellitus with diabetic peripheral angiopathy without gangrene; Z88.8 Allergy status to other drugs, medicaments and biological substances; D63.8 Anemia in other chronic diseases classified elsewhere; N18.9 Chronic kidney disease, unspecified; I27.20 Pulmonary hypertension, unspecified

== ENCOUNTER → 2019-09-04 | Outpatient (CLI) | payer MEDICARE, OTHER ==
[~2019-09-04] MED LIST changes: +ALBU83IN INH; -ASPI81TA85 PO; +ASPI81TA86 PO; +BACIOIN5 OP; +CETI-24 PO; +CRES5TAB PO; +ELIQ2.5T PO; +LACT20EL PO; +PERC5TAB12 PO; +PROBCAP14 PO; +ROSU40TA4 PO; +TOUJ1.2I SC
[2019-09-04 10:12] LABS: CREATININE, URINE 20.9 MG/DL; MALB URINE SIEMENS 85.4 MG/L; MAU/CREAT RATIO 408.6 MCG/MG (0.0-30.0)
[2019-09-04 10:31] LABS: HEMOGLOBIN A1c 11.4 %
[2019-09-04 10:44] LABS: ALBUMIN 2.1 GM/DL (3.2-5.2); BILIRUBIN,TOTAL 0.6 MG/DL (0.2-1.0); CALCIUM LEVEL 8.4 MG/DL (8.5-10.1); CHOLESTEROL RISK RATIO 2.424 (<5); CREATININE FOR GFR 1.82 MG/DL (0.70-1.30); GLOMERULAR FILTRATION RATE 40.9 (>56); POTASSIUM SERUM 4.4 MEQ/L (3.5-5.1); THYROID STIMULATING HORMONE 0.884 uIU/ML (0.358-3.740); TOTAL PROTEIN 7.5 GM/DL (6.4-8.2)
== END ==
LOC: M LAB 07:50
PROVIDERS: ATTEND Physician Assistant
DX: E78.2 Mixed hyperlipidemia (principal); E11.9 Type 2 diabetes mellitus without complications; I10 Essential (primary) hypertension

== ENCOUNTER 2019-09-25 09:59 | Inpatient (IN) | payer MEDICARE, OTHER ==
[~2019-09-25 09:59] MED LIST changes: -ALBU83IN INH; +ALL10TAB29 PO; +ASPI81TA85 PO; -ASPI81TA86 PO; -BACIOIN5 OP; -CETI-24 PO; -CRES5TAB PO; -LACT20EL PO; -PERC5TAB12 PO; -PROBCAP14 PO; -TOUJ1.2I SC
[2019-09-25] MEDS ORDERED: DAPTOmycin 500 MG/10 ML VIAL (CUBICIN) (J0878) ONE (13:00)
[2019-10-30 14:44] LABS: ALBUMIN 1.9 GM/DL (3.2-5.2); BILIRUBIN,DIRECT 0.6 MG/DL (0.0-0.2); BILIRUBIN,TOTAL 0.9 MG/DL (0.2-1.0); CALCIUM LEVEL 8.2 MG/DL (8.5-10.1); CREATININE FOR GFR 2.16 MG/DL (0.70-1.30); GLOMERULAR FILTRATION RATE 33.6 (>56); POTASSIUM SERUM 4.3 MEQ/L (3.5-5.1); TOTAL PROTEIN 7.3 GM/DL (6.4-8.2); TROPONIN I 0.07 NG/ML (< 0.10)
[2019-10-30 15:32] LABS: BASO % 0.4 % (0.0-1.0); EOS # 0.1 10^3/uL (0.0-0.5); EOS % 1.3 % (0.0-3.0); HEMATOCRIT 27.6 % (42.0-52.0); HEMOGLOBIN 8.3 g/dl (13.5-17.5); LYMPH # 1.4 10^3/uL (1.5-5.0); LYMPH % 16.6 % (24.0-44.0); MEAN CORPUSCULAR HEMOGLOBIN 25.9 pg (27.0-33.0); MEAN CORPUSCULAR HGB CONC 30.1 g/dl (32.0-36.5); MEAN CORPUSCULAR VOLUME 86.3 fl (80.0-96.0); MONO # 0.7 10^3/uL (0.0-0.8); MONO % 8.3 % (0.0-5.0); NEUTROPHILS # 6.2 10^3/uL (1.5-8.5); NEUTROPHILS % 72.8 % (36.0-66.0); PLATELET COUNT, AUTOMATED 255 10^3/uL (150-450); WHITE BLOOD COUNT 8.5 10^3/uL (4.0-10.0)
== END 2019-09-29 10:44 | disposition home or self-care (01) | DRG 292 ==
LOC: M ED 09:59 → M PCU 10:35
PROVIDERS: ADMIT Internal Medicine; ATTEND Internal Medicine
DX: I50.23 Acute on chronic systolic (congestive) heart failure (principal); I48.20 Chronic atrial fibrillation, unspecified; N18.4 Chronic kidney disease, stage 4 (severe); M00.862 Arthritis due to other bacteria, left knee; D64.9 Anemia, unspecified; I25.10 Atherosclerotic heart disease of native coronary artery without angina pectoris; I25.2 Old myocardial infarction; K31.84 Gastroparesis; I36.1 Nonrheumatic tricuspid (valve) insufficiency; Z79.899 Other long term (current) drug therapy; Z87.891 Personal history of nicotine dependence

== ENCOUNTER → 2019-10-01 | Outpatient (POV) | payer MEDICARE, OTHER ==
[~2019-10-01] MED LIST changes: +ALBU83IN INH; -ALL10TAB29 PO; -ASPI81TA85 PO; +ASPI81TA86 PO; +BACIOIN5 OP; +CETI-24 PO; +CRES5TAB PO; +LACT20EL PO; +PERC5TAB12 PO; +PROBCAP14 PO; +TOUJ1.2I SC
== END ==
LOC: M PAIN 09:00
PROVIDERS: ATTEND Nurse Practitioner Family
DX: Z79.891 Long term (current) use of opiate analgesic (principal)

== ENCOUNTER 2019-10-18 07:02 | Emergency (ER) | payer MEDICARE, OTHER ==
[~2019-10-18] VITALS: Ht 175.3 cm; Wt 82.5 kg
[~2019-10-18 07:02] MED LIST changes: -ALBU83IN INH; -BACIOIN5 OP; -CRES5TAB PO; -LACT20EL PO; -PERC5TAB12 PO; -PROBCAP14 PO; -TOUJ1.2I SC
[2019-10-18] MEDS ORDERED: TOUJ1.2I SC (07:19)
[2019-10-18] MEDS ORDERED: BOOSTRIX/ADACEL VACCINE (DIPHTH/PERTUSS/ACELL/TETANUS) 0.5ML SYR IM ONE (07:30)
[2019-10-18] MEDS ORDERED: BACIOIN5 OP (08:18)
--- NOTE | 2019-10-18 08:41 | REPVR ---
PROCEDURE INFORMATION: Exam: XR Left Knee Exam date and time: 10/18/2019 8:32 AM Age: 58 years old Clinical indication: Injury or trauma; Fall; Initial encounter; Blunt trauma; Knee; Left TECHNIQUE: Imaging protocol: XR Left knee. Views: 4 or more views. COMPARISON: CR Knee, complete LEFT 08/12/2019 4:46 PM FINDINGS: Bones/joints: Osteopenia. No acute bony injury or malalignment. Soft tissues: Soft tissue prominence. Scattered surgical clips. Vasculature: Vascular calcification. IMPRESSION: No acute bony injury or malalignment. Electronically signed by: Aman Haley On 10/18/2019 08:41:08 AM
[2019-10-18 10:13] VITALS: BP 120/74
[2019-10-18 10:17] VITALS: O2SAT 95
== END 2019-10-18 10:25 | disposition home or self-care (01) ==
LOC: M ED 07:02
DX: S00.81XA Abrasion of other part of head, initial encounter (principal); S80.212A Abrasion, left knee, initial encounter; W01.198A Fall on same level from slipping, tripping and stumbling with subsequent striking against other object, initial encounter; Y92.098 Other place in other non-institutional residence as the place of occurrence of the external cause; Y93.01 Activity, walking, marching and hiking; Y99.8 Other external cause status; E11.9 Type 2 diabetes mellitus without complications; I50.9 Heart failure, unspecified; I11.0 Hypertensive heart disease with heart failure; I25.10 Atherosclerotic heart disease of native coronary artery without angina pectoris; I48.91 Unspecified atrial fibrillation; J44.9 Chronic obstructive pulmonary disease, unspecified; N28.9 Disorder of kidney and ureter, unspecified; E78.9 Disorder of lipoprotein metabolism, unspecified; D64.9 Anemia, unspecified; K74.60 Unspecified cirrhosis of liver; I69.344 Monoplegia of lower limb following cerebral infarction affecting left non-dominant side; I69.334 Monoplegia of upper limb following cerebral infarction affecting left non-dominant side; Z88.8 Allergy status to other drugs, medicaments and biological substances; Z79.899 Other long term (current) drug therapy; Z79.01 Long term (current) use of anticoagulants; Z79.891 Long term (current) use of opiate analgesic; Z95.810 Presence of automatic (implantable) cardiac defibrillator

== ENCOUNTER 2019-10-24 14:22 | Inpatient (IN) | payer MEDICARE ==
[~2019-10-24] VITALS: Ht 175.3 cm; Wt 80.8 kg
[~2019-10-24 14:22] MED LIST changes: +BACIOIN5 OP; +TOUJ1.2I SC
--- NOTE | 2019-10-24 15:38 | REPVR ---
PROCEDURE INFORMATION: Exam: CT Head Without Contrast Exam date and time: 10/24/2019 3:20 PM Age: 58 years old Clinical indication: Injury or trauma; Fall; Initial encounter; Blunt trauma (contusions or hematomas); Additional info: Head injury on eliquis TECHNIQUE: Imaging protocol: Computed tomography of the head without contrast. Radiation optimization: All CT scans at this facility use at least one of these dose optimization techniques: automated exposure control; mA and/or kV adjustment per patient size (includes targeted exams where dose is matched to clinical indication); or iterative reconstruction. COMPARISON: CT Head without contrast 10/18/2019 7:34 AM FINDINGS: Brain: There is no evidence of intracranial bleed. The orellana-white differentiation appears preserved. There is no evidence of mass effect. Ventricles: Normal. No ventriculomegaly. Bones/joints: There is no evidence of fracture. Sinuses: 2 cm density right frontal sinus may represent a mucous retention cyst or polyp. paranasal sinuses are otherwise clear. Mastoid air cells: Clear mastoid air cells bilaterally. Soft tissues: Unremarkable. IMPRESSION: 1. No evidence of fracture. 2. No evidence of bleed. Electronically signed by: Chago Castaneda On 10/24/2019 15:38:26 PM
[2019-10-24 16:08] LABS: BASO % 0.5 % (0.0-1.0); EOS # 0.2 10^3/uL (0.0-0.5); EOS % 1.9 % (0.0-3.0); HEMATOCRIT 30.6 % (42.0-52.0); HEMOGLOBIN 9.3 g/dl (13.5-17.5); LYMPH # 0.9 10^3/uL (1.5-5.0); LYMPH % 10.3 % (24.0-44.0); MEAN CORPUSCULAR HEMOGLOBIN 25.2 pg (27.0-33.0); MEAN CORPUSCULAR HGB CONC 30.4 g/dl (32.0-36.5); MEAN CORPUSCULAR VOLUME 82.9 fl (80.0-96.0); MONO # 0.8 10^3/uL (0.0-0.8); MONO % 9.2 % (0.0-5.0); NEUTROPHILS # 6.9 10^3/uL (1.5-8.5); NEUTROPHILS % 77.6 % (36.0-66.0); PLATELET COUNT, AUTOMATED 295 10^3/uL (150-450); RED BLOOD COUNT 3.69 10^6/uL (4.30-6.10); WHITE BLOOD COUNT 8.8 10^3/uL (4.0-10.0)
--- NOTE | 2019-10-24 16:11 | REPVR ---
PROCEDURE INFORMATION: Exam: XR Chest, 1 View Exam date and time: 10/24/2019 3:20 PM Age: 58 years old Clinical indication: Other: Lethargy TECHNIQUE: Imaging protocol: XR of the chest Views: 1 view. COMPARISON: MI Chest, 1 view 08/12/2019 5:30 PM FINDINGS: Tubes, catheters and devices: Pacemaker leads are present. Lungs: There is a linear and wedge-shaped area of consolidated lung at the medial right lung base which may be atelectasis or a combination of atelectasis and infiltrate which has progressed since May. A CT scan with contrast would be of benefit to exclude any possibility of underlying pathology. Heart/Mediastinum: There is mild cardiomegaly. Bones/joints: There are multiple sternal wires and the upper 3 are fragmented. IMPRESSION: Wedge-shaped area of consolidated lung medial right lung base which has progressed when compared with the examination since May. Suggest CT scan with contrast to exclude any possibility of underlying nodular pathology. Electronically signed by: Chago Castaneda On 10/24/2019 16:11:42 PM
[2019-10-24 16:20] LABS: CALCIUM LEVEL 8.4 MG/DL (8.5-10.1); CREATININE FOR GFR 2.46 MG/DL (0.70-1.30); GLOMERULAR FILTRATION RATE 28.9 (>56); POTASSIUM SERUM 4.1 MEQ/L (3.5-5.1)
[2019-10-24] MEDS ORDERED: FUROSEMIDE 100MG/10ML VIAL (J1940) IV ONE (18:15)
[2019-10-24] MEDS ORDERED: ALBU83IN INH (18:18)
[2019-10-24] MEDS ORDERED: PROBCAP14 PO (18:18)
--- NOTE | 2019-10-24 18:37 | HPEPDOC ---
General Date of Admission 10/24/19 Date of Service: Oct 24, 2019 Chief Complaint The patient is a 58-year-old male admitted with a reason for visit of Lethargy. Source: Patient, RN/MD History of Present Illness 58-year-old male with past medical history of recurrent left knee effusion, gouty arthritis of the left knee, coronary artery disease status post CABG, Systolic and diastolic congestive heart failure, atrial fibrillation on Eliquis, COPD, Pulmonary hypertension, cirrhosis s/p paracentesis in april 2019, h/o alcohol abuse int eh past, H/o CVA with left sided numbness and pain, anxiety, diabetes, hypertension, hyperlipidemia, plate like atelectasis of right middle lobe presented to ED bilateral leg swelling, abdominal swelling, abdominal pain and excessive sleepiness. Patient had a fall on his face 2 weeks ago when he tripped over his slippers and had bruising around both of his eyes. He also noted gradual swelling of his legs of he past 3 weeks and then started having swelling of his abdomen over the past week. he also reports pain in his abdomen in all the quadrants sharp aching in nature about 4/10 with no radiation. He also reports constipation. He called Dr Major's office 2 days ago and was instructed to double up on his water pills which he has been doing with no improvement in the swelling . His right knee has started hurting for the past few days, dull aching in nature about 3/10 in intensity and he has been unable to bear weight on it. He reports that he was supposed to go for liver Bx 2 days later for his cirrhosis. he also reported that he has been feeling very tired and sleeping more. He sleeps more during the day than night. He reports that he is more awake during the night as he has to use the bathroom frequently wheas during the day he does not go to the bathroom much. He was admitted for CHF exacerbation and possible hepatic encephalopathy and decompensated cirrhosis. Jean had a CT chest due to abnormal CXR. Abnormal CXR present from november [address] chest shows Consolidation of the segment of the right middle lobe with air bronchograms and consolidation of a segment of the right lower lobe with air bronchograms probably the result of atelectasis and pneumonia. Home Medications Scheduled Apixaban (Eliquis) 2.5 Mg Tablet, 2.5 MG PO BID, (Reported) Bumetanide (Bumetanide) 2 Mg Tablet, 2 MG PO BID, (Reported) TAKES AM/AFTERNOON Buprenorphine (Butrans) 10 Mcg/Hr Patch.tdwk, 20 MCG TOP Q7D, (Reported) APPLIED TO RIGHT CHEST Buspirone HCl (Buspirone HCl) 10 Mg Tablet, 10 MG PO BID, (Reported) Ergocalciferol (Vitamin D2) (Vitamin D2) 50,000 Units Cap, 50,000 UNITS PO QWEEK, (Reported) SUNDAYS Gabapentin (Gabapentin) 400 Mg Cap, 400 MG PO BID, (Reported) Glipizide (Glipizide) 5 Mg Tablet, 5 MG PO BID, (Reported) Insulin Glargine,Hum.rec.anlog (Toujeo Solostar) 300 Unit/1 Ml Insuln.pen, 20 UNITS SC DAILY, (Reported) Lactobacillus Acidophilus (Probiotic) 1 Each Capsule, 1 CAP PO DAILY, (Reported) Oxycodone HCl (Oxycodone HCl) 5 Mg Tablet, 5 MG PO QID, (Reported) 0700/1200/1800/2100 Polyvinyl Alcohol (Artificial Tears) 15 Ml Drops, 1 DROP OU BID, (Reported) Rosuvastatin Calcium (Rosuvastatin Calcium) 40 Mg Tablet, 20 MG PO QHS, (Reported) Scheduled PRN Albuterol Sulf (Albuterol Sulfate) 2.5 Mg/3 Ml Vial.neb, 2.5 MG INH Q4H PRN for SHORTNESS OF BREATH, (Reported) Albuterol Sulfate (Ventolin Hfa) 18 Gm Hfa.aer.ad, 1 PUFF INH PRN PRN for SOB/WHEEZING, (Reported) Nitroglycerin (Nitrostat) 0.4 Mg Subl, 0.4 MG SL NITRO PRN for CHEST PAIN, (Reported) Allergies Coded Allergies: fenofibrate (Unverified Allergy, Unknown, UNKNOWN REACTION, 10/24/19) gemfibrozil (Unverified Allergy, Unknown, UNKNOWN REACTION, 10/24/19) baclofen (Verified Adverse Reaction, Intermediate, blacks out, 10/24/19) metformin (Verified Adverse Reaction, Intermediate, diarrhea, 02/05/19) Past Medical History Medical History Systolic and diastolic congestive heart failure s/p AICD, atrial fibrillation on Eliquis, Recurrent Left knee effusion, Left Knee gouty arthritis, Hyperuricemia, CKD stage 3, Diabetes with peripheral neuropathy, Coronary artery disease status post CABG, COPD, Cirrhosis, H/o CVA, Chronic pain from CVA in 2015 with residual Chronic Left sided pain / paraesthesia and numbness, anxiety, hypertension, hyperlipidemia, DDD, sciatica, anemia of chronic disease Surgical History Coronary artery bypass graft (CABG) and defibrillator placement. Colonoscopy and endoscopy in 2017. Vascular reconstruction of the left leg. Some bypass procedure. LEFT Knee wash out Family History Significant Family History: Heart disease A-FIB/CHADSVASC A-FIB History Current/History of A-Fib/PAF?: Yes Current PO Anticoag Therapy: Yes Review of Systems Constitutional: Denies: Chills, Fever, Night Sweats Eyes: Denies: Pain, Vision change ENT: Denies: Head Aches, Ear Pain, Dysphagia Skin: Denies: Rash, Lesions, Breakdown Pulmonary: Denies: Dyspnea, Cough Cardiovascular: Denies: Chest Pain, Palpitations, Orthopnea, Paroxysmal Noc. Dyspnea, Lt Headedness Gastrointestinal: Reports: Abdominal Pain, Constipation Genitourinary: Denies: Dysuria, Frequency, Incontinence, Retention Hematologic: Reports: Bruising Musculoskeletal: Reports: Back Pain Physical Examination General Exam: Positive: Alert, Cooperative, No Acute Distress Eye Exam: Positive: PERRLA, Conjunctiva & lids normal, EOMI; Negative: Sclera icteric ENT Exam: Positive: Mucous membr. moist/pink, Pharynx Normal, Other ENT (brouising around both eyes and forehead and nose) Neck Exam: Positive: Supple, JVD; Negative: thyromegaly Chest Exam: Positive: Normal air movement, Other (basal crackles ) Heart Exam: Positive: Rate Normal, Regular Rhythm, Normal S1, Normal S2; Negative: Murmurs, Rubs Telemetry: Positive: No significant arrhythmia Abdomen Exam: Positive: Normal bowel sounds, Soft, Tenderness (in all the quadrants), Other (No guarding or rigidity or rebound) Extremity Exam: Positive: Edema (bilateral 3+ pedal.); Negative: Clubbing Neuro Exam: Positive: Normal Speech, Strength at 5/5 X4 ext, Normal Tone, Other (flap present) Psych Exam: Positive: Memory Intact, Oriented x 3 Vital Signs Vital Signs Date Time Temp Pulse Resp B/P (MAP) Pulse Ox O2 Delivery O2 Flow Rate FiO2 8/26/20 14:35 97.3 62 17 122/70 (87) 98 Room Air Laboratory Data Labs 24H Laboratory Tests 2 10/24/19 15:15: Immature Granulocyte % (Auto) 0.5, Neutrophils (%) (Auto) 77.6H, Lymphocytes (%) (Auto) 10.3L, Monocytes (%) (Auto) 9.2H, Eosinophils (%) (Auto) 1.9, Basophils (%) (Auto) 0.5, Neutrophils # (Auto) 6.9, Lymphocytes # (Auto) 0.9L, Monocytes # (Auto) 0.8, Eosinophils # (Auto) 0.2, Basophils # (Auto) 0.0, Nucleated Red Blood Cells % (auto) 0.0, Anion Gap 10, Glomerular Filtration Rate 28.9L, Calci um Level 8.4L, XF-Aym-N-Type Natriuretic Peptide 6127H CBC/BMP Laboratory Tests 10/24/19 15:15 Assessment/Plan 58-year-old male with past medical history of recurrent left knee effusion, gouty arthritis of the left knee, coronary artery disease status post CABG, Systolic and diastolic congestive heart failure, atrial fibrillation on Eliquis, COPD, Pulmonary hypertension, cirrhosis s/p paracentesis in april 2019, h/o alcohol abuse int eh past, H/o CVA with left sided numbness and pain, anxiety, diabetes, hypertension, hyperlipidemia, plate like atelectasis of right middle lobe presented to ED bilateral leg swelling, abdominal swelling, abdominal pain and excessive sleepiness. Patient had a fall on his face 2 weeks ago when he tripped over his slippers and had bruising around both of his eyes. He also noted gradual swelling of both of his legs of he past 3 weeks and then started having pain and swelling of his abdomen over the past week. He reports that he was supposed to go for liver Bx 2 days later for his cirrhosis. He also reported that he has been feeling very tired and sleeping more. He sleeps more during the day than night. He was admitted for CHF exacerbation and possible hepatic encephalopathy and decompensated cirrhosis. Acute on chronic Chronic Systolic and diastolic Congestive heart failure/ AICD in place with moderate pulmonary hypertension EF of 20% to 25%. will start IV lasix Acute metabolic encephalopathy Hepatic encephalopathy/ uremic encephalopathy/ medications flap present will start on lactulose, ceftriaxone empirically to cover for SBP check ammonia, liver profile. Decompensated cirrhosis / rule out SBP will arrange for peritoneal tap tomorrow if there is enough ascites. Cardiac cirrhosis Vs alcoholic cirrhosis. Has past h/o alcohol abuse quit > 20 years ago. spironolactone dced before due to hyperkalemia. continue Lasix and ceftriaxone KAROLINA on CKD stage 3 Baseline creatinine around 1.8 to 2.0 due to CHF exacerbation and decompensated cirrhosis. Possible Pneumonia/ atelectasis as per CT chest will continue with ceftriaxone. Coronary artery disease/CABG/ hyperlipidemia statin, eliquis will hold Atrial fibrillation. EKG is paced. will hold eliquis for possible tap tomorrow COPD/ Moderate pulmonary hypertension symbicort Chronic Pain from CVA in 2014 with residual Chronic Left sided pain / paraesthesia and numbness. and DDD and sciatica follows with pain management on narcotics as outpatient. tylenol, oxycodone, gabapentin. On Buprenorphine patch as outpatient. Gout with recurrent attacks of gouty arthritis continue home meds. DIABETES / peripheral neuropathy continue levemir and lispro SS gabapentin HYPERTENSION Bp well controlled Hyperlipidemia statin ANXIETY buspar Anemia of chronic disease stable. Plan / VTE VTE Prophylaxis Ordered?: Yes JAUN NATHAN MD Oct 24, 2019 17:52
[2019-10-24 18:38] LABS: INR 1.41; PROTHROMBIN TIME 17.6 SECONDS (11.8-14.0)
[2019-10-24 18:39] LABS: PARTIAL THROMBOPLASTIN TIME 42.6 SECONDS (25.0-38.4)
[2019-10-24] MEDS ORDERED: GLUCAGON INJ 1MG VIAL SC PRN (18:45)
[2019-10-24] MEDS ORDERED: ALBUTEROL SULFATE 2.5 MG/0.5 ML INH NEB SOLN INH PRN (18:45)
[2019-10-24] MEDS ORDERED: GLUCOSE 4GM CHEW TABLET PO PRN (18:45)
[2019-10-24] MEDS ORDERED: DEXTROSE 50% 50 ML SYRINGE IV PRN (18:45)
[2019-10-24] MEDS ORDERED: cefTRIAXone SOD 1 GM in D5W MINI-BAG PLUS 50 ML IV SCH (19:00)
--- NOTE | 2019-10-24 19:00 | REPVR ---
PROCEDURE INFORMATION: Exam: CT Chest Without Contrast Exam date and time: 10/24/2019 6:30 PM Age: 58 years old Clinical indication: Abnormal findings; Abnormal radiologic exam of lung or chest; Additional info: Consolidation rll TECHNIQUE: Imaging protocol: Computed tomography of the chest without contrast. 3D rendering (Not supervised by radiologist): MIP and/or 3D reconstructed images were created by the technologist. Radiation optimization: All CT scans at this facility use at least one of these dose optimization techniques: automated exposure control; mA and/or kV adjustment per patient size (includes targeted exams where dose is matched to clinical indication); or iterative reconstruction. COMPARISON: CT Chest without contrast 05/28/2019 2:32 PM FINDINGS: Lungs: There is consolidation of a segment of the right lower lobe and also with air bronchograms. This is probably atelectasis and infiltrate. There is a patchy area of infiltrate left lingula. There is no evidence of pneumothorax Heart: There is moderate cardiomegaly. There is no pericardial effusion. There is a moderate right pleural effusion and a small left pleural effusion. There is consolidation of segments of the right middle lobe with air bronchograms. Mediastinal space: Postoperative changes are noted in the mediastinum. Aorta: Unremarkable. No aortic aneurysm. Lymph nodes: There are small lymph nodes in the upper mediastinum. There are also small lymph nodes right and left hilum. Intraperitoneal space: There is a small amount of ascites along the margin of the liver and spleen. Bones/joints: Old rib healed rib fractures are noted. Other findings: There is fragmentation of the upper sternal wires. IMPRESSION: 1. Moderate right pleural effusion and small left pleural effusion. 2. Small amount of ascites along the margin of the liver and spleen. 3. There is moderate cardiomegaly. 4. Consolidation of the segment of the right middle lobe with air bronchograms and consolidation of a segment of the right lower lobe with air bronchograms probably the result of atelectasis and pneumonia. Electronically signed by: Chago Castaneda On 10/24/2019 19:00:34 PM
[2019-10-24 19:03] LABS: ALBUMIN 2.2 GM/DL (3.2-5.2); BILIRUBIN,DIRECT 1.2 MG/DL (0.0-0.2); BILIRUBIN,TOTAL 1.6 MG/DL (0.2-1.0); TOTAL PROTEIN 7.8 GM/DL (6.4-8.2)
[2019-10-24] MEDS: LACTULOSE 20 GM/30 ML SYRUP UD PO SCH (20:15)
[2019-10-24] MEDS: ROSUVASTATIN 10 MG TAB (CRESTOR) PO SCH (20:54)
[2019-10-24] MEDS: GABAPENTIN 400 MG CAP PO SCH (20:54)
[2019-10-24] MEDS ORDERED: HumaLOG INSULIN (NovoLOG) PER UNIT SC SCH (21:00)
[2019-10-24 21:04] VITALS: BP 106/69
[2019-10-25] VITALS: BP 100/58
[2019-10-25] MEDS: LACTULOSE 20 GM/30 ML SYRUP UD PO SCH ×4 (00:54→17:37)
[2019-10-25] MEDS: FUROSEMIDE 40MG/4ML VIAL (J1940) IV SCH ×3 (01:03→17:38)
[2019-10-25 04:00] VITALS: BP 106/66
[2019-10-25 07:29] LABS: BASO # 0.1 10^3/uL (0.0-0.2); BASO % 0.7 % (0.0-1.0); EOS # 0.1 10^3/uL (0.0-0.5); EOS % 1.4 % (0.0-3.0); HEMOGLOBIN 9.1 g/dl (13.5-17.5); LYMPH # 1.3 10^3/uL (1.5-5.0); LYMPH % 14.6 % (24.0-44.0); MEAN CORPUSCULAR HEMOGLOBIN 25.3 pg (27.0-33.0); MEAN CORPUSCULAR HGB CONC 30.3 g/dl (32.0-36.5); MEAN CORPUSCULAR VOLUME 83.3 fl (80.0-96.0); MONO # 0.9 10^3/uL (0.0-0.8); MONO % 9.8 % (0.0-5.0); NEUTROPHILS # 6.4 10^3/uL (1.5-8.5); NEUTROPHILS % 73.2 % (36.0-66.0); PLATELET COUNT, AUTOMATED 327 10^3/uL (150-450); WHITE BLOOD COUNT 8.8 10^3/uL (4.0-10.0)
[2019-10-25] MEDS ORDERED: glipiZIDE (GLUCOTROL) 5 MG TAB PO SCH (07:30)
[2019-10-25 07:53] LABS: CALCIUM LEVEL 8.2 MG/DL (8.5-10.1); CREATININE FOR GFR 2.45 MG/DL (0.70-1.30); MAGNESIUM LEVEL 2.7 MG/DL (1.8-2.4); POTASSIUM SERUM 4.2 MEQ/L (3.5-5.1)
[2019-10-25 08:00] VITALS: BP 118/70
[2019-10-25] MEDS: HumaLOG INSULIN (NovoLOG) PER UNIT SC SCH ×2 (08:48→12:00)
[2019-10-25] MEDS: GABAPENTIN 400 MG CAP PO SCH ×2 (08:49→20:31)
[2019-10-25] MEDS ORDERED: LEVEMIR (INSULIN DETEMIR) 1 UNITS/0.01ML SC SCH (09:00)
[2019-10-25] MEDS ORDERED: ONDANSETRON 4MG/2ML VIAL IV PRN (10:45)
--- NOTE | 2019-10-25 10:45 | IPNPDOC ---
Text Note Date of Service The patient was seen on 10/25/19. NOTE Subjective: patient somnolent falling asleep during rounds. Has not taken any lactulose last night. Patient says it makes him throw up. I offered lactulose enema but agreed to try to take orally. No fever, still has abdominal pain, no cough or phlegm. Physical Exam: Vitals: As below. General Exam: Positive: Alert, Cooperative, No Acute Distress Eye Exam: Positive: PERRLA, Conjunctiva & lids normal, EOMI; Negative: Sclera icteric ENT Exam: Positive: Mucous membr. moist/pink, Pharynx Normal, Other ENT (brouising around both eyes and forehead and nose) Neck Exam: Positive: Supple, JVD; Negative: thyromegaly Chest Exam: Positive: Normal air movement, Other (basal crackles ) Heart Exam: Positive: Rate Normal, Regular Rhythm, Normal S1, Normal S2; Negative: Murmurs, Rubs Telemetry: Positive: No significant arrhythmia Abdomen Exam: Positive: Normal bowel sounds, Soft, Tenderness (in all the quadrants), Other (No guarding or rigidity or rebound) Extremity Exam: Positive: Edema (bilateral 3+ pedal.); Negative: Clubbing Neuro Exam: Positive: Normal Speech, Strength at 5/5 X4 ext, Normal Tone, Other (flap present) Psych Exam: Positive: Memory Intact, Oriented x 3 Labs and Radiology reviewed. Assessment and plan: 58-year-old male with past medical history of recurrent left knee effusion, gouty arthritis of the left knee, coronary artery disease status post CABG, Systolic and diastolic congestive heart failure, atrial fibrillation on Eliquis, COPD, Pulmonary hypertension, cirrhosis s/p paracentesis in april 2019, h/o alcohol abuse int eh past, H/o CVA with left sided numbness and pain, anxiety, diabetes, hypertension, hyperlipidemia, plate like atelectasis of right middle lobe presented to ED bilateral leg swelling, abdominal swelling, abdominal pain and excessive sleepiness. Patient had a fall on his face 2 weeks ago when he tripped over his slippers and had bruising around both of his eyes. He also noted gradual swelling of both of his legs of he past 3 weeks and then started having pain and swelling of his abdomen over the past week. He reports that he was supposed to go for liver Bx 2 days later for his cirrhosis. He also reported that he has been feeling very tired and sleeping more. He sleeps more during the day than night. He was admitted for CHF exacerbation and possible hepatic encephalopathy and decompensated cirrhosis. Acute on chronic Chronic Systolic and diastolic Congestive heart failure/ AICD in place with moderate pulmonary hypertension EF of 20% to 25%. IV lasix Monitor I/O, daily weights. Acute metabolic encephalopathy Hepatic encephalopathy/ uremic encephalopathy/ Narcotic medications( oxycodone and buprenorphine patch) In the background of renal and hepatic impairment his dose of narcotic may need to be reduced. flap present, somnolent. lactulose, ceftriaxone empirically to cover for SBP check ammonia, liver profile. Decompensated cirrhosis / rule out SBP will arrange for peritoneal tap if there is enough ascites. Cardiac cirrhosis Vs alcoholic cirrhosis. Has past h/o alcohol abuse quit > 20 years ago. spironolactone dced before due to hyperkalemia. continue Lasix and ceftriaxone KAROLINA on CKD stage 3 Baseline creatinine around 1.8 to 2.0 due to CHF exacerbation and decompensated cirrhosis. Possible Pneumonia/ atelectasis as per CT chest will continue with ceftriaxone. Coronary artery disease/CABG/ hyperlipidemia statin, eliquis will hold for procedure. Atrial fibrillation. EKG is paced. will hold eliquis for possible tap. COPD/ Moderate pulmonary hypertension symbicort Chronic Pain from CVA in 2014 with residual Chronic Left sided pain / paraesthesia and numbness. and DDD and sciatica follows with pain management on narcotics as outpatient. tylenol, oxycodone, gabapentin. On Buprenorphine patch as outpatient. Gout with recurrent attacks of gouty arthritis continue home meds. DIABETES / peripheral neuropathy continue levemir and lispro SS gabapentin HYPERTENSION Bp well controlled Hyperlipidemia statin ANXIETY buspar Anemia of chronic disease stable. VS,Fishbone, I+O VS, Fishbone, I+O Laboratory Tests 10/24/19 15:15 10/25/19 07:06 Vital Signs Date Time Temp Pulse Resp B/P (MAP) Pulse Ox O2 Delivery O2 Flow Rate FiO2 10/25/19 10:20 98.1 66 66 97 Room Air 10/25/19 08:00 118/70 (86) I&O- Last 24 Hours up to 6 AM 10/25/19 05:59 Intake Total 0 ml Output Total 300 ml Balance -300 ml JAUN NATHAN MD Oct 25, 2019 10:45
[2019-10-25 12:00] VITALS: BP 125/77
[2019-10-25] MEDS: D5W 1,000 ML IV SCH (14:54)
[2019-10-25] MEDS ORDERED: DEXTROSE 50% 50 ML SYRINGE IV STA (15:24)
[2019-10-25 16:00] VITALS: BP 105/63
[2019-10-25] MEDS: DEXTROSE 50% 50 ML SYRINGE IV SCH (17:38)
[2019-10-25 20:00] VITALS: BP 107/70
[2019-10-25] MEDS: ROSUVASTATIN 10 MG TAB (CRESTOR) PO SCH (20:31)
[2019-10-25] MEDS: cefTRIAXone SOD 1 GM in D5W MINI-BAG PLUS 50 ML IV SCH (20:32)
[2019-10-26] VITALS: BP 102/65
[2019-10-26] MEDS: DEXTROSE 50% 50 ML SYRINGE IV SCH ×4 (00:44→17:57)
[2019-10-26] MEDS: LACTULOSE 20 GM/30 ML SYRUP UD PO SCH ×4 (00:44→17:38)
[2019-10-26] MEDS: FUROSEMIDE 40MG/4ML VIAL (J1940) IV SCH ×2 (01:26→11:29)
[2019-10-26 04:00] VITALS: BP 124/56
[2019-10-26 07:45] LABS: BASO % 0.5 % (0.0-1.0); EOS # 0.2 10^3/uL (0.0-0.5); EOS % 2.8 % (0.0-3.0); HEMATOCRIT 28.3 % (42.0-52.0); HEMOGLOBIN 8.6 g/dl (13.5-17.5); LYMPH # 0.9 10^3/uL (1.5-5.0); LYMPH % 11.5 % (24.0-44.0); MEAN CORPUSCULAR HEMOGLOBIN 25.1 pg (27.0-33.0); MEAN CORPUSCULAR HGB CONC 30.4 g/dl (32.0-36.5); MEAN CORPUSCULAR VOLUME 82.5 fl (80.0-96.0); MONO # 0.8 10^3/uL (0.0-0.8); MONO % 10.3 % (0.0-5.0); NEUTROPHILS # 5.6 10^3/uL (1.5-8.5); NEUTROPHILS % 74.5 % (36.0-66.0); PLATELET COUNT, AUTOMATED 285 10^3/uL (150-450); RED BLOOD COUNT 3.43 10^6/uL (4.30-6.10); WHITE BLOOD COUNT 7.6 10^3/uL (4.0-10.0)
[2019-10-26 07:50] VITALS: BP 115/74
[2019-10-26 07:50] LABS: CALCIUM LEVEL 8.2 MG/DL (8.5-10.1); CREATININE FOR GFR 2.51 MG/DL (0.70-1.30); GLOMERULAR FILTRATION RATE 28.2 (>56); MAGNESIUM LEVEL 2.7 MG/DL (1.8-2.4); POTASSIUM SERUM 3.9 MEQ/L (3.5-5.1)
[2019-10-26] MEDS ORDERED: LEVEMIR (INSULIN DETEMIR) 1 UNITS/0.01ML SC SCH (09:00)
[2019-10-26] MEDS: GABAPENTIN 400 MG CAP PO SCH ×2 (09:00→20:34)
--- NOTE | 2019-10-26 11:22 | IPNPDOC ---
Text Note Date of Service The patient was seen on 10/26/19. NOTE Subjective: Patient was hypoglycemic throughout the afternoon and night needing dextrose iv. This morning he is more awake and had a bowel movement though is constipated. He will be going down for a paracentesis today. No fever or chills. Physical Exam: Vitals: As below. General Exam: Positive: Alert, Cooperative, No Acute Distress Eye Exam: Positive: PERRLA, Conjunctiva & lids normal, EOMI; Negative: Sclera icteric ENT Exam: Positive: Mucous membr. moist/pink, Pharynx Normal, Other ENT (bruising around both eyes and forehead and nose) Neck Exam: Positive: Supple, JVD; Negative: thyromegaly Chest Exam: Positive: Normal air movement, Other (basal crackles ) Heart Exam: Positive: Rate Normal, Regular Rhythm, Normal S1, Normal S2; Negative: Murmurs, Rubs Telemetry: Positive: No significant arrhythmia Abdomen Exam: Positive: Normal bowel sounds, Soft, Tenderness (in all the quadrants), Other (No guarding or rigidity or rebound) Extremity Exam: Positive: Edema (bilateral 3+ pedal.); Negative: Clubbing Neuro Exam: Positive: Normal Speech, Strength at 5/5 X4 ext, Normal Tone, Other (flap present) Psych Exam: Positive: Memory Intact, Oriented x 3 Labs and Radiology reviewed. Assessment and plan: 58-year-old male with past medical history of recurrent left knee effusion, gouty arthritis of the left knee, coronary artery disease status post CABG, Systolic and diastolic congestive heart failure, atrial fibrillation on Eliquis, COPD, Pulmonary hypertension, cirrhosis s/p paracentesis in april 2019, h/o alcohol abuse int eh past, H/o CVA with left sided numbness and pain, anxiety, diabetes, hypertension, hyperlipidemia, plate like atelectasis of right middle lobe presented to ED bilateral leg swelling, abdominal swelling, abdominal pain and excessive sleepiness. Patient had a fall on his face 2 weeks ago when he tripped over his slippers and had bruising around both of his eyes. He also noted gradual swelling of both of his legs of he past 3 weeks and then started having pain and swelling of his abdomen over the past week. He reports that he was supposed to go for liver Bx 2 days later for his cirrhosis. He also reported that he has been feeling very tired and sleeping more. He sleeps more during the day than night. He was admitted for CHF exacerbation and possible hepatic encephalopathy and decompensated cirrhosis. Acute on chronic Chronic Systolic and diastolic Congestive heart failure/ AICD in place with moderate pulmonary hypertension EF of 20% to 25%. IV lasix Monitor I/O, daily weights. Acute metabolic encephalopathy Hepatic encephalopathy/ uremic encephalopathy/ Narcotic medications( oxycodone and buprenorphine patch) and hypoglycemia In the background of renal and hepatic impairment his dose of narcotic may need to be reduced. lactulose, ceftriaxone empirically to cover for SBP a little better today. Decompensated cirrhosis / rule out SBP will arrange for peritoneal tap if there is enough ascites. Cardiac cirrhosis Vs alcoholic cirrhosis. Has past h/o alcohol abuse quit > 20 years ago. spironolactone dced before due to hyperkalemia. continue Lasix and ceftriaxone KAROLINA on CKD stage 3 Baseline creatinine around 1.8 to 2.0 due to CHF exacerbation and decompensated cirrhosis. Possible Pneumonia/ atelectasis as per CT chest will continue with ceftriaxone. Coronary artery disease/CABG/ hyperlipidemia statin, eliquis will hold for procedure. Atrial fibrillation. EKG is paced. will hold eliquis for possible tap. COPD/ Moderate pulmonary hypertension symbicort Chronic Pain from CVA in 2015 with residual Chronic Left sided pain / paraesthesia and numbness. and DDD and sciatica follows with pain management on narcotics as outpatient. tylenol, oxycodone, gabapentin. On Buprenorphine patch as outpatient. Gout with recurrent attacks of gouty arthritis continue home meds. DIABETES / peripheral neuropathy continue levemir and lispro SS gabapentin HYPERTENSION Bp well controlled Hyperlipidemia statin ANXIETY buspar Anemia of chronic disease stable. VS,Fishbone, I+O VS, Fishbone, I+O Laboratory Tests 10/26/19 07:19 Vital Signs Date Time Temp Pulse Resp B/P (MAP) Pulse Ox O2 Delivery O2 Flow Rate FiO2 10/26/19 07:50 97.4 66 16 115/74 (88) 96 Room Air I&O- Last 24 Hours up to 6 AM 10/26/19 06:00 Intake Total 510 ml Output Total 200 ml Balance 310 ml JAUN NATHAN MD Oct 26, 2019 11:21
[2019-10-26] MEDS: D5W 1,000 ML IV SCH (11:30)
[2019-10-26 12:00] VITALS: BP 103/74
[2019-10-26 16:00] VITALS: BP 108/62
[2019-10-26 20:00] VITALS: BP 106/58
[2019-10-26] MEDS: ROSUVASTATIN 10 MG TAB (CRESTOR) PO SCH (20:33)
[2019-10-26] MEDS: cefTRIAXone SOD 1 GM in D5W MINI-BAG PLUS 50 ML IV SCH (20:33)
[2019-10-27] VITALS: BP 113/61
[2019-10-27] MEDS: DEXTROSE 50% 50 ML SYRINGE IV SCH ×5 (00:42→23:56)
[2019-10-27] MEDS: D5W 1,000 ML IV SCH ×2 (00:43→20:16)
[2019-10-27 04:00] VITALS: BP 105/60
[2019-10-27 05:27] LABS: BASO % 0.4 % (0.0-1.0); EOS # 0.2 10^3/uL (0.0-0.5); EOS % 2.7 % (0.0-3.0); HEMATOCRIT 28.7 % (42.0-52.0); HEMOGLOBIN 8.8 g/dl (13.5-17.5); LYMPH % 14.5 % (24.0-44.0); MEAN CORPUSCULAR HEMOGLOBIN 25.1 pg (27.0-33.0); MEAN CORPUSCULAR HGB CONC 30.7 g/dl (32.0-36.5); MEAN CORPUSCULAR VOLUME 81.8 fl (80.0-96.0); MONO # 0.7 10^3/uL (0.0-0.8); MONO % 10.4 % (0.0-5.0); NEUTROPHILS # 5.1 10^3/uL (1.5-8.5); NEUTROPHILS % 71.7 % (36.0-66.0); PLATELET COUNT, AUTOMATED 259 10^3/uL (150-450); RED BLOOD COUNT 3.51 10^6/uL (4.30-6.10); WHITE BLOOD COUNT 7.1 10^3/uL (4.0-10.0)
[2019-10-27 05:47] LABS: CALCIUM LEVEL 8.5 MG/DL (8.5-10.1); CREATININE FOR GFR 2.44 MG/DL (0.70-1.30); GLOMERULAR FILTRATION RATE 29.2 (>56); MAGNESIUM LEVEL 2.6 MG/DL (1.8-2.4); POTASSIUM SERUM 3.9 MEQ/L (3.5-5.1)
[2019-10-27 07:59] VITALS: BP 114/72
[2019-10-27] MEDS: GABAPENTIN 400 MG CAP PO SCH ×2 (09:07→20:18)
[2019-10-27] MEDS: LACTULOSE 20 GM/30 ML SYRUP UD PO SCH ×2 (09:07→20:18)
[2019-10-27] MEDS: FUROSEMIDE 100MG/10ML VIAL (J1940) IV SCH ×2 (09:08→17:16)
--- NOTE | 2019-10-27 10:50 | IPNPDOC ---
Text Note Date of Service The patient was seen on 10/27/19. NOTE Subjective: Sugars better now. Had several bowel movements yesterday. Less so mnolent today. Still very week. No fever or chills. Abdominal pain better. Physical Exam: Vitals: As below. General Exam: Positive: Alert, Cooperative, No Acute Distress Eye Exam: Positive: PERRLA, Conjunctiva & lids normal, EOMI; Negative: Sclera icteric ENT Exam: Positive: Mucous membr. moist/pink, Pharynx Normal, Other ENT (bruising around both eyes and forehead and nose) Neck Exam: Positive: Supple, JVD; Negative: thyromegaly Chest Exam: Positive: Normal air movement, Other (basal crackles ) Heart Exam: Positive: Rate Normal, Regular Rhythm, Normal S1, Normal S2; Negative: Murmurs, Rubs Telemetry: Positive: No significant arrhythmia Abdomen Exam: Positive: Normal bowel sounds, Soft, Tenderness (in all the quadrants), Other (No guarding or rigidity or rebound) Extremity Exam: Positive: Edema (bilateral 3+ pedal.); Negative: Clubbing Neuro Exam: Positive: Normal Speech, Strength at 5/5 X4 ext, Normal Tone, Other (flap present) Psych Exam: Positive: Memory Intact, Oriented x 3 Labs and Radiology reviewed. Assessment and plan: 58-year-old male with past medical history of recurrent left knee effusion, gouty arthritis of the left knee, coronary artery disease status post CABG, Systolic and diastolic congestive heart failure, atrial fibrillation on Eliquis, COPD, Pulmonary hypertension, cirrhosis s/p paracentesis in april 2019, h/o alcohol abuse int eh past, H/o CVA with left sided numbness and pain, anxiety, diabetes, hypertension, hyperlipidemia, plate like atelectasis of right middle lobe presented to ED bilateral leg swelling, abdominal swelling, abdominal pain and excessive sleepiness. Patient had a fall on his face 2 weeks ago when he tripped over his slippers and had bruising around both of his eyes. He also noted gradual swelling of both of his legs of he past 3 weeks and then started having pain and swelling of his abdomen over the past week. He reports that he was supposed to go for liver Bx 2 days later for his cirrhosis. He also reported that he has been feeling very tired and sleeping more. He sleeps more during the day than night. He was admitted for CHF exacerbation and possible hepatic encephalopathy and decompensated cirrhosis. Acute on chronic Chronic Systolic and diastolic Congestive heart failure/ AICD in place with moderate pulmonary hypertension EF of 20% to 25%. IV lasix Monitor I/O, daily weights. Acute metabolic encephalopathy Hepatic encephalopathy/ uremic encephalopathy/ Narcotic medications( oxycodone and buprenorphine patch) and hypoglycemia In the background of renal and hepatic impairment his dose of narcotic may need to be reduced. lactulose, ceftriaxone empirically to cover for SBP better today. Decompensated cirrhosis / rule out SBP will arrange for peritoneal tap if there is enough ascites. Cardiac cirrhosis Vs alcoholic cirrhosis. Has past h/o alcohol abuse quit > 20 years ago. spironolactone dced before due to hyperkalemia. continue Lasix and ceftriaxone KAROLINA on CKD stage 3 Baseline creatinine around 1.8 to 2.0 due to CHF exacerbation and decompensated cirrhosis. Possible Pneumonia/ atelectasis as per CT chest will continue with ceftriaxone. Coronary artery disease/CABG/ hyperlipidemia statin, eliquis will hold for procedure. Atrial fibrillation. EKG is paced. will hold eliquis for possible tap. COPD/ Moderate pulmonary hypertension symbicort Chronic Pain from CVA in 2014 with residual Chronic Left sided pain / paraesthesia and numbness. and DDD and sciatica follows with pain management on narcotics as outpatient. tylenol, oxycodone, gabapentin. On Buprenorphine patch as outpatient. Gout with recurrent attacks of gouty arthritis continue home meds. DIABETES / peripheral neuropathy continue levemir and lispro SS gabapentin HYPERTENSION Bp well controlled Hyperlipidemia statin ANXIETY buspar Anemia of chronic disease stable. VS,Fishbone, I+O VS, Fishbone, I+O Laboratory Tests 10/27/19 04:57 Vital Signs Date Time Temp Pulse Resp B/P (MAP) Pulse Ox O2 Delivery O2 Flow Rate FiO2 10/27/19 07:59 98.1 63 18 114/72 (86) 97 Room Air I&O- Last 24 Hours up to 6 AM 10/27/19 06:00 Intake Total 840 ml Output Total 350 ml Balance 490 ml JAUN NATHAN MD Oct 27, 2019 10:50
[2019-10-27] MEDS: oxyCODONE 5MG TAB PO PRN ×2 (11:29→20:19)
[2019-10-27 11:55] VITALS: BP 106/61
[2019-10-27 16:00] VITALS: BP 117/69
[2019-10-27 20:00] VITALS: BP 107/67
[2019-10-27] MEDS: cefTRIAXone SOD 1 GM in D5W MINI-BAG PLUS 50 ML IV SCH (20:17)
[2019-10-27] MEDS: ROSUVASTATIN 10 MG TAB (CRESTOR) PO SCH (20:18)
[2019-10-28] VITALS: BP 105/61
[2019-10-28 04:00] VITALS: BP 108/66
[2019-10-28] MEDS: DEXTROSE 50% 50 ML SYRINGE IV SCH ×3 (05:14→17:53)
[2019-10-28 05:43] LABS: BASO % 0.5 % (0.0-1.0); EOS # 0.2 10^3/uL (0.0-0.5); EOS % 3.7 % (0.0-3.0); HEMATOCRIT 29.2 % (42.0-52.0); LYMPH % 15.6 % (24.0-44.0); MEAN CORPUSCULAR HGB CONC 30.8 g/dl (32.0-36.5); MEAN CORPUSCULAR VOLUME 81.1 fl (80.0-96.0); MONO # 0.6 10^3/uL (0.0-0.8); MONO % 9.8 % (0.0-5.0); NEUTROPHILS # 4.4 10^3/uL (1.5-8.5); NEUTROPHILS % 69.9 % (36.0-66.0); PLATELET COUNT, AUTOMATED 241 10^3/uL (150-450); WHITE BLOOD COUNT 6.3 10^3/uL (4.0-10.0)
[2019-10-28 06:09] LABS: CALCIUM LEVEL 8.3 MG/DL (8.5-10.1); CREATININE FOR GFR 2.21 MG/DL (0.70-1.30); GLOMERULAR FILTRATION RATE 32.7 (>56); MAGNESIUM LEVEL 2.5 MG/DL (1.8-2.4); POTASSIUM SERUM 3.5 MEQ/L (3.5-5.1)
[2019-10-28 08:00] VITALS: BP 113/67
--- NOTE | 2019-10-28 08:55 | IPNPDOC ---
Text Note Date of Service The patient was seen on 10/28/19. NOTE Subjective: Sugars better now. Though still in low 100s. Feeling better, appe tite OK, having about 2 to 3 bowel movements daily. No longer somnolent. leg swelling improving, no abdominal pain. Physical Exam: Vitals: As below. General Exam: Positive: Alert, Cooperative, No Acute Distress Eye Exam: Positive: PERRLA, Conjunctiva & lids normal, EOMI; Negative: Sclera icteric ENT Exam: Positive: Mucous membr. moist/pink, Pharynx Normal, Other ENT (bruising around both eyes and forehead and nose) Neck Exam: Positive: Supple, JVD; Negative: thyromegaly Chest Exam: Positive: Normal air movement, Other (basal crackles ) Heart Exam: Positive: Rate Normal, Regular Rhythm, Normal S1, Normal S2; Negative: Murmurs, Rubs Telemetry: Positive: No significant arrhythmia Abdomen Exam: Positive: Normal bowel sounds, Soft, Nontender, Other (No guarding or rigidity or rebound) Extremity Exam: Positive: Edema (bilateral 2+ pedal.); Negative: Clubbing Neuro Exam: Positive: Normal Speech, Strength at 5/5 X4 ext, Normal Tone, Other (flap present) Psych Exam: Positive: Memory Intact, Oriented x 3 Labs and Radiology reviewed. Assessment and plan: 58-year-old male with past medical history of recurrent left knee effusion, gouty arthritis of the left knee, coronary artery disease status post CABG, Systolic and diastolic congestive heart failure, atrial fibrillation on Eliquis, COPD, Pulmonary hypertension, cirrhosis s/p paracentesis in april 2019, h/o alcohol abuse int eh past, H/o CVA with left sided numbness and pain, anxiety, diabetes, hypertension, hyperlipidemia, plate like atelectasis of right middle lobe presented to ED bilateral leg swelling, abdominal swelling, abdominal pain and excessive sleepiness. Patient had a fall on his face 2 weeks ago when he tripped over his slippers and had bruising around both of his eyes. He also noted gradual swelling of both of his legs of he past 3 weeks and then started having pain and swelling of his abdomen over the past week. He reports that he was supposed to go for liver Bx 2 days later for his cirrhosis. He also reported that he has been feeling very tired and sleeping more. He sleeps more during the day than night. He was admitted for CHF exacerbation and possible hepatic encephalopathy and decompensated cirrhosis. Acute on chronic Chronic Systolic and diastolic Congestive heart failure/ AICD in place with moderate pulmonary hypertension EF of 20% to 25%. Continue IV lasix Monitor I/O, daily weights. Acute metabolic encephalopathy now resolved. Hepatic encephalopathy/ uremic encephalopathy/ Narcotic medications( oxycodone and buprenorphine patch) and hypoglycemia In the background of renal and hepatic impairment his dose of narcotic may need to be reduced. lactulose, ceftriaxone empirically to cover for SBP Cirrhosis with ascites Not enough fluid to be tapped. Cardiac cirrhosis Vs alcoholic cirrhosis. Has past h/o alcohol abuse quit > 20 years ago. spironolactone dced before due to hyperkalemia. continue Lasix and ceftriaxone Presumptive SBP continue with ceftriaxone 5 to 7 days. KAROLINA on CKD stage 3 Baseline creatinine around 1.8 to 2.0 due to CHF exacerbation and decompensated cirrhosis. Possible Pneumonia/ atelectasis as per CT chest will continue with ceftriaxone. Coronary artery disease/CABG/ hyperlipidemia statin, eliquis will hold for procedure. Atrial fibrillation. EKG is paced. will hold eliquis for possible tap. COPD/ Moderate pulmonary hypertension symbicort Chronic Pain from CVA in 2014 with residual Chronic Left sided pain / paraesthesia and numbness. and DDD and sciatica follows with pain management on narcotics as outpatient. tylenol, oxycodone, gabapentin. On Buprenorphine patch as outpatient, stopped that now. Gout with recurrent attacks of gouty arthritis continue home meds. DIABETES / peripheral neuropathy Hypoglycemia after 1 dose of levemir in hospital . Has been hypoglycemic for 2 days. Now off all antidiabetic meds. gabapentin HYPERTENSION Bp well controlled Hyperlipidemia statin ANXIETY buspar Anemia of chronic disease stable. VS,Fishbone, I+O VS, Fishbone, I+O Laboratory Tests 10/28/19 05:13 Vital Signs Date Time Temp Pulse Resp B/P (MAP) Pulse Ox O2 Delivery O2 Flow Rate FiO2 10/28/19 08:00 97.4 60 18 113/67 (82) 98 Room Air I&O- Last 24 Hours up to 6 AM 10/28/19 05:59 Intake Total 990 ml Output Total 1860 ml Balance -870 ml JAUN NATHAN MD Oct 28, 2019 08:55
[2019-10-28] MEDS: LACTULOSE 20 GM/30 ML SYRUP UD PO SCH ×2 (09:12→20:56)
[2019-10-28] MEDS: FUROSEMIDE 100MG/10ML VIAL (J1940) IV SCH ×2 (09:12→17:52)
[2019-10-28] MEDS: GABAPENTIN 400 MG CAP PO SCH ×2 (09:13→20:56)
[2019-10-28] MEDS: oxyCODONE 5MG TAB PO PRN ×2 (09:29→17:52)
[2019-10-28 12:30] VITALS: BP 109/68
[2019-10-28 14:00] VITALS: BP 110/69
[2019-10-28] MEDS: cefTRIAXone SOD 1 GM in D5W MINI-BAG PLUS 50 ML IV SCH (20:56)
[2019-10-28] MEDS: ROSUVASTATIN 10 MG TAB (CRESTOR) PO SCH (20:56)
[2019-10-28 22:00] VITALS: BP 112/67
[2019-10-29] MEDS: DEXTROSE 50% 50 ML SYRINGE IV SCH ×3 (00:35→12:00)
[2019-10-29] MEDS: oxyCODONE 5MG TAB PO PRN (04:15)
[2019-10-29 06:00] VITALS: BP 116/66
[2019-10-29 06:49] LABS: BASO % 0.4 % (0.0-1.0); EOS # 0.2 10^3/uL (0.0-0.5); HEMATOCRIT 30.4 % (42.0-52.0); HEMOGLOBIN 9.2 g/dl (13.5-17.5); LYMPH % 13.2 % (24.0-44.0); MEAN CORPUSCULAR HEMOGLOBIN 25.2 pg (27.0-33.0); MEAN CORPUSCULAR HGB CONC 30.3 g/dl (32.0-36.5); MEAN CORPUSCULAR VOLUME 83.3 fl (80.0-96.0); MONO # 0.7 10^3/uL (0.0-0.8); MONO % 8.9 % (0.0-5.0); NEUTROPHILS # 5.5 10^3/uL (1.5-8.5); NEUTROPHILS % 74.1 % (36.0-66.0); PLATELET COUNT, AUTOMATED 234 10^3/uL (150-450); RED BLOOD COUNT 3.65 10^6/uL (4.30-6.10); WHITE BLOOD COUNT 7.4 10^3/uL (4.0-10.0)
[2019-10-29 07:12] LABS: CALCIUM LEVEL 8.1 MG/DL (8.5-10.1); CREATININE FOR GFR 2.16 MG/DL (0.70-1.30); GLOMERULAR FILTRATION RATE 33.6 (>56); MAGNESIUM LEVEL 2.4 MG/DL (1.8-2.4); POTASSIUM SERUM 3.8 MEQ/L (3.5-5.1)
[2019-10-29] MEDS: GABAPENTIN 400 MG CAP PO SCH (08:45)
[2019-10-29] MEDS: FUROSEMIDE 100MG/10ML VIAL (J1940) IV SCH (08:45)
[2019-10-29] MEDS ORDERED: LACT20EL PO (12:30)
[2019-10-29] MEDS ORDERED: TOUJ1.2I SC (12:30)
[2019-10-29 16:15] LABS: HEMOGLOBIN A1c 7.5 %
--- NOTE | 2019-11-07 14:55 | ECGEPIP ---
[facility] - ED Test Date: 2019-10-24 Pat Name: RY WILLIAM Department: Room: - Gender: Male Rn Ostomy: caren : 1960 Requested By: Shon Pathak Order Number: [id number] Reading MD: Mariann Mchugh Measurements Intervals Blue Rate: 65 P: GA: 0 QRS: 208 QRSD: 181 T: 18 QT: 549 QTc: 572 Interpretive Statements ELECTRONIC VENTRICULAR PACEMAKER ABNORMAL RHYTHM ECG SEE SCANNED DOWNTIME REPORT
--- NOTE | 2019-11-11 11:59 | DS.PDOC ---
Discharge Summary General Date of Admission Oct 24, 2019 at 18:09 Date of Discharge 10/29/19 Discharge Summary PROCEDURES PERFORMED DURING STAY: [None]. DISCHARGE DIAGNOSES: Acute on Chronic systolic and diastolic CHF Acute metabolic encephalopathy Decompensated cirrhosis of liver with hepatic encephalopathy Presumptive SBP Middle lobe pneumonia KAROLINA on CKD Hypoglycemia SECONDARY DIAGNOSIS: Recurrent left knee effusion, gouty arthritis of the left knee, coronary artery disease status post CABG, atrial fibrillation on Eliquis, COPD, Pulmonary hypertension, H/o CVA with left sided numbness and pain, anxiety, diabetes, hypertension, hyperlipidemia, Chronic anemia COMPLICATIONS/CHIEF COMPLAINT: Chf Exacerbation Hepatic Encephalopathy. HOSPITAL COURSE: 58-year-old male with past medical history of recurrent left knee effusion, gouty arthritis of the left knee, coronary artery disease status post CABG, Systolic and diastolic congestive heart failure, atrial fibrillation on Eliquis, COPD, Pulmonary hypertension, cirrhosis s/p paracentesis in april 2019, h/o alcohol abuse int eh past, H/o CVA with left sided numbness and pain, anxiety, diabetes, hypertension, hyperlipidemia, plate like atelectasis of right middle lobe presented to ED bilateral leg swelling, abdominal swelling, abdominal pain and excessive sleepiness. Patient had a fall on his face 2 weeks ago when he tripped over his slippers and had bruising around both of his eyes. He also noted gradual swelling of both of his legs of he past 3 weeks and then started having pain and swelling of his abdomen over the past week. He reports that he was supposed to go for liver Bx 2 days later for his cirrhosis. He also reported that he has been feeling very tired and sleeping more. He sleeps more during the day than night. He was admitted for CHF exacerbation and possible hepatic encephalopathy and decompensated cirrhosis. Acute on Chronic Systolic and diastolic Congestive heart failure/ AICD in place with moderate pulmonary hypertension EF of 20% to 25%. Continue diuretics Monitor I/O, daily weights. Acute metabolic encephalopathy now resolved. Hepatic encephalopathy/ uremic encephalopathy/ Narcotic medications( oxycodone and buprenorphine patch) and hypoglycemia In the background of renal and hepatic impairment his dose of narcotic may need to be reduced. lactulose, ceftriaxone empirically to cover for SBP Cirrhosis with ascites Not enough fluid to be tapped. Cardiac cirrhosis Vs alcoholic cirrhosis. Has past h/o alcohol abuse quit > 20 years ago. spironolactone dced before due to hyperkalemia. continue Lasix and ceftriaxone Presumptive SBP continue with ceftriaxone 5 to 7 days. KAROLINA on CKD stage 3 Baseline creatinine around 1.8 to 2.0 due to CHF exacerbation and decompensated cirrhosis. Possible Pneumonia/ atelectasis as per CT chest treated with ceftriaxone. Coronary artery disease/CABG/ hyperlipidemia statin, eliquis Atrial fibrillation. EKG is paced. eliquis continued. COPD/ Moderate pulmonary hypertension symbicort Chronic Pain from CVA in 2015 with residual Chronic Left sided pain / paraesthesia and numbness. and DDD and sciatica follows with pain management on narcotics as outpatient. tylenol, oxycodone, gabapentin. On Buprenorphine patch as outpatient, stopped that now. Gout with recurrent attacks of gouty arthritis continue home meds. DIABETES / peripheral neuropathy Hypoglycemia after 1 dose of levemir in hospital . Has been hypoglycemic for 2 days. A1c 7.5. Will be restarted on insulin lower dose. stopped oral med gabapentin HYPERTENSION Bp well controlled Hyperlipidemia statin ANXIETY buspar Anemia of chronic disease stable. DISCHARGE MEDICATIONS: Please see below. ALLERGIES: Please see below. PHYSICAL EXAMINATION ON DISCHARGE: VITAL SIGNS: Please see below. General Exam: Positive: Alert, Cooperative, No Acute Distress Eye Exam: Positive: PERRLA, Conjunctiva & lids normal, EOMI; Negative: Sclera icteric ENT Exam: Positive: Mucous membr. moist/pink, Pharynx Normal, Other ENT (bruising around both eyes and forehead and nose) Neck Exam: Positive: Supple, JVD; Negative: thyromegaly Chest Exam: Positive: Normal air movement, Other (basal crackles ) Heart Exam: Positive: Rate Normal, Regular Rhythm, Normal S1, Normal S2; Negative: Murmurs, Rubs Telemetry: Positive: No significant arrhythmia Abdomen Exam: Positive: Normal bowel sounds, Soft, Nontender, Other (No guarding or rigidity or rebound) Extremity Exam: Positive: Edema (bilateral 2+ pedal.); Negative: Clubbing Neuro Exam: Positive: Normal Speech, Strength at 5/5 X4 ext, Normal Tone, Other (flap present) Psych Exam: Positive: Memory Intact, Oriented x 3 LABORATORY DATA: Please see below. ACTIVITY: [As tolerated]. DIET: Carb consistent DISPOSITION: 01 Home, Self-Care. DISCHARGE INSTRUCTIONS: PMD in 1 week DISCHARGE CONDITION: [Stable]. TIME SPENT ON DISCHARGE: 35 minutes. Vital Signs/I&Os Vital Signs Label Value Date Time Patient Temperature 98.5 degrees F 10/29/19599 Temperature Source Oral 10/29/19599 Pulse 65 10/29/19599 Respiratory Rate 18 bpm 10/29/19599 Blood Pressure Assessment 116/66 (83) 10/29/19599 Bedside Pulse Oximetry 96 % 10/29/19599 Item Value Date Time Oxygen Delivery Method Room Air 10/29/19599 Laboratory Data CBC/BMP Item Value Date Time Sodium Level 140 MEQ/L 10/29/19630 Potassium Level 3.8 MEQ/L 10/29/19630 Chloride Level 102 MEQ/L 10/29/19630 Carbon Dioxide Level 29 MEQ/L 10/29/19630 Anion Gap 9 MEQ/L 10/29/19630 Blood Urea Nitrogen 70 MG/DL H 10/29/19630 Creatinine 2.16 MG/DL H 10/29/19630 Glomerular Filtration Rate 33.6 L 10/29/19630 Fasting Glucose 178 MG/DL H 10/29/19630 Estimated Mean Plasma Glucose 169 MG/DL H 10/29/19630 Hemoglobin A1c 7.5 % 10/29/19630 Calcium Level 8.1 MG/DL L 10/29/19630 Magnesium Level 2.4 MG/DL 10/29/19630 White Blood Count 7.4 10^3/uL 10/29/19630 Red Blood Count 3.65 10^6/uL L 10/29/19630 Hemoglobin 9.2 g/dl L 10/29/19630 Hematocrit 30.4 % L 10/29/19630 Mean Corpuscular Volume 83.3 fl 10/29/19630 Mean Corpuscular Hemoglobin 25.2 pg L 10/29/19630 Mean Corpuscular Hemoglobin Concent 30.3 g/dl L 10/29/19630 Red Cell Distribution Width 17.3 % H 10/29/19630 Platelet Count 234 10^3/uL 10/29/19630 Immature Granulocyte % (Auto) 0.4 % 10/29/19630 Neutrophils (%) (Auto) 74.1 % H 10/29/19630 Lymphocytes (%) (Auto) 13.2 % L 10/29/19630 Monocytes (%) (Auto) 8.9 % H 10/29/19630 Eosinophils (%) (Auto) 3.0 % 10/29/19630 Basophils (%) (Auto) 0.4 % 10/29/19630 Neutrophils # (Auto) 5.5 10^3/uL 10/29/19630 Lymphocytes # (Auto) 1.0 10^3/uL L 10/29/19630 Monocytes # (Auto) 0.7 10^3/uL 10/29/19630 Eosinophils # (Auto) 0.2 10^3/uL 10/29/19630 Basophils # (Auto) 0.0 10^3/uL 10/29/19630 Nucleated Red Blood Cells % (auto) 0.0 % 10/29/19630 Discharge Medications Scheduled Apixaban (Eliquis) 2.5 Mg Tablet, 2.5 MG PO BID, (Reported) Bumetanide (Bumetanide) 2 Mg Tablet, 2 MG PO BID, (Reported) TAKES AM/AFTERNOON Buprenorphine (Butrans) 10 Mcg/Hr Patch.tdwk, 20 MCG TOP Q7D, (Reported) APPLIED TO RIGHT CHEST Buspirone HCl (Buspirone HCl) 10 Mg Tablet, 10 MG PO BID, (Reported) Ergocalciferol (Vitamin D2) (Vitamin D2) 50,000 Units Cap, 50,000 UNITS PO QWEEK, (Reported) SUNDAYS Gabapentin (Gabapentin) 400 Mg Cap, 400 MG PO BID, (Reported) Insulin Glargine,Hum.rec.anlog (Todaron Solostar) 300 Unit/1 Ml Insuln.pen, 7 UNITS SC DAILY Do not take insulin if FS< 150 Lactobacillus Acidophilus (Probiotic) 1 Each Capsule, 1 CAP PO DAILY, (Reported) Lactulose (Lactulose) 10 Gm/15 Ml Solution, 15 ML PO BID Oxycodone HCl (Oxycodone HCl) 5 Mg Tablet, 5 MG PO QID, (Reported) 0700/1200/1800/2100 Polyvinyl Alcohol (Artificial Tears) 15 Ml Drops, 1 DROP OU BID, (Reported) Rosuvastatin Calcium (Rosuvastatin Calcium) 40 Mg Tablet, 20 MG PO QHS, (Reported) Scheduled PRN Albuterol Sulf (Albuterol Sulfate) 2.5 Mg/3 Ml Vial.neb, 2.5 MG INH Q4H PRN for SHORTNESS OF BREATH, (Reported) Albuterol Sulfate (Ventolin Hfa) 18 Gm Hfa.aer.ad, 1 PUFF INH PRN PRN for SOB/WHEEZING, (Reported) Nitroglycerin (Nitrostat) 0.4 Mg Subl, 0.4 MG SL NITRO PRN for CHEST PAIN, (Reported) Allergies Coded Allergies: fenofibrate (Unverified Allergy, Unknown, UNKNOWN REACTION, 10/24/19) gemfibrozil (Unverified Allergy, Unknown, UNKNOWN REACTION, 10/24/19) baclofen (Verified Adverse Reaction, Intermediate, blacks out, 10/24/19) metformin (Verified Adverse Reaction, Intermediate, diarrhea, 02/05/19) JAUN NATHAN MD Nov 11, 2019 11:58
--- NOTE | 2019-11-13 16:35 | REP ---
LIMITED ABDOMINAL ULTRASOUND: HISTORY: Evaluate for ascites and possible paracentesis. TECHNIQUE: Real time, orellana scale ultrasound examination using curved array transducer. FINDINGS: Images through the abdomen and pelvis demonstrate minimal amount of ascites inadequate for paracentesis. Incidental note of right pleural effusion noted. IMPRESSION: Minimal amount of ascites. Paracentesis not performed. Right pleural effusion. MTDD
== END 2019-10-29 13:25 | disposition home or self-care (01) | DRG 291 ==
LOC: EDBD 14:22 → M ED 14:22 → M ED INP 18:09 → ENRESERV 19:51 → M PCU 21:04 → M MS5PR 10-28 12:36
PROVIDERS: ADMIT Internal Medicine Nephrology; ATTEND Internal Medicine Nephrology
DX: I13.0 Hypertensive heart and chronic kidney disease with heart failure and stage 1 through stage 4 chronic kidney disease, or unspecified chronic kidney disease (principal); G93.41 Metabolic encephalopathy; J18.9 Pneumonia, unspecified organism; K65.2 Spontaneous bacterial peritonitis; I50.43 Acute on chronic combined systolic (congestive) and diastolic (congestive) heart failure; N17.9 Acute kidney failure, unspecified; J44.0 Chronic obstructive pulmonary disease with (acute) lower respiratory infection; I69.354 Hemiplegia and hemiparesis following cerebral infarction affecting left non-dominant side; N18.3 Chronic kidney disease, stage 3 (moderate); K70.30 Alcoholic cirrhosis of liver without ascites; K76.1 Chronic passive congestion of liver; K72.90 Hepatic failure, unspecified without coma; I25.10 Atherosclerotic heart disease of native coronary artery without angina pectoris; E78.5 Hyperlipidemia, unspecified; E11.649 Type 2 diabetes mellitus with hypoglycemia without coma; I48.91 Unspecified atrial fibrillation; I27.20 Pulmonary hypertension, unspecified; M25.461 Effusion, right knee; G89.29 Other chronic pain; E11.42 Type 2 diabetes mellitus with diabetic polyneuropathy; F41.9 Anxiety disorder, unspecified; D63.1 Anemia in chronic kidney disease; M10.061 Idiopathic gout, right knee; K59.00 Constipation, unspecified; Z95.1 Presence of aortocoronary bypass graft; Z79.01 Long term (current) use of anticoagulants; Z79.4 Long term (current) use of insulin; Z79.899 Other long term (current) drug therapy; Z88.8 Allergy status to other drugs, medicaments and biological substances

== ENCOUNTER 2019-11-12 10:10 | Emergency (ER) | payer MEDICARE, OTHER ==
[~2019-11-12] VITALS: Ht 175.3 cm; Wt 77.3 kg
[~2019-11-12 10:10] MED LIST changes: +ALBU83IN INH; +LACT20EL PO; +PROBCAP14 PO
[2019-11-12] MEDS ORDERED: CRES5TAB PO (10:31)
--- NOTE | 2019-11-12 10:46 | REPVR ---
PROCEDURE INFORMATION: Exam: CT Head Without Contrast Exam date and time: 11/12/2019 10:17 AM Age: 58 years old Clinical indication: Injury or trauma; Fall; Initial encounter; Blunt trauma (contusions or hematomas) TECHNIQUE: Imaging protocol: Computed tomography of the head without contrast. Radiation optimization: All CT scans at this facility use at least one of these dose optimization techniques: automated exposure control; mA and/or kV adjustment per patient size (includes targeted exams where dose is matched to clinical indication); or iterative reconstruction. COMPARISON: CT Head without contrast 10/24/2019 3:13 PM FINDINGS: Brain: Normal. No hemorrhage. Unremarkable white matter. No mass effect. Ventricles: The ventricles and sulci are stable in configuration. Bones/joints: Unremarkable. No acute fracture. Paranasal sinuses: Visualized sinuses are unremarkable. No fluid levels. Mastoid air cells: Visualized mastoid air cells are well aerated. Vasculature: Intracranial atherosclerotic vascular calcifications are again present. Soft tissues: Unremarkable. IMPRESSION: No CT evidence for acute intracranial abnormality. Electronically signed by: Solo Huynh On 11/12/2019 10:46:35 AM
--- NOTE | 2019-11-12 11:01 | REPVR ---
PROCEDURE INFORMATION: Exam: XR Left Shoulder Exam date and time: 11/12/2019 10:45 AM Age: 58 years old Clinical indication: Injury or trauma; Fall; Initial encounter; Swelling (edema); Shoulder; Left TECHNIQUE: Imaging protocol: XR Left shoulder. Views: 2 or more views. COMPARISON: CR Shoulder, complete 02/01/2018 8:01 PM FINDINGS: Tubes, catheters and devices: A left-sided AICD is again present. Bones/joints: No acute fracture is identified. The acromioclavicular joint is not significantly widened. It demonstrates similar minor arthrosis. Cannot confirm glenohumeral alignment without a transscapular or axillary view. Median sternotomy wires are again present, some again discontiguous. Soft tissues: The soft tissues appear grossly unremarkable. IMPRESSION: No acute fracture identified. Cannot confirm glenohumeral alignment as above. Electronically signed by: Solo Huynh On 11/12/2019 11:01:15 AM
--- NOTE | 2019-11-12 11:19 | REPVR ---
PROCEDURE INFORMATION: Exam: XR Left Elbow Exam date and time: 11/12/2019 10:45 AM Age: 58 years old Clinical indication: Injury or trauma; Fall; Initial encounter; Fracture, traumatic injury; Closed fracture; Elbow; Left TECHNIQUE: Imaging protocol: XR Left elbow. Views: 3 or more views. COMPARISON: No relevant prior studies available. FINDINGS: Bones/joints: There is a minimally displaced supracondylar humeral fracture extending horizontally between the medial and lateral epicondyles, with vertical extension of fracture distally to the articular surface of the trochlea. Question additional minimally displaced fracture along the radial head laterally. No other fracture is identified. The joint spaces are normally aligned. There is displacement of the fat pads, compatible with associated joint effusion. Soft tissues: The soft tissues are swollen. IMPRESSION: Acute distal humeral fracture with associated joint effusion. Question additional radial head fracture. Electronically signed by: Solo Huynh On 11/12/2019 11:18:58 AM
[2019-11-12] MEDS ORDERED: ONDANSETRON 4MG/2ML VIAL IV ONE (12:00)
[2019-11-12] MEDS ORDERED: MORPHINE 4 MG/ML 1ML VIAL/SYRINGE (J2270) IV PRN (12:00)
[2019-11-12] MEDS ORDERED: PERC5TAB12 PO (13:12)
[2019-11-12 13:51] VITALS: BP 115/77
== END 2019-11-12 14:25 | disposition home or self-care (01) ==
LOC: M ED 10:10 → EDBD 10:10 → M ED 14:25
DX: S42.402A Unspecified fracture of lower end of left humerus, initial encounter for closed fracture (principal); W01.0XXA Fall on same level from slipping, tripping and stumbling without subsequent striking against object, initial encounter; Y92.019 Unspecified place in single-family (private) house as the place of occurrence of the external cause; Y99.9 Unspecified external cause status; M25.422 Effusion, left elbow; I48.91 Unspecified atrial fibrillation; I11.0 Hypertensive heart disease with heart failure; J44.9 Chronic obstructive pulmonary disease, unspecified; K70.30 Alcoholic cirrhosis of liver without ascites; Z79.01 Long term (current) use of anticoagulants; Z79.51 Long term (current) use of inhaled steroids; Z79.899 Other long term (current) drug therapy; Z88.8 Allergy status to other drugs, medicaments and biological substances
CPT/HCPCS: 70450; 73030; 73080; 96374; 99284; J2270